=== PATIENT | female | born 1950 | race Caucasian/White ===

== ENCOUNTER 2017-08-22 20:41 | Observation (INO) ==
[2017-08-22 21:39] LABS: Bilirubin,Urine Small (Negative); Blood,Urine Negative (Negative); Clarity,Urine Clear (Clear); Color,Urine Yellow (Yellow); Glucose,Urine (UA) Normal (Normal); Ketones,Urine Negative (Negative); Leukocyte Esterase,Urine Small (Negative); Nitrite,Urine Negative (Negative); Protein,Urine Negative (Neg-Trace); Specific Gravity,Urine 1.024 (1.010-1.025); Urobilinogen,Urine Normal (Normal)
[2017-08-22 21:42] LABS: Bacteria,Urine None Seen per hpf (None-Few); Hyaline Casts,Urine None Seen per lpf (None-Few); Squamous Epithelial Cell,Urine Many per lpf (None-Few)
--- NOTE | 2017-08-22 21:42 | Emergency Department Note ---
Disposition Clinical Impression: Altered mental status Qualifiers: Altered mental status type: unspecified Qualified Code(s): R41.82 - Altered mental status, unspecified Failure to thrive Qualifiers: Failure to thrive age range: in adult Qualified Code(s): R62.7 - Adult failure to thrive Disposition: Admitted As Inpatient Condition: Good General Adult HPI - General Chief complaint: ED Psychiatric Symptoms Stated complaint: 1A Eval Time Seen by Provider: 08/22/17 20:49 Source: patient Mode of arrival: ambulatory Limitations: no limitations Nursing Notes Reviewed: Yes Vital Signs Reviewed: Yes - History of Present Illness HPI Narrative: 67 yo female presents with concerns of possible hallucinations and inability to live safely at home. Pt states she was woken from sleep and saw bodies on an airplane in the room with her. She also noted seeing mannequins in her trailer last week and has locked herself out of her trailer multiple times. Not eating or drinking well due to lack of appetite. hallucination have occurred previously which was apparently secondary to dehydration. Pt states she is unable to provide for herself at home secondary to weakness. Patient and family state that patient is very unsteady on her feet and has fallen multiple times in the past and has difficulty ambulating around her trailer. Pain Scale: 6 - Related Data Home Medications Medication Instructions Recorded Confirmed Alendronate Sodium [Fosamax] 70 mg PO QWEEK 03/04/16 08/23/17 Allopurinol [Zyloprim 100 MG] 100 mg PO DAILY 03/04/16 08/23/17 Calcipotriene [Dovonex] 1 appl TP BID 03/04/16 08/23/17 Carbidopa/Levodopa 25/100 [Sinemet 1 tab PO DAILY 03/04/16 08/23/17 25/100] Clobetasol Propionate 0.05% 1 appl TP BID 03/04/16 08/23/17 [Temovate] Divalproex (24 HR) [Depakote ER 250 mg PO HS 03/04/16 08/23/17 (24 HR)] Ergocalciferol (VITAMIN D2) 50,000 unit PO QWEEK 03/04/16 08/23/17 [Vitamin D2 (50,000 UNIT)] Famotidine [Pepcid] 40 mg PO DAILY 03/04/16 08/23/17 Furosemide [Lasix] 20 mg PO DAILY 03/04/16 08/23/17 Gabapentin [Neurontin] 100 mg PO TID 03/04/16 08/23/17 HYDROcodone/Acet 5/325 mg [[place] 1 tab PO Q6H PRN 03/04/16 08/23/17 5-325 mg] HydrOXYzine Pamoate [Vistaril] 50 mg PO HS 03/04/16 08/23/17 Lisinopril [Zestril] 40 mg PO DAILY 03/04/16 08/23/17 Loperamide [Imodium] 2 mg PO TID PRN 03/04/16 08/23/17 Loratadine [Claritin] 10 mg PO DAILY 03/04/16 08/23/17 Magnesium Oxide [Magnesium] 400 mg PO DAILY 03/04/16 08/23/17 Meloxicam [Mobic] 15 mg PO DAILY 03/04/16 08/23/17 Metoprolol [Lopressor] 50 mg PO BID 03/04/16 08/23/17 Mirtazapine [Remeron] 30 mg PO HS 03/04/16 08/23/17 Potassium Chloride [K-Tab ER] 20 meq PO DAILY 03/04/16 08/23/17 Pravastatin Sodium 10 mg PO DAILY 03/04/16 08/23/17 Venlafaxine XR (24 HR) [Effexor XR] 150 mg PO DAILY 03/04/16 08/23/17 Zolpidem [Ambien] 5 mg PO HS 03/04/16 08/23/17 Allergies Allergy/AdvReac Type Severity Reaction Status Date / Time No Known Allergies Allergy Verified 03/04/16 19:51 All systems ED: reviewed and negative except as stated. Constitutional: Denies: fever, chills, weakness Cardiovascular: Denies: chest pain, palpitations, dyspnea on exertion Respiratory: Denies: cough, dyspnea, wheezes Gastrointestinal: Denies: abdominal pain, nausea, vomiting Musculoskeletal: Reports: back pain (chronic, unchanged) Integumentary: Denies: rash, abrasion Neurological: Denies: headache, weakness, numbness Past Medical History - Past Medical History Attestation: Yes The following information was validated with the patient. Source: patient Medical history: Reports: cardiomyopathy, CHF, COPD, hyperlipidemia, hypertension, TIA Psychiatric history: Reports: no psych history - Social History Smoking Status: Current some day smoker Smokeless Tobacco Status: No Alcohol use: Reports: none Drug use: Reports: none Physical Exam General: Alert and in no acute distress Skin: Warm, dry, intact Head: Normocephalic and atraumatic Neck: Supple, trachea midline and no tenderness Cardiovascular: RRR, no murmur, normal perfusion Respiratory: CTAB, no wheezing, cough, or respiratory distress Musculoskeletal: Normal strength, no tenderness, swelling or deformity GI: Soft, nontender, nondistended. Bowel sounds present Neuro: A&O to person, place, time and situation. No focal deficits noted on exam Psychiatric: cooperative and appropriate mood and affect. - General General appearance: alert, anxious Course Vital Signs Temperature 98.1 F 08/22/17 20:44 Pulse Rate 93 08/22/17 20:44 Respiratory Rate 16 08/22/17 20:44 Blood Pressure 140/103 08/22/17 20:44 O2 Sat by Pulse Oximetry 96 08/22/17 20:44 Temperature 98.1 F 08/23/17 04:08 Pulse Rate 106 08/23/17 04:08 Respiratory Rate 17 08/23/17 04:08 Blood Pressure 130/83 08/23/17 04:08 O2 Sat by Pulse Oximetry 95 08/23/17 04:08 Oxygen Delivery Oxygen Delivery Room Air Medical Decision Making - [facility] Narrative Medical decision making narrative: Patient does not feel comfortable to return home to follow-up with primary care provider. She is unable to ambulate or get out of bed in the emergency department. Patient will be admitted to the hospital for further care and evaluation of her possible hallucinations versus altered mental status and inability to ambulate. - Medical Records Medical records reviewed: Yes I reviewed the patient's medical records. - Lab Data Lab results reviewed: Yes I reviewed the patient's lab results. Result diagrams: 08/22/17 21:43 08/22/17 21:43 Lab Results 08/22/17 08/22/17 08/22/17 Range/Units 21:23 21:23 21:43 WBC 10.8 (4.3-11.1) K/mcL RBC 4.00 (3.82-4.97) M/mcL Hgb 13.1 (11.5-15.4) g/dL Hct 39.6 (35.3-44.9) % MCV 99.0 (83.0-100.0) fL MCH 32.8 (28.0-33.3) pg MCHC 33.1 (31.6-35.5) g/dL RDW 14.2 (11.5-14.5) % Plt Count 257 (140-400) K/mcL MPV 11.2 (9.4-12.4) fL Immature Gran % 0.3 (0-4) % Seg Neutrophils % 84.7 % Lymphocytes % 11.1 % Monocytes % 3.4 % Eosinophils % 0.3 % Basophils % 0.2 % Neutrophils # 9.1 H (1.6-8.9) K/mcL Lymphocytes # 1.2 (0.6-4.6) K/mcL Monocytes # 0.4 (0.0-1.3) K/mcL Eosinophils # 0.0 (0.0-0.6) K/mcL Basophils # 0.0 (0.0-0.2) K/mcL Sodium (136-145) mEq/L Potassium (3.5-4.5) mEq/L Chloride (98-109) mEq/L Carbon Dioxide (19-29) mEq/L BUN (7-20) mg/dL Creatinine (0.57-1.11) mg/dL Est GFR ( Amer) (> 60) Est GFR (Non-Af Amer) (> 60) BUN/Creatinine Ratio (6-26) Glucose (70-99) mg/dL Calculated Osmolality (280-300) Calcium (8.6-10.8) mg/dL Urine Color Yellow (Yellow) Urine Clarity Clear (Clear) Urine pH 6.0 (5.0-8.0) pH Units Ur Specific [place] 1.024 (1.010-1.025) Urine Protein Negative (Neg-Trace) mg/dL Urine Glucose (UA) Normal (Normal) mg/dL Urine Ketones Negative (Negative) mg/dL Urine Blood Negative (Negative) Urine Nitrite Negative (Negative) Urine Bilirubin Small H (Negative) Urine Urobilinogen Normal (Normal) mg/dL Ur Leukocyte Esterase Small H (Negative) Urine Microscopic RBC 3-5 H (0-3) per hpf Urine Microscopic WBC 5-15 H (0-3) per hpf Ur Squamous Epith Cells Many H (None-Few) per lpf Urine Bacteria None Seen (None-Few) per hpf Hyaline Casts None Seen (None-Few) per lpf Salicylates (15-30) mg/dL Urine Opiates Screen Positive H (Wgtvnr=277) ng/mL Acetaminophen (10-30) mcg/mL Ur Barbiturates Screen Negative (Xiuxok=506) ng/mL Ur Phencyclidine Scrn Negative (Cutoff=25) ng/mL Ur Amphetamines Screen Negative (Qwzyoe=9246) ng/mL U Benzodiazepines Scrn Negative (Bxkhns=780) ng/mL Urine Cocaine Screen Negative (Cutoff= 300) ng/mL U Marijuana (THC) Screen Negative (Cutoff = 50) ng/mL Ethyl Alcohol (0-10) mg/dL 08/22/17 Range/Units 21:43 WBC (4.3-11.1) K/mcL RBC (3.82-4.97) M/mcL Hgb (11.5-15.4) g/dL Hct (35.3-44.9) % MCV (83.0-100.0) fL MCH (28.0-33.3) pg MCHC (31.6-35.5) g/dL RDW (11.5-14.5) % Plt Count (140-400) K/mcL MPV (9.4-12.4) fL Immature Gran % (0-4) % Seg Neutrophils % % Lymphocytes % % Monocytes % % Eosinophils % % Basophils % % Neutrophils # (1.6-8.9) K/mcL Lymphocytes # (0.6-4.6) K/mcL Monocytes # (0.0-1.3) K/mcL Eosinophils # (0.0-0.6) K/mcL Basophils # (0.0-0.2) K/mcL Sodium 137 (136-145) mEq/L Potassium 4.4 (3.5-4.5) mEq/L Chloride 100 (98-109) mEq/L Carbon Dioxide 27 (19-29) mEq/L BUN 32 H (7-20) mg/dL Creatinine 0.84 (0.57-1.11) mg/dL Est GFR ( Amer) > 60 (> 60) Est GFR (Non-Af Amer) > 60 (> 60) BUN/Creatinine Ratio 38 H (6-26) Glucose 90 (70-99) mg/dL Calculated Osmolality 290 (280-300) Calcium 9.2 (8.6-10.8) mg/dL Urine Color (Yellow) Urine Clarity (Clear) Urine pH (5.0-8.0) pH Units Ur Specific [place] (1.010-1.025) Urine Protein (Neg-Trace) mg/dL Urine Glucose (UA) (Normal) mg/dL Urine Ketones (Negative) mg/dL Urine Blood (Negative) Urine Nitrite (Negative) Urine Bilirubin (Negative) Urine Urobilinogen (Normal) mg/dL Ur Leukocyte Esterase (Negative) Urine Microscopic RBC (0-3) per hpf Urine Microscopic WBC (0-3) per hpf Ur Squamous Epith Cells (None-Few) per lpf Urine Bacteria (None-Few) per hpf Hyaline Casts (None-Few) per lpf Salicylates < 5.0 L (15-30) mg/dL Urine Opiates Screen (Ztuttf=722) ng/mL Acetaminophen < 1.0 L (10-30) mcg/mL Ur Barbiturates Screen (Xwzdkj=885) ng/mL Ur Phencyclidine Scrn (Cutoff=25) ng/mL Ur Amphetamines Screen (Rjwzta=9959) ng/mL U Benzodiazepines Scrn (Xdauzl=996) ng/mL Urine Cocaine Screen (Cutoff= 300) ng/mL U Marijuana (THC) Screen (Cutoff = 50) ng/mL Ethyl Alcohol < 10 (0-10) mg/dL
[2017-08-22 21:43] LABS: Amphetamine Screen,Urine Negative ng/mL (Cutoff=1000); Barbiturate Screen,Urine Negative ng/mL (Cutoff=200); Benzodiazepines Screen,Urine Negative ng/mL (Cutoff=200); Cannabinoid Screen,Urine Negative ng/mL (Cutoff = 50); Cocaine Screen,Urine Negative ng/mL (Cutoff= 300); Opiate Screen,Urine Positive ng/mL (Cutoff=300); Phencyclidine Screen,Urine Negative ng/mL (Cutoff=25)
[2017-08-22] MEDS ORDERED: 0.9 % Sodium Chloride 1,000 ML IVC ONE (21:45)
[2017-08-22 22:01] LABS: Basophils % 0.2 %; Eosinophils % 0.3 %; Hematocrit 39.6 % (35.3-44.9); Hemoglobin 13.1 g/dL (11.5-15.4); Immature Granulocytes % 0.3 % (0-4); Lymphocytes # 1.2 K/mcL (0.6-4.6); Lymphocytes % 11.1 %; Mean Corpuscular HGB Conc 33.1 g/dL (31.6-35.5); Mean Corpuscular Hemoglobin 32.8 pg (28.0-33.3); Mean Platelet Volume 11.2 fL (9.4-12.4); Monocytes # 0.4 K/mcL (0.0-1.3); Monocytes % 3.4 %; Neutrophils # 9.1 K/mcL (1.6-8.9); Platelet Count 257 K/mcL (140-400); Red Cell Distribution Width 14.2 % (11.5-14.5); Segmented Neutrophils % 84.7 %
[2017-08-22 22:15] LABS: Acetaminophen < 1.0 mcg/mL (10-30); BUN/Creatinine Ratio 38 (6-26); Blood Urea Nitrogen 32 mg/dL (7-20); Calcium 9.2 mg/dL (8.6-10.8); Carbon Dioxide 27 mEq/L (19-29); Chloride 100 mEq/L (98-109); Ethanol < 10 mg/dL (0-10); Glucose 90 mg/dL (70-99); Osmolality,Calculated 290 (280-300); Potassium 4.4 mEq/L (3.5-4.5); Salicylate < 5.0 mg/dL (15-30); Sodium 137 mEq/L (136-145); eGFR For African Americans > 60 (> 60); eGFR For Non-African Americans > 60 (> 60)
[2017-08-23] MEDS ORDERED: Naloxone 0.4 MG/ML INJ IVP PRN (03:52)
[2017-08-23] MEDS ORDERED: *HR* OxyCODONE/APAP 5/325 TABLET PO PRN (03:56)
[2017-08-23] MEDS ORDERED: NON-FORMULARY MEDICATION 1 EACH EACH (Alendronate Sodium [Fosamax] 70 MG) PO SCH (04:00)
--- NOTE | 2017-08-23 04:13 | Internal Med History&Physical ---
Date of Encounter: 08/23/17 Time of Encounter: 02:00 Assessment and Plan (1) Chronic back pain Current visit: Yes Status: Acute Due to compressure fracture of veterbal since 4 yrs ago, pt seen many doctors and was told nonoperatable. Cont pain management. Pt/OT Qualifiers: Back pain location: low back pain Back pain laterality: midline Sciatica presence: without sciatica Qualified Code(s): M54.5 - Low back pain; G89.29 - Other chronic pain; G89.29 - Other chronic pain (2) Restless leg syndrome Current visit: Yes Status: Acute Cont home medication (3) DVT prophylaxis Current visit: No Status: Acute Heparin SC (4) Generalized weakness Current visit: No Status: Chronic Pt need placement as she cannot take care of herself. Will consult PT/OT and social service worker. (5) Hypertension Current visit: Yes Status: Acute cont home meds. Qualifiers: Hypertension type: essential hypertension Qualified Code(s): I10 - Essential (primary) hypertension Internal Medicine - H&P: HPI Chief complaint: General weakness and back pain Admitted From: Home Plans for Post Hospital Care: Transfer [facility] Care History of present illness: Ms. Tong is a 67 year old female with history of hypertension, restless leg syndrome, chronic back pain due to nonoperatible veterbral compression fracture sent to ER by EMS for general weakness and back pain. Pt lives alone and her chronic pain makes her very difficult to take care herself anymore. She decides to call EMS today and need placement. Pt was admitted for placement. Pt denies fever, chest pain, SOB, abd pain, diarrhea, or urinary symptoms. Past Med Surg Social Fam HX - Past Medical History Medical history: cardiomyopathy, CHF, COPD, hyperlipidemia, hypertension, TIA Psychiatric history: no psych history - Social History Smoking Status: Former smoker Smokeless Tobacco Status: No Alcohol use: none Drug use: none - Family History Father Living Status: Hx Family Cardiac Disorders: Yes (cardiomegaly) Brother Living Status: Hx Family Cancer: Yes (leukemia) Sister Hx Family Endocrine Disorder: Yes (DM) Internal Medicine - H&P: Meds Alendronate Sodium [Fosamax] 70 mg PO QWEEK 03/04/16 [History] Allopurinol [Zyloprim 100 MG] 100 mg PO DAILY 03/04/16 [History] Calcipotriene [Dovonex] 1 appl TP BID 03/04/16 [History] Carbidopa/Levodopa 25/100 [Sinemet 25/100] 1 tab PO DAILY 03/04/16 [History] Clobetasol Propionate 0.05% [Temovate] 1 appl TP BID 03/04/16 [History] Divalproex (24 HR) [Depakote ER (24 HR)] 250 mg PO HS 03/04/16 [History] Ergocalciferol (VITAMIN D2) [Vitamin D2 (50,000 UNIT)] 50,000 unit PO QWEEK 11/18 [History] Famotidine [Pepcid] 40 mg PO DAILY 03/04/16 [History] Furosemide [Lasix] 20 mg PO DAILY 03/04/16 [History] Gabapentin [Neurontin] 100 mg PO TID 03/04/16 [History] HYDROcodone/Acet 5/325 mg [[place] 5-325 mg] 1 tab PO Q6H PRN 03/04/16 [History] HydrOXYzine Pamoate [Vistaril] 50 mg PO HS 03/04/16 [History] Lisinopril [Zestril] 40 mg PO DAILY 03/04/16 [History] Loperamide [Imodium] 2 mg PO TID PRN 03/04/16 [History] Loratadine [Claritin] 10 mg PO DAILY 03/04/16 [History] Magnesium Oxide [Magnesium] 400 mg PO DAILY 03/04/16 [History] Meloxicam [Mobic] 15 mg PO DAILY 03/04/16 [History] Metoprolol [Lopressor] 50 mg PO BID 03/04/16 [History] Mirtazapine [Remeron] 30 mg PO HS 03/04/16 [History] Potassium Chloride [K-Tab ER] 20 meq PO DAILY 03/04/16 [History] Pravastatin Sodium 10 mg PO DAILY 03/04/16 [History] Venlafaxine XR (24 HR) [Effexor XR] 150 mg PO DAILY 03/04/16 [History] Zolpidem [Ambien] 5 mg PO HS 03/04/16 [History] 3 Allergy/AdvReac Type Severity Reaction Status Date / Time No Known Allergies Allergy Verified 03/04/16 19:51 All Systems PM: A 10-system review of systems was performed and is negative for pertinent findings except as documented above in the HPI. - Constitutional Vitals: Temp Pulse Resp BP Pulse Ox 98.1 F 106 17 130/83 95 08/23/17 04:08 08/23/17 04:08 08/23/17 04:08 08/23/17 04:08 08/23/17 04:08 General appearance: Present: A&O X 3, no acute distress, answers questions appropriately - Head Head exam: Present: atraumatic, normocephalic - Eye Eye exam: Present: PERRL, conjuntiva pink, sclera anicteric Pupils: Present: PERRL - Neck Neck exam general surgery: Present: supple, trachea midline. Absent: lymphadenopathy - Respiratory Respiratory exam: Present: CTAB. Absent: accessory muscle use, rales, rhonchi, wheezes - Cardiovascular Cardiovascular exam: Present: RRR, +S1, +S2. Absent: diastolic murmur, gallop, rubs, systolic murmur - GI/Abdominal GI/Abdominal exam: Present: normal bowel sounds, soft, no peritoneal signs. Absent: distended, tenderness - Extremities Exam Extremities exam: Present: warm, radial pulses palpable and symmetrical. Absent : calf tenderness, cyanotic, pedal edema - Neurological Exam Neurological exam: Present: CN II-XII intact, oriented X3, no focal deficits. Absent: pronater drift, facial droop, speech deficit - Skin Skin exam: Present: dry, intact Internal Med - H&P Results - Labs CBC & Chem 7: 08/22/17 21:43 08/22/17 21:43
[2017-08-23] MEDS: *HR* Heparin 5,000 UNIT/ML VIAL SQ SCH ×2 (05:57→16:59)
[2017-08-23] MEDS: Loratadine 10 MG TABLET PO SCH (07:45)
[2017-08-23] MEDS: Lisinopril 20 MG TABLET PO SCH (07:46)
[2017-08-23] MEDS: Magnesium Oxide 400 MG TABLET PO SCH (07:46)
[2017-08-23] MEDS: Carbidopa/Levodopa 25/100 TABLET PO SCH (07:46)
[2017-08-23] MEDS: Gabapentin 100 MG CAPSULE PO SCH ×3 (07:46→21:58)
[2017-08-23] MEDS: Venlafaxine XR (24 HR) 150 MG CAP.ER.24H PO SCH (07:46)
[2017-08-23] MEDS: *HR* HYDROcodone/Acet 5/325 mg TABLET PO PRN ×3 (07:46→21:58)
[2017-08-23] MEDS: Famotidine 20 MG TABLET PO SCH (07:46)
[2017-08-23] MEDS: Furosemide 20 MG TABLET PO SCH (07:47)
[2017-08-23] MEDS: CALCIPOTRIENE TP SCH ×2 (07:47→21:51)
[2017-08-23] MEDS: CLOBETASOL PROPIONATE 15 GM TUBE TP SCH ×2 (10:33→21:57)
--- NOTE | 2017-08-23 15:41 | Internal Med Progress Note ---
Date of Encounter: 08/23/17 Time of Encounter: 09:35 - Assessment and plan (1) Chronic back pain Current Visit: Yes Status: Acute Assessment and plan: Chronic back pain due to compression fracture. Onset 4 years ago. Continue pain management. PT/OT evaluations. Multiple physicians have told her that it is inoperable. OT evaluation is in, recommend SNF after discharge. Awaiting PT evaluation. Continue pain medications. Qualifiers: Back pain location: low back pain Back pain laterality: midline Sciatica presence: without sciatica Qualified Code(s): M54.5 - Low back pain; G89.29 - Other chronic pain; G89.29 - Other chronic pain (2) Diastolic CHF Current Visit: Yes Status: Acute Assessment and plan: No acute exacerbation. Chronic. Continue home dose of Lasix. Qualifiers: Congestive heart failure chronicity: chronic Qualified Code(s): I50.32 - Chronic diastolic (congestive) heart failure (3) Generalized weakness Current Visit: Yes Status: Acute Assessment and plan: Patient was brought to the emergency department by EMS for general weakness and chronic back pain. Patient lives alone, chronic pain is making it difficult for her to be able to care for self. She is presented for placement to SNF for rehabilitation. Plan as above. (4) Restless leg syndrome Current Visit: Yes Status: Acute Assessment and plan: Continue home medications. (5) Hypertension Current Visit: Yes Status: Acute Assessment and plan: Blood pressure has been well controlled. Continue home medications. Patient has been mildly hypotensive today. She has not been up and moving around. Pain is well controlled. We will continue to monitor and consider decreasing home medications. Qualifiers: Hypertension type: essential hypertension Qualified Code(s): I10 - Essential (primary) hypertension (6) DVT prophylaxis Current Visit: Yes Status: Acute Assessment and plan: Heparin subcutaneous daily. - Subjective Interval history: She was seen and assessed at 9:35 AM. Patient is very quiet, she has a flat affect. She is alert and oriented and her speech is clear. She reports cough, she was afraid to ask for anything. She says she does not want to bother anyone. She denies any means. She is aware of waiting for placement ECF. She denies nausea, vomiting, diarrhea, abdominal pain, dizziness, vision changes, lightheadedness. - Constitutional Vitals: Temp Pulse Resp BP Pulse Ox 98.1 F 74 16 93/63 95 08/23/17 15:12 08/23/17 15:12 08/23/17 15:12 08/23/17 15:12 08/23/17 15:12 General appearance: Present: A&O X 3, no acute distress, answers questions appropriately Internal Medicine: Result - Labs CBC & Chem 7: 08/22/17 21:43 08/22/17 21:43 Consult Discharge Plan - Plan Referrals: NONE,PCP [Primary Care Provider] -
[2017-08-23] MEDS ORDERED: Mag Hydrox/Al Hydrox/Simeth 30 ML UDC PO PRN (20:41)
[2017-08-23] MEDS: hydrOXYzine pamoate 25 MG CAPSULE PO SCH (21:57)
[2017-08-23] MEDS: Mirtazapine 15 MG TABLET PO SCH (21:57)
[2017-08-23] MEDS: Divalproex (24 HR) 250 MG TABLET PO SCH (21:58)
[2017-08-24 04:44] LABS: Basophils % 0.5 %; Eosinophils # 0.1 K/mcL (0.0-0.6); Eosinophils % 2.3 %; Hematocrit 34.8 % (35.3-44.9); Immature Granulocytes % 0.3 % (0-4); Lymphocytes # 1.7 K/mcL (0.6-4.6); Mean Corpuscular HGB Conc 31.9 g/dL (31.6-35.5); Mean Corpuscular Volume 103.6 fL (83.0-100.0); Mean Platelet Volume 11.7 fL (9.4-12.4); Monocytes # 0.1 K/mcL (0.0-1.3); Monocytes % 2.3 %; Neutrophils # 3.7 K/mcL (1.6-8.9); Platelet Count 208 K/mcL (140-400); Red Blood Count 3.36 M/mcL (3.82-4.97); Red Cell Distribution Width 14.1 % (11.5-14.5); Segmented Neutrophils % 64.6 %
[2017-08-24 04:45] LABS: Hemoglobin 11.1 g/dL (11.5-15.4)
[2017-08-24] MEDS: *HR* Heparin 5,000 UNIT/ML VIAL SQ SCH ×2 (05:53→18:35)
[2017-08-24 06:46] LABS: Potassium 4.7 mEq/L (3.5-4.5)
[2017-08-24] MEDS: Loratadine 10 MG TABLET PO SCH (09:20)
[2017-08-24] MEDS: Furosemide 20 MG TABLET PO SCH (09:20)
[2017-08-24] MEDS: Gabapentin 100 MG CAPSULE PO SCH ×3 (09:20→20:30)
[2017-08-24] MEDS: Magnesium Oxide 400 MG TABLET PO SCH (09:20)
[2017-08-24] MEDS: Venlafaxine XR (24 HR) 150 MG CAP.ER.24H PO SCH (09:20)
[2017-08-24] MEDS: Famotidine 20 MG TABLET PO SCH (09:20)
[2017-08-24] MEDS: Carbidopa/Levodopa 25/100 TABLET PO SCH (09:21)
[2017-08-24] MEDS: Lisinopril 20 MG TABLET PO SCH (09:21)
[2017-08-24] MEDS: CALCIPOTRIENE TP SCH ×2 (09:22→20:38)
[2017-08-24] MEDS: *HR* HYDROcodone/Acet 5/325 mg TABLET PO PRN ×3 (09:24→23:35)
[2017-08-24] MEDS: CLOBETASOL PROPIONATE 15 GM TUBE TP SCH ×2 (09:30→20:37)
--- NOTE | 2017-08-24 15:54 | Internal Med Progress Note ---
Date of Encounter: 08/24/17 Time of Encounter: 09:35 - Assessment and plan (1) Chronic back pain Current Visit: Yes Status: Acute Assessment and plan: Chronic back pain due to compression fracture. Onset 4 years ago. Continue pain management. PT/OT evaluations. Multiple physicians have told her that it is inoperable. OT evaluation is in, recommend SNF after discharge. PT with same recommendation. Awaiting PT evaluation. Continue pain medications. Qualifiers: Back pain location: low back pain Back pain laterality: midline Sciatica presence: without sciatica Qualified Code(s): M54.5 - Low back pain; G89.29 - Other chronic pain; G89.29 - Other chronic pain (2) Diastolic CHF Current Visit: Yes Status: Acute Assessment and plan: No acute exacerbation. Chronic. Continue home dose of Lasix. No peripheral edema, no chest pain, no SOB, no respiratory distress or cough. Qualifiers: Congestive heart failure chronicity: chronic Qualified Code(s): I50.32 - Chronic diastolic (congestive) heart failure (3) Generalized weakness Current Visit: Yes Status: Acute Assessment and plan: Patient was brought to the emergency department by EMS for general weakness and chronic back pain. Patient lives alone, chronic pain is making it difficult for her to be able to care for self. She is presented for placement to SNF for rehabilitation. Plan as above. SW is attempting placement in [place], [place]. (4) Restless leg syndrome Current Visit: Yes Status: Acute Assessment and plan: Continue home medications. (5) Hypertension Current Visit: Yes Status: Acute Assessment and plan: Blood pressure has been well controlled. Continue home medications. Patient has been mildly hypotensive today. She has not been up and moving around. Pain is well controlled. We will continue to monitor and consider decreasing home medications. Qualifiers: Hypertension type: essential hypertension Qualified Code(s): I10 - Essential (primary) hypertension (6) DVT prophylaxis Current Visit: Yes Status: Acute Assessment and plan: Heparin subcutaneous daily. - Time Spent With Patient less than 15 minutes - Subjective Interval history: She was seen and assessed at 9:35 AM. Patient remains very flat, however she is talkative today. She is alert and oriented and her speech is clear. She states that her cough is somewhat better today. She says she does not want to bother anyone. She denies any means. She is aware of waiting for placement ECF. She denies nausea, vomiting, diarrhea, abdominal pain, dizziness, vision changes, lightheadedness. Patient is aware that she is waiting on placement at ECF. - Constitutional Vitals: Temp Pulse Resp BP Pulse Ox 98.0 F 68 17 133/84 96 08/24/17 15:45 08/24/17 15:45 08/24/17 15:45 08/24/17 15:45 08/24/17 15:45 General appearance: Present: cooperative, A&O X 3, pleasant, no acute distress, answers questions appropriately - Head Head exam: Present: atraumatic, normal inspection, normocephalic - Eye Eye exam: Present: normal appearance, conjuntiva pink, sclera anicteric - Neck Neck exam general surgery: Present: supple, trachea midline. Absent: lymphadenopathy, tenderness - Respiratory Respiratory exam: Present: decreased breath sounds, CTAB. Absent: accessory muscle use, rales, respiratory distress, rhonchi, wheezes - Cardiovascular Cardiovascular exam: Present: RRR, +S1, +S2. Absent: diastolic murmur, gallop, rubs, systolic murmur - GI/Abdominal GI/Abdominal exam: Present: normal bowel sounds, soft. Absent: distended, hepatomegaly, tenderness - Extremities Exam Extremities exam: Present: normal capillary refill, normal inspection, warm, radial pulses palpable and symmetrical. Absent: calf tenderness, cyanotic, pedal edema, tenderness - Neurological Exam Neurological exam: Present: alert, oriented X3, no focal deficits. Absent: facial droop, speech deficit - Skin Skin exam: Present: dry, intact, normal color, warm. Absent: rash Internal Medicine: Result - Labs CBC & Chem 7: 08/24/17 04:01 08/24/17 04:01 Labs: Short CBC 08/24/17 Range/Units 04:01 WBC 5.7 (4.3-11.1) K/mcL Hgb 11.1 L D (11.5-15.4) g/dL Hct 34.8 L (35.3-44.9) % Plt Count 208 (140-400) K/mcL Neutrophils # 3.7 (1.6-8.9) K/mcL BMP 08/24/17 04:01 Sodium 139 Potassium 4.7 H Chloride 104 Carbon Dioxide 27 BUN 38 H Creatinine 1.12 H Glucose 109 H Calcium 9.0 Consult Discharge Plan - Plan Referrals: Harman Gordon MD [Partnered Physician] - 08/31/17 2:30 pm NONE,PCP [Primary Care Provider] -
[2017-08-24] MEDS: Mirtazapine 15 MG TABLET PO SCH (20:30)
[2017-08-24] MEDS: Divalproex (24 HR) 250 MG TABLET PO SCH (20:31)
[2017-08-24] MEDS: hydrOXYzine pamoate 25 MG CAPSULE PO SCH (20:32)
[2017-08-25] MEDS: *HR* Heparin 5,000 UNIT/ML VIAL SQ SCH ×2 (06:18→17:26)
[2017-08-25] MEDS: Lisinopril 20 MG TABLET PO SCH (08:23)
[2017-08-25] MEDS: Venlafaxine XR (24 HR) 150 MG CAP.ER.24H PO SCH (08:23)
[2017-08-25] MEDS: Furosemide 20 MG TABLET PO SCH (08:23)
[2017-08-25] MEDS: Gabapentin 100 MG CAPSULE PO SCH ×3 (08:23→21:11)
[2017-08-25] MEDS: Loratadine 10 MG TABLET PO SCH (08:23)
[2017-08-25] MEDS: *HR* HYDROcodone/Acet 5/325 mg TABLET PO PRN ×2 (08:23→15:03)
[2017-08-25] MEDS: Carbidopa/Levodopa 25/100 TABLET PO SCH (08:23)
[2017-08-25] MEDS: Magnesium Oxide 400 MG TABLET PO SCH (08:23)
[2017-08-25] MEDS: Famotidine 20 MG TABLET PO SCH (08:23)
[2017-08-25] MEDS: CLOBETASOL PROPIONATE 15 GM TUBE TP SCH ×2 (08:24→21:14)
[2017-08-25] MEDS: CALCIPOTRIENE TP SCH ×2 (08:24→21:11)
[2017-08-25 09:43] LABS: Basophils % 0.4 %; Eosinophils # 0.3 K/mcL (0.0-0.6); Hematocrit 35.6 % (35.3-44.9); Hemoglobin 11.4 g/dL (11.5-15.4); Immature Granulocytes % 0.1 % (0-4); Lymphocytes # 1.5 K/mcL (0.6-4.6); Lymphocytes % 23.1 %; Mean Corpuscular Hemoglobin 33.3 pg (28.0-33.3); Mean Corpuscular Volume 104.1 fL (83.0-100.0); Mean Platelet Volume 11.1 fL (9.4-12.4); Monocytes # 0.1 K/mcL (0.0-1.3); Monocytes % 1.5 %; Neutrophils # 4.7 K/mcL (1.6-8.9); Platelet Count 207 K/mcL (140-400); Red Blood Count 3.42 M/mcL (3.82-4.97); Segmented Neutrophils % 70.9 %
[2017-08-25 09:46] LABS: BUN/Creatinine Ratio 35 (6-26); Blood Urea Nitrogen 33 mg/dL (7-20); Carbon Dioxide 30 mEq/L (19-29); Chloride 103 mEq/L (98-109); Glucose 114 mg/dL (70-99); Osmolality,Calculated 296 (280-300); Potassium 5.6 mEq/L (3.5-4.5); Sodium 139 mEq/L (136-145); eGFR For African Americans > 60 (> 60); eGFR For Non-African Americans > 60 (> 60)
[2017-08-25] MEDS: Acetaminophen 325 MG TABLET PO PRN ×2 (11:12→17:27)
--- NOTE | 2017-08-25 15:50 | Internal Med Progress Note ---
Date of Encounter: 08/25/17 Time of Encounter: 09:10 - Assessment and plan (1) Chronic back pain Current Visit: Yes Status: Acute Assessment and plan: Chronic back pain due to compression fracture. Onset 4 years. Continue pain management. PT/OT recommended SNF for rehabilitation. Multiple physicians have told her that it is inoperable. OT evaluation is in, recommend SNF after discharge. PT with same recommendation. Pain is well controlled. Awaiting ECF placement for rehabilitation Continue pain medications. Qualifiers: Back pain location: low back pain Back pain laterality: midline Sciatica presence: without sciatica Qualified Code(s): M54.5 - Low back pain; G89.29 - Other chronic pain; G89.29 - Other chronic pain (2) Diastolic CHF Current Visit: Yes Status: Acute Assessment and plan: No acute exacerbation. Chronic. Continue home dose of Lasix. Patient is euvolemic No peripheral edema, no chest pain, no SOB, no respiratory distress or cough. Qualifiers: Congestive heart failure chronicity: chronic Qualified Code(s): I50.32 - Chronic diastolic (congestive) heart failure (3) Generalized weakness Current Visit: Yes Status: Acute Assessment and plan: Patient is awaiting placement to ECF for rehabilitation. Patient has increasing weakness over the last few months due to chronic pain and debility. (4) Restless leg syndrome Current Visit: Yes Status: Acute Assessment and plan: Continue home medications. Patient denies symptoms. (5) Hypertension Current Visit: Yes Status: Acute Assessment and plan: Blood pressure has been well controlled. Continue home medications. Qualifiers: Hypertension type: essential hypertension Qualified Code(s): I10 - Essential (primary) hypertension (6) DVT prophylaxis Current Visit: Yes Status: Acute Assessment and plan: Heparin subcutaneous daily. - Subjective Interval history: She was seen and assessed at 9:10 AM. She is alert and oriented and her speech is clear. She denies any pain. She is aware of waiting for placement ECF and may go tomorrow. She denies nausea, vomiting, diarrhea, abdominal pain, dizziness, vision changes, lightheadedness. - Constitutional Vitals: Temp Pulse Resp BP Pulse Ox 98.1 F 73 16 101/69 91 08/25/17 15:27 08/25/17 15:27 08/25/17 15:27 08/25/17 15:27 08/25/17 15:27 General appearance: Present: cooperative, A&O X 3, pleasant, no acute distress, answers questions appropriately - Head Head exam: Present: atraumatic, normal inspection, normocephalic - Eye Eye exam: Present: normal appearance, conjuntiva pink, sclera anicteric - Neck Neck exam general surgery: Present: supple, trachea midline. Absent: lymphadenopathy - Respiratory Respiratory exam: Present: CTAB. Absent: accessory muscle use, rales, rhonchi, wheezes - Cardiovascular Cardiovascular exam: Present: RRR, +S1, +S2. Absent: diastolic murmur, gallop, rubs, systolic murmur - GI/Abdominal GI/Abdominal exam: Present: normal bowel sounds, soft. Absent: distended, hepatomegaly, tenderness - Extremities Exam Extremities exam: Present: normal inspection, warm, radial pulses palpable and symmetrical. Absent: calf tenderness, cyanotic, pedal edema, tenderness - Neurological Exam Neurological exam: Present: alert, oriented X3, no focal deficits. Absent: facial droop, speech deficit - Skin Skin exam: Present: dry, intact, normal color, warm. Absent: rash Internal Medicine: Result - Labs CBC & Chem 7: 08/25/17 09:26 08/25/17 09:26 Labs: Short CBC 08/25/17 Range/Units 09:26 WBC 6.7 (4.3-11.1) K/mcL Hgb 11.4 L (11.5-15.4) g/dL Hct 35.6 (35.3-44.9) % Plt Count 207 (140-400) K/mcL Neutrophils # 4.7 (1.6-8.9) K/mcL BMP 08/25/17 09:26 Sodium 139 Potassium 5.6 H Chloride 103 Carbon Dioxide 30 H BUN 33 H Creatinine 0.93 Glucose 114 H Calcium 9.0 Consult Discharge Plan - Plan Referrals: Harman Gordon MD [Partnered Physician] - 08/31/17 2:30 pm NONE,PCP [Primary Care Provider] -
[2017-08-25] MEDS: Mirtazapine 15 MG TABLET PO SCH (21:11)
[2017-08-25] MEDS: Divalproex (24 HR) 250 MG TABLET PO SCH (21:11)
[2017-08-25] MEDS: hydrOXYzine pamoate 25 MG CAPSULE PO SCH (21:11)
[2017-08-26 04:43] LABS: Basophils % 0.3 %; Eosinophils # 0.2 K/mcL (0.0-0.6); Hematocrit 33.7 % (35.3-44.9); Hemoglobin 10.6 g/dL (11.5-15.4); Immature Granulocytes % 0.2 % (0-4); Lymphocytes # 1.5 K/mcL (0.6-4.6); Lymphocytes % 22.9 %; Mean Corpuscular HGB Conc 31.5 g/dL (31.6-35.5); Mean Corpuscular Hemoglobin 32.6 pg (28.0-33.3); Mean Corpuscular Volume 103.7 fL (83.0-100.0); Mean Platelet Volume 11.5 fL (9.4-12.4); Monocytes # 0.2 K/mcL (0.0-1.3); Monocytes % 2.8 %; Neutrophils # 4.6 K/mcL (1.6-8.9); Platelet Count 172 K/mcL (140-400); Red Blood Count 3.25 M/mcL (3.82-4.97); Red Cell Distribution Width 13.9 % (11.5-14.5); Segmented Neutrophils % 70.8 %
[2017-08-26 04:57] LABS: BUN/Creatinine Ratio 35 (6-26); Blood Urea Nitrogen 38 mg/dL (7-20); Carbon Dioxide 32 mEq/L (19-29); Chloride 104 mEq/L (98-109); Glucose 98 mg/dL (70-99); Osmolality,Calculated 299 (280-300); Potassium 5.9 mEq/L (3.5-4.5); Sodium 140 mEq/L (136-145); eGFR For African Americans > 60 (> 60); eGFR For Non-African Americans 51 (> 60)
[2017-08-26] MEDS: *HR* Heparin 5,000 UNIT/ML VIAL SQ SCH ×2 (06:08→17:51)
[2017-08-26] MEDS: Furosemide 20 MG TABLET PO SCH (08:13)
[2017-08-26] MEDS: Famotidine 20 MG TABLET PO SCH (08:14)
[2017-08-26] MEDS: Lisinopril 20 MG TABLET PO SCH (08:14)
[2017-08-26] MEDS: Loratadine 10 MG TABLET PO SCH (08:14)
[2017-08-26] MEDS: Magnesium Oxide 400 MG TABLET PO SCH (08:14)
[2017-08-26] MEDS: *HR* HYDROcodone/Acet 5/325 mg TABLET PO PRN ×3 (08:14→22:14)
[2017-08-26] MEDS: Gabapentin 100 MG CAPSULE PO SCH ×3 (08:14→20:39)
[2017-08-26] MEDS: Carbidopa/Levodopa 25/100 TABLET PO SCH (08:14)
[2017-08-26] MEDS: Venlafaxine XR (24 HR) 150 MG CAP.ER.24H PO SCH (08:14)
[2017-08-26] MEDS: CALCIPOTRIENE TP SCH ×2 (08:15→20:42)
[2017-08-26] MEDS: CLOBETASOL PROPIONATE 15 GM TUBE TP SCH ×2 (08:15→20:43)
[2017-08-26] MEDS ORDERED: 0.9 % Sodium Chloride 1,000 ML IVC SCH (08:30)
--- NOTE | 2017-08-26 14:46 | Internal Med Progress Note ---
Date of Encounter: 08/26/17 Time of Encounter: 09:30 - Assessment and plan (1) Chronic back pain Current Visit: Yes Status: Acute Assessment and plan: Chronic back pain due to compression fracture. Onset 4 years. Continue pain management. PT/OT recommended SNF for rehabilitation. Continue PT/OT while admitted. Multiple physicians have told her that it is inoperable. Pain is well controlled. Awaiting ECF placement for rehabilitation Continue pain medications. Qualifiers: Back pain location: low back pain Back pain laterality: midline Sciatica presence: without sciatica Qualified Code(s): M54.5 - Low back pain; G89.29 - Other chronic pain; G89.29 - Other chronic pain (2) Diastolic CHF Current Visit: Yes Status: Acute Assessment and plan: No acute exacerbation. Chronic. Continue home dose of Lasix. Patient is euvolemic No peripheral edema, no chest pain, no SOB, no respiratory distress or cough. Pt is requiring supplemental 02 at her baseline. Qualifiers: Congestive heart failure chronicity: chronic Qualified Code(s): I50.32 - Chronic diastolic (congestive) heart failure (3) Generalized weakness Current Visit: Yes Status: Acute Assessment and plan: Patient is awaiting placement to ECF for rehabilitation. Patient has increasing weakness over the last few months due to chronic pain and debility. Continue PT/OT while inpt. To ECF for continued therapy (4) Restless leg syndrome Current Visit: Yes Status: Acute Assessment and plan: Continue home medications. Patient denies symptoms. (5) Hypertension Current Visit: Yes Status: Acute Assessment and plan: Blood pressure has been well controlled. Continue home medications. Monitor vital signs per admission order. Qualifiers: Hypertension type: essential hypertension Qualified Code(s): I10 - Essential (primary) hypertension (6) DVT prophylaxis Current Visit: Yes Status: Acute Assessment and plan: Heparin subcutaneous daily. (7) Hyperkalemia Current Visit: Yes Status: Acute Assessment and plan: K+ 5.9 today. Verbal for Kayexelate yesterday was not completed. Kayexelate 30gm today. Redraw potassium at 1700. Repeat Kayexelated if necessary. - Time Spent With Patient less than 15 minutes - Subjective Interval history: She was seen and assessed at 9:30 AM. She is alert and oriented and her speech is clear. She denies any pain. She is aware of waiting for placement at [facility] and is aware that they are still waiting on Medicaid approval. She denies nausea, vomiting, diarrhea, abdominal pain, dizziness, vision changes, lightheadedness. She states that she feels better and her mood seems to be improved. - Constitutional Vitals: Temp Pulse Resp BP Pulse Ox 98.2 F 61 17 119/76 97 08/26/17 10:47 08/26/17 10:47 08/26/17 10:47 08/26/17 10:47 08/26/17 10:47 General appearance: Present: cooperative, A&O X 3, pleasant, no acute distress, answers questions appropriately - Head Head exam: Present: atraumatic, normal inspection, normocephalic - Eye Eye exam: Present: normal appearance, conjuntiva pink, sclera anicteric - Neck Neck exam general surgery: Present: supple, trachea midline. Absent: lymphadenopathy, tenderness - Respiratory Respiratory exam: Present: CTAB. Absent: accessory muscle use, chest wall tenderness, rales, rhonchi, wheezes - Cardiovascular Cardiovascular exam: Present: RRR, +S1, +S2. Absent: diastolic murmur, gallop, rubs, systolic murmur - GI/Abdominal GI/Abdominal exam: Present: normal bowel sounds, soft. Absent: distended, tenderness - Extremities Exam Extremities exam: Present: normal inspection, warm, radial pulses palpable and symmetrical. Absent: calf tenderness, cyanotic, pedal edema, tenderness - Neurological Exam Neurological exam: Present: CN II-XII intact, oriented X3, no focal deficits. Absent: pronater drift, facial droop, speech deficit - Skin Skin exam: Present: dry, intact, normal color, warm. Absent: rash Internal Medicine: Result - Labs CBC & Chem 7: 08/26/17 04:05 08/26/17 04:05 Labs: Short CBC 08/26/17 Range/Units 04:05 WBC 6.4 (4.3-11.1) K/mcL Hgb 10.6 L (11.5-15.4) g/dL Hct 33.7 L (35.3-44.9) % Plt Count 172 (140-400) K/mcL Neutrophils # 4.6 (1.6-8.9) K/mcL BMP 08/26/17 04:05 Sodium 140 Potassium 5.9 H Chloride 104 Carbon Dioxide 32 H BUN 38 H Creatinine 1.08 Glucose 98 Calcium 9.0 Consult Discharge Plan - Plan Referrals: Harman Gordon MD [Partnered Physician] - 08/31/17 2:30 pm NONE,PCP [Primary Care Provider] -
--- NOTE | 2017-08-26 18:56 | Internal Med Progress Note ---
Date of Encounter: 08/26/17 Time of Encounter: 09:30 - Assessment and plan (1) Chronic back pain Current Visit: Yes Status: Acute Assessment and plan: Chronic back pain due to compression fracture. Onset 4 years. Continue pain management. PT/OT recommended SNF for rehabilitation. Continue PT/OT while admitted. Multiple physicians have told her that it is inoperable. Pain is well controlled. Awaiting ECF placement for rehabilitation Continue pain medications. Continue PT and OT Qualifiers: Back pain location: low back pain Back pain laterality: midline Sciatica presence: without sciatica Qualified Code(s): M54.5 - Low back pain; G89.29 - Other chronic pain; G89.29 - Other chronic pain (2) Diastolic CHF Current Visit: Yes Status: Acute Assessment and plan: No acute exacerbation. Chronic. Continue home dose of Lasix. Patient is euvolemic No peripheral edema, no chest pain, no SOB, no respiratory distress or cough. Pt is requiring supplemental 02 at her baseline. Qualifiers: Congestive heart failure chronicity: chronic Qualified Code(s): I50.32 - Chronic diastolic (congestive) heart failure (3) Generalized weakness Current Visit: Yes Status: Acute Assessment and plan: Patient is awaiting placement to ECF for rehabilitation. Patient has increasing weakness over the last few months due to chronic pain and debility. Continue PT/OT while inpt. To ECF for continued therapy Awaiting Medicaid approval at [facility] in [facility] (4) Restless leg syndrome Current Visit: Yes Status: Acute Assessment and plan: Continue home medications. Patient denies symptoms. Patient denies pain or need for change in medication. (5) Hypertension Current Visit: Yes Status: Acute Assessment and plan: Blood pressure has been well controlled and patient setting. Continue home medications. Monitor vital signs per admission order. Qualifiers: Hypertension type: essential hypertension Qualified Code(s): I10 - Essential (primary) hypertension (6) DVT prophylaxis Current Visit: Yes Status: Acute Assessment and plan: Heparin subcutaneous daily. Encourage patient to be up at bedside. Encourage patient to be in chair twice a day. (7) Hyperkalemia Current Visit: Yes Status: Acute Assessment and plan: K+ 5.9 today. Verbal for Kayexelate yesterday was not completed. Kayexelate 30gm today. Redraw potassium at 1700, potassium 5.1.. Repeat Kayexelate 15 g. We will reassess in the morning. - Time Spent With Patient less than 15 minutes - Subjective Interval history: She was seen and assessed at 9:30 AM. She is alert and oriented and her speech is clear. She denies any pain. She is aware of waiting for placement at [facility] and is aware that they are still waiting on Medicaid approval. She denies nausea, vomiting, diarrhea, abdominal pain, dizziness, vision changes, lightheadedness. She states that she feels better and her mood seems to be improved. No change from yesterday. - Constitutional Vitals: Temp Pulse Resp BP Pulse Ox 98.1 F 78 16 122/76 96 08/26/17 18:34 08/26/17 18:34 08/26/17 18:34 08/26/17 18:34 08/26/17 18:34 General appearance: Present: cooperative, A&O X 3, pleasant, no acute distress, answers questions appropriately - Head Head exam: Present: atraumatic, normal inspection, normocephalic - Eye Eye exam: Present: normal appearance, conjuntiva pink, sclera anicteric - Neck Neck exam general surgery: Present: supple, trachea midline. Absent: lymphadenopathy - Respiratory Respiratory exam: Present: CTAB. Absent: accessory muscle use, rales, respiratory distress, rhonchi, wheezes - Cardiovascular Cardiovascular exam: Present: RRR, +S1, +S2. Absent: diastolic murmur, gallop, rubs, systolic murmur - GI/Abdominal GI/Abdominal exam: Present: normal bowel sounds, soft, no peritoneal signs. Absent: distended, hepatomegaly, tenderness - Extremities Exam Extremities exam: Present: normal capillary refill, warm, radial pulses palpable and symmetrical. Absent: calf tenderness, cyanotic, pedal edema, tenderness - Neurological Exam Neurological exam: Present: CN II-XII intact, oriented X3, no focal deficits. Absent: facial droop, speech deficit - Skin Skin exam: Present: dry, intact, normal color, warm. Absent: rash Internal Medicine: Result - Labs CBC & Chem 7: 08/26/17 04:05 08/26/17 16:45 Labs: Short CBC 08/26/17 Range/Units 04:05 WBC 6.4 (4.3-11.1) K/mcL Hgb 10.6 L (11.5-15.4) g/dL Hct 33.7 L (35.3-44.9) % Plt Count 172 (140-400) K/mcL Neutrophils # 4.6 (1.6-8.9) K/mcL BMP 08/26/17 08/26/17 04:05 16:45 Sodium 140 Potassium 5.9 H 5.1 H Chloride 104 Carbon Dioxide 32 H BUN 38 H Creatinine 1.08 Glucose 98 Calcium 9.0 Consult Discharge Plan - Plan Referrals: Harman Gordon MD [Partnered Physician] - 08/31/17 2:30 pm NONE,PCP [Primary Care Provider] -
[2017-08-26] MEDS: hydrOXYzine pamoate 25 MG CAPSULE PO SCH (20:39)
[2017-08-26] MEDS: Divalproex (24 HR) 250 MG TABLET PO SCH (20:40)
[2017-08-26] MEDS: Mirtazapine 15 MG TABLET PO SCH (20:41)
[2017-08-27] MEDS: Ipratropium 1 PUFF INHALER IH SCH ×5 (00:33→22:30)
[2017-08-27] MEDS: Beclomethasone 80mcg MDI IH SCH ×3 (00:34→22:30)
[2017-08-27] MEDS: *HR* Heparin 5,000 UNIT/ML VIAL SQ SCH ×2 (05:24→18:52)
[2017-08-27 07:21] LABS: BUN/Creatinine Ratio 32 (6-26); Calcium 8.9 mg/dL (8.6-10.8); Carbon Dioxide 36 mEq/L (19-29); Chloride 99 mEq/L (98-109); Glucose 91 mg/dL (70-99); Osmolality,Calculated 299 (280-300); Potassium 4.7 mEq/L (3.5-4.5); Sodium 142 mEq/L (136-145); eGFR For African Americans > 60 (> 60); eGFR For Non-African Americans > 60 (> 60)
[2017-08-27 07:23] LABS: Blood Urea Nitrogen 27 mg/dL (7-20)
[2017-08-27] MEDS: *HR* HYDROcodone/Acet 5/325 mg TABLET PO PRN ×3 (09:33→20:30)
[2017-08-27] MEDS: Furosemide 20 MG TABLET PO SCH (09:34)
[2017-08-27] MEDS: Famotidine 20 MG TABLET PO SCH (09:34)
[2017-08-27] MEDS: Magnesium Oxide 400 MG TABLET PO SCH (09:35)
[2017-08-27] MEDS: Loratadine 10 MG TABLET PO SCH (09:35)
[2017-08-27] MEDS: Carbidopa/Levodopa 25/100 TABLET PO SCH (09:35)
[2017-08-27] MEDS: Venlafaxine XR (24 HR) 150 MG CAP.ER.24H PO SCH (09:35)
[2017-08-27] MEDS: Lisinopril 20 MG TABLET PO SCH (09:35)
[2017-08-27] MEDS: CALCIPOTRIENE TP SCH ×2 (09:35→22:49)
[2017-08-27] MEDS: Gabapentin 100 MG CAPSULE PO SCH ×3 (09:35→21:27)
[2017-08-27] MEDS: CLOBETASOL PROPIONATE 15 GM TUBE TP SCH ×2 (09:37→21:34)
[2017-08-27] MEDS ORDERED: 0.9 % Sodium Chloride 1,000 ML IVC SCH (12:15)
--- NOTE | 2017-08-27 15:13 | Internal Med Progress Note ---
Date of Encounter: 08/27/17 Time of Encounter: 13:45 - Assessment and plan (1) Chronic back pain Current Visit: Yes Status: Acute Assessment and plan: Chronic back pain due to compression fracture. Onset 4 years. Continue pain management. PT/OT recommended SNF for rehabilitation. Continue PT/OT while admitted. Multiple physicians have told her that it is inoperable. Pain is well controlled. Awaiting ECF placement for rehabilitation Continue pain medications. Continue PT and OT Qualifiers: Back pain location: low back pain Back pain laterality: midline Sciatica presence: without sciatica Qualified Code(s): M54.5 - Low back pain; G89.29 - Other chronic pain; G89.29 - Other chronic pain (2) Diastolic CHF Current Visit: Yes Status: Acute Assessment and plan: No acute exacerbation. Chronic. Continue home dose of Lasix. Patient is euvolemic No peripheral edema, no chest pain, no SOB, no respiratory distress or cough. Pt is requiring supplemental 02 at her baseline use. Qualifiers: Congestive heart failure chronicity: chronic Qualified Code(s): I50.32 - Chronic diastolic (congestive) heart failure (3) Generalized weakness Current Visit: Yes Status: Acute Assessment and plan: Patient is awaiting placement to ECF for rehabilitation. Patient has increasing weakness over the last few months due to chronic pain and debility. Pt states that she feels better today and is requesting to get up to chair and to take a shower. Continue PT/OT while inpt. To ECF for continued therapy Awaiting Medicaid approval at [facility] in [facility] (4) Restless leg syndrome Current Visit: Yes Status: Acute Assessment and plan: Continue home medications. Patient denies symptoms. Patient denies pain or need for change in medication. (5) Hypertension Current Visit: Yes Status: Acute Assessment and plan: Blood pressure has been well controlled and patient setting. Continue home medications. Monitor vital signs per admission order. Qualifiers: Hypertension type: essential hypertension Qualified Code(s): I10 - Essential (primary) hypertension (6) DVT prophylaxis Current Visit: Yes Status: Acute Assessment and plan: Heparin subcutaneous daily. Encourage patient to be up at bedside. Encourage patient to be in chair twice a day. (7) Hyperkalemia Current Visit: Yes Status: Acute Assessment and plan: K+ 4.7. Kayexelate 15gm today. We will reassess in the morning. - Time Spent With Patient less than 15 minutes - Subjective Interval history: She was seen and assessed at 1345. She is alert and oriented and her speech is clear. She denies any pain. She is aware of waiting for placement at [facility] and is aware that they are still waiting on Medicaid approval. Most likely will be here until Tuesday pending approval. She denies nausea, vomiting , diarrhea, abdominal pain, dizziness, vision changes, lightheadedness. She states that she feels better and her mood seems to be improved. No change from yesterday. Today she states that she is ready to get up out of bed and take a shower. - Constitutional Vitals: Temp Pulse Resp BP Pulse Ox 98.2 F 67 14 103/69 96 08/27/17 11:30 08/27/17 11:30 08/27/17 11:30 08/27/17 11:30 08/27/17 11:30 General appearance: Present: cooperative, A&O X 3, pleasant, no acute distress, answers questions appropriately - Head Head exam: Present: atraumatic, normal inspection, normocephalic - Eye Eye exam: Present: normal appearance, conjuntiva pink, sclera anicteric - Neck Neck exam general surgery: Present: supple, trachea midline. Absent: lymphadenopathy - Respiratory Respiratory exam: Present: CTAB. Absent: accessory muscle use, rales, rhonchi, wheezes - Cardiovascular Cardiovascular exam: Present: RRR, +S1, +S2. Absent: diastolic murmur, gallop, rubs, systolic murmur - GI/Abdominal GI/Abdominal exam: Present: normal bowel sounds, soft. Absent: distended, tenderness - Extremities Exam Extremities exam: Present: normal inspection, warm, radial pulses palpable and symmetrical. Absent: calf tenderness, cyanotic, pedal edema, tenderness - Neurological Exam Neurological exam: Present: alert, oriented X3, no focal deficits. Absent: motor sensory deficit, facial droop, speech deficit - Skin Skin exam: Present: dry, intact, normal color, warm. Absent: rash Internal Medicine: Result - Labs CBC & Chem 7: 08/26/17 04:05 08/27/17 06:40 Labs: BMP 08/26/17 08/27/17 16:45 06:40 Sodium 142 Potassium 5.1 H 4.7 H Chloride 99 Carbon Dioxide 36 H BUN 27 H D Creatinine 0.84 Glucose 91 Calcium 8.9 Consult Discharge Plan - Plan Referrals: Harman Gordon MD [Partnered Physician] - 08/31/17 2:30 pm NONE,PCP [Primary Care Provider] -
[2017-08-27] MEDS: Divalproex (24 HR) 250 MG TABLET PO SCH (21:27)
[2017-08-27] MEDS: hydrOXYzine pamoate 25 MG CAPSULE PO SCH (21:27)
[2017-08-27] MEDS: Mirtazapine 15 MG TABLET PO SCH (21:27)
[2017-08-28] MEDS: Ipratropium 1 PUFF INHALER IH SCH ×4 (03:37→22:28)
[2017-08-28] MEDS: *HR* Heparin 5,000 UNIT/ML VIAL SQ SCH ×2 (05:29→17:08)
[2017-08-28] MEDS: Furosemide 20 MG TABLET PO SCH (09:07)
[2017-08-28] MEDS: Venlafaxine XR (24 HR) 150 MG CAP.ER.24H PO SCH (09:07)
[2017-08-28] MEDS: *HR* HYDROcodone/Acet 5/325 mg TABLET PO PRN ×2 (09:07→17:07)
[2017-08-28] MEDS: Carbidopa/Levodopa 25/100 TABLET PO SCH (09:07)
[2017-08-28] MEDS: Gabapentin 100 MG CAPSULE PO SCH ×3 (09:07→21:08)
[2017-08-28] MEDS: Lisinopril 20 MG TABLET PO SCH (09:07)
[2017-08-28] MEDS: Famotidine 20 MG TABLET PO SCH (09:08)
[2017-08-28] MEDS: CALCIPOTRIENE TP SCH ×2 (09:08→20:54)
[2017-08-28] MEDS: Magnesium Oxide 400 MG TABLET PO SCH (09:08)
[2017-08-28] MEDS: Loratadine 10 MG TABLET PO SCH (09:08)
[2017-08-28] MEDS: CLOBETASOL PROPIONATE 15 GM TUBE TP SCH ×2 (09:09→21:11)
[2017-08-28] MEDS: Beclomethasone 80mcg MDI IH SCH ×2 (10:24→22:29)
[2017-08-28] MEDS: Acetaminophen 325 MG TABLET PO PRN (12:28)
[2017-08-28 12:30] LABS: BUN/Creatinine Ratio 25 (6-26); Blood Urea Nitrogen 24 mg/dL (7-20); Calcium 8.3 mg/dL (8.6-10.8); Carbon Dioxide 32 mEq/L (19-29); Chloride 98 mEq/L (98-109); Glucose 118 mg/dL (70-99); Osmolality,Calculated 291 (280-300); Potassium 4.6 mEq/L (3.5-4.5); Sodium 138 mEq/L (136-145); eGFR For African Americans > 60 (> 60); eGFR For Non-African Americans 58 (> 60)
--- NOTE | 2017-08-28 17:18 | Internal Med Progress Note ---
Date of Encounter: 08/28/17 Time of Encounter: 09:45 - Assessment and plan (1) Chronic back pain Current Visit: Yes Status: Acute Assessment and plan: Chronic back pain due to compression fracture. Onset 4 years. Continue pain management. PT/OT recommended SNF for rehabilitation. Continue PT/OT while admitted. Multiple physicians have told her that it is inoperable. Pain is well controlled. She denies pain today. Awaiting ECF placement for rehabilitation Continue pain medications. Continue PT and OT Qualifiers: Back pain location: low back pain Back pain laterality: midline Sciatica presence: without sciatica Qualified Code(s): M54.5 - Low back pain; G89.29 - Other chronic pain; G89.29 - Other chronic pain (2) Diastolic CHF Current Visit: Yes Status: Acute Assessment and plan: No acute exacerbation. Chronic. Continue home dose of Lasix. Patient is euvolemic No peripheral edema, no chest pain, no SOB, no respiratory distress or cough. Pt is requiring supplemental 02 at her baseline use of 2 L by nasal cannula. Qualifiers: Congestive heart failure chronicity: chronic Qualified Code(s): I50.32 - Chronic diastolic (congestive) heart failure (3) Generalized weakness Current Visit: Yes Status: Acute Assessment and plan: Patient is awaiting placement to ECF for rehabilitation. Patient has increasing weakness over the last few months due to chronic pain and debility. Pt states that she feels better today and bakes me to go home. After discussion we determined that she was not strong enough to go home and care for herself and agreed that she would be back in a few days would have to start all over again. She is agreeable to wait it out until tomorrow to see if she gets placed. Continue PT/OT while inpt. To ECF for continued therapy Awaiting Medicaid approval at [facility] in [facility] (4) Restless leg syndrome Current Visit: Yes Status: Acute Assessment and plan: Continue home medications. Patient denies symptoms. Patient denies pain or need for change in medication. (5) Hypertension Current Visit: Yes Status: Acute Assessment and plan: Blood pressure has been well controlled. Continue home medications. Monitor vital signs.. Qualifiers: Hypertension type: essential hypertension Qualified Code(s): I10 - Essential (primary) hypertension (6) DVT prophylaxis Current Visit: Yes Status: Acute Assessment and plan: Heparin subcutaneous daily. Encourage patient to be up at bedside. Encourage patient to be in chair twice a day. (7) Hyperkalemia Current Visit: Yes Status: Acute Assessment and plan: K+ 4.6. Kayexelate 15gm today. We will reassess in the morning. - Subjective Interval history: She was seen and assessed at 10:45 AM. She is alert and oriented and her speech is clear. She denies any pain. She is aware of waiting for placement at [facility] and is aware that they are still waiting on Medicaid approval. Most likely will be here until tomorrow pending approval. She denies nausea, vomiting, diarrhea, abdominal pain, dizziness, vision changes, lightheadedness. Patient is smiling and interactive. No change from yesterday. Today she states that she is ready to get up out of bed and take a shower. She is becoming aggravated with being here and board. I continue to encourage her to get up and ambulate in the hallways with assistance. - Constitutional Vitals: Temp Pulse Resp BP Pulse Ox 99.2 F 68 15 136/70 95 08/28/17 15:40 08/28/17 15:40 08/28/17 15:40 08/28/17 15:40 08/28/17 15:40 General appearance: Present: cooperative, A&O X 3, pleasant, no acute distress, answers questions appropriately - Head Head exam: Present: atraumatic, normal inspection, normocephalic - Eye Eye exam: Present: normal appearance, conjuntiva pink, sclera anicteric - Neck Neck exam general surgery: Present: supple, trachea midline. Absent: lymphadenopathy, tenderness - Respiratory Respiratory exam: Present: CTAB. Absent: accessory muscle use, rales, rhonchi, wheezes - Cardiovascular Cardiovascular exam: Present: RRR, +S1, +S2. Absent: diastolic murmur, gallop, rubs, systolic murmur - GI/Abdominal GI/Abdominal exam: Present: normal bowel sounds, soft. Absent: distended, tenderness - Extremities Exam Extremities exam: Present: warm, radial pulses palpable and symmetrical. Absent : calf tenderness, cyanotic, pedal edema - Neurological Exam Neurological exam: Present: alert, oriented X3, no focal deficits. Absent: facial droop, speech deficit - Skin Skin exam: Present: dry, intact, normal color, warm. Absent: rash Internal Medicine: Result - Labs CBC & Chem 7: 08/26/17 04:05 08/28/17 10:12 Labs: BMP 08/28/17 10:12 Sodium 138 Potassium 4.6 H Chloride 98 Carbon Dioxide 32 H BUN 24 H Creatinine 0.96 Glucose 118 H Calcium 8.3 L Consult Discharge Plan - Plan Referrals: Harman Gordon MD [Partnered Physician] - 08/31/17 2:30 pm NONE,PCP [Primary Care Provider] -
[2017-08-28] MEDS: hydrOXYzine pamoate 25 MG CAPSULE PO SCH (21:08)
[2017-08-28] MEDS: Divalproex (24 HR) 250 MG TABLET PO SCH (21:08)
[2017-08-28] MEDS: Mirtazapine 15 MG TABLET PO SCH (21:09)
[2017-08-29] MEDS: Ipratropium 1 PUFF INHALER IH SCH ×4 (03:11→21:40)
[2017-08-29 04:23] LABS: BUN/Creatinine Ratio 25 (6-26); Blood Urea Nitrogen 27 mg/dL (7-20); Calcium 9.1 mg/dL (8.6-10.8); Carbon Dioxide 37 mEq/L (19-29); Chloride 99 mEq/L (98-109); Glucose 84 mg/dL (70-99); Osmolality,Calculated 294 (280-300); Potassium 4.3 mEq/L (3.5-4.5); Sodium 140 mEq/L (136-145); eGFR For African Americans > 60 (> 60); eGFR For Non-African Americans 50 (> 60)
[2017-08-29] MEDS: *HR* Heparin 5,000 UNIT/ML VIAL SQ SCH ×2 (06:05→16:52)
[2017-08-29] MEDS: Beclomethasone 80mcg MDI IH SCH ×2 (08:05→21:39)
[2017-08-29] MEDS: Furosemide 20 MG TABLET PO SCH (10:39)
[2017-08-29] MEDS: Gabapentin 100 MG CAPSULE PO SCH ×3 (10:39→20:26)
[2017-08-29] MEDS: Carbidopa/Levodopa 25/100 TABLET PO SCH (10:39)
[2017-08-29] MEDS: Venlafaxine XR (24 HR) 150 MG CAP.ER.24H PO SCH (10:39)
[2017-08-29] MEDS: Magnesium Oxide 400 MG TABLET PO SCH (10:40)
[2017-08-29] MEDS: Loratadine 10 MG TABLET PO SCH (10:40)
[2017-08-29] MEDS: Famotidine 20 MG TABLET PO SCH (10:40)
[2017-08-29] MEDS: Lisinopril 20 MG TABLET PO SCH (10:40)
[2017-08-29] MEDS: CLOBETASOL PROPIONATE 15 GM TUBE TP SCH ×2 (10:40→22:34)
[2017-08-29] MEDS: CALCIPOTRIENE TP SCH ×2 (10:41→22:32)
[2017-08-29] MEDS: *HR* HYDROcodone/Acet 5/325 mg TABLET PO PRN ×2 (10:49→20:27)
[2017-08-29] MEDS: Acetaminophen 325 MG TABLET PO PRN (14:34)
--- NOTE | 2017-08-29 18:38 | Internal Med Progress Note ---
Date of Encounter: 08/29/17 Time of Encounter: 16:05 - Assessment and plan (1) Chronic back pain Current Visit: Yes Status: Resolved Assessment and plan: Chronic back pain due to compression fracture. Onset 4 years. Continue pain management. PT/OT recommended SNF for rehabilitation. Continue PT/OT while admitted. Multiple physicians have told her that it is inoperable. Pain is well controlled. She denies pain today. Awaiting ECF placement for rehabilitation Continue pain medications. Continue PT and OT Qualifiers: Back pain location: low back pain Back pain laterality: midline Sciatica presence: without sciatica Qualified Code(s): M54.5 - Low back pain; G89.29 - Other chronic pain; G89.29 - Other chronic pain (2) Diastolic CHF Current Visit: Yes Status: Acute Assessment and plan: No acute exacerbation. Chronic. Continue home dose of Lasix. Patient is euvolemic on physical exam. No peripheral edema, no chest pain, no SOB, no respiratory distress or cough. Pt is requiring supplemental 02 at her baseline use of 2 L by nasal cannula. Qualifiers: Congestive heart failure chronicity: chronic Qualified Code(s): I50.32 - Chronic diastolic (congestive) heart failure (3) Generalized weakness Current Visit: Yes Status: Acute Assessment and plan: Patient is awaiting placement to ECF for rehabilitation. Patient has increasing weakness over the last few months due to chronic pain and debility. Continue PT/OT while inpt. To ECF for continued therapy Awaiting Medicaid approval at [facility] in [place]. (4) Restless leg syndrome Current Visit: Yes Status: Acute Assessment and plan: Continue home medications. Patient denies symptoms. Patient denies pain or need for change in medication. (5) Hypertension Current Visit: Yes Status: Acute Assessment and plan: Blood pressure has been well controlled. Continue home medications. Monitor vital signs.. Qualifiers: Hypertension type: essential hypertension Qualified Code(s): I10 - Essential (primary) hypertension (6) DVT prophylaxis Current Visit: Yes Status: Acute Assessment and plan: Heparin subcutaneous daily. Encourage patient to be up at bedside. Encourage patient to be in chair twice a day. (7) Hyperkalemia Current Visit: Yes Status: Resolved Assessment and plan: Potassium has returned to baseline. Continue to monitor. - Time Spent With Patient less than 15 minutes - Subjective Interval history: She was seen and assessed at 1605 AM. She is alert and oriented and her speech is clear. She denies any pain. She is aware of waiting for placement at [facility] and is aware that they are still waiting on Medicaid approval. She denies nausea, vomiting, diarrhea, abdominal pain, dizziness, vision changes, lightheadedness. Patient is smiling and interactive. Patient reports that today she has been ambulatory in the hallways and has been up and room. Son visiting today. - Constitutional Vitals: Temp Pulse Resp BP Pulse Ox 98.3 F 70 16 118/76 96 08/29/17 14:59 08/29/17 14:59 08/29/17 15:22 08/29/17 14:59 08/29/17 15:22 General appearance: Present: cooperative, A&O X 3, pleasant, no acute distress, answers questions appropriately - Head Head exam: Present: atraumatic, normal inspection, normocephalic - Eye Eye exam: Present: conjuntiva pink, sclera anicteric - Neck Neck exam general surgery: Present: supple, trachea midline. Absent: lymphadenopathy - Respiratory Respiratory exam: Present: CTAB. Absent: accessory muscle use, rales, rhonchi, wheezes - Cardiovascular Cardiovascular exam: Present: RRR, +S1, +S2. Absent: diastolic murmur, gallop, rubs, systolic murmur - GI/Abdominal GI/Abdominal exam: Present: normal bowel sounds, soft. Absent: distended, hepatomegaly, tenderness - Extremities Exam Extremities exam: Present: warm, radial pulses palpable and symmetrical. Absent : calf tenderness, cyanotic, pedal edema - Neurological Exam Neurological exam: Present: alert, oriented X3, no focal deficits. Absent: altered, facial droop, speech deficit - Skin Skin exam: Present: dry, intact, normal color, warm. Absent: rash Internal Medicine: Result - Labs CBC & Chem 7: 08/26/17 04:05 08/29/17 03:34 Labs: BMP 08/29/17 03:34 Sodium 140 Potassium 4.3 Chloride 99 Carbon Dioxide 37 H BUN 27 H Creatinine 1.09 Glucose 84 Calcium 9.1 Consult Discharge Plan - Plan Referrals: Harman Gordon MD [Partnered Physician] - 08/31/17 2:30 pm NONE,PCP [Primary Care Provider] -
[2017-08-29] MEDS: hydrOXYzine pamoate 25 MG CAPSULE PO SCH (20:26)
[2017-08-29] MEDS: Mirtazapine 15 MG TABLET PO SCH (20:27)
[2017-08-29] MEDS: Divalproex (24 HR) 250 MG TABLET PO SCH (20:27)
[2017-08-30] MEDS: Ipratropium 1 PUFF INHALER IH SCH ×3 (03:38→16:33)
[2017-08-30] MEDS: *HR* Heparin 5,000 UNIT/ML VIAL SQ SCH (04:59)
[2017-08-30] MEDS: Acetaminophen 325 MG TABLET PO PRN (07:05)
[2017-08-30] MEDS: Loratadine 10 MG TABLET PO SCH (08:31)
[2017-08-30] MEDS: Furosemide 20 MG TABLET PO SCH (08:31)
[2017-08-30] MEDS: Magnesium Oxide 400 MG TABLET PO SCH (08:31)
[2017-08-30] MEDS: Famotidine 20 MG TABLET PO SCH (08:31)
[2017-08-30] MEDS: Gabapentin 100 MG CAPSULE PO SCH ×2 (08:31→14:26)
[2017-08-30] MEDS: Lisinopril 20 MG TABLET PO SCH (08:31)
[2017-08-30] MEDS: Carbidopa/Levodopa 25/100 TABLET PO SCH (08:32)
[2017-08-30] MEDS: Venlafaxine XR (24 HR) 150 MG CAP.ER.24H PO SCH (08:32)
[2017-08-30] MEDS: CLOBETASOL PROPIONATE 15 GM TUBE TP SCH (08:33)
[2017-08-30] MEDS: CALCIPOTRIENE TP SCH (08:33)
[2017-08-30] MEDS: Beclomethasone 80mcg MDI IH SCH (10:34)
[2017-08-30] MEDS: *HR* HYDROcodone/Acet 5/325 mg TABLET PO PRN (14:30)
[2017-08-30 15:54] VITALS: BP 98/64
--- NOTE | 2017-08-30 15:59 | Discharge Summary ---
Date of Encounter: 08/30/17 Time of Encounter: 15:56 - Discharge Diagnosis (1) Chronic back pain Priority: Primary Status: Resolved Comments: has known compression fractures. Initially evaluated in neurosurgery who noted not a surgical candidate. PT/OT recommended a SNF. Continue pain control. Qualifiers: Back pain location: low back pain Back pain laterality: midline Sciatica presence: without sciatica Qualified Code(s): M54.5 - Low back pain; G89.29 - Other chronic pain; G89.29 - Other chronic pain (2) Diastolic CHF Priority: Primary Status: Chronic Comments: No acute exacerbation. Chronic. Continue home dose of Lasix. Patient is euvolemic on physical exam. No peripheral edema, no chest pain, no SOB, no respiratory distress or cough. Pt is requiring supplemental 02 at her baseline use of 2 L by nasal cannula Qualifiers: Congestive heart failure chronicity: chronic Qualified Code(s): I50.32 - Chronic diastolic (congestive) heart failure (3) Generalized weakness Priority: Primary Status: Chronic Comments: Patient is awaiting placement to [facility] for rehabilitation. Patient has increasing weakness over the last few months due to chronic pain and debility. SNF at discharge. (4) Hypertension Priority: Primary Status: Acute Comments: Per history. BP controlled. Continue home BP medications. Qualifiers: Hypertension type: essential hypertension Qualified Code(s): I10 - Essential (primary) hypertension (5) Restless leg syndrome Priority: Primary Status: Acute Comments: Per history. Chronic, stable. Continue home medication regimen. - Discharge Medications Prescriptions: Gabapentin [Neurontin] 100 mg PO TID #21 capsule HYDROcodone/Acet 5/325 mg [[place] 5-325 mg] 1 tab PO Q6H PRN #28 tablet PRN Reason: Pain Home Medications: Alendronate Sodium [Fosamax] 70 mg PO QWEEK 03/04/16 [History] Allopurinol [Zyloprim 100 MG] 100 mg PO DAILY 03/04/16 [History] Calcipotriene [Dovonex] 1 appl TP BID 03/04/16 [History] Carbidopa/Levodopa 25/100 [Sinemet 25/100] 1 tab PO DAILY 03/04/16 [History] Clobetasol Propionate 0.05% [Temovate] 1 appl TP BID 03/04/16 [History] Divalproex (24 HR) [Depakote ER (24 HR)] 250 mg PO HS 03/04/16 [History] Ergocalciferol (VITAMIN D2) [Vitamin D2 (50,000 UNIT)] 50,000 unit PO QWEEK 11/18 [History] Famotidine [Pepcid] 40 mg PO DAILY 03/04/16 [History] Furosemide [Lasix] 20 mg PO DAILY 03/04/16 [History] HydrOXYzine Pamoate [Vistaril] 50 mg PO HS 03/04/16 [History] Lisinopril [Zestril] 40 mg PO DAILY 03/04/16 [History] Loperamide [Imodium] 2 mg PO TID PRN 03/04/16 [History] Loratadine [Claritin] 10 mg PO DAILY 03/04/16 [History] Magnesium Oxide [Magnesium] 400 mg PO DAILY 03/04/16 [History] Meloxicam [Mobic] 15 mg PO DAILY 03/04/16 [History] Metoprolol [Lopressor] 50 mg PO BID 03/04/16 [History] Mirtazapine [Remeron] 30 mg PO HS 03/04/16 [History] Potassium Chloride [K-Tab ER] 20 meq PO DAILY 03/04/16 [History] Pravastatin Sodium 10 mg PO DAILY 03/04/16 [History] Venlafaxine XR (24 HR) [Effexor Xr] 150 mg PO DAILY 03/04/16 [History] Zolpidem [Ambien] 5 mg PO HS 03/04/16 [History] Beclomethasone Diprop 80mcg [QVAR 80 mcg] 1 puff IH BID 08/23/17 [History] Dicyclomine [Bentyl] 10 mg PO QID 08/23/17 [History] Ipratropium/Albuterol Sulfate [Combivent Respimat Inhal [place]] 2 puff IH QID [History] Methotrexate [Otrexup] 15 mg PO QWEEK 08/23/17 [History] Gabapentin [Neurontin] 100 mg PO TID #21 capsule 08/30/17 [Rx] HYDROcodone/Acet 5/325 mg [[place] 5-325 mg] 1 tab PO Q6H PRN #28 tablet 08/30/17 [Rx] Allergies/Adverse Reactions: 3 Allergy/AdvReac Type Severity Reaction Status Date / Time No Known Allergies Allergy Verified 03/04/16 19:51 Date of admission: 08/23/17 02:34 Primary care physician: PCP NONE Consults: 08/23/17 03:55 Consult to Occupational Therapy [CONS] Routine Comment: Evaluate, develop and implement POC Reason for Consult: Weakness Consult to Physical Therapy [CONS] Routine Comment: Evaluate, develop and implement POC Reason for Consult: Weakness Consult to Brand Strategist [CONS] Routine Reason for SW Consult: Placement, cannot take care of herself Discharging clinician: Cely Kothari Anticipated date of discharge: 08/30/17 - Patient Status Disposition: Transfer SNF Condition: Fair Functional capacity at discharge: uses cane/walker Overall status at discharge: patient is progressing back to baseline - Discharge Instructions Follow Up With: Harman Gordon MD [Partnered Physician] - 08/31/17 2:30 pm NONE,PCP [Primary Care Provider] - - Diet and Activity Activity: as per physical therapy Interval History: Seen and examined at bedside. Patient is new to me; information obtained from chart review and patient report. Patient says she feels about the same, has chronic back pain but nothing new from her baseline. She is aware plan discharge to SNF today. No other complaints besides back pain. No chest pain, no SOB - Time Spent with Patient Total time spent providing and/or coordinating discharge services: Less than 30 minutes - Constitutional Vitals: Temp Pulse Resp BP Pulse Ox 98.0 F 65 16 98/64 94 08/30/17 15:51 08/30/17 15:51 08/30/17 15:51 08/30/17 15:51 08/30/17 15:51 General appearance: Present: cooperative, A&O X 3, pleasant, no acute distress, answers questions appropriately - Head Head exam: Present: atraumatic, normocephalic - Eye Eye exam: Present: PERRL, conjuntiva pink, sclera anicteric Pupils: Present: PERRL - Neck Neck exam general surgery: Present: supple, trachea midline. Absent: lymphadenopathy - Respiratory Respiratory exam: Present: CTAB. Absent: accessory muscle use, rales, rhonchi, wheezes - Cardiovascular Cardiovascular exam: Present: RRR, +S1, +S2. Absent: diastolic murmur, gallop, rubs, systolic murmur - GI/Abdominal GI/Abdominal exam: Present: normal bowel sounds, soft, no peritoneal signs. Absent: distended, tenderness - Extremities Exam Extremities exam: Present: warm, radial pulses palpable and symmetrical. Absent : calf tenderness, cyanotic, pedal edema - Neurological Exam Neurological exam: Present: CN II-XII intact, oriented X3, no focal deficits. Absent: pronater drift, facial droop, speech deficit - Skin Skin exam: Present: dry, intact
--- NOTE | 2017-08-30 16:10 | Physician Discharge Referral ---
ExtendedCare Referral Info Transfer To: [facility] Provider in Charge: Cely Kothari CNP Provider in Charge after Transfer: PCP Institutional Level of Care: Skilled - Diagnosis (1) Chronic back pain Status: Resolved (2) Diastolic CHF Status: Chronic (3) Generalized weakness Status: Chronic (4) Hypertension Status: Acute (5) Restless leg syndrome Status: Acute - Transfer Medications Prescriptions: Gabapentin [Neurontin] 100 mg PO TID #21 capsule HYDROcodone/Acet 5/325 mg [[place] 5-325 mg] 1 tab PO Q6H PRN #28 tablet PRN Reason: Pain Home Medications: Alendronate Sodium [Fosamax] 70 mg PO QWEEK 03/04/16 [History] Allopurinol [Zyloprim 100 MG] 100 mg PO DAILY 03/04/16 [History] Calcipotriene [Dovonex] 1 appl TP BID 03/04/16 [History] Carbidopa/Levodopa 25/100 [Sinemet 25/100] 1 tab PO DAILY 03/04/16 [History] Clobetasol Propionate 0.05% [Temovate] 1 appl TP BID 03/04/16 [History] Divalproex (24 HR) [Depakote ER (24 HR)] 250 mg PO HS 03/04/16 [History] Ergocalciferol (VITAMIN D2) [Vitamin D2 (50,000 UNIT)] 50,000 unit PO QWEEK 11/18 [History] Famotidine [Pepcid] 40 mg PO DAILY 03/04/16 [History] Furosemide [Lasix] 20 mg PO DAILY 03/04/16 [History] HydrOXYzine Pamoate [Vistaril] 50 mg PO HS 03/04/16 [History] Lisinopril [Zestril] 40 mg PO DAILY 03/04/16 [History] Loperamide [Imodium] 2 mg PO TID PRN 03/04/16 [History] Loratadine [Claritin] 10 mg PO DAILY 03/04/16 [History] Magnesium Oxide [Magnesium] 400 mg PO DAILY 03/04/16 [History] Meloxicam [Mobic] 15 mg PO DAILY 03/04/16 [History] Metoprolol [Lopressor] 50 mg PO BID 03/04/16 [History] Mirtazapine [Remeron] 30 mg PO HS 03/04/16 [History] Potassium Chloride [K-Tab ER] 20 meq PO DAILY 03/04/16 [History] Pravastatin Sodium 10 mg PO DAILY 03/04/16 [History] Venlafaxine XR (24 HR) [Effexor Xr] 150 mg PO DAILY 03/04/16 [History] Zolpidem [Ambien] 5 mg PO HS 03/04/16 [History] Beclomethasone Diprop 80mcg [QVAR 80 mcg] 1 puff IH BID 08/23/17 [History] Dicyclomine [Bentyl] 10 mg PO QID 08/23/17 [History] Ipratropium/Albuterol Sulfate [Combivent Respimat Inhal [place]] 2 puff IH QID [History] Methotrexate [Otrexup] 15 mg PO QWEEK 08/23/17 [History] Gabapentin [Neurontin] 100 mg PO TID #21 capsule 08/30/17 [Rx] HYDROcodone/Acet 5/325 mg [[place] 5-325 mg] 1 tab PO Q6H PRN #28 tablet 08/30/17 [Rx] Allergies/Adverse Reactions: 3 Allergy/AdvReac Type Severity Reaction Status Date / Time No Known Allergies Allergy Verified 03/04/16 19:51 - Respiratory Orders Oxygen / L per min (2) Smoking Cessation: Smoking cessation has been advised. For more information, call the [place] Tobacco Quit Line at 6-670-JURT-NOW. - Advance Directives Code Status: Full Code - Mobility Orders Ambulate - Rehabiliation Orders Rehab Potential: Fair Rehab Orders: Evaluation for Physical Therapy, Evaluation for Occupational Therapy - Diet Orders Regular CERTIFICATION: I certify that the transfer of the above named patient to an Extended Care Facility is necessary for the continuing treatment of the diagnosis listed. The above information is true and accurate reflection of patient's current condition. Confidential - Redisclosure prohibited without a patient's written consent.
== END 2017-08-30 18:05 ==
LOC: EMEROO 20:41 → 3BNU 20:41
PROVIDERS: ADMIT Internal Medicine; ATTEND Registered Nurse

== ENCOUNTER 2017-11-08 14:08 | Inpatient (IN) ==
[2017-11-08 14:36] LABS: Basophils % 0.4 %; Eosinophils # 0.1 K/mcL (0.0-0.6); Eosinophils % 2.6 %; Hematocrit 31.3 % (35.3-44.9); Hemoglobin 9.9 g/dL (11.5-15.4); Immature Granulocytes % 0.4 % (0-4); Lymphocytes # 1.1 K/mcL (0.6-4.6); Lymphocytes % 24.2 %; Mean Corpuscular HGB Conc 31.6 g/dL (31.6-35.5); Mean Corpuscular Hemoglobin 31.7 pg (28.0-33.3); Mean Corpuscular Volume 100.3 fL (83.0-100.0); Mean Platelet Volume 11.6 fL (9.4-12.4); Monocytes # 0.6 K/mcL (0.0-1.3); Monocytes % 12.7 %; Neutrophils # 2.8 K/mcL (1.6-8.9); Platelet Count 135 K/mcL (140-400); Red Blood Count 3.12 M/mcL (3.82-4.97); Red Cell Distribution Width 14.6 % (11.5-14.5); Segmented Neutrophils % 59.7 %
--- NOTE | 2017-11-08 14:39 | Emergency Department Note ---
Disposition Clinical Impression: Hyperkalemia, CORDELIA (acute kidney injury) Pneumonia Qualifiers: Pneumonia type: due to unspecified organism Laterality: right Lung location: unspecified part of lung Qualified Code(s): J18.9 - Pneumonia, unspecified organism Disposition: Admitted As Inpatient Condition: Good Forms: ED Satisfaction Letter Time of Disposition: 16:21 General Adult HPI - General Chief complaint: ED Recheck/Abnormal Lab/Rx Stated complaint: K 6.1 Time Seen by Provider: 11/08/17 14:12 Source: patient, EMS Limitations: no limitations Nursing Notes Reviewed: Yes Vital Signs Reviewed: Yes - History of Present Illness HPI Narrative: Patient is a 67-year-old female presents to the emergency department for an elevated potassium. She states that she had had blood drawn yesterday and received a call stating that she should go to the emergency Department due to having an elevated potassium of 6.1. Patient states that she is not currently having any symptoms other than being tired. She states that yesterday she had some intermittent chest pain but is not actively having any chest pain and has not had any chest pain today. They state that she has had some cramping in her legs intermittently but is not at this time. Patient denies seeing a director mobile media solutions or being on dialysis. Pain Scale: 6 - Related Data Home Medications Medication Instructions Recorded Confirmed Allopurinol [Zyloprim 100 MG] 100 mg PO DAILY 03/04/16 11/08/17 Ergocalciferol (VITAMIN D2) 50,000 unit PO TU 03/04/16 11/08/17 [Vitamin D2 (50,000 UNIT)] Famotidine [Pepcid] 40 mg PO DAILY 03/04/16 11/08/17 HydrOXYzine Pamoate [Vistaril] 50 mg PO HS 03/04/16 11/08/17 Magnesium Oxide [Magnesium] 400 mg PO DAILY 03/04/16 11/08/17 Meloxicam [Mobic] 15 mg PO DAILY 03/04/16 11/08/17 Pravastatin Sodium 10 mg PO HS 03/04/16 11/08/17 Venlafaxine XR (24 HR) [Effexor Xr] 150 mg PO DAILY 03/04/16 11/08/17 Beclomethasone Diprop 80mcg [QVAR 1 puff IH BID 08/23/17 11/08/17 80 mcg] Dicyclomine [Bentyl] 10 mg PO QID 08/23/17 11/08/17 Ipratropium/Albuterol Sulfate 1 puff IH QID 08/23/17 11/08/17 [Combivent Respimat Inhal [place]] Methotrexate [Otrexup] 15 mg PO MO 08/23/17 11/08/17 Acetaminophen [Tylenol] 650 mg PO Q4H PRN 11/08/17 11/08/17 Bisacodyl [Dulcolax] 10 mg RC DAILY PRN 11/08/17 11/08/17 Buspirone HCl [Buspar] 15 mg PO BID 11/08/17 11/08/17 Divalproex (24 HR) [Depakote ER 500 mg PO HS 11/08/17 11/08/17 (24 HR)] Folic Acid 1 mg PO DAILY 11/08/17 11/08/17 Guaifenesin [Cough Syrup] 100 mg PO Q4H PRN 11/08/17 11/08/17 HYDROcodone/Acet 5/325 mg [[place] 2 tab PO Q6H PRN 11/08/17 11/08/17 5-325 mg] MOM Conc [Milk of Magnesia Conc] 30 ml PO DAILY PRN 11/08/17 11/08/17 Mag Hydrox/Al Hydrox/Simeth 30 ml PO Q4H PRN 11/08/17 11/08/17 [Antacid Suspension] Metoprolol [Lopressor] 25 mg PO BID 11/08/17 11/08/17 Mirtazapine [Remeron] 30 mg PO HS 11/08/17 11/08/17 Na Phos,M-B/Na Phos,Di-Ba [Fleet 118 ml RC DAILY PRN 11/08/17 11/08/17 Enema Extra] Quetiapine Fumarate [SEROquel] 25 mg PO DAILY 11/08/17 11/08/17 Quetiapine Fumarate [SEROquel] 300 mg PO HS 11/08/17 11/08/17 Quetiapine Fumarate [Seroquel] 50 mg PO DAILY 11/08/17 11/08/17 Allergies Allergy/AdvReac Type Severity Reaction Status Date / Time No Known Allergies Allergy Verified 03/04/16 19:51 All systems ED: reviewed and negative except as stated. Constitutional: Reports: other (Patient feels tired) Cardiovascular: Reports: chest pain Musculoskeletal: Reports: other (Angel cramps) Past Medical History - Past Medical History Medical history: Reports: cardiomyopathy, CHF, COPD, hyperlipidemia, hypertension, TIA Psychiatric history: Reports: no psych history - Social History Smoking Status: Former smoker Smokeless Tobacco Status: No Alcohol use: Reports: none Drug use: Reports: none Physical Exam - General Limitations: no limitations General appearance: alert, in no apparent distress - Head Head exam: atraumatic, normocephalic - Eye Eye exam: Present: normal appearance, EOMI - Neck Neck exam: Present: normal inspection, full ROM, trachea midline - Respiratory Respiratory exam: Present: normal lung sounds bilaterally. Absent: respiratory distress, wheezes - Cardiovascular Cardiovascular exam: Present: regular rate, normal rhythm, normal heart sounds, +S1, +S2 - Abdominal Exam Abdominal exam: Present: soft, Non-Tender, normal bowel sounds - Neurological Exam Neurological exam: Present: alert, oriented X3 - Psychiatric Psychiatric exam: Present: normal affect, normal mood - Skin Skin exam: Present: warm, dry, intact Course Vital Signs Temperature 99.4 F 11/08/17 14:10 Pulse Rate 68 11/08/17 14:10 Respiratory Rate 18 11/08/17 14:10 Blood Pressure 114/68 11/08/17 14:10 O2 Sat by Pulse Oximetry 94 11/08/17 14:10 Temperature 99.4 F 11/08/17 14:10 Pulse Rate 59 11/08/17 16:17 Respiratory Rate 18 11/08/17 16:17 Blood Pressure 120/77 11/08/17 16:17 O2 Sat by Pulse Oximetry 95 11/08/17 16:17 Oxygen Delivery Oxygen Delivery Nasal Cannula Medical Decision Making - [facility] Narrative Medical decision making narrative: The patient presenting with a reported elevated potassium and stating that she had intermittent chest pain yesterday we will obtain a CBC, BMP, troponin, chest x-ray and EKG. Patient's chest x-ray showed a possible right-sided pneumonia so we will treat this as HCAP due to the patient being a intermediate resident. Patient will be given cefepime, Levaquin and vancomycin that has been renally dosed. Patient also had an elevated potassium of 5.8. The patient had an acute kidney injury with an elevated creatinine of 1.65. I called and spoke with . He did not feel that Kayexalate was necessary at this time he agreed to consult on the patient in the hospital. I called and spoke with the hospitalist and they have accepted the patient to their service. The patient will be admitted to the hospital for further evaluation and management. - Medical Records Medical records reviewed: Yes I reviewed the patient's medical records. - Lab Data Lab results reviewed: Yes I reviewed the patient's lab results. Result diagrams: 11/08/17 14:24 11/08/17 14:24 Lab Results 11/08/17 11/08/17 11/08/17 Range/Units 14:24 14:24 14:24 WBC 4.6 (4.3-11.1) K/mcL RBC 3.12 L (3.82-4.97) M/mcL Hgb 9.9 L (11.5-15.4) g/dL Hct 31.3 L (35.3-44.9) % MCV 100.3 H (83.0-100.0) fL MCH 31.7 (28.0-33.3) pg MCHC 31.6 (31.6-35.5) g/dL RDW 14.6 H (11.5-14.5) % Plt Count 135 L (140-400) K/mcL MPV 11.6 (9.4-12.4) fL Immature Gran % 0.4 (0-4) % Seg Neutrophils % 59.7 % Lymphocytes % 24.2 % Monocytes % 12.7 % Eosinophils % 2.6 % Basophils % 0.4 % Neutrophils # 2.8 (1.6-8.9) K/mcL Lymphocytes # 1.1 (0.6-4.6) K/mcL Monocytes # 0.6 (0.0-1.3) K/mcL Eosinophils # 0.1 (0.0-0.6) K/mcL Basophils # 0.0 (0.0-0.2) K/mcL Sodium 134 L (136-145) mEq/L Potassium 5.8 H (3.5-5.1) mEq/L Chloride 101 (98-107) mEq/L Carbon Dioxide 28 (23-29) mEq/L BUN 32 H (8-23) mg/dL Creatinine 1.65 H (0.60-1.20) mg/dL Est GFR ( Amer) 38 L (> 60) Est GFR (Non-Af Amer) 31 L (> 60) BUN/Creatinine Ratio 19 (6-26) Glucose 115 H (70-105) mg/dL Calculated Osmolality 286 (280-300) Calcium 8.2 L (8.6-10.3) mg/dL Troponin I < 0.03 (< 0.04) ng/mL - Radiology Data Radiology results reviewed: Yes I reviewed the patient's radiology results. Chest X-Ray 11/08/17 14:21 IMPRESSION: Multifocal airspace opacities in the right lung that may represent a multifocal right lung pneumonia. Recommend follow-up to resolution and correlation with clinical symptoms to exclude underlying pulmonary nodules/masses. Findings suggesting a large hiatal hernia. Stable cardiomegaly. D/ / Dave Chadwick MD / Dave Chadwick MD Interpreting Provider: Dave Chadwick MD - EKG Data EKG #1 EKG attestation: Yes I reviewed and interpreted this EKG. EKG results narrative: EKG showed a sinus rhythm at a rate of 65 bpm, NM interval of 145, QRS duration of 82, QTC of 365. There is no STEMI noted on EKG. There is a nonspecific T wave abnormalities but there are no hyperacute T waves. Attestation Statement - Attestation Attestation: I, Mike Corado DO, examined this patient [id number] and my medical decision-making was reviewed with (Dr. Guido Delatorre, Resident Physician. I agree with the documented findings, disposition and treatment plan as described except to the extent set forth below. Please see my progress notes for details. 67-year-old female presents to the emergency room for complaint of abnormal labs. Patient is a resident of an outside nursing facility. She had labs drawn yesterday. There is no acute reason for the labs to be drawn. Patient found to have a potassium of 6.1. At that point it was determined that the patient and to come out to the emergency room for evaluation. Patient no other complaints or issues on arrival. Repeat labs order this time along with EKG. EKG did not show any acute interval abnormalities or peak T waves. Patient is asymptomatic. No acute intervention will be started at this time. Patient had repeat labs completed and showed potassium of 5.8. Patient was discussed with the on-call director mobile media [employer]. They recommended admission with no other acute management changes at this time. Patient will be given fluid hydration here. Patient will be admitted for definitive management. Otherwise the remainder of his workup and evaluation are unremarkable. CBC documentation of the physical exam, medical intervention, medical decision making, disposition and in the resident physician's note. No critical care is applied to his posttreatment course. 1615 Patient to be admitted at this time hospice was contacted. No other recommendations except for fluid hydration. Patient will be admitted at this time in stable medical condition. Pain medication will be provided for chronic back issues
[2017-11-08 14:45] LABS: Calcium 8.2 mg/dL (8.6-10.3); Potassium 5.8 mEq/L (3.5-5.1)
[2017-11-08] MEDS ORDERED: Levofloxacin 750 MG/150 ML 750 MG/150 ML BAG IVPB ONE (15:27)
[2017-11-08] MEDS ORDERED: Cefepime HCl 2,000 MG in D5% in Water (Mini-Bag+) 100 ML IVPB ONE (15:33)
[2017-11-08] MEDS ORDERED: Vancomycin 1,000 MG in D5% in Water 250 ML IVPB ONE (15:35)
[2017-11-08] MEDS ORDERED: 0.9 % Sodium Chloride 1,000 ML IVC ONE (16:15)
[2017-11-08] MEDS ORDERED: *HR* HYDROcodone/Acet 5/325 mg TABLET PO ONE (16:59)
[2017-11-08] MEDS ORDERED: Acetaminophen 325 MG TABLET PO PRN (17:39)
[2017-11-08] MEDS ORDERED: MOM Conc 10 ML UD.LIQ PO PRN (17:39)
[2017-11-08] MEDS ORDERED: Mag Hydrox/Al Hydrox/Simeth 30 ML UDC PO PRN (17:39)
[2017-11-08] MEDS ORDERED: NA PHOS M B RC PRN (17:39)
[2017-11-08] MEDS ORDERED: Bisacodyl 10 MG RECTAL SUPPOSITORY RC PRN (17:39)
[2017-11-08] MEDS ORDERED: GuaiFENesin Liq 200 MG/10 ML UDC PO PRN (17:39)
[2017-11-08] MEDS ORDERED: [UNRECOGNIZED DRUG - OTHER] RC PRN (17:39)
[2017-11-08] MEDS ORDERED: NA PHOS DI BA RC PRN (17:39)
[2017-11-08] MEDS ORDERED: Naloxone 0.4 MG/ML INJ IVP PRN (17:46)
--- NOTE | 2017-11-08 17:59 | Internal Med History&Physical ---
<Magno Antony J - Last Filed: 11/08/17 18:11> Date of Encounter: 11/08/17 Time of Encounter: 17:51 Assessment and Plan (1) HCAP (healthcare-associated pneumonia) Current visit: Yes Status: Acute ASSESSMENT: - SOB due to multifocal pneumonia in the right lung Reporting dyspnea over the last couple of days, reporting she has increased her oxygen flow rate from 2-4 L - Blood Cx - Urine Legionella antigen, strep pneumo antigen - Broad Spectrum Antibiotics, vancomycin pharmacy to dose, Levaquin, Zosyn - CBCD, CMP in AM - Tylenol 650 mg PO q 4-6 hr PRN pain or fever - Resume all medications - Bronchodilators - Continue Qvar - Heparin 5000 U SQ BID - Respiratory support per NC; titrate to maintain Spo2 >92% - Continuous tele, and Spo2 monitoring - rapid flu and respiratory infection panel (2) CORDELIA (acute kidney injury) Current visit: Yes Status: Acute Likely secondary to poor oral intake, also has multifocal pneumonia -Consult nephrology -Avoid nephrotoxins -IV fluid rehydration -Recheck serum creatinine in the morning (3) Hyperkalemia Current visit: Yes Status: Resolved Likely d/t dehydration secondary to poor oral fluid intake, not on potassium sparing diuretics, edgar or arb IVF bolus and continuous 0.9% NS at 100ml/hr x2 liters Recheck BMP in the morning Telemetry (4) COPD (chronic obstructive pulmonary disease) Current visit: Yes Status: Acute Continue bronchodilators and qvar Qualifiers: COPD type: unspecified COPD Qualified Code(s): J44.9 - Chronic obstructive pulmonary disease, unspecified (5) Anemia Current visit: Yes Status: Acute History of chronic anemia. Hemoglobin and hematocrit has been trending down since August/2017 No active bleeding noted -Check B12, folate, procalcitonin and, iron profile -FOB stool Qualifiers: Anemia type: unspecified type Qualified Code(s): D64.9 - Anemia, unspecified (6) DVT prophylaxis Current visit: Yes Status: Acute Heparin 5000 units SC BID Internal Medicine - H&P: HPI Chief complaint: DYSPNEA, HYPERKALEMIA Admitted From: Home Plans for Post Hospital Care: Home History of present illness: Ms. Tong is a 67 year old female with a PMH of cardiothoracic, CHF, COPD, HLD, HTN and prior TIA. She presents today to [facility] with dyspnea and an elevated potassium. The patient reports that her blood drawn yesterday was called stating that her potassium chloride to come to the emergency department for further evaluation. The original results potassium was 6.1 and today's result of 5.8. The patient reports that she has had an increase in shortness of breath for the last 3-4 days and to have her home oxygen turned up from 2 L to 4 L. Additionally, she is reporting a decrease in oral intake stating that "I am not been drinking much" additionally, the patient notes that yesterday she had some intermittent mild chest discomfort. She denied any discomfort with activity and states that that did not last very long. She denies any chest pain or discomfort today. She denies any fevers, chills, cough, sore throat, abdominal pain, dysuria, nausea vomiting, diarrhea or extremity swelling/pain. Past Med Surg Social Fam HX - Past Medical History Medical history: cardiomyopathy, CHF, COPD, hyperlipidemia, hypertension, TIA Psychiatric history: no psych history - Social History Smoking Status: Former smoker Smokeless Tobacco Status: No Alcohol use: none Drug use: none - Family History Father Living Status: Hx Family Cardiac Disorders: Yes (cardiomegaly) Brother Living Status: Hx Family Cancer: Yes (leukemia) Sister Hx Family Endocrine Disorder: Yes (DM) Internal Medicine - H&P: Meds Allopurinol [Zyloprim 100 MG] 100 mg PO DAILY 03/04/16 [History] Ergocalciferol (VITAMIN D2) [Vitamin D2 (50,000 UNIT)] 50,000 unit PO TU [History] Famotidine [Pepcid] 40 mg PO DAILY 03/04/16 [History] HydrOXYzine Pamoate [Vistaril] 50 mg PO HS 03/04/16 [History] Magnesium Oxide [Magnesium] 400 mg PO DAILY 03/04/16 [History] Meloxicam [Mobic] 15 mg PO DAILY 03/04/16 [History] Pravastatin Sodium 10 mg PO HS 03/04/16 [History] Venlafaxine XR (24 HR) [Effexor Xr] 150 mg PO DAILY 03/04/16 [History] Beclomethasone Diprop 80mcg [QVAR 80 mcg] 1 puff IH BID 08/23/17 [History] Dicyclomine [Bentyl] 10 mg PO QID 08/23/17 [History] Ipratropium/Albuterol Sulfate [Combivent Respimat Inhal [place]] 1 puff IH QID [History] Methotrexate [Otrexup] 15 mg PO MO 08/23/17 [History] Acetaminophen [Tylenol] 650 mg PO Q4H PRN 11/08/17 [History] Bisacodyl [Dulcolax] 10 mg RC DAILY PRN 11/08/17 [History] Buspirone HCl [Buspar] 15 mg PO BID 11/08/17 [History] Divalproex (24 HR) [Depakote ER (24 HR)] 500 mg PO HS 11/08/17 [History] Folic Acid 1 mg PO DAILY 11/08/17 [History] Guaifenesin [Cough Syrup] 100 mg PO Q4H PRN 11/08/17 [History] HYDROcodone/Acet 5/325 mg [[place] 5-325 mg] 2 tab PO Q6H PRN 11/08/17 [History] MOM Conc [Milk of Magnesia Conc] 30 ml PO DAILY PRN 11/08/17 [History] Mag Hydrox/Al Hydrox/Simeth [Antacid Suspension] 30 ml PO Q4H PRN 11/08/17 [ History] Metoprolol [Lopressor] 25 mg PO BID 11/08/17 [History] Mirtazapine [Remeron] 30 mg PO HS 11/08/17 [History] Na Phos,M-B/Na Phos,Di-Ba [Fleet Enema Extra] 118 ml RC DAILY PRN 11/08/17 [ History] Quetiapine Fumarate [SEROquel] 25 mg PO DAILY 11/08/17 [History] Quetiapine Fumarate [SEROquel] 300 mg PO HS 11/08/17 [History] Quetiapine Fumarate [Seroquel] 50 mg PO DAILY 11/08/17 [History] 3 Allergy/AdvReac Type Severity Reaction Status Date / Time No Known Allergies Allergy Verified 03/04/16 19:51 All Systems PM: A 10-system review of systems was performed and is negative for pertinent findings except as documented above in the HPI. - Constitutional Constitutional: as per HPI - EENT Eyes: as per HPI Nose, mouth and throat: as per HPI - Cardiovascular Cardiovascular ROS IM: as per HPI - Respiratory Respiratory: as per HPI - Gastrointestinal Gastrointestinal: no abdominal pain, no diarrhea, no hematemesis, no hematochezia, no melena, no nausea, no vomiting - Genitourinary Genitourinary: no change in urinary stream, no dysuria, no flank pain, no hematuria - Musculoskeletal Musculoskeletal ROS IM: no numbness, no tingling - Integumentary Integumentary IM: no rash, no unusual bruising - Neurological Neurological ROS: no confusion, no convulsions, no focal weakness, no numbness, no tingling, no tremor(s) - Constitutional Vitals: Temp Pulse Resp BP Pulse Ox 99.4 F 59 18 120/77 95 11/08/17 14:10 11/08/17 16:17 11/08/17 16:17 11/08/17 16:17 11/08/17 16:17 General appearance: Present: cooperative, A&O X 3, no acute distress, answers questions appropriately - Head Head exam: Present: atraumatic, normocephalic - Eye Eye exam: Present: PERRL, conjuntiva pink, sclera anicteric Pupils: Present: PERRL - Neck Neck exam general surgery: Present: supple, trachea midline. Absent: lymphadenopathy - Respiratory Respiratory exam: Present: decreased breath sounds, CTAB. Absent: accessory muscle use, rales, rhonchi, wheezes - Cardiovascular Cardiovascular exam: Present: RRR, +S1, +S2. Absent: diastolic murmur, gallop, rubs, systolic murmur - GI/Abdominal GI/Abdominal exam: Present: normal bowel sounds, soft, no peritoneal signs. Absent: distended, tenderness - Extremities Exam Extremities exam: Present: warm, radial pulses palpable and symmetrical. Absent : calf tenderness, cyanotic, pedal edema - Neurological Exam Neurological exam: Present: CN II-XII intact, oriented X3, no focal deficits. Absent: pronater drift, facial droop, speech deficit - Skin Skin exam: Present: dry, intact Internal Med - H&P Results - Labs CBC & Chem 7: 11/08/17 14:24 11/08/17 14:24 Labs: Short CBC 11/08/17 Range/Units 14:24 WBC 4.6 (4.3-11.1) K/mcL Hgb 9.9 L (11.5-15.4) g/dL Hct 31.3 L (35.3-44.9) % Plt Count 135 L (140-400) K/mcL Neutrophils # 2.8 (1.6-8.9) K/mcL BMP 11/08/17 14:24 Sodium 134 L Potassium 5.8 H Chloride 101 Carbon Dioxide 28 BUN 32 H Creatinine 1.65 H Glucose 115 H Calcium 8.2 L Cardiac Enzymes 11/08/17 Range/Units 14:24 Troponin I < 0.03 (< 0.04) ng/mL - EKG Data -: EKG Interpreted by Myself EKG shows normal: sinus rhythm - EKG Data EKG comments: NSR rate of 65 11/08/17 18:14 - Impressions ITS Impressions Chest X-Ray 11/08/17 14:21 IMPRESSION: Multifocal airspace opacities in the right lung that may represent a multifocal right lung pneumonia. Recommend follow-up to resolution and correlation with clinical symptoms to exclude underlying pulmonary nodules/masses. Findings suggesting a large hiatal hernia. Stable cardiomegaly. D/ / Dave Chadwick MD / Dave Chadwick MD Interpreting Provider: Dave Chadwick MD <Sigifredo Rodriguez - Last Filed: 11/09/17 08:29> Date of Encounter: 11/08/17 Time of Encounter: 18:00 Internal Medicine - H&P: HPI History of present illness: Ms. Tong is a 67 year old female All Systems PM: A 10-system review of systems was performed and is negative for pertinent findings except as documented above in the HPI. - Constitutional Vitals: Temp Pulse Resp BP Pulse Ox 97.5 F L 66 16 169/91 100 11/09/17 07:19 11/09/17 07:19 11/09/17 07:19 11/09/17 07:19 11/09/17 07:19 Internal Med - H&P Results - Labs CBC & Chem 7: 11/09/17 06:17 11/09/17 06:17 Labs: Short CBC 11/09/17 Range/Units 06:17 WBC 5.2 (4.3-11.1) K/mcL Hgb 8.9 L (11.5-15.4) g/dL Hct 28.0 L (35.3-44.9) % Plt Count 119 L (140-400) K/mcL Neutrophils # 3.1 (1.6-8.9) K/mcL BMP 11/09/17 06:17 Sodium 137 Potassium 5.1 Chloride 107 Carbon Dioxide 27 BUN 28 H Creatinine 1.51 H Glucose 79 Calcium 7.6 L - Attending Attestation I examined this patient and my medical decision-making was reviewed with the Nurse Practitioner, Magno Antony. I agree with the documented findings, disposition and treatment plan as described with any changes set forth below. 67-year-old female patient with history of CHF, COPD, hypertension and hyperlipidemia who resides at a skilled nursing presented to the ER on recommendations from her primary care provider due to hyperkalemia. Potassium level was at 6.1 according to ED records. She denies any complaints at this time besides shortness of breath. She is on chronic oxygen supplementation. She denies any chest pain or cough. No reported fever or chills. On examination, she has bronchial breath sounds especially in the right lung. She is awake alert and oriented. Heart sounds were normal. Labwork shows a hemoglobin level of 9.9, potassium of 5.8. BUN/creatinine 32, creatinine 1.65. Chest x-ray shows multifocal pneumonia in the right lung. Patient also has a large hiatal hernia. Pneumonia from possible MRSA/aspiration pneumonia: Will treat with broad- spectrum antibiotics. Check legionella and strep antigens. Blood cultures. Check pro calcitonin. High risk for complications. Will check respiratory infection panel. Chronic anemia: Hemoglobin is 9.9. Appears to be trending down. Will check iron profile, B12 and folic acid levels. Also check stool for occult blood. Acute kidney injury with hyperkalemia: We will follow renal function. Treat with IV hydration. Nephrology consulted. Chronic diastolic heart failure: Not in acute exacerbation. Patient is not on diuretics at home. Essential hypertension: Continue Lopressor. COPD: Not in acute exacerbation. Continue bronchodilators and O2 supplementation. Continue Qvar. Chronic respiratory failure: Continue O2 supplementation.
[2017-11-08] MEDS ORDERED: Cefepime HCl 2,000 MG in Water for inj. (sterile) 20 ML 20 ML IVP ONE (18:00)
[2017-11-08] MEDS ORDERED: Cefepime HCl 2,000 MG in Water for inj. (sterile) 20 ML 20 ML IVPB ONE (18:00)
[2017-11-08] MEDS ORDERED: Ondansetron 4 MG/2 ML VIAL IVP ONE (18:03)
--- NOTE | 2017-11-08 18:25 | Event Note ---
Date of Encounter: 11/08/17 Time of Encounter: 18:00 I examined this patient and my medical decision-making was reviewed with the Nurse Practitioner, Magno Antony. I agree with the documented findings, disposition and treatment plan as described with any changes set forth below. 67-year-old female patient with history of CHF, COPD, hypertension and hyperlipidemia who resides at a [facility] presented to the ER on recommendations from her primary care provider due to hyperkalemia. Potassium level was at 6.1 according to ED records. She denies any complaints at this time besides shortness of breath. She is on chronic oxygen supplementation. She denies any chest pain or cough. No reported fever or chills. On examination, she has bronchial breath sounds especially in the right lung. She is awake alert and oriented. Heart sounds were normal. Labwork shows a hemoglobin level of 9.9, potassium of 5.8. BUN/creatinine 32, creatinine 1.65. Chest x-ray shows multifocal pneumonia in the right lung. Patient also has a large hiatal hernia. Pneumonia from possible MRSA/aspiration pneumonia: Will treat with broad- spectrum antibiotics. Check legionella and strep antigens. Blood cultures. Check pro calcitonin. High risk for complications. Will check respiratory infection panel. Chronic anemia: Hemoglobin is 9.9. Appears to be trending down. Will check iron profile, B12 and folic acid levels. Also check stool for occult blood. Acute kidney injury with hyperkalemia: We will follow renal function. Treat with IV hydration. Nephrology consulted. Chronic diastolic heart failure: Not in acute exacerbation. Patient is not on diuretics at home. Essential hypertension: Continue Lopressor. COPD: Not in acute exacerbation. Continue bronchodilators and O2 supplementation. Continue Qvar. Chronic respiratory failure: Continue O2 supplementation.
[2017-11-08] MEDS: Divalproex (24 HR) 500 MG TABLET PO SCH (20:23)
[2017-11-08] MEDS: hydrOXYzine pamoate 25 MG CAPSULE PO SCH (20:23)
[2017-11-08] MEDS: Mirtazapine 15 MG TABLET PO SCH (20:23)
[2017-11-08] MEDS: 0.9 % Sodium Chloride 1,000 ML IVC SCH (20:24)
[2017-11-08] MEDS: *HR* Heparin 5,000 UNIT/ML VIAL SQ SCH (20:28)
[2017-11-08] MEDS ORDERED: NON-FORMULARY MEDICATION 1 EACH EACH (Ipratropium/Albuterol Sulfate [Combivent Respimat In IH SCH (21:00)
[2017-11-08 22:13] LABS: Adenovirus Not Detected (Not Detect); Bordetella Pertussis Not Detected (Not Detect); Chlamydophila pneumoniae Not Detected (Not Detect); Coronavirus 229E Not Detected (Not Detect); Coronavirus HKU1 Not Detected (Not Detect); Coronavirus NL63 Not Detected (Not Detect); Coronavirus OC43 Not Detected (Not Detect); Human Metapneumovirus Not Detected (Not Detect); Human Rhinovirus/Enterovirus Not Detected (Not Detect); Influenza A Subtype 2009 H1 Not Detected (Not Detect); Influenza A Untypeable Not Detected (Not Detect); Influenza B Not Detected (Not Detect); Mycoplasma pneumoniae Not Detected (Not Detect); Parainfluenza Virus 1 Not Detected (Not Detect); Parainfluenza Virus 2 Not Detected (Not Detect); Parainfluenza Virus 3 Not Detected (Not Detect); Parainfluenza Virus 4 Not Detected (Not Detect); Respiratory Syncytial Virus Not Detected (Not Detect)
[2017-11-08] MEDS: *HR* HYDROcodone/Acet 5/325 mg TABLET PO PRN (22:43)
[2017-11-08] MEDS: Ipratropium/Albuterol Neb 3 ML AER SCH (23:53)
[2017-11-08] MEDS: Beclomethasone 80mcg MDI IH SCH (23:54)
[2017-11-09] MEDS: Ipratropium/Albuterol Neb 3 ML AER SCH ×4 (04:23→23:28)
--- NOTE | 2017-11-09 05:06 | Electrocardiograph Report ---
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
[2017-11-09] MEDS: *HR* Heparin 5,000 UNIT/ML VIAL SQ SCH ×2 (05:30→18:05)
[2017-11-09] MEDS: 0.9 % Sodium Chloride 1,000 ML IVC SCH ×2 (05:31→18:01)
[2017-11-09 06:46] LABS: Basophils % 0.2 %; Eosinophils # 0.2 K/mcL (0.0-0.6); Eosinophils % 4.1 %; Hemoglobin 8.9 g/dL (11.5-15.4); Immature Granulocytes % 0.2 % (0-4); Lymphocytes # 1.2 K/mcL (0.6-4.6); Mean Corpuscular HGB Conc 31.8 g/dL (31.6-35.5); Mean Corpuscular Hemoglobin 32.1 pg (28.0-33.3); Mean Corpuscular Volume 101.1 fL (83.0-100.0); Mean Platelet Volume 11.4 fL (9.4-12.4); Monocytes # 0.7 K/mcL (0.0-1.3); Monocytes % 12.9 %; Neutrophils # 3.1 K/mcL (1.6-8.9); Platelet Count 119 K/mcL (140-400); Red Blood Count 2.77 M/mcL (3.82-4.97); Red Cell Distribution Width 14.9 % (11.5-14.5); Segmented Neutrophils % 59.6 %
[2017-11-09 07:04] LABS: Calcium 7.6 mg/dL (8.6-10.3); Potassium 5.1 mEq/L (3.5-5.1)
[2017-11-09] MEDS: Venlafaxine XR (24 HR) 150 MG CAP.ER.24H PO SCH (08:05)
[2017-11-09] MEDS: Magnesium Oxide 400 MG TABLET PO SCH (08:05)
[2017-11-09] MEDS: Folic Acid 1 MG TABLET PO SCH (08:05)
[2017-11-09] MEDS ORDERED: Acetaminophen 325 MG TABLET PO PRN (08:40)
[2017-11-09] MEDS ORDERED: Famotidine 20 MG TABLET PO SCH (09:00)
[2017-11-09] MEDS ORDERED: Vancomycin 1,000 MG in D5% in Water 250 ML IVPB SCH (09:00)
[2017-11-09 09:03] LABS: Folate 14.9 ng/mL (3.0-16.0)
--- NOTE | 2017-11-09 09:21 | Nephrology Consult Note ---
Date of Encounter: 11/09/17 Time of Encounter: 09:19 Assessment and Plan (1) CORDELIA (acute kidney injury) Current Visit: No Status: Resolved The patient has a clinical picture of acute kidney injury with associated hyperkalemia in the setting of a history of decreased oral intake as well as receiving meloxicam. There is also question is whether or not the patient may have underlying pneumonia. Patient's renal function and hyperkalemia are improving with conservative therapy and IV fluids. There is no acute indication for dialysis. Obviously the patient should remain off all nonsteroidal anti-inflammatory agents. I would continue the IV fluids for at least another 24 hours. We will continue to monitor her renal function. (2) Hyperkalemia Current Visit: Yes Status: Resolved History of Present Illness - History of Present Illness This is a 67-year-old female who was admitted from the shelter after routine lab studies showed a potassium of 6.1. She was also noted to have an elevated creatinine of 1.65. Baseline creatinine is 0.8-1.09. She has no previous history of renal disease. She does have some chronic shortness of breath. Chest x-ray suggested possible pneumonia as well as a hiatal hernia. She says her shortness of breath has been relatively the same. She denies any cough fevers or chills. She says in general she has not been feeling well. She denies any difficulty emptying her bladder. She does experience some bladder incontinence. There is no previous history of renal disease. Medication records from the shelter indicate that the patient had been on meloxicam. Patient received IV fluids overnight. Her creatinine is down to 1.51 and potassium is down to 5.1 without any specific intervention. Patient also reports a recent decrease in appetite. She states she has been eating and drinking less than usual. Past Med Surg Social Fam HX - Past Medical History Medical history: cardiomyopathy, CHF, COPD, hyperlipidemia, hypertension, renal disease, TIA Psychiatric history: no psych history - Social History Smoking Status: Former smoker Smokeless Tobacco Status: No Alcohol use: none Drug use: none - Family History Father Living Status: Hx Family Cardiac Disorders: Yes (cardiomegaly) Brother Living Status: Hx Family Cancer: Yes (leukemia) Sister Hx Family Endocrine Disorder: Yes (DM) Medications and Allergies Allopurinol [Zyloprim 100 MG] 100 mg PO DAILY 03/04/16 [History] Ergocalciferol (VITAMIN D2) [Vitamin D2 (50,000 UNIT)] 50,000 unit PO TU [History] Famotidine [Pepcid] 40 mg PO DAILY 03/04/16 [History] HydrOXYzine Pamoate [Vistaril] 50 mg PO HS 03/04/16 [History] Magnesium Oxide [Magnesium] 400 mg PO DAILY 03/04/16 [History] Meloxicam [Mobic] 15 mg PO DAILY 03/04/16 [History] Pravastatin Sodium 10 mg PO HS 03/04/16 [History] Venlafaxine XR (24 HR) [Effexor Xr] 150 mg PO DAILY 03/04/16 [History] Beclomethasone Diprop 80mcg [QVAR 80 mcg] 1 puff IH BID 08/23/17 [History] Dicyclomine [Bentyl] 10 mg PO QID 08/23/17 [History] Ipratropium/Albuterol Sulfate [Combivent Respimat Inhal [place]] 1 puff IH QID [History] Methotrexate [Otrexup] 15 mg PO MO 08/23/17 [History] Acetaminophen [Tylenol] 650 mg PO Q4H PRN 11/08/17 [History] Bisacodyl [Dulcolax] 10 mg RC DAILY PRN 11/08/17 [History] Buspirone HCl [Buspar] 15 mg PO BID 11/08/17 [History] Divalproex (24 HR) [Depakote ER (24 HR)] 500 mg PO HS 11/08/17 [History] Folic Acid 1 mg PO DAILY 11/08/17 [History] Guaifenesin [Cough Syrup] 100 mg PO Q4H PRN 11/08/17 [History] HYDROcodone/Acet 5/325 mg [[place] 5-325 mg] 2 tab PO Q6H PRN 11/08/17 [History] MOM Conc [Milk of Magnesia Conc] 30 ml PO DAILY PRN 11/08/17 [History] Mag Hydrox/Al Hydrox/Simeth [Antacid Suspension] 30 ml PO Q4H PRN 11/08/17 [ History] Metoprolol [Lopressor] 25 mg PO BID 11/08/17 [History] Mirtazapine [Remeron] 30 mg PO HS 11/08/17 [History] Na Phos,M-B/Na Phos,Di-Ba [Fleet Enema Extra] 118 ml RC DAILY PRN 11/08/17 [ History] Quetiapine Fumarate [SEROquel] 25 mg PO DAILY 11/08/17 [History] Quetiapine Fumarate [SEROquel] 300 mg PO HS 11/08/17 [History] Quetiapine Fumarate [Seroquel] 50 mg PO DAILY 11/08/17 [History] 3 Allergy/AdvReac Type Severity Reaction Status Date / Time No Known Allergies Allergy Verified 03/04/16 19:51 Review of Systems Constitutional: as per HPI, anorexia, weakness Nose, mouth and throat: no dizziness, no headache(s) Cardiovascular: dyspnea, dyspnea on exertion, no chest pain, no palpitations Respiratory: as per HPI, dyspnea, dyspnea on exertion, no cough Gastrointestinal: no abdominal pain, no change in bowel habits Musculoskeletal: no muscle weakness, no numbness Integumentary: no hirsutism, no striae Neurological: as per HPI, weakness Psychiatric: no depression, no difficulty concentrating Endocrine: as per HPI Hematologic/Lymphatic: no easy bruising, no lymphadenopathy Exam - Vital Signs Vital signs: Initial Vital Signs Temp Pulse Resp BP Pulse Ox 99.4 F 68 18 114/68 94 11/08/17 14:10 11/08/17 14:10 11/08/17 14:10 11/08/17 14:10 11/08/17 14:10 Vital Signs - Last 8 Hours Temp Pulse Resp BP Pulse Ox 11/09/17 07:19 97.5 F L 66 16 169/91 100 11/09/17 04:24 14 99 11/09/17 03:51 98.1 F 59 16 128/76 99 Intake and Output 11/08/17 11/09/17 11/09/17 23:59 07:59 15:59 Intake Total 1100 / 1100 Output Total 600 / 600 400 / 400 Balance -600 / -180 700 / 700 Intake: IV Fluids 1100 / 1100 0.9 % Sodium Chloride 1,000 ML 1000 / 1000 @ 100 mls/hr IVC .Q10H [facility] Rx#: [id number] Zosyn 3.375 GM In 0.9 % Sodium 100 / 100 Chloride 100 ML @ 25 mls/hr IVPB Q8HR [facility] Rx#:[id number] Output: Urine 600 / 600 400 / 400 Other: Weight 69.1 kg Patient Weight 11/09/17 23:59 Weight 69.1 kg - General Appearance Exam: Patient appears alert and oriented. Her affect is flat. Lungs exhibit diminished breath sounds. Heart regular rate and rhythm without any murmurs or S4 gallops clicks or rubs. Abdomen shows normal bowel sounds braze masses, organomegaly or tenderness. There is no peripheral edema. Results - Lab Results 11/09/17 06:17 11/09/17 06:17 Most recent lab results Calcium 7.6 mg/dL (8.6-10.3) L 11/09/17 06:17 Consult Discharge Plan - Plan Referrals: NONE,PCP [Primary Care Provider] -
[2017-11-09] MEDS: Beclomethasone 80mcg MDI IH SCH ×2 (10:16→23:28)
--- NOTE | 2017-11-09 10:41 | General Surgery Consult Note ---
Date of Encounter: 11/09/17 Time of Encounter: 10:35 Assessment and Plan (1) Diaphragmatic hernia Current Visit: Yes Status: Acute 67F with cardiomyopathy, CHF, CAD, COPD who has a diaphragmatic hernia along R hemithorax upwards/more proximal than the aortic arch; looks as if it approaches her clavicle; at present the patient is feeling better and is not symptomatic (no obstruction, no PO intolerane, no obvious SOB at present); this is a chronic process; She does have less than ideal lungs and my concern is that she may even require a thoracotomy to reduce and repair her problem. This case was also discussed with one of my senior partners who agrees. Although I would love to take care of this patient here at [place], my recommendation is for thoracic surgery consultation and, if our guys aren't able to take care of it here, I would send her to [facility]. Thank you for allowing me to take part in the care of this patient. Qualifiers: Obstruction and gangrene presence: without obstruction or gangrene Qualified Code(s): K44.9 - Diaphragmatic hernia without obstruction or gangrene History of Present Illness Consult date: 11/09/17 Reason for consult: other (shortness of breath) History of present illness: 67F with a history of cardiomyopathy, CHF, COPD, CAD who presents with worsening shortness of breath. She states that she has had shortness of breath 'since the 70s', but over the last 'few week's she has had more trouble. In addition the patient reports that she has had lost of appetite with associated nausea, no reports of vomiting. She states she is still having bowel function ( stooling every other day) per her usual. She was evaluated by her PCP who found that she had hyperkalemia on her labs. Due to this she was admitted to the hospital for further evaluation. A CT scan was obtained to evaluate for pneumonia and was found to have part of her GI tract, looks like her colon, with in her R hemithorax. The CT scan was evaluated and interpreted by me in conjunction with radiology reads). Surgery was consulted for further management recommendations. At present the patient states that she is eating like normal again (she just finished her breakfast consisting of pancakes). She does not report any shortness of breath as possible. Of note the patient does not give a history suggestive of prior trauma. Past Med Surg Social Fam HX - Past Medical History Medical history: cardiomyopathy, CHF, COPD, hyperlipidemia, hypertension, renal disease, TIA Psychiatric history: no psych history - Social History Smoking Status: Former smoker Smokeless Tobacco Status: No Alcohol use: none Drug use: none - Family History Father Living Status: Hx Family Cardiac Disorders: Yes (cardiomegaly) Brother Living Status: Hx Family Cancer: Yes (leukemia) Sister Hx Family Endocrine Disorder: Yes (DM) Medications and Allergies Allopurinol [Zyloprim 100 MG] 100 mg PO DAILY 03/04/16 [History] Ergocalciferol (VITAMIN D2) [Vitamin D2 (50,000 UNIT)] 50,000 unit PO TU [History] Famotidine [Pepcid] 40 mg PO DAILY 03/04/16 [History] HydrOXYzine Pamoate [Vistaril] 50 mg PO HS 03/04/16 [History] Magnesium Oxide [Magnesium] 400 mg PO DAILY 03/04/16 [History] Meloxicam [Mobic] 15 mg PO DAILY 03/04/16 [History] Pravastatin Sodium 10 mg PO HS 03/04/16 [History] Venlafaxine XR (24 HR) [Effexor Xr] 150 mg PO DAILY 03/04/16 [History] Beclomethasone Diprop 80mcg [QVAR 80 mcg] 1 puff IH BID 08/23/17 [History] Dicyclomine [Bentyl] 10 mg PO QID 08/23/17 [History] Ipratropium/Albuterol Sulfate [Combivent Respimat Inhal [place]] 1 puff IH QID [History] Methotrexate [Otrexup] 15 mg PO MO 08/23/17 [History] Acetaminophen [Tylenol] 650 mg PO Q4H PRN 11/08/17 [History] Bisacodyl [Dulcolax] 10 mg RC DAILY PRN 11/08/17 [History] Buspirone HCl [Buspar] 15 mg PO BID 11/08/17 [History] Divalproex (24 HR) [Depakote ER (24 HR)] 500 mg PO HS 11/08/17 [History] Folic Acid 1 mg PO DAILY 11/08/17 [History] Guaifenesin [Cough Syrup] 100 mg PO Q4H PRN 11/08/17 [History] HYDROcodone/Acet 5/325 mg [[place] 5-325 mg] 2 tab PO Q6H PRN 11/08/17 [History] MOM Conc [Milk of Magnesia Conc] 30 ml PO DAILY PRN 11/08/17 [History] Mag Hydrox/Al Hydrox/Simeth [Antacid Suspension] 30 ml PO Q4H PRN 11/08/17 [ History] Metoprolol [Lopressor] 25 mg PO BID 11/08/17 [History] Mirtazapine [Remeron] 30 mg PO HS 11/08/17 [History] Na Phos,M-B/Na Phos,Di-Ba [Fleet Enema Extra] 118 ml RC DAILY PRN 11/08/17 [ History] Quetiapine Fumarate [SEROquel] 25 mg PO DAILY 11/08/17 [History] Quetiapine Fumarate [SEROquel] 300 mg PO HS 11/08/17 [History] Quetiapine Fumarate [Seroquel] 50 mg PO DAILY 11/08/17 [History] 3 Allergy/AdvReac Type Severity Reaction Status Date / Time No Known Allergies Allergy Verified 03/04/16 19:51 Review of Systems All systems PM: A 10-system review of systems was performed and is negative for pertinent findings except as documented above in the HPI. General Surgery Exam Initial Vital Signs Temp Pulse Resp BP Pulse Ox 99.4 F 68 18 114/68 94 11/08/17 14:10 11/08/17 14:10 11/08/17 14:10 11/08/17 14:10 11/08/17 14:10 - General physical appearance well developed, no distress - Eyes normal ocular movement - ENT normocephalic - Respiratory normal expansion, normal respiratory effort, clear to auscultation, other ( slight bowel sounds on exam along R side of chest) - Cardiovascular Cardiovascular exam: Present: RRR - Abdomen Abdomen general surgery: Present: soft, non tender - Integumentary Integumentary general surgery: Present: warm and dry - Neurologic Present: CN 2-12 grossly intact - Psychiatric Psychiatric general surgery: Present: A&Ox3 Exam Initial Vital Signs Temp Pulse Resp BP Pulse Ox 99.4 F 68 18 114/68 94 11/08/17 14:10 11/08/17 14:10 11/08/17 14:10 11/08/17 14:10 11/08/17 14:10 Results - Labs 11/09/17 06:17 11/09/17 06:17 Abnormal lab results RBC 2.77 M/mcL (3.82-4.97) L 11/09/17 06:17 Hgb 8.9 g/dL (11.5-15.4) L 11/09/17 06:17 Hct 28.0 % (35.3-44.9) L 11/09/17 06:17 MCV 101.1 fL (83.0-100.0) H 11/09/17 06:17 RDW 14.9 % (11.5-14.5) H 11/09/17 06:17 Plt Count 119 K/mcL (140-400) L 11/09/17 06:17 BUN 28 mg/dL (8-23) H 11/09/17 06:17 Creatinine 1.51 mg/dL (0.60-1.20) H 11/09/17 06:17 Est GFR ( Amer) 42 (> 60) L 11/09/17 06:17 Est GFR (Non-Af Amer) 34 (> 60) L 11/09/17 06:17 Calcium 7.6 mg/dL (8.6-10.3) L 11/09/17 06:17 Transferrin 183 mg/dL (203-362) L 11/09/17 06:17 Diabetes panel 11/09/17 Range/Units 06:17 Sodium 137 (136-145) mEq/L Potassium 5.1 (3.5-5.1) mEq/L Chloride 107 (98-107) mEq/L Carbon Dioxide 27 (23-29) mEq/L BUN 28 H (8-23) mg/dL Creatinine 1.51 H (0.60-1.20) mg/dL Glucose 79 (70-105) mg/dL Calcium 7.6 L (8.6-10.3) mg/dL Calcium panel 11/09/17 Range/Units 06:17 Calcium 7.6 L (8.6-10.3) mg/dL Pituitary panel 11/09/17 Range/Units 06:17 Sodium 137 (136-145) mEq/L Potassium 5.1 (3.5-5.1) mEq/L Chloride 107 (98-107) mEq/L Carbon Dioxide 27 (23-29) mEq/L BUN 28 H (8-23) mg/dL Creatinine 1.51 H (0.60-1.20) mg/dL Glucose 79 (70-105) mg/dL Calcium 7.6 L (8.6-10.3) mg/dL Adrenal panel 11/09/17 Range/Units 06:17 Sodium 137 (136-145) mEq/L Potassium 5.1 (3.5-5.1) mEq/L Chloride 107 (98-107) mEq/L Carbon Dioxide 27 (23-29) mEq/L BUN 28 H (8-23) mg/dL Creatinine 1.51 H (0.60-1.20) mg/dL Glucose 79 (70-105) mg/dL Calcium 7.6 L (8.6-10.3) mg/dL All other labs normal. - Imaging CT scan - chest: report reviewed, image reviewed Consult Discharge Plan - Plan Referrals: NONE,PCP [Primary Care Provider] -
--- NOTE | 2017-11-09 11:20 | Internal Med Progress Note ---
Date of Encounter: 11/09/17 Time of Encounter: 11:05 - Assessment and plan (1) Pneumonia Current Visit: Yes Status: Acute Assessment and plan: CT chest findings more consistent with diaphragmatic hernia however PNA cannot be excluded will continue empiric broad spectrum IV abx and de-escalate as she clinically improves continue O2 supplementation f/u blood cultures Qualifiers: Pneumonia type: due to unspecified organism Laterality: right Lung location: unspecified part of lung Qualified Code(s): J18.9 - Pneumonia, unspecified organism (2) Diaphragmatic hernia Current Visit: Yes Status: Acute Assessment and plan: General Surgery evaluation appreciated as per gen surgery recommendations, Thoracic surgery evaluation is requested pt willing to undergo surgical repair as needed Qualifiers: Obstruction and gangrene presence: without obstruction or gangrene Qualified Code(s): K44.9 - Diaphragmatic hernia without obstruction or gangrene (3) CORDELIA (acute kidney injury) Current Visit: Yes Status: Acute Assessment and plan: likely secondary to decreased PO intake will continue IV fluids close monitor for volume overload as pt has history of mild Diastolic Dysfunction nephrology on board and evaluation appreciated (4) Anemia Current Visit: Yes Status: Chronic Assessment and plan: H&H low but acceptable continue to closely monitor no acute bleeding reported at this time Qualifiers: Anemia type: unspecified type Qualified Code(s): D64.9 - Anemia, unspecified (5) COPD (chronic obstructive pulmonary disease) Current Visit: Yes Status: Acute Assessment and plan: not in acute exacerbation continue home meds Qualifiers: COPD type: unspecified COPD Qualified Code(s): J44.9 - Chronic obstructive pulmonary disease, unspecified (6) DVT prophylaxis Current Visit: Yes Status: Acute Assessment and plan: Heparin SQ (7) Hyperkalemia Current Visit: Yes Status: Resolved (8) Hypertension Current Visit: No Status: Acute Assessment and plan: Noted to be hypertensive this morning will continue home meds added Hydralazine 10mg IV q6h SBP>150 will closely monitor BP Qualifiers: Hypertension type: essential hypertension Qualified Code(s): I10 - Essential (primary) hypertension (9) Diastolic CHF Current Visit: No Status: Chronic Assessment and plan: not in acute exacerbation continue to closely monitor pt not on any diuretic therapy at home Qualifiers: Congestive heart failure chronicity: chronic Qualified Code(s): I50.32 - Chronic diastolic (congestive) heart failure - Subjective Interval history: Patient seen and examined at bedside. Resting in bed and reports of feeling better compared to previous day Currently saturating well on nasal cannula. Pt reports of living alone and is able to ambulate without assistance at baseline. - Constitutional Vitals: Temp Pulse Resp BP Pulse Ox 97.5 F L 66 18 169/91 100 11/09/17 07:19 11/09/17 07:19 11/09/17 10:18 11/09/17 07:19 11/09/17 10:18 General appearance: Present: cooperative, A&O X 3, no acute distress, answers questions appropriately - Head Head exam: Present: atraumatic, normocephalic - Eye Eye exam: Present: conjuntiva pink, sclera anicteric - Respiratory Respiratory exam: Absent: rales, respiratory distress, wheezes (equal air entry bilaterally, mild bowel sounds on right side of chest ) - Cardiovascular Cardiovascular exam: Present: RRR, +S1, +S2. Absent: diastolic murmur, gallop, rubs, systolic murmur - GI/Abdominal GI/Abdominal exam: Present: normal bowel sounds, soft, no peritoneal signs. Absent: distended, tenderness - Extremities Exam Extremities exam: Present: warm, radial pulses palpable and symmetrical. Absent : calf tenderness - Neurological Exam Neurological exam: Present: alert, oriented X3 - Psychiatric Psychiatric exam: Present: normal affect, normal mood Internal Medicine: Result - Labs CBC & Chem 7: 11/09/17 06:17 11/09/17 06:17 Labs: Short CBC 11/09/17 Range/Units 06:17 WBC 5.2 (4.3-11.1) K/mcL Hgb 8.9 L (11.5-15.4) g/dL Hct 28.0 L (35.3-44.9) % Plt Count 119 L (140-400) K/mcL Neutrophils # 3.1 (1.6-8.9) K/mcL BMP 11/09/17 06:17 Sodium 137 Potassium 5.1 Chloride 107 Carbon Dioxide 27 BUN 28 H Creatinine 1.51 H Glucose 79 Calcium 7.6 L Consult Discharge Plan - Plan Referrals: NONE,PCP [Primary Care Provider] - (Patient will follow up with [facility] )
--- NOTE | 2017-11-09 14:44 | Cardiothoracic Consult Note ---
Date of Encounter: 11/09/17 Time of Encounter: 14:27 Assessment and Plan (1) History of hypertension Current Visit: No Status: Chronic The assessment and plan as outlined above was discussed with the patient and/or family members who expressed understanding and agreement. All questions were answered. 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 This contains colon, small bowel and omentum. The diaphragm is raised as well. This pushes the heart over to the left chest wall. It is a butting the aorta and goes all way to the apex of the chest. The lung is pushed posterior. There is atelectasis in the right upper and right middle lobes. Some of the major bronchi appeared to be narrowed. Surgical therapy would be quite high risk, due to the patient's numerous medical problems. Surgery would require a combined thoracic and abdominal approach. The organs would be freed up and the chest and from the edges of the hernia and reduced into the abdomen. The organs may have lost their right of domain and some type of intra-abdominal expansion may need to be done to allow the organs to return safely. The long has been chronically compressed and may not reexpand to fill the chest. This has been a chronic problem. None of the loops of bowel are dilated. Her respiratory status may be marginally improved. I discussed the situation at depth with the patient. Given the high risk, she is unsure whether or not she would be willing to attempt surgery. If she does decide on surgery, this would need to be done in [place] [facility] - History of Present Illness History of present illness: Ms. Tong is a 67 year old female The patient is a 67-year-old female who has a history of COPD and is on 2 L of oxygen by nasal prong continuously. She presented with worsening shortness of breath. Chest x-ray revealed possible multifocal pneumonia. CT scan of the chest revealed a large right Morgagni hernia. There is small bowel, colon and omentum in the right chest. This pushes the heart all way over to the left chest wall. The abdominal contents go almost up to the apex. The remaining right lung is pushed posterior. There is atelectasis in the right upper and right middle lobes and there appears to be narrowing of some major bronchi. Past medical history is notable for congestive heart failure and angina. She also has a history of hypertension, coronary artery disease, congestive heart failure and TIA. She also has a history of arthritis and migraines. She has had scoliosis since . She has a history of a lower back spinal fracture several years ago. Social history. She lives in a skilled nursing near [place]. She walks with a walker and assistance. She does not drink alcohol. She used to smoke 2-3 packs of cigarettes per day but quit 1-1/2 years ago. Family history is positive for coronary artery disease and cancer. Review of systems is notable for cholecystectomy. Past Med Surg Social Fam HX - Past Medical History Medical history: cardiomyopathy, CHF, COPD, hyperlipidemia, hypertension, renal disease, TIA Psychiatric history: no psych history - Social History Smoking Status: Former smoker Smokeless Tobacco Status: No Alcohol use: none Drug use: none - Family History Father Living Status: Hx Family Cardiac Disorders: Yes (cardiomegaly) Brother Living Status: Hx Family Cancer: Yes (leukemia) Sister Hx Family Endocrine Disorder: Yes (DM) Medications and Allergies Allopurinol [Zyloprim 100 MG] 100 mg PO DAILY 03/04/16 [History] Ergocalciferol (VITAMIN D2) [Vitamin D2 (50,000 UNIT)] 50,000 unit PO TU [History] Famotidine [Pepcid] 40 mg PO DAILY 03/04/16 [History] HydrOXYzine Pamoate [Vistaril] 50 mg PO HS 03/04/16 [History] Magnesium Oxide [Magnesium] 400 mg PO DAILY 03/04/16 [History] Meloxicam [Mobic] 15 mg PO DAILY 03/04/16 [History] Pravastatin Sodium 10 mg PO 03/04/16 [History] Venlafaxine XR (24 HR) [Effexor Xr] 150 mg PO DAILY 03/04/16 [History] Beclomethasone Diprop 80mcg [QVAR 80 mcg] 1 puff IH BID 08/23/17 [History] Dicyclomine [Bentyl] 10 mg PO QID 08/23/17 [History] Ipratropium/Albuterol Sulfate [Combivent Respimat Inhal [place]] 1 puff IH QID [History] Methotrexate [Otrexup] 15 mg PO MO 08/23/17 [History] Acetaminophen [Tylenol] 650 mg PO Q4H PRN 11/08/17 [History] Bisacodyl [Dulcolax] 10 mg RC DAILY PRN 11/08/17 [History] Buspirone HCl [Buspar] 15 mg PO BID 11/08/17 [History] Divalproex (24 HR) [Depakote ER (24 HR)] 500 mg PO HS 11/08/17 [History] Folic Acid 1 mg PO DAILY 11/08/17 [History] Guaifenesin [Cough Syrup] 100 mg PO Q4H PRN 11/08/17 [History] HYDROcodone/Acet 5/325 mg [[place] 5-325 mg] 2 tab PO Q6H PRN 11/08/17 [History] MOM Conc [Milk of Magnesia Conc] 30 ml PO DAILY PRN 11/08/17 [History] Mag Hydrox/Al Hydrox/Simeth [Antacid Suspension] 30 ml PO Q4H PRN 11/08/17 [ History] Metoprolol [Lopressor] 25 mg PO BID 11/08/17 [History] Mirtazapine [Remeron] 30 mg PO HS 11/08/17 [History] Na Phos,M-B/Na Phos,Di-Ba [Fleet Enema Extra] 118 ml RC DAILY PRN 11/08/17 [ History] Quetiapine Fumarate [SEROquel] 25 mg PO DAILY 11/08/17 [History] Quetiapine Fumarate [SEROquel] 300 mg PO HS 11/08/17 [History] Quetiapine Fumarate [Seroquel] 50 mg PO DAILY 11/08/17 [History] 3 Allergy/AdvReac Type Severity Reaction Status Date / Time No Known Allergies Allergy Verified 03/04/16 19:51 All Systems Review: A 10-system review of systems was performed and is negative for pertinent findings except as documented above in the HPI. Physical Examination Vital Signs, Last 4 Hours Temp Pulse Resp BP Pulse Ox 11/09/17 11:18 97.7 F 56 15 95/58 98 She has bilateral cataracts. She is edentulous. Neck is supple. No thyromegaly or carotid bruits. Lungs have decreased breath sounds anteriorly on the right. Heart is in a regular rate and rhythm. Abdomen is benign. No tenderness, rebound or guarding. She is status post cholecystectomy. She does have marked scoliosis. Extremities without edema. Cranial nerves, motor and sensory intact. Results 11/09/17 06:17 11/09/17 06:17 Lab Results, Last 24 hours 11/09/17 11/09/17 06:17 06:17 WBC 5.2 Hgb 8.9 L Hct 28.0 L Plt Count 119 L Sodium 137 Potassium 5.1 Chloride 107 Carbon Dioxide 27 BUN 28 H Creatinine 1.51 H Glucose 79 Calcium 7.6 L Consult Discharge Plan - Plan Referrals: NONE,PCP [Primary Care Provider] - (Patient will follow up with [facility] )
[2017-11-09] MEDS ORDERED: Levofloxacin 750 MG/150 ML 750 MG/150 ML BAG IVPB SCH (15:00)
[2017-11-09] MEDS ORDERED: Vancomycin 500 MG in 0.9 % Sodium Chloride Mini Bag 100 ML IVPB SCH (16:00)
[2017-11-09] MEDS ORDERED: Vancomycin 750 MG in D5% in Water 250 ML IVPB SCH (16:00)
[2017-11-09] MEDS: Mirtazapine 15 MG TABLET PO SCH (20:56)
[2017-11-09] MEDS: Divalproex (24 HR) 500 MG TABLET PO SCH (20:56)
[2017-11-09] MEDS: *HR* HYDROcodone/Acet 5/325 mg TABLET PO PRN (20:56)
[2017-11-09] MEDS: hydrOXYzine pamoate 25 MG CAPSULE PO SCH (20:57)
[2017-11-10] MEDS: Ipratropium/Albuterol Neb 3 ML AER SCH ×3 (03:40→15:34)
[2017-11-10 04:55] LABS: Basophils % 0.4 %; Eosinophils # 0.3 K/mcL (0.0-0.6); Eosinophils % 5.4 %; Hematocrit 29.3 % (35.3-44.9); Hemoglobin 8.9 g/dL (11.5-15.4); Immature Granulocytes % 0.2 % (0-4); Lymphocytes % 18.9 %; Mean Corpuscular HGB Conc 30.4 g/dL (31.6-35.5); Mean Corpuscular Hemoglobin 31.4 pg (28.0-33.3); Mean Corpuscular Volume 103.5 fL (83.0-100.0); Mean Platelet Volume 11.5 fL (9.4-12.4); Monocytes # 0.8 K/mcL (0.0-1.3); Monocytes % 15.6 %; Neutrophils # 3.2 K/mcL (1.6-8.9); Platelet Count 131 K/mcL (140-400); Red Blood Count 2.83 M/mcL (3.82-4.97); Segmented Neutrophils % 59.5 %
[2017-11-10] MEDS: *HR* Heparin 5,000 UNIT/ML VIAL SQ SCH (05:10)
[2017-11-10] MEDS: 0.9 % Sodium Chloride 1,000 ML IVC SCH (05:10)
[2017-11-10 05:14] LABS: Albumin 2.9 g/dL (3.5-5.7); Albumin/Globulin Ratio 1.5 (1.1-2.2); Bilirubin,Total 0.2 mg/dL (0.3-1.0); Calcium 7.7 mg/dL (8.6-10.3); Potassium 5.2 mEq/L (3.5-5.1); Total Protein 4.9 g/dL (6.4-8.9)
[2017-11-10 05:23] LABS: Magnesium 2.2 mg/dL (1.6-2.6); Phosphorous 3.2 mg/dL (2.7-4.5)
[2017-11-10] MEDS: Folic Acid 1 MG TABLET PO SCH (07:59)
[2017-11-10] MEDS: Venlafaxine XR (24 HR) 150 MG CAP.ER.24H PO SCH (07:59)
[2017-11-10] MEDS: Magnesium Oxide 400 MG TABLET PO SCH (08:00)
[2017-11-10] MEDS ORDERED: Famotidine 20 MG TABLET PO SCH (09:00)
[2017-11-10] MEDS ORDERED: 0.9 % Sodium Chloride 1,000 ML IVC SCH (09:37)
--- NOTE | 2017-11-10 09:37 | Cardiothoracic Progress Note ---
Date of Encounter: 11/10/17 Time of Encounter: 09:34 - Assessment and plan (1) History of hypertension Current Visit: No Status: Chronic I again discussed possible surgery with the patient. This would most likely be done through a combined thoracic and abdominal approach. It would be extremely high risk given the patient's numerous medical problems. She is unsure whether she wants to proceed, but has no questions. She wishes to discuss this with her family which will have to be done after discharge. If she does decide on surgery , it will need to be done in [place] at [facility]. I will sign off, please call if needed. - Subjective Interval history: The patient states that her shortness of breath is improved. Oxgyen Flow Rate Oxygen Flow Rate (LPM) 2 Weight 11/08/17 11/09/17 11/10/17 23:59 23:59 23:59 Weight 69.1 kg Lungs have decreased breath sounds anteriorly on the right. Heart is in a regular rate and rhythm. O2 saturation is 99-100 on 2 L oxygen by nasal prong. - Labs 11/10/17 04:35 11/10/17 04:35 Lab Results, Last 24 hours 11/10/17 11/10/17 11/10/17 04:35 04:35 04:35 WBC 5.3 Hgb 8.9 L Hct 29.3 L Plt Count 131 L Sodium 142 Potassium 5.2 H Chloride 112 H Carbon Dioxide 28 BUN 20 Creatinine 1.23 H Glucose 100 Calcium 7.7 L Magnesium 2.2 Total Bilirubin 0.2 L AST 9 L ALT 5 L Alkaline Phosphatase 45 Consult Discharge Plan - Plan Referrals: NONE,PCP [Primary Care Provider] - (Patient will follow up with f pcp )
--- NOTE | 2017-11-10 09:39 | Nephrology Progress Note ---
Date of Encounter: 11/10/17 Time of Encounter: 09:10 - Assessment and Plan (1) CORDELIA (acute kidney injury) Current Visit: No Status: Resolved CORDELIA- clinical picture of acute kidney injury with associated hyperkalemia in the setting of a history of decreased oral intake as well as receiving meloxicam. Noted general and cardiothoracic consults for diaphragmatic hernia. Renal fct improving. Documented urine output 1400 cc. Will decrease IV fluids NS 70cc/hr. Subjective Interval history: Laying in bed, states breathing easier today, ate breakfast. Objective - Vital Signs Vital signs: Vital Signs Temp Pulse Resp BP Pulse Ox 11/10/17 03:48 98.1 F 71 16 125/80 97 11/10/17 03:40 18 96 11/09/17 23:28 16 96 11/09/17 23:06 97.8 F 89 18 146/89 95 11/09/17 19:14 98.5 F 73 16 149/93 95 11/09/17 16:35 97.4 F L 73 16 132/78 98 11/09/17 15:46 18 98 11/09/17 15:08 129/75 11/09/17 11:18 97.7 F 56 15 95/58 98 11/09/17 10:18 18 100 Intake and Output 11/09/17 11/10/17 11/10/17 23:59 07:59 15:59 Intake Total 200 / 200 1100 / 1100 Output Total 1000 / 1000 Balance -800 / -800 1100 / 1100 Intake: IV Fluids 200 / 200 1100 / 1100 0.9 % Sodium Chloride 1,000 ML 1000 / 1000 @ 100 mls/hr IVC .Q10H [facility] Rx#: [id number] Zosyn 3.375 GM In 0.9 % Sodium 200 / 200 100 / 100 Chloride 100 ML @ 25 mls/hr IVPB Q8HR [facility] Rx#:[id number] Output: Urine 1000 / 1000 - General Appearance General appearance: Present: well-developed, well-nourished, appears started age EENT: Present: mucous membranes moist Neck: Present: no JVD Respiratory: Present: clear Cardiology: Present: no edema, regular rate, regular rhythm Gastrointestinal: Present: normoactive bowel sounds, no tenderness Integumentary: Present: warm and dry Psychiatric: Present: mood/affect appropriate, cooperative - Lab 11/10/17 04:35 11/10/17 04:35 Most recent lab results Calcium 7.7 mg/dL (8.6-10.3) L 11/10/17 04:35 Phosphorus 3.2 mg/dL (2.7-4.5) 11/10/17 04:35 Magnesium 2.2 mg/dL (1.6-2.6) 11/10/17 04:35 Consult Discharge Plan - Plan Referrals: NONE,PCP [Primary Care Provider] - (Patient will follow up with [facility] pcp )
[2017-11-10] MEDS: Beclomethasone 80mcg MDI IH SCH (10:21)
--- NOTE | 2017-11-10 12:37 | Transfer Summary ---
Date of Encounter: 11/10/17 Time of Encounter: 11:20 Transfer Discharge Sum: Diag - Discharge Diagnosis (1) Pneumonia Status: Acute (2) Diaphragmatic hernia Status: Acute (3) CORDELIA (acute kidney injury) Status: Acute (4) Anemia Status: Chronic (5) COPD (chronic obstructive pulmonary disease) Status: Acute (6) DVT prophylaxis Status: Acute (7) Hyperkalemia Status: Resolved (8) Hypertension Status: Acute (9) Diastolic CHF Status: Chronic Transfer Discharge Sum: Med - Medications Active and Home Medications: Home Medications Allopurinol [Zyloprim 100 MG] 100 mg PO DAILY 03/04/16 [History Confirmed ] Ergocalciferol (VITAMIN D2) [Vitamin D2 (50,000 UNIT)] 50,000 unit PO TU [History Confirmed 11/08/17] Famotidine [Pepcid] 40 mg PO DAILY 03/04/16 [History Confirmed 11/08/17] HydrOXYzine Pamoate [Vistaril] 50 mg PO HS 03/04/16 [History Confirmed 11/08/17] Magnesium Oxide [Magnesium] 400 mg PO DAILY 03/04/16 [History Confirmed 11/08/17 ] Meloxicam [Mobic] 15 mg PO DAILY 03/04/16 [History Confirmed 11/08/17] Pravastatin Sodium 10 mg PO HS 03/04/16 [History Confirmed 11/08/17] Venlafaxine XR (24 HR) [Effexor Xr] 150 mg PO DAILY 03/04/16 [History Confirmed 11/08/17] Beclomethasone Diprop 80mcg [QVAR 80 mcg] 1 puff IH BID 08/23/17 [History Confirmed 11/08/17] Dicyclomine [Bentyl] 10 mg PO QID 08/23/17 [History Confirmed 11/08/17] Ipratropium/Albuterol Sulfate [Combivent Respimat Inhal [place]] 1 puff IH QID [History Confirmed 11/08/17] Methotrexate [Otrexup] 15 mg PO MO 08/23/17 [History Confirmed 11/08/17] Acetaminophen [Tylenol] 650 mg PO Q4H PRN 11/08/17 [History Confirmed 11/08/17] Bisacodyl [Dulcolax] 10 mg RC DAILY PRN 11/08/17 [History Confirmed 11/08/17] Buspirone HCl [Buspar] 15 mg PO BID 11/08/17 [History Confirmed 11/08/17] Divalproex (24 HR) [Depakote ER (24 HR)] 500 mg PO HS 11/08/17 [History Confirmed 11/08/17] Folic Acid 1 mg PO DAILY 11/08/17 [History Confirmed 11/08/17] Guaifenesin [Cough Syrup] 100 mg PO Q4H PRN 11/08/17 [History Confirmed 11/08/17 ] HYDROcodone/Acet 5/325 mg [Alfred 5-325 mg] 2 tab PO Q6H PRN 11/08/17 [History Confirmed 11/08/17] MOM Conc [Milk of Magnesia Conc] 30 ml PO DAILY PRN 11/08/17 [History Confirmed 11/08/17] Mag Hydrox/Al Hydrox/Simeth [Antacid Suspension] 30 ml PO Q4H PRN 11/08/17 [ History Confirmed 11/08/17] Metoprolol [Lopressor] 25 mg PO BID 11/08/17 [History Confirmed 11/08/17] Mirtazapine [Remeron] 30 mg PO HS 11/08/17 [History Confirmed 11/08/17] Na Phos,M-B/Na Phos,Di-Ba [Fleet Enema Extra] 118 ml RC DAILY PRN 11/08/17 [ History Confirmed 11/08/17] Quetiapine Fumarate [SEROquel] 25 mg PO DAILY 11/08/17 [History Confirmed ] Quetiapine Fumarate [SEROquel] 300 mg PO HS 11/08/17 [History Confirmed 11/08/17 ] Quetiapine Fumarate [Seroquel] 50 mg PO DAILY 11/08/17 [History Confirmed ] Active Medications Acetaminophen (Tylenol) 650 mg PO Q4H PRN PRN Reason: Mild Pain/Fever Stop: 05/10/18 17:40 Hydrocodone Bitart/Acetaminophen (Alfred 5-325 Mg) 2 tab PO Q6H PRN PRN Reason: Moderate Pain Stop: 05/10/18 17:40 Last Admin: 11/09/17 20:56 Dose: 2 tab Al Hydrox/Mg Hydrox/Simethicone (Maalox) 30 ml PO Q4H PRN PRN Reason: Indigestion Last Admin: 11/09/17 20:56 Dose: 30 ml Albuterol/Ipratropium (Duoneb) 3 ml AER QIDR [facility] Stop: 05/10/18 23:01 Last Admin: 11/10/17 10:22 Dose: 3 ml Allopurinol (Zyloprim) 100 mg PO DAILY [facility] Stop: 05/11/18 09:01 Last Admin: 11/10/17 08:00 Dose: 100 mg Beclomethasone Dipropionate (Qvar 80 Mcg) 1 puff IH BIDRESP ANVA PRN Reason: Protocol Stop: 05/10/18 22:01 Last Admin: 11/10/17 10:21 Dose: 1 puff Bisacodyl (Dulcolax) 10 mg RC DAILY PRN PRN Reason: Constipation Stop: 05/10/18 17:40 Buspirone HCl (Buspar) 15 mg PO BID [facility] Stop: 05/10/18 21:01 Last Admin: 11/10/17 08:00 Dose: 15 mg Dicyclomine HCl (Bentyl) 10 mg PO QID [facility] Stop: 05/10/18 21:01 Last Admin: 11/10/17 07:59 Dose: 10 mg Divalproex Sodium (Depakote Er (24 Hr)) 500 mg PO HS [facility] Stop: 05/10/18 21:01 Last Admin: 11/09/17 20:56 Dose: 500 mg Ergocalciferol (Drisdol (50,000 Unit)) 50,000 unit PO TU [facility] Stop: 05/10/18 17:46 Last Admin: 11/08/17 22:40 Dose: 50,000 unit Famotidine (Pepcid) 20 mg PO DAILY [facility] Stop: 05/12/18 09:01 Last Admin: 11/10/17 07:59 Dose: 20 mg Folic Acid (Folic Acid) 1 mg PO DAILY [facility] Stop: 05/11/18 09:01 Last Admin: 11/10/17 07:59 Dose: 1 mg Guaifenesin (Robitussin Liq) 100 mg PO Q4H PRN PRN Reason: Cough Stop: 05/10/18 17:40 Heparin Sodium (Porcine) (Heparin) 5,000 unit SQ Q12HCO [facility] Stop: 05/10/18 18:01 Last Admin: 11/10/17 05:10 Dose: 5,000 unit Hydralazine HCl (Hydralazine) 10 mg IVP Q6HR PRN PRN Reason: Hypertension SBP > 150 Stop: 05/11/18 10:51 Hydroxyzine Pamoate (Hydroxyzine Pamoate) 50 mg PO HS [facility] Stop: 05/10/18 21:01 Last Admin: 11/09/17 20:57 Dose: 50 mg Piperacillin Sod/Tazobactam (Sod 3.375 gm/ Sodium Chloride) 100 mls @ 25 mls/ hr IVPB Q8HR [facility] Stop: 05/11/18 00:01 Last Admin: 11/10/17 08:04 Dose: 25 mls/hr Vancomycin HCl 750 mg/ (Dextrose) 250 mls @ 250 mls/hr IVPB Q24H [facility] Stop: 05/11/18 16:01 Last Admin: 11/09/17 18:02 Dose: 250 mls/hr Levofloxacin/Dextrose (Levaquin Premix 750mg/150 Ml) 750 mg in 150 mls @ 100 mls/hr IVPB Q48H [facility] PRN Reason: Protocol Stop: 05/12/18 15:01 Sodium Chloride (0.9 % Sodium Chloride) 1,000 mls @ 70 mls/hr IVC .[id number] [facility] Stop: 05/12/18 09:38 Magnesium Hydroxide (Milk Of Magnesia Conc) 10 ml PO DAILY PRN PRN Reason: Constipation Stop: 05/10/18 17:40 Magnesium Oxide (Mag-Ox) 400 mg PO DAILY [facility] PRN Reason: Protocol Stop: 05/11/18 09:01 Last Admin: 11/10/17 08:00 Dose: 400 mg Meloxicam (Mobic) 15 mg PO DAILY [facility] Stop: 05/11/18 09:01 Last Admin: 11/10/17 07:59 Dose: 15 mg Metoprolol Tartrate (Lopressor) 25 mg PO BID [facility] Stop: 05/10/18 21:01 Last Admin: 11/10/17 08:00 Dose: 25 mg Mirtazapine (Remeron) 30 mg PO HS [facility] Stop: 05/10/18 21:01 Last Admin: 11/09/17 20:56 Dose: 30 mg Naloxone HCl (Narcan) 0.4 mg IVP Q2MIN PRN PRN Reason: SEE COMMENTS Stop: 05/10/18 17:47 Quetiapine Fumarate (Seroquel) 300 mg PO HS [facility] PRN Reason: Protocol Stop: 05/10/18 21:01 Last Admin: 11/09/17 20:56 Dose: 300 mg Quetiapine Fumarate (Seroquel) 75 mg PO DAILY [facility] PRN Reason: Protocol Stop: 05/12/18 09:01 Last Admin: 11/10/17 08:00 Dose: 75 mg Simvastatin (Zocor) 5 mg PO HS [facility] Stop: 05/10/18 21:01 Last Admin: 11/09/17 20:56 Dose: 5 mg Venlafaxine HCl (Effexor Xr) 150 mg PO DAILY [facility] PRN Reason: Protocol Stop: 05/11/18 09:01 Last Admin: 11/10/17 07:59 Dose: 150 mg Transfer Discharge Sum: Data Procedures and tests throughout hospitalization: Pending Orders 11/08/17 21:02 Consult to Pastoral Services [CONS] Routine 11/08/17 23:00 Ipratropium/Albuterol Neb [Duoneb] 3 ml AER QIDR 11/09/17 08:33 Consult to Surgery [CONS] Routine 11/09/17 08:40 Acetaminophen [Tylenol] 650 mg PO Q4H PRN 11/09/17 09:23 Consult to Field Appraiser [CONS] Routine 11/09/17 10:50 hydrALAZINE [HydrALAZINE] 10 mg IVP Q6HR PRN 11/09/17 11:14 Consult to Thoracic Surgery [CONS] Routine 11/09/17 14:18 Consult to Occupational Therapy [CONS] Routine Consult to Physical Therapy [CONS] Routine 11/09/17 16:00 Vancomycin [Vancocin] 750 mg D5% in Water [Dextrose 5%] 250 ml IVPB Q24H 11/10/17 09:00 Famotidine [Pepcid] 20 mg PO DAILY Quetiapine Fumarate [SEROquel] 75 mg PO DAILY 11/10/17 09:37 0.9 % Sodium Chloride 1,000 ml IVC 70 mls/hr 11/10/17 15:00 Vancomycin,Trough Timed Levofloxacin 750 MG/150 ML [Levaquin Premix 750mg/150 mL] 750 mg in 150 ml IVPB Q48H Transfer Discharge Sum: Prov Date of admission: 11/08/17 18:41 Primary care physician: PCP NONE Consults: 11/08/17 21:02 Consult to Pastoral Services [CONS] Routine Comment: 11/09/17 08:33 Consult to Surgery [CONS] Routine Consulting Provider: Surgery [facility] Reason for Consult: Anterior diaphragmatic hernia Time Notified: 08:34 Call Completed: Yes 11/09/17 09:23 Consult to Field Appraiser [CONS] Routine Reason for SW Consult: n sharon [place] 11/09/17 11:14 Consult to Thoracic Surgery [CONS] Routine Consulting Provider: Cardiothoracic Surgery [place] Reason for Consult: diaphragmatic hernia along right hemithorax Call Completed: Yes 11/09/17 14:18 Consult to Occupational Therapy [CONS] Routine Comment: Evaluate, develop and implement POC Reason for Consult: eval for ecf Consult to Physical Therapy [CONS] Routine Comment: Evaluate, develop and implement POC Reason for Consult: eval for ecf Discharging clinician: Praveena Humphrey Anticipated date of transfer: 11/10/17 Receiving physician/facility: Dr. Diego Sanford at [facility] Transfer Discharge Sum: A/P - Plan Functional capacity at transfer: independent ambulation Overall status at transfer: patient is back to baseline Disposition: Transfer Other Transfer Discharge Sum: Hosp Hospital course: Ms. Tong is a 67 year old female with PMH of CHF, COPD, HTN, TIA who was admitted for shortness of breath and hyperkalemia. She was found to have a large diaphragmatic hernia on CT chest for which general surgery was consulted. After gen surgery evaluation, given the location of the hernia (extending into the chest wall cavity), thoracic surgery was consulted. As per thoracic surgery evaluation, this is a high risk procedure and she will benefit from transfer to [facility]. Initially patient requested some time to think about undergoing this surgical intervention. At this time she in agreement to proceed with surgical intervention and transfer to [facility]. Pt has been accepted under the care of Dr. Diego Sanford cardiothoraci surgery at [facility]. She will be transferred, pending bed availability. - Time Spent with Patient Total time spent providing and/or coordinating transfer services: Greater than 30 minutes Transfer Discharge Sum: Exam - Constitutional Vitals: Vital Signs Temp Pulse Resp BP Pulse Ox 11/10/17 11:13 98.3 F 70 187 125/62 98 11/10/17 10:21 16 96 11/10/17 03:48 98.1 F 71 16 125/80 97 11/10/17 03:40 18 96 11/09/17 23:28 16 96 11/09/17 23:06 97.8 F 89 18 146/89 95 11/09/17 19:14 98.5 F 73 16 149/93 95 11/09/17 16:35 97.4 F L 73 16 132/78 98 11/09/17 15:46 18 98 11/09/17 15:08 129/75 Intake and Output 11/09/17 11/10/17 11/10/17 23:59 07:59 15:59 Intake Total 200 / 200 1100 / 1100 120 / 120 Output Total 1000 / 1000 Balance -800 / -800 1100 / 1100 120 / 120 Intake: IV Fluids 200 / 200 1100 / 1100 0.9 % Sodium Chloride 1,000 ML 1000 / 1000 @ 100 mls/hr IVC .Q10H [facility] Rx#: [id number] Zosyn 3.375 GM In 0.9 % Sodium 200 / 200 100 / 100 Chloride 100 ML @ 25 mls/hr IVPB Q8HR [facility] Rx#:[id number] Oral 120 / 120 Output: Urine 1000 / 1000 Other: Meal Breakfast Percent of Meal Consumed 80% - Head Head exam: Present: atraumatic, normocephalic - Eye Eye exam: Present: conjuntiva pink, sclera anicteric - Respiratory Respiratory exam: Absent: respiratory distress, wheezes, tachypnea - Cardiovascular Cardiovascular exam: Present: RRR, +S1, +S2 - GI/Abdominal GI/Abdominal exam: Present: normal bowel sounds, soft. Absent: rebound, tenderness - Extremities Exam Extremities exam: Absent: calf tenderness, pedal edema, tenderness - Neurological Exam Neurological exam: Present: oriented X3
[2017-11-10] MEDS ORDERED: Aminoglycoside Consult 1 EACH MC ONE (14:52)
[2017-11-10] MEDS ORDERED: Levofloxacin 750 MG/150 ML 750 MG/150 ML BAG IVPB SCH (15:00)
[2017-11-10] MEDS: *HR* HYDROcodone/Acet 5/325 mg TABLET PO PRN (15:26)
[2017-11-10 15:44] VITALS: BP 154/86
[2017-11-14] MEDS ORDERED: *HR* Methotrexate 2.5 MG TABLET PO SCH (09:00)
== END 2017-11-10 17:22 | disposition other institution (70) | DRG 139 ==
LOC: EMEROO 14:08 → 2ANU 14:08
PROVIDERS: ADMIT Internal Medicine; ATTEND Internal Medicine

== ENCOUNTER 2018-06-23 03:39 | Inpatient (IN) ==
[2018-06-23] MEDS ORDERED: Ipratropium/Albuterol Neb 3 ML IH ONE (03:48)
[2018-06-23] MEDS ORDERED: methylPREDNISolone 125 MG/2 ML VIAL IVP ONE (03:48)
[2018-06-23 04:41] LABS: Hematocrit 22.2 % (35.3-44.9); Hemoglobin 7.1 g/dL (11.5-15.4); Mean Corpuscular Hemoglobin 32.1 pg (28.0-33.3); Mean Corpuscular Volume 100.5 fL (83.0-100.0); Mean Platelet Volume 10.6 fL (9.4-12.4); Platelet Count 105 K/mcL (140-400); Red Blood Count 2.21 M/mcL (3.82-4.97); Red Cell Distribution Width 21.4 % (11.5-14.5)
--- NOTE | 2018-06-23 04:42 | Emergency Department Note ---
Disposition Clinical Impression: Healthcare-associated pneumonia, Pancytopenia, Hypoxia Disposition: Admitted As Inpatient Condition: Fair Referrals: Kwesi Allen MD [Primary Care Provider] - Forms: ED Satisfaction Letter SOB HPI - General Chief Complaint: ED Shortness of Breath/Dyspnea Stated Complaint: Shortness of breath Time Seen by Provider: 06/23/18 03:41 Source: EMS Mode of arrival: EMS Limitations: age Nursing Notes Reviewed: Yes Vital Signs Reviewed: Yes - History of Present Illness 68-year-old female history of COPD, CHF worse 2 L constant who presents for respiratory symptoms. EMS reports the facility said she has had over a week of respiratory issues. She was noted to be hypoxic there on her usual O2 requirements at 75%. She was given a DuoNeb in route and improved to 94%. She has had a cough during that time. The patient is alert and oriented 3 however is a poor historian. She was admitted at the end of April for pneumonia and UTI. Pt Subjective Complaint: shortness of breath Onset (ago): unknown Improves with: nothing Worsens with: nothing Known history of: COPD, congestive heart failure Associated symptoms: Reports: denies other symptoms Treatment prior to arrival: oxygen, bronchodilator Cough present: Yes Cough Description: Involuntary Cough Frequency: Intermittent - Related Data Home oxygen amount: 2 liters Home Medications Medication Instructions Recorded Confirmed Meloxicam [Mobic] 7.5 mg PO DAILY 03/04/16 04/19/18 Methotrexate [Otrexup] 15 mg PO WE 08/23/17 04/19/18 Bisacodyl [Dulcolax] 10 mg RC DAILY PRN 11/08/17 04/19/18 Folic Acid 1 mg PO DAILY 11/08/17 04/19/18 Mag Hydrox/Al Hydrox/Simeth 30 ml PO Q4H PRN 11/08/17 04/19/18 [Antacid Suspension] Mirtazapine [Remeron] 30 mg PO HS 11/08/17 04/19/18 Quetiapine Fumarate [Seroquel] 50 mg PO TIDWM 11/08/17 04/19/18 Aspirin Enteric Coated [Aspirin EC] 81 mg PO DAILY 04/19/18 04/19/18 Atorvastatin Calcium [Lipitor] 20 mg PO HS 04/19/18 04/19/18 Cholecalciferol (D-3) [Vitamin D] 5,000 unit PO WE 04/19/18 04/19/18 Divalproex (12 HR) [Depakote (12 500 mg PO BID 04/19/18 04/19/18 HR)] Docusate [Colace] 100 mg PO BID PRN 04/19/18 04/19/18 Famotidine [Heartburn Prevention] 20 mg PO DAILY 04/19/18 04/19/18 Ferrous Sulfate [Iron] 325 mg PO DAILY 04/19/18 04/19/18 Fluticasone Propionate [Flovent 2 puff IH BID PRN 04/19/18 04/19/18 Hfa] HYDROcodone/Acet 7.5/325 mg [[place] 1 tab PO Q4H PRN 04/19/18 04/19/18 7.5-325 mg] Ipratropium/Albuterol Neb [Duoneb] 3 ml IH Q6HR PRN 04/19/18 04/19/18 Quetiapine Fumarate [Seroquel] 700 mg PO HS 04/19/18 04/19/18 Rivastigmine Patch [Exelon] 4.6 mg TD DAILY 04/19/18 04/19/18 Previous Rx's Medication Instructions Recorded Metoprolol [Lopressor] 37.5 mg PO BID 30 Days #45 tablet 04/25/18 PredniSONE [Nathan] 10 mg PO DAILY 9 Days #13 tablet. 04/25/18 Allergies Allergy/AdvReac Type Severity Reaction Status Date / Time No Known Allergies Allergy Verified 04/19/18 07:53 Limitations: ROS unobtainable due to patients medical condition Past Medical History - Past Medical History Source: old records reviewed Medical history: Reports: cardiomyopathy, CHF, COPD, dementia, hyperlipidemia, hypertension, renal disease, TIA Psychiatric history: Reports: bipolar, schizophrenia - Social History Smoking Status: Former smoker Smokeless Tobacco Status: No Alcohol use: Reports: none Drug use: Reports: none Physical Exam - General Limitations: age General appearance: alert, in no apparent distress - Head Head exam: atraumatic, normocephalic - Eye Eye exam: Present: normal appearance - ENT ENT exam: normal exam - Neck Neck exam: Present: normal inspection - Chest Chest inspection: Present: normal inspection, symmetric chest wall rise - Respiratory Respiratory exam: Present: other (Diminished breath sounds bilaterally) - Cardiovascular Cardiovascular exam: Present: normal rhythm, tachycardia, normal heart sounds - Abdominal Exam Abdominal exam: Present: soft, Non-Tender. Absent: tenderness, distention, rigidity - Extremities Exam Extremities exam: Present: normal inspection - Expanded Upper Extremity Exam Shoulder exam: Present: normal inspection Arm exam: Present: normal inspection Elbow exam: Present: normal inspection Forearm/Wrist exam: Present: normal inspection Hand exam: Present: normal inspection - Expanded Lower Extremity Exam Hip/Pelvis exam: Present: normal inspection Upper leg exam: Present: normal inspection Knee exam: Present: normal inspection Lower leg exam: Present: normal inspection Ankle exam: Present: normal inspection Foot/toe exam: Present: normal inspection - Neurological Exam Neurological exam: Present: alert, oriented X3, other (Answers most questions appropriately) - Skin Skin exam: Present: warm, dry, other (pale) Course Course Narrative: Patient seen and examined. Vital signs reviewed. Noted to be mildly hypertensive here as well as tachypnea And tachycardic. Plan for EKG, chest x- ray, labs, lactate, blood cultures, CT imaging of her head given altered mental status. Reviewed her prior admission at which point she was treated for infectious etiology with pulmonology consultation. We will also give her DuoNeb treatments and Solu-Medrol. - Reevaluation(s) Reevaluation #1: Rectal exam performed. No gross blood. Sent to lab for evaluation. Imaging demonstrates left multifocal pneumonia. Patient given 500 mL bolus. Vancomycin and Zosyn for empiric therapy. Vital Signs Temperature 98.2 F 06/23/18 03:58 Pulse Rate 106 06/23/18 03:58 Respiratory Rate 30 06/23/18 03:58 Blood Pressure 91/73 06/23/18 03:58 O2 Sat by Pulse Oximetry 93 06/23/18 03:58 Temperature 98.2 F 06/23/18 03:58 Pulse Rate 107 06/23/18 06:12 Respiratory Rate 22 06/23/18 06:12 Blood Pressure 102/65 06/23/18 06:12 O2 Sat by Pulse Oximetry 99 06/23/18 06:12 Oxygen Delivery Oxygen Delivery Non Rebreather Mask Shortness of Breath/Dyspnea - MDM Narrative Medical decision making narrative: 60-year-old female presenting with shortness of breath, cough and hypoxia. She is noted to be tachypnea care as well as hypoxic on her usual oxygen requirement and hypotensive. Source felt to be pneumonia as per radiology read for chest x-ray. She is noted to be acutely pancytopenic with a hemoglobin of 7.1. Stool guaiac was negative. Patient given 500 mL normal saline bolus as well as 2 units of red blood cells. She was covered empirically for healthcare associated pneumonia with vancomycin and Zosyn. Lactate and cultures obtained. Patient admitted to the hospitalist service. - Lab Data Lab results reviewed: Yes I reviewed the patient's lab results. Result diagrams: 06/23/18 04:30 06/23/18 04:30 Lab Results 06/23/18 06/23/18 06/23/18 Range/Units 04:30 04:30 04:30 WBC 3.4 L (4.3-11.1) K/mcL RBC 2.21 L (3.82-4.97) M/mcL Hgb 7.1 L (11.5-15.4) g/dL Hct 22.2 L (35.3-44.9) % MCV 100.5 H (83.0-100.0) fL MCH 32.1 (28.0-33.3) pg MCHC 32.0 (31.6-35.5) g/dL RDW 21.4 H (11.5-14.5) % Plt Count 105 L (140-400) K/mcL MPV 10.6 (9.4-12.4) fL Seg Neutrophils % 24.0 % Band Neutrophils % 16.0 H (0-4) % Lymphocytes % 30.0 % Monocytes % 10.0 % Eosinophils % 10.0 % Metamyelocytes % 10.0 H (0) % Neutrophils # 1.4 L (1.6-8.9) K/mcL Lymphocytes # 1.0 (0.6-4.6) K/mcL Monocytes # 0.3 (0.0-1.3) K/mcL Eosinophils # 0.3 (0.0-0.6) K/mcL Toxic Granulation Present A (Not Present) Platelet Estimate Normal (Normal) PT 15.0 H (9.4-12.1) Seconds INR 1.3 Sodium 134 L (136-145) mEq/L Potassium 3.7 (3.5-5.1) mEq/L Chloride 96 L (98-107) mEq/L Carbon Dioxide 28 (23-29) mEq/L BUN 19 (8-23) mg/dL Creatinine 1.19 (0.60-1.20) mg/dL Est GFR ( Amer) 55 L (> 60) Est GFR (Non-Af Amer) 45 L (> 60) BUN/Creatinine Ratio 16 (6-26) Glucose 87 (70-105) mg/dL Calculated Osmolality 280 (280-300) Lactic Acid (0.5-2.2) mmol/L Calcium 8.3 L (8.6-10.3) mg/dL Troponin I < 0.03 (< 0.04) ng/mL B-Natriuretic Peptide (Less than 100) pg/mL Urine Color (Yellow) Urine Clarity (Clear) Urine pH (5.0-8.0) pH Units Ur Specific [place] (1.010-1.025) Urine Protein (Neg-Trace) mg/dL Urine Glucose (UA) (Normal) mg/dL Urine Ketones (Negative) mg/dL Urine Blood (Negative) Urine Nitrite (Negative) Urine Bilirubin (Negative) Urine Urobilinogen (Normal) mg/dL Ur Leukocyte Esterase (Negative) Urine Microscopic RBC (0-3) per hpf Urine Microscopic WBC (0-3) per hpf Ur Squamous Epith Cells (None-Few) per lpf Urine Bacteria (None-Few) per hpf Hyaline Casts (None-Few) per lpf Ur Culture Indicated? (NO) Stool Occult Bld Scrn (Negative) Blood Type Antibody Screen Crossmatch 06/23/18 06/23/18 06/23/18 Range/Units 04:30 04:30 04:32 WBC (4.3-11.1) K/mcL RBC (3.82-4.97) M/mcL Hgb (11.5-15.4) g/dL Hct (35.3-44.9) % MCV (83.0-100.0) fL MCH (28.0-33.3) pg MCHC (31.6-35.5) g/dL RDW (11.5-14.5) % Plt Count (140-400) K/mcL MPV (9.4-12.4) fL Seg Neutrophils % % Band Neutrophils % (0-4) % Lymphocytes % % Monocytes % % Eosinophils % % Metamyelocytes % (0) % Neutrophils # (1.6-8.9) K/mcL Lymphocytes # (0.6-4.6) K/mcL Monocytes # (0.0-1.3) K/mcL Eosinophils # (0.0-0.6) K/mcL Toxic Granulation (Not Present) Platelet Estimate (Normal) PT (9.4-12.1) Seconds INR Sodium (136-145) mEq/L Potassium (3.5-5.1) mEq/L Chloride (98-107) mEq/L Carbon Dioxide (23-29) mEq/L BUN (8-23) mg/dL Creatinine (0.60-1.20) mg/dL Est GFR ( Amer) (> 60) Est GFR (Non-Af Amer) (> 60) BUN/Creatinine Ratio (6-26) Glucose (70-105) mg/dL Calculated Osmolality (280-300) Lactic Acid 1.7 (0.5-2.2) mmol/L Calcium (8.6-10.3) mg/dL Troponin I (< 0.04) ng/mL B-Natriuretic Peptide 142 H (Less than 100) pg/mL Urine Color (Yellow) Urine Clarity (Clear) Urine pH (5.0-8.0) pH Units Ur Specific [place] (1.010-1.025) Urine Protein (Neg-Trace) mg/dL Urine Glucose (UA) (Normal) mg/dL Urine Ketones (Negative) mg/dL Urine Blood (Negative) Urine Nitrite (Negative) Urine Bilirubin (Negative) Urine Urobilinogen (Normal) mg/dL Ur Leukocyte Esterase (Negative) Urine Microscopic RBC (0-3) per hpf Urine Microscopic WBC (0-3) per hpf Ur Squamous Epith Cells (None-Few) per lpf Urine Bacteria (None-Few) per hpf Hyaline Casts (None-Few) per lpf Ur Culture Indicated? (NO) Stool Occult Bld Scrn (Negative) Blood Type B POSITIVE Antibody Screen NEGATIVE Crossmatch See Detail 06/23/18 06/23/18 Range/Units 05:27 05:47 WBC (4.3-11.1) K/mcL RBC (3.82-4.97) M/mcL Hgb (11.5-15.4) g/dL Hct (35.3-44.9) % MCV (83.0-100.0) fL MCH (28.0-33.3) pg MCHC (31.6-35.5) g/dL RDW (11.5-14.5) % Plt Count (140-400) K/mcL MPV (9.4-12.4) fL Seg Neutrophils % % Band Neutrophils % (0-4) % Lymphocytes % % Monocytes % % Eosinophils % % Metamyelocytes % (0) % Neutrophils # (1.6-8.9) K/mcL Lymphocytes # (0.6-4.6) K/mcL Monocytes # (0.0-1.3) K/mcL Eosinophils # (0.0-0.6) K/mcL Toxic Granulation (Not Present) Platelet Estimate (Normal) PT (9.4-12.1) Seconds INR Sodium (136-145) mEq/L Potassium (3.5-5.1) mEq/L Chloride (98-107) mEq/L Carbon Dioxide (23-29) mEq/L BUN (8-23) mg/dL Creatinine (0.60-1.20) mg/dL Est GFR ( Amer) (> 60) Est GFR (Non-Af Amer) (> 60) BUN/Creatinine Ratio (6-26) Glucose (70-105) mg/dL Calculated Osmolality (280-300) Lactic Acid (0.5-2.2) mmol/L Calcium (8.6-10.3) mg/dL Troponin I (< 0.04) ng/mL B-Natriuretic Peptide (Less than 100) pg/mL Urine Color Yellow (Yellow) Urine Clarity Clear (Clear) Urine pH 6.0 (5.0-8.0) pH Units Ur Specific [place] 1.006 L (1.010-1.025) Urine Protein 30 H (Neg-Trace) mg/dL Urine Glucose (UA) Normal (Normal) mg/dL Urine Ketones Negative (Negative) mg/dL Urine Blood Negative (Negative) Urine Nitrite Negative (Negative) Urine Bilirubin Negative (Negative) Urine Urobilinogen Normal (Normal) mg/dL Ur Leukocyte Esterase Negative (Negative) Urine Microscopic RBC 0-3 (0-3) per hpf Urine Microscopic WBC 0-3 (0-3) per hpf Ur Squamous Epith Cells Many H (None-Few) per lpf Urine Bacteria None Seen (None-Few) per hpf Hyaline Casts None Seen (None-Few) per lpf Ur Culture Indicated? NO (NO) Stool Occult Bld Scrn Negative (Negative) Blood Type Antibody Screen Crossmatch - Radiology Data Radiology results reviewed: Yes I reviewed the patient's radiology results. Chest X-Ray 06/23/18 03:48 IMPRESSION: Multifocal left lung airspace disease suspicious for pneumonia. D/ / Berry Andino MD / Berry Andino MD Interpreting Provider: Berry Andino MD - EKG Data EKG attestation: Yes I reviewed and interpreted this EKG. EKG results narrative: EKG demonstrates sinus tachycardia with PACs with a rate of 110. Normal axis. Normal intervals. Normal R-wave progression. No gross ST elevations or depressions. No acute ischemic findings. Baseline artifact. S.B.A.R. - S.B.A.RNano Situation: Demographics, MOA Background: Presenting Complaint, Relevant PMH, Meds, & Allergies Assessment: Vital Signs, Course and respsone to treatment, Exam Concerns, Patient/Family Expectation, Pertinant Lab Results Recommendation: Barrier(s) to disposition, Recommendation based on pending studies, treatments, or consults S.B.A.RNano Report Given to: Dr. Jules Garcia Repor Time: 06:43 Attestation Statement - Attestation Attestation: I examined this patient and my medical decision-making was reviewed with the Resident Physician, Dr. Ferreira. I agree with the documented findings, disposition and treatment plan as described except to the extent set forth below. Patient is a 60-year-old white female with a history of CHF as well as COPD who presents to emergency department sent from the [facility] for complaints of difficulty breathing. Patient was hypoxic on her normal 2 L nasal cannula was turned up to 4 L nasal cannula in the ED with sats 93-95%. Patient with coarse sounding cough as well as some mild gurgling with deep breathing can be heard at bedside. Patient states she is been having gradually worsening shortness breath the last 2 days. No significant lower extremity edema. Patient denies any chest pain pressure or heaviness no diaphoresis, no abdominal pain nausea vomiting no other associated symptoms. I agree with patient's physical exam findings as documented patient's is tachycardic hypotensive meetings Sirs criteria but fluids were held due to her history of CHF. Patient had full lab evaluation including blood cultures, lactate, troponin and BNP. Chest x-ray showed findings consistent with multifocal pneumonia on the left. Antibiotics for healthcare acquired initiated, patient also with the pancytopenia with hemoglobin of 7.1 she will be transfused 2 units packed red blood cells. Patient did get 500 mL bolus of fluids after chest x-ray was reviewed. Patient with improved hemodynamics status this time and respiratory status has been stable on nasal cannula oxygen. Case was discussed with hospitalist who accepted patient for admission for further evaluation and management.
[2018-06-23 04:46] LABS: INR 1.3
[2018-06-23] MEDS ORDERED: Piperacillin/Tazobactam 3.375 GM in 0.9 % Sodium Chloride Mini Bag 100 ML IVPB ONE (04:54)
[2018-06-23] MEDS ORDERED: 0.9 % Sodium Chloride 500 ML IVC ONE (04:54)
[2018-06-23 05:02] LABS: BUN/Creatinine Ratio 16 (6-26); Blood Urea Nitrogen 19 mg/dL (8-23); Calcium 8.3 mg/dL (8.6-10.3); Carbon Dioxide 28 mEq/L (23-29); Chloride 96 mEq/L (98-107); Glucose 87 mg/dL (70-105); Osmolality,Calculated 280 (280-300); Potassium 3.7 mEq/L (3.5-5.1); Sodium 134 mEq/L (136-145); Troponin I < 0.03 ng/mL (< 0.04); eGFR For Non-African Americans 45 (> 60)
[2018-06-23 05:08] LABS: Eosinophils # 0.3 K/mcL (0.0-0.6); Monocytes # 0.3 K/mcL (0.0-1.3); Neutrophils # 1.4 K/mcL (1.6-8.9); Platelet Estimate Normal (Normal); Toxic Granulation Present (Not Present)
[2018-06-23 06:02] LABS: Bilirubin,Urine Negative (Negative); Blood,Urine Negative (Negative); Clarity,Urine Clear (Clear); Color,Urine Yellow (Yellow); Glucose,Urine (UA) Normal (Normal); Ketones,Urine Negative (Negative); Leukocyte Esterase,Urine Negative (Negative); Nitrite,Urine Negative (Negative); Protein,Urine 30 mg/dL (Neg-Trace); Specific Gravity,Urine 1.006 (1.010-1.025); Urobilinogen,Urine Normal (Normal)
[2018-06-23 06:03] LABS: Bacteria,Urine None Seen per hpf (None-Few); Hyaline Casts,Urine None Seen per lpf (None-Few); RBC,Urine 0-3 per hpf (0-3); Squamous Epithelial Cell,Urine Many per lpf (None-Few); WBC,Urine 0-3 per hpf (0-3)
[2018-06-23] MEDS ORDERED: Levofloxacin 750 MG/150 ML 750 MG/150 ML BAG IVPB ONE (06:36)
[2018-06-23] MEDS ORDERED: Naloxone 0.4 MG/ML INJ IVP PRN (07:28)
[2018-06-23] MEDS ORDERED: Mag Hydrox/Al Hydrox/Simeth 30 ML UDC PO PRN (07:30)
[2018-06-23] MEDS ORDERED: Bisacodyl 10 MG RECTAL SUPPOSITORY RC PRN (07:30)
--- NOTE | 2018-06-23 08:31 | Emergency Department Note ---
START Narrative - START START: While waiting to get the blood started and for the patient to go upstairs the patient informed the nurse that she did not want to receive her packed red blood cells. The nurse called the patient's son but is not able to get a hold of them. I also tried to pack call the patient's son but was not able to get hold of him and I did leave a message. I did go back and speak with the patient and explained to her the risks and benefits of blood work. At this time her blood pressure 76 systolic and she is profoundly anemic and so the patient did agree to have the blood started so I did inform the nurse and the blood will be started and the patient will be transferred upstairs. I also did call the hospitalist to inform them of the patient's condition and to update them on the patient's condition. She is breathing comfortably. She is pale. She is in no acute distress but concern for significant hypotension which hopefully will improve with the blood. I did speak with the hospitalist Dr. Dubose and the blood pressure is now 111 systolic and he is going to see the patient. She will be transferred upstairs. 0830
--- NOTE | 2018-06-23 08:57 | Internal Med History&Physical ---
Date of Encounter: 06/23/18 Time of Encounter: 08:16 Internal Medicine - H&P: HPI Chief complaint: low oxygen History of present illness: Ms. Tong is a 68 year old female with past medical history of COPD, CHF, dementia, hyperlipidemia, and hypertension, TIA by, bipolar, schizophrenia who recently had pneumonia in April and was [facility] to [facility] was brought in from [facility] because of low oxygen levels. Patient not able to provide good history because of difficulty hearing and understanding. EMS noted patient to have respiratory distress and hypoxia with oxygen in 75% with her usual oxygen requirements. She was given neb treatment and transferred to the ER. Patient was noted to have cough. Patient did not offer any complaints. Denied any abdominal pain chest pain back pain, bowel complaints, skin rash. Patient mentions she is on methotrexate because her bit dermatology started. Denies any hallucinations. Patient was noted to have multifocal infiltrates in the left lung. Also patient was found to have pancytopenia. Patient's blood pressure was also in the 90s systolic. Given history of CHF patient received 500 mL of bolus and was started on blood transfusion because of severe anemia and sepsis. Patient received a dose of vancomycin and Zosyn and Levaquin in ER. Blood pressure was 111/68, 100% on nonrebreather, tachycardic at heart rate of 102. Son noted to the power of trust and estates attorney. We will contact son for CODE STATUS update. We will keep full code for now. Past Med Surg Social Fam HX - Past Medical History Medical history: cardiomyopathy, CHF, COPD, dementia, hyperlipidemia, hypertension, renal disease, TIA Additional medical history: CHRONIC BACK PAIN Psychiatric history: bipolar, schizophrenia - Past Surgical History Additional surgical history: right knee surgery, kathie, Hernia surgery - Social History Smoking Status: Former smoker Smokeless Tobacco Status: No Alcohol use: none Drug use: none - Family History Father Living Status: Hx Family Cardiac Disorders: Yes (cardiomegaly) Brother Living Status: Hx Family Cancer: Yes (leukemia) Sister Hx Family Endocrine Disorder: Yes (DM) Internal Medicine - H&P: Meds Methotrexate [Otrexup] 15 mg PO WE 08/23/17 [History] Bisacodyl [Dulcolax] 10 mg RC DAILY PRN 11/08/17 [History] Folic Acid 1 mg PO DAILY 11/08/17 [History] Mag Hydrox/Al Hydrox/Simeth [Antacid Suspension] 30 ml PO QID PRN 11/08/17 [ History] Quetiapine Fumarate [Seroquel] 50 mg PO TIDWM 11/08/17 [History] Aspirin Enteric Coated [Aspirin EC] 81 mg PO DAILY 04/19/18 [History] Atorvastatin Calcium [Lipitor] 20 mg PO HS 04/19/18 [History] Cholecalciferol (D-3) [Vitamin D] 5,000 unit PO WE 04/19/18 [History] Divalproex (12 HR) [Depakote (12 HR)] 500 mg PO BID 04/19/18 [History] Docusate [Colace] 100 mg PO BID PRN 04/19/18 [History] Famotidine [Heartburn Prevention] 20 mg PO DAILY 04/19/18 [History] Ferrous Sulfate [Iron] 325 mg PO DAILY 04/19/18 [History] HYDROcodone/Acet 7.5/325 mg [[place] 7.5-325 mg] 1 tab PO Q4H PRN 04/19/18 [ History] Ipratropium/Albuterol Neb [Duoneb] 3 ml IH Q6HR PRN 04/19/18 [History] Quetiapine Fumarate [Seroquel] 700 mg PO HS 04/19/18 [History] Rivastigmine Patch [Exelon] 4.6 mg TD DAILY 04/19/18 [History] Metoprolol [Lopressor] 37.5 mg PO BID 30 Days #45 tablet 04/25/18 [Rx] Mometasone Furoate [Asmanex Hfa] 2 puff IH BID 06/23/18 [History] 3 Allergy/AdvReac Type Severity Reaction Status Date / Time No Known Allergies Allergy Verified 06/23/18 07:08 All Systems PM: A 10-system review of systems was performed and is negative for pertinent findings except as documented above in the HPI. - Constitutional Vitals: Temp Pulse Resp BP Pulse Ox 99.1 F 96 20 111/68 100 06/23/18 08:47 06/23/18 08:47 06/23/18 08:47 06/23/18 08:47 06/23/18 08:47 General appearance: Present: A&O X 2, mild distress Exam: Constitutional: Vitals as noted. Conversant. mild respiratory Distress. appears pale. appears older than stated age. Eyes exam: Sclera white, conjunctiva cpale, no lid lag, PEARLA. ENT exam: hearing difficult. Nasophargeal and Oropharyngeal exam unremarkable. No JVD, carotid bruit, no cervical lymphadenopathy. no thyromegaly or mass. Respiratory exam: Rales noted on Lt. Good air entry on Left. Some accessory muscle use. No rhonchi or wheezes Cardiovascular exam: RRR, +S1, +S2. no murmur, gallop, rubs. No chest wall tenderness GI/Abdominal exam: Soft, Non-tender, Non-distended, normal bowel sounds, soft, no peritoneal signs. no orgenomegaly or mass appreciated. no hernia. Musculoskeletal exam: no deformity noted. mild pedal edema and mild cyanosis. warm, pulses palpable and symmetrical in UE/LE. no calf tenderness. Neurological exam: AO X2, CN II-XII grossly intact. Moving all extremeties. Having titubation and hand tremor. Skin exam: No skin rash, leseions or ulcers noted. no purpura or ecchymosis. exam: laws in place. Pych: AOx2. Memory not intact. Internal Med - H&P Results - Labs CBC & Chem 7: 06/23/18 04:30 06/23/18 04:30 - Assessment and plan (1) HCAP (healthcare-associated pneumonia) Current Visit: Yes Status: Acute Assessment and plan: Multifocal pneumonia on left lung. - Patient also had treatment for pneumonia with vancomycin and Zosyn in April. Had an MRSA swab positive. - Patient is hypotensive, tachypneic and tachycardic. - We will continue treatment for healthcare associated pneumonia with vancomycin and Zosyn and Levaquin. - Lactate of 1.7. Patient received 500 mL of NS and would be getting to PRBCs. - We will consult infectious disease specialist. - Follow up blood cultures sputum cultures, urine streptococcus and legionella antigen, MRSA screening. (2) Hypoxia Current Visit: Yes Status: Acute Assessment and plan: Likely secondary to pneumonia - Supplemental oxygen and management of pneumonia as above (3) Pancytopenia Current Visit: Yes Status: Acute Assessment and plan: - Possibly related to sepsis - We will monitor for now - To receive 2 units of PRBC given severe anemia with hemoglobin of 7.1 and sepsis and hypotension (4) Altered mental status Current Visit: No Status: Acute Assessment and plan: - Baseline history of dementia, bipolar and schizophrenia - Head CT unremarkable. Nonfocal physical exam. - Likely due to sepsis, hypoxia on top of her baseline mentation. Qualifiers: Qualified Code(s): R41.82 - Altered mental status, unspecified (5) COPD (chronic obstructive pulmonary disease) Current Visit: No Status: Acute Assessment and plan: - We will continue supplemental oxygen and DuoNeb treatments Qualifiers: Qualified Code(s): J44.9 - Chronic obstructive pulmonary disease, unspecified (6) DVT prophylaxis Current Visit: No Status: Acute Assessment and plan: - Pancytopenic. We will keep patient on EPCD (7) Severe sepsis Current Visit: No Status: Resolved Assessment and plan: As above - Time Spent With Patient Total time spent is greater than 50% in coordination of care (as documented) at patient's floor/unit and/or counseling patient:
[2018-06-23] MEDS ORDERED: Ipratropium/Albuterol Neb 3 ML IH PRN ×2 (09:19→10:00)
[2018-06-23] MEDS ORDERED: Albuterol 2.5 MG/3 ML NEBULIZER IH PRN (09:24)
[2018-06-23] MEDS ORDERED: Beclomethasone 80mcg MDI IH SCH (10:00)
[2018-06-23] MEDS: Beclomethasone 80mcg MDI IH SCH ×2 (10:06→21:02)
[2018-06-23] MEDS: Ipratropium/Albuterol Neb 3 ML IH SCH ×3 (10:06→21:02)
[2018-06-23] MEDS: Famotidine 20 MG TABLET PO SCH (10:52)
[2018-06-23] MEDS: Cholecalciferol (D-3) 1,000 UNIT TABLET PO SCH (10:52)
[2018-06-23] MEDS: Folic Acid 1 MG TABLET PO SCH (10:52)
[2018-06-23] MEDS: Divalproex (12 HR) 500 MG TABLET PO SCH ×2 (10:53→19:58)
[2018-06-23] MEDS: Aspirin Enteric Coated 81 MG Tablet PO SCH (10:53)
[2018-06-23] MEDS ORDERED: Levofloxacin 750 MG/150 ML 750 MG/150 ML BAG IVPB SCH (11:00)
[2018-06-23] MEDS ORDERED: 0.9 % Sodium Chloride 250 ML ONE (12:36)
--- NOTE | 2018-06-23 13:56 | Infectious Disease Consult ---
Date of Encounter: 06/23/18 Time of Encounter: 13:51 Assessment and Plan (1) Severe sepsis Status: Resolved Assessment and plan: The patient had recent sepsis criteria plus hypotension responsive to IV fluids. Likely secondary to pneumonia. Blood cultures drawn 06/23/18 are pending 2 sets. Lactic acid was normal. IV fluid resuscitation per the primary team. (2) HCAP (healthcare-associated pneumonia) Status: Acute Assessment and plan: Causative organism: Unclear. Location: Multifocal. Given the patient's clinical picture, concern that aspiration may be a factor. Chest x-ray completed 06/23/18 showed multifocal airspace disease concerning for pneumonia. Strep pneumococcal and legionella urinary antigen tests are negative. MRSA nasal screen is pending collection. Get sputum culture if the patient is able to provide an adequate specimen. Check respiratory infectious panel. Continue vancomycin IV. Pharmacy to dose. Goal trough approximately 15. Continue Zosyn 3.375 g IV every 8 hours. Discontinue Levaquin. May need to consider swallow evaluation once the patient is improved clinically. Duration of treatment depends on the clinical picture. Monitor renal function for drug toxicity and dose adjust antibiotics. (3) Pancytopenia Status: Acute Assessment and plan: likely secondary to sepsis. Continue to trend. (4) Hypoxia Status: Acute Assessment and plan: Likely secondary to pneumonia. Management per the primary team. (5) COPD (chronic obstructive pulmonary disease) Status: Acute Qualifiers: COPD type: unspecified COPD Qualified Code(s): J44.9 - Chronic obstructive pulmonary disease, unspecified (6) Hypertension Status: Acute Qualifiers: Hypertension type: essential hypertension Qualified Code(s): I10 - Essential (primary) hypertension (7) History of schizophrenia Status: Chronic (8) Psoriatic arthritis Status: Acute Assessment and plan: Currently on methotrexate. Infectious Disease HPI - Data of Consult Patient: new to practice Consult date: 06/23/18 Requesting Physician: Todd Vicente MD Primary Care Provider: Kwesi Allen MD - Consult Narrative Reason for consult: Pneumonia History of present illness: Ms. Tong is a 68 year old female with past medical history of COPD, CHF, cardiomyopathy, dementia, hyperlipidemia, hypertension, chronic kidney disease, psoriatic arthritis currently on methotrexate, and Parkinson's disease. The patient was omitted to the hospital June 23 for age, pancytopenia, and hypoxia. We are consulted June 23 for further recommendations for pneumonia. Briefly, the patient is a 68-year-old female with past medical history as stated above. Patient somewhat of a poor historian and her hearing loss makes it difficult to obtain history from the patient, therefore, some of the information is obtained from the medical record. Apparently, the patient has had worsening shortness of breath for the past several days area she has been hypoxic at the [facility] and she was brought to the ER for evaluation this morning. Upon arrival, the patient was tachypneic and tachycardic. She also had borderline hypotension. Laboratory studies revealed leukopenia with bandemia. Her hemoglobin was low at 7.1. Lactic acid level and renal function were normal. Chest x-ray showed findings consistent with multifocal airspace disease concerning for pneumonia. She does CT of the head that was negative. Blood cultures were obtained 2 sets and are pending. She was transfused 2 units of PRBCs. She was placed on IV Vanco and Zosyn and admitted to the hospital for further evaluation. Since admission, the patient has been afebrile. Her tachycardia has improved. She continues to be mildly tachypneic. Strep pneumococcal and Legionella to antigen tests are negative. Currently, she is on IV vancomycin, Zosyn, and Levaquin. We have been asked to evaluate and make further recommendations. During my exam today, the patient states she has been more short of breath recently, although, she is not able to tell me a definitive timeline. She reports a productive cough, but she is unsure of the color of her sputum. She reports subjective fevers, but denies any chills or rigors. She denies any headache or neck pain. She denies any nausea or vomiting or diarrhea. She denies any abdominal pain or urinary complaints. She states her appetite has been at baseline. She reports chronic back pain and is at baseline. She denies any oral thrush or new skin lesions. Patient lives in a local extended care facility. She denies any tobacco, alcohol, or illicit drug use. She denies any travel outside the [facility]. CC: Todd Vicente MD Past Med Surg Social Fam HX - Past Medical History Attestation: Yes The following information was validated with the patient. Source: patient, old records reviewed, nursing notes reviewed Medical history: cardiomyopathy, CHF, COPD, dementia, hyperlipidemia, hypertension, renal disease, TIA Additional medical history: CHRONIC BACK PAIN Psychiatric history: bipolar, schizophrenia - Past Surgical History Surgical History: other Additional surgical history: right knee surgery, kathie, Hernia surgery - Social History Smoking Status: Former smoker Smokeless Tobacco Status: No Alcohol use: none Drug use: none Occupational status: retired Current living situation: [facility] Activity Level: Uses cane/walker Recent Out of Country Travel Within the Last 8 Weeks: No Exposure or Possible Exposure to Illness During Travel: No - Family History Father Living Status: Hx Family Cardiac Disorders: Yes (cardiomegaly) Brother Living Status: Hx Family Cancer: Yes (leukemia) Sister Hx Family Endocrine Disorder: Yes (DM) Infectious Disease-CN:Meds Methotrexate [Otrexup] 15 mg PO WE 08/23/17 [History] Bisacodyl [Dulcolax] 10 mg RC DAILY PRN 11/08/17 [History] Folic Acid 1 mg PO DAILY 11/08/17 [History] Mag Hydrox/Al Hydrox/Simeth [Antacid Suspension] 30 ml PO QID PRN 11/08/17 [ History] Quetiapine Fumarate [Seroquel] 50 mg PO TIDWM 11/08/17 [History] Aspirin Enteric Coated [Aspirin EC] 81 mg PO DAILY 04/19/18 [History] Atorvastatin Calcium [Lipitor] 20 mg PO HS 04/19/18 [History] Cholecalciferol (D-3) [Vitamin D] 5,000 unit PO WE 04/19/18 [History] Divalproex (12 HR) [Depakote (12 HR)] 500 mg PO BID 04/19/18 [History] Docusate [Colace] 100 mg PO BID PRN 04/19/18 [History] Famotidine [Heartburn Prevention] 20 mg PO DAILY 04/19/18 [History] Ferrous Sulfate [Iron] 325 mg PO DAILY 04/19/18 [History] HYDROcodone/Acet 7.5/325 mg [[place] 7.5-325 mg] 1 tab PO Q4H PRN 04/19/18 [ History] Ipratropium/Albuterol Neb [Duoneb] 3 ml IH Q6HR PRN 04/19/18 [History] Quetiapine Fumarate [Seroquel] 700 mg PO HS 04/19/18 [History] Rivastigmine Patch [Exelon] 4.6 mg TD DAILY 04/19/18 [History] Metoprolol [Lopressor] 37.5 mg PO BID 30 Days #45 tablet 04/25/18 [Rx] Mometasone Furoate [Asmanex Hfa] 2 puff IH BID 06/23/18 [History] 3 Allergy/AdvReac Type Severity Reaction Status Date / Time No Known Allergies Allergy Verified 06/23/18 07:08 All systems: reviewed and no additional remarkable complaints except as stated Exam - Constitutional Vitals: Temp Pulse Resp BP Pulse Ox 98.7 F 84 20 119/61 98 06/23/18 13:07 06/23/18 13:07 06/23/18 13:07 06/23/18 13:07 06/23/18 13:07 General appearance: average body habitus, cooperative, no acute distress - Head Head exam: Present: atraumatic, normal inspection, normocephalic - Eye Eye exam: Present: EOMI, normal appearance, PERRL Pupils: Present: normal accommodation - ENT ENT exam: Present: mucous membranes moist - Neck Neck exam: Present: normal inspection. Absent: meningismus - Respiratory Respiratory exam: Present: rhonchi (Throughout) Additional comments: Moist cough noted on examination. - Cardiovascular Cardiovascular exam: Present: +S1, +S2, tachycardia. Absent: irregular rhythm - GI/Abdominal GI/Abdominal exam: Present: normal bowel sounds, soft. Absent: distended, tenderness - Extremities Exam Extremities exam: Present: normal inspection. Absent: joint swelling, pedal edema, tenderness - Neurological Exam Neurological exam: Present: alert, oriented X3, no focal deficits Additional comments: Tremor noted - Psychiatric Psychiatric exam: Present: normal affect, normal mood - Skin Skin exam: Present: dry, intact, normal color, warm Infectious Disease CN: Results - Labs CBC & Chem 7: 06/23/18 04:30 06/23/18 04:30 Consult Discharge Plan - Plan Referrals: Kwesi Allen MD [Primary Care Provider] -
[2018-06-23] MEDS: Piperacillin/Tazobactam 3.375 GM in 0.9 % Sodium Chloride Mini Bag 100 ML IVPB SCH ×2 (15:35→20:02)
[2018-06-23] MEDS ORDERED: Piperacillin/Tazobactam 3.375 GM in 0.9 % Sodium Chloride Mini Bag 100 ML IVPB SCH (16:00)
[2018-06-23] MEDS: *HR* HYDROcodone/Acet 7.5/325 mg TABLET PO PRN (17:05)
[2018-06-23 20:30] LABS: Adenovirus Not Detected (Not Detect); Bordetella Pertussis Not Detected (Not Detect); Chlamydophila pneumoniae Not Detected (Not Detect); Coronavirus 229E Not Detected (Not Detect); Coronavirus HKU1 Not Detected (Not Detect); Coronavirus NL63 Not Detected (Not Detect); Coronavirus OC43 Not Detected (Not Detect); Human Metapneumovirus Not Detected (Not Detect); Human Rhinovirus/Enterovirus Not Detected (Not Detect); Influenza A Subtype 2009 H1 Not Detected (Not Detect); Influenza A Untypeable Not Detected (Not Detect); Influenza B Not Detected (Not Detect); Mycoplasma pneumoniae Not Detected (Not Detect); Parainfluenza Virus 1 Not Detected (Not Detect); Parainfluenza Virus 2 Not Detected (Not Detect); Parainfluenza Virus 3 Not Detected (Not Detect); Parainfluenza Virus 4 Not Detected (Not Detect); Respiratory Syncytial Virus Not Detected (Not Detect)
[2018-06-24] MEDS: Ipratropium/Albuterol Neb 3 ML IH SCH ×4 (03:39→21:22)
[2018-06-24] MEDS: Piperacillin/Tazobactam 3.375 GM in 0.9 % Sodium Chloride Mini Bag 100 ML IVPB SCH ×3 (05:08→20:58)
[2018-06-24] MEDS: *HR* Enoxaparin 40 MG/0.4 ML SYRINGE SQ SCH (05:08)
[2018-06-24 07:41] LABS: Basophils # 0.1 K/mcL (0.0-0.2); Basophils % 0.9 %; Immature Granulocytes % 11.7 % (0-4); Lymphocytes # 0.6 K/mcL (0.6-4.6); Lymphocytes % 10.9 %; Mean Corpuscular HGB Conc 32.7 g/dL (31.6-35.5); Mean Corpuscular Hemoglobin 31.4 pg (28.0-33.3); Mean Corpuscular Volume 96.2 fL (83.0-100.0); Mean Platelet Volume 10.9 fL (9.4-12.4); Monocytes # 1.4 K/mcL (0.0-1.3); Monocytes % 26.9 %; Neutrophils # 2.6 K/mcL (1.6-8.9); Nucleated Red Blood Cells 0.4 /100 WBC (0); Platelet Count 106 K/mcL (140-400); Red Blood Count 3.12 M/mcL (3.82-4.97); Red Cell Distribution Width 19.2 % (11.5-14.5); Segmented Neutrophils % 49.6 %
[2018-06-24 07:50] LABS: Hemoglobin 9.8 g/dL (11.5-15.4)
[2018-06-24 08:01] LABS: Alanine Aminotransferase 3 Units/L (7-52); Albumin 2.3 g/dL (3.5-5.7); Albumin/Globulin Ratio 0.6 (1.1-2.2); Alkaline Phosphatase 44 Units/L (34-104); Aspartate Amino Transferase 7 Units/L (13-39); BUN/Creatinine Ratio 19 (6-26); Bilirubin,Total 0.2 mg/dL (0.3-1.0); Blood Urea Nitrogen 21 mg/dL (8-23); Calcium 7.9 mg/dL (8.6-10.3); Carbon Dioxide 29 mEq/L (23-29); Chloride 99 mEq/L (98-107); Globulin 3.6 g/dL (2.4-3.5); Glucose 106 mg/dL (70-105); Osmolality,Calculated 283 (280-300); Potassium 3.7 mEq/L (3.5-5.1); Sodium 135 mEq/L (136-145); Total Protein 5.9 g/dL (6.4-8.9); eGFR For Non-African Americans 50 (> 60)
[2018-06-24] MEDS: Beclomethasone 80mcg MDI IH SCH ×2 (09:41→21:22)
[2018-06-24] MEDS: Divalproex (12 HR) 500 MG TABLET PO SCH ×2 (10:04→21:02)
[2018-06-24] MEDS: Cholecalciferol (D-3) 1,000 UNIT TABLET PO SCH (10:04)
[2018-06-24] MEDS: Aspirin Enteric Coated 81 MG Tablet PO SCH (10:04)
[2018-06-24] MEDS: GuaiFENesin/Dextromethorphan TABLET PO PRN (10:04)
[2018-06-24] MEDS: Famotidine 20 MG TABLET PO SCH (10:04)
[2018-06-24] MEDS: Folic Acid 1 MG TABLET PO SCH (10:04)
--- NOTE | 2018-06-24 13:06 | Internal Med Progress Note ---
Hospitalist Progress Note - Encounter Date of Encounter: 06/24/18 Time of Encounter: 10:40 - Subjective Interval History: Patient is feeling somewhat better today. She does continue to have cough. [place] warm earlier But No reported fever. No chills or rigors. No chest pain. No nausea or vomiting. - Exam Vitals: Temp Pulse Resp BP Pulse Ox 98.6 F 80 16 107/68 94 06/24/18 11:22 06/24/18 11:22 06/24/18 11:22 06/24/18 11:22 06/24/18 11:22 Exam: General: Patient is alert, no acute distress, oriented x 2 Respiratory: Mild wheezing bilaterally Cardiovascular: Regular rate and rhythm. s1 and s2 normal No clicks, rubs, gallops, or murmurs. No pedal edema Abdomen: Abdomen is soft, nontender. Bowel sounds are present Musculoskeletal: Spontaneously moving all extremities Skin: Stage II decubitus ulcer in the coccygeal region Neuro: Alert oriented x 2 normal cranial nerves, no focal deficits - Assessment and Plan (1) Acute respiratory failure with hypoxia Current Visit: Yes Status: Acute Assessment and Plan: Due to pneumonia. With underlying COPD. Continue O2 supplementation. Patient is currently on 5 L high flow nasal cannula. We will wean FiO2 as tolerated while continuing to treat pneumonia. (2) Severe sepsis Current Visit: Yes Status: Resolved Assessment and Plan: Sepsis appears to be resolving. Patient states WBC count is normal today.continue current antibiotics. Lactic acid normal. Blood cultures are negative so far. Urine antigens negative for Legionella and strep pneumoniae. Sputum culture growing gram-positive rods and gram-positive cocci. Moderate risk for complications. Continue vancomycin and Zosyn. (3) HCAP (healthcare-associated pneumonia) Current Visit: Yes Status: Acute Assessment and Plan: Management as above with intravenous antibiotics. (4) Altered mental status Current Visit: Yes Status: Resolved Assessment and Plan: Patient is awake and alert today. Acute encephalopathy related to sepsis appears to have resolved. (5) COPD (chronic obstructive pulmonary disease) Current Visit: Yes Status: Chronic Assessment and Plan: Continue treatment with bronchodilators. (6) DVT prophylaxis Current Visit: Yes Status: Acute Assessment and Plan: On Lovenox (7) Hypoxia Current Visit: Yes Status: Acute Assessment and Plan: O2 supplementation. (8) Pancytopenia Current Visit: Yes Status: Acute Assessment and Plan: Blood counts are improving. She did receive 2 units PRBC transfusion yesterday. Hemoglobin 9.8 this morning. We will check iron, folic acid and B12 levels. Also check stool for occult blood. - Time Spent with Patient Total time spent is greater than 50% in coordination of care (as documented) at patient's floor/unit and/or counseling patient: Internal Medicine: Result - Labs CBC & Chem 7: 06/24/18 07:01 06/24/18 07:01 Labs: Short CBC 06/24/18 Range/Units 07:01 WBC 5.3 D (4.3-11.1) K/mcL Hgb 9.8 L D (11.5-15.4) g/dL Hct 30.0 L (35.3-44.9) % Plt Count 106 L (140-400) K/mcL Neutrophils # 2.6 (1.6-8.9) K/mcL BMP 06/24/18 07:01 Sodium 135 L Potassium 3.7 Chloride 99 Carbon Dioxide 29 BUN 21 Creatinine 1.09 Glucose 106 H Calcium 7.9 L Liver Function 06/24/18 Range/Units 07:01 Total Bilirubin 0.2 L (0.3-1.0) mg/dL AST 7 L (13-39) Units/L ALT 3 L (7-52) Units/L Alkaline Phosphatase 44 (34-104) Units/L Albumin 2.3 L (3.5-5.7) g/dL - ABG Interpretation ABG results: PT/INR, D-dimer PT 15.0 Seconds (9.4-12.1) H 06/23/18 04:30 Consult Discharge Plan - Plan Referrals: Kwesi Allen MD [Primary Care Provider] - (4) Altered mental status Qualifiers: Altered mental status type: unspecified Qualified Code(s): R41.82 - Altered mental status, unspecified (5) COPD (chronic obstructive pulmonary disease) Qualifiers: COPD type: chronic bronchitis Chronic bronchitis type: unspecified Qualified Code(s): J42 - Unspecified chronic bronchitis
[2018-06-24] MEDS: *HR* HYDROcodone/Acet 7.5/325 mg TABLET PO PRN (21:05)
[2018-06-25] MEDS: Ipratropium/Albuterol Neb 3 ML IH SCH ×4 (04:34→21:30)
[2018-06-25] MEDS: Piperacillin/Tazobactam 3.375 GM in 0.9 % Sodium Chloride Mini Bag 100 ML IVPB SCH ×2 (04:45→14:32)
[2018-06-25] MEDS: *HR* HYDROcodone/Acet 7.5/325 mg TABLET PO PRN ×2 (04:45→14:32)
[2018-06-25] MEDS: *HR* Enoxaparin 40 MG/0.4 ML SYRINGE SQ SCH (04:49)
[2018-06-25] MEDS: Aspirin Enteric Coated 81 MG Tablet PO SCH (07:51)
[2018-06-25] MEDS: Folic Acid 1 MG TABLET PO SCH (07:51)
[2018-06-25] MEDS: Divalproex (12 HR) 500 MG TABLET PO SCH ×2 (07:51→21:40)
[2018-06-25] MEDS: Famotidine 20 MG TABLET PO SCH (07:52)
[2018-06-25] MEDS: Cholecalciferol (D-3) 1,000 UNIT TABLET PO SCH (07:52)
[2018-06-25 08:41] LABS: % Iron Saturation 10 % (15-50); Iron 21 mcg/dL (50-170); Transferrin 154 mg/dL (203-362)
[2018-06-25] MEDS ORDERED: Aminoglycoside Consult 1 EACH MC ONE (08:53)
[2018-06-25 10:16] LABS: Red Cell Distribution Width 19.4 % (11.5-14.5)
[2018-06-25] MEDS: Beclomethasone 80mcg MDI IH SCH ×2 (10:20→21:30)
[2018-06-25 10:24] LABS: Hematocrit 33.3 % (35.3-44.9); Hemoglobin 10.7 g/dL (11.5-15.4); Mean Corpuscular HGB Conc 32.1 g/dL (31.6-35.5); Mean Corpuscular Hemoglobin 31.8 pg (28.0-33.3); Mean Corpuscular Volume 98.8 fL (83.0-100.0); Mean Platelet Volume 10.4 fL (9.4-12.4); Nucleated Red Blood Cells 0.3 /100 WBC (0); Platelet Count 119 K/mcL (140-400); Red Blood Count 3.37 M/mcL (3.82-4.97)
[2018-06-25 10:38] LABS: Ferritin 339 ng/mL (10-120)
[2018-06-25 10:43] LABS: Folate 13.4 ng/mL (3.0-16.0)
[2018-06-25 11:24] LABS: Anisocytosis 2+ (Not Present); Lymphocytes # 1.7 K/mcL (0.6-4.6); Monocytes # 3.3 K/mcL (0.0-1.3); Neutrophils # 3.7 K/mcL (1.6-8.9); Platelet Estimate Normal (Normal); Poikilocytosis 1+ (Not Present); Polychromasia 1+ (Not Present)
--- NOTE | 2018-06-25 14:57 | Electrocardiograph Report ---
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
--- NOTE | 2018-06-25 16:21 | Internal Med Progress Note ---
Hospitalist Progress Note - Encounter Date of Encounter: 06/25/18 Time of Encounter: 16:19 - Subjective Interval History: Evaluated patient earlier today. Patient is feeling much better today. No chest pain or palpitations. Shortness of breath is improving. No fevers or chills reported overnight. - Exam Vitals: Temp Pulse Resp BP Pulse Ox 99.3 F 72 16 115/71 96 06/25/18 13:31 06/25/18 13:31 06/25/18 13:31 06/25/18 13:31 06/25/18 13:31 Exam: General: Patient is alert, mild distress, oriented x 2 Respiratory: Good respiratory effort. Decreased breath sounds at both bases. No wheezing or crackles. Cardiovascular: Regular rate and rhythm. s1 and s2 normal No clicks, rubs, gallops, or murmurs. No pedal edema Abdomen: Abdomen is soft, nontender. Bowel sounds are present Skin: warm, dry, intact. Neuro: Alert oriented x 2 normal cranial nerves, no focal deficits - Assessment and Plan (1) Acute respiratory failure with hypoxia Current Visit: Yes Status: Acute Assessment and Plan: Continue O2 supplementation. Patient currently on 5 L. Will wean FiO2 as tolerated. She uses 4 L at senior living. (2) Severe sepsis Current Visit: Yes Status: Resolved Assessment and Plan: Cultures are still negative. We will de-escalate antibiotics. (3) HCAP (healthcare-associated pneumonia) Current Visit: Yes Status: Acute Assessment and Plan: Improving. We will de-escalate antibiotics to oral regimen. Plan on discharge tomorrow if patient continues to do well. (4) Altered mental status Current Visit: Yes Status: Resolved (5) COPD (chronic obstructive pulmonary disease) Current Visit: Yes Status: Chronic Assessment and Plan: Continue bronchodilators and O2 supplementation. (6) DVT prophylaxis Current Visit: Yes Status: Acute Assessment and Plan: On Lovenox. (7) Hypoxia Current Visit: Yes Status: Acute Assessment and Plan: Continue O2 supplementation (8) Pancytopenia Current Visit: Yes Status: Acute Assessment and Plan: Improving. Platelets and WBC count are improving. Hemoglobin levels remained stable. Stool for occult blood is negative. Patient does have low iron levels. We will replete. - Time Spent with Patient Total time spent is greater than 50% in coordination of care (as documented) at patient's floor/unit and/or counseling patient: Internal Medicine: Result - Labs CBC & Chem 7: 06/25/18 07:45 06/24/18 07:01 Labs: Short CBC 06/25/18 Range/Units 07:45 WBC 8.7 D (4.3-11.1) K/mcL Hgb 10.7 L (11.5-15.4) g/dL Hct 33.3 L (35.3-44.9) % Plt Count 119 L (140-400) K/mcL Neutrophils # 3.7 (1.6-8.9) K/mcL - ABG Interpretation ABG results: PT/INR, D-dimer PT 15.0 Seconds (9.4-12.1) H 06/23/18 04:30 - VTE Documentation of Mechanical Device: Intermittent pneumatic compression device Consult Discharge Plan - Plan Referrals: Kwesi Allen MD [Primary Care Provider] - (4) Altered mental status Qualifiers: Altered mental status type: unspecified Qualified Code(s): R41.82 - Altered mental status, unspecified (5) COPD (chronic obstructive pulmonary disease) Qualifiers: COPD type: chronic bronchitis Chronic bronchitis type: unspecified Qualified Code(s): J42 - Unspecified chronic bronchitis
[2018-06-26] MEDS: *HR* HYDROcodone/Acet 7.5/325 mg TABLET PO PRN ×2 (03:47→08:39)
[2018-06-26] MEDS: Ipratropium/Albuterol Neb 3 ML IH SCH ×2 (03:56→10:39)
[2018-06-26] MEDS: *HR* Enoxaparin 40 MG/0.4 ML SYRINGE SQ SCH (05:26)
[2018-06-26] MEDS: Divalproex (12 HR) 500 MG TABLET PO SCH (08:39)
[2018-06-26] MEDS: Folic Acid 1 MG TABLET PO SCH (08:39)
[2018-06-26] MEDS: GuaiFENesin/Dextromethorphan TABLET PO PRN (08:39)
[2018-06-26] MEDS: Cholecalciferol (D-3) 1,000 UNIT TABLET PO SCH (08:39)
[2018-06-26] MEDS: Aspirin Enteric Coated 81 MG Tablet PO SCH (08:39)
[2018-06-26] MEDS: Famotidine 20 MG TABLET PO SCH (08:40)
[2018-06-26] MEDS: Beclomethasone 80mcg MDI IH SCH (10:38)
[2018-06-26 10:44] VITALS: BP 110/72
--- NOTE | 2018-06-26 11:41 | Discharge Summary ---
- NOTES TO OUTPATIENT PROVIDER Notes to Outpatient Provider: Patient was hospitalized with healthcare associated pneumonia. She was treated with broad spectrum antibiotics. Her blood and sputum cultures have been negative. MRSA screen was also negative. She did have anemia on arrival with a hemoglobin of 7.1. Stool was negative for occult blood. She did receive blood transfusion initially and her blood counts have remained stable since then. This will need to be followed up outpatient and she may eventually need colonoscopy for further workup. Patient does have nutritional iron Deficiency and has been on supplements which she should continue. She will be discharged today on oral antibiotics and will complete 7-10 day treatment course. She will follow up with her primary care provider for further management. She does use chronic home oxygen and will continue to use the same. Orders not resulted at time of discharge: Pending orders 06/24/18 13:11 Occult Blood,Stool [BF] Routine Date of Encounter: 06/26/18 Time of Encounter: 11:39 - Discharge Diagnosis (1) Acute respiratory failure with hypoxia Priority: Primary Status: Acute (2) Severe sepsis Priority: Secondary Status: Resolved (3) HCAP (healthcare-associated pneumonia) Priority: Secondary Status: Acute (4) Altered mental status Priority: Secondary Status: Resolved Qualifiers: Altered mental status type: delirium Qualified Code(s): R41.0 - Disorientation, unspecified (5) COPD (chronic obstructive pulmonary disease) Priority: Secondary Status: Chronic Qualifiers: COPD type: chronic bronchitis Chronic bronchitis type: unspecified Qualified Code(s): J42 - Unspecified chronic bronchitis (6) DVT prophylaxis Priority: Secondary Status: Acute (7) Hypoxia Priority: Secondary Status: Acute (8) Pancytopenia Priority: Secondary Status: Acute Hospital course: Ms. Tong is a 68 year old female Patient with history of COPD, CHF, dementia, hypertension, hyperlipidemia, bipolar disorder, TIA, schizophrenia who was hospitalized with healthcare associated pneumonia. She was treated with broad spectrum antibiotics. Her blood and sputum cultures have been negative. MRSA screen was also negative. She did have anemia on arrival with a hemoglobin of 7.1. Stool was negative for occult blood. She did receive blood transfusion initially and her blood counts have remained stable since then. This will need to be followed up outpatient and she may eventually need colonoscopy for further workup. Patient does have nutritional iron Deficiency and has been on supplements which she should continue. She will be discharged today on oral antibiotics and will complete 7-10 day treatment course. She will follow up with her primary care provider for further management. She does use chronic home oxygen and will continue to use the same. Discharge discussed with: patient, nurse, system sales consultant - Time Spent with Patient Total time spent providing and/or coordinating discharge services: Greater than 30 minutes (32 min) - Discharge Medications Prescriptions: Amoxicillin/Clavulanate [Augmentin] 875 mg PO BIDWM #14 tablet Lactobacillus Acidophilus [Acidophilus] 1 each PO BID #20 tablet Home Medications: Methotrexate [Otrexup] 15 mg PO WE 08/23/17 [History] Bisacodyl [Dulcolax] 10 mg RC DAILY PRN 11/08/17 [History] Folic Acid 1 mg PO DAILY 11/08/17 [History] Mag Hydrox/Al Hydrox/Simeth [Antacid Suspension] 30 ml PO QID PRN 11/08/17 [ History] Quetiapine Fumarate [Seroquel] 50 mg PO TIDWM 11/08/17 [History] Aspirin Enteric Coated [Aspirin EC] 81 mg PO DAILY 04/19/18 [History] Atorvastatin Calcium [Lipitor] 20 mg PO HS 04/19/18 [History] Cholecalciferol (D-3) [Vitamin D] 5,000 unit PO WE 04/19/18 [History] Divalproex (12 HR) [Depakote (12 HR)] 500 mg PO BID 04/19/18 [History] Docusate [Colace] 100 mg PO BID PRN 04/19/18 [History] Famotidine [Heartburn Prevention] 20 mg PO DAILY 04/19/18 [History] Ferrous Sulfate [Iron] 325 mg PO DAILY 04/19/18 [History] HYDROcodone/Acet 7.5/325 mg [[place] 7.5-325 mg] 1 tab PO Q4H PRN 04/19/18 [ History] Ipratropium/Albuterol Neb [Duoneb] 3 ml IH Q6HR PRN 04/19/18 [History] Quetiapine Fumarate [Seroquel] 700 mg PO HS 04/19/18 [History] Rivastigmine Patch [Exelon] 4.6 mg TD DAILY 04/19/18 [History] Metoprolol [Lopressor] 37.5 mg PO BID 30 Days #45 tablet 04/25/18 [Rx] Mometasone Furoate [Asmanex Hfa] 2 puff IH BID 06/23/18 [History] Amoxicillin/Clavulanate [Augmentin] 875 mg PO BIDWM #14 tablet 06/26/18 [Rx] Lactobacillus Acidophilus [Acidophilus] 1 each PO BID #20 tablet 06/26/18 [Rx] Allergies/Adverse Reactions: 3 Allergy/AdvReac Type Severity Reaction Status Date / Time No Known Allergies Allergy Verified 06/23/18 07:08 Date of admission: 06/23/18 07:28 Primary care physician: Kwesi Allen MD Consults: 06/23/18 09:57 Consult to Plaster Maker [CONS] Routine Reason for SW Consult: Is a patient of [employer] 06/23/18 10:16 Consult to Infectious Diseases [CONS] Routine Consulting Provider: Infectious Disease Dianna Reason for Consult: HCAP Call Completed: Yes Discharging clinician: Sigifredo Rodriguez Anticipated date of discharge: 06/26/18 - Constitutional Vitals: Temp Pulse Resp BP Pulse Ox 98 F 69 18 110/72 98 06/26/18 10:40 06/26/18 10:40 06/26/18 10:40 06/26/18 10:40 06/26/18 10:40 General appearance: Present: cooperative, A&O X 2, pleasant, answers questions appropriately Exam: . - Respiratory Respiratory exam: Present: prolonged expiratory phase. Absent: accessory muscle use, rales, rhonchi, wheezes Additional comments: Decreased breath sounds at both bases - Cardiovascular Cardiovascular exam: Present: RRR, +S1, +S2. Absent: diastolic murmur, gallop, rubs, systolic murmur - GI/Abdominal GI/Abdominal exam: Present: normal bowel sounds, soft, no peritoneal signs. Absent: distended, tenderness - Patient Status Disposition: Transfer SNF Condition: Fair Functional capacity at discharge: wheelchair bound Overall status at discharge: patient is progressing back to baseline - Discharge Instructions Instructions: Acute Respiratory Distress Syndrome (DC), Pneumonia (DC) Follow Up With: Kwesi Allen MD [Primary Care Provider] - (WMP) - Diet and Activity Activity: as per physical therapy, wear oxygen at all times Diet: low fat, low cholesterol, low salt diet - VTE Documentation of Mechanical Device: Intermittent pneumatic compression device
--- NOTE | 2018-06-26 11:53 | Physician Discharge Referral ---
ExtendedCare Referral Info Provider in Charge after Transfer: PCP Institutional Level of Care: Skilled - Diagnosis (1) Acute respiratory failure with hypoxia Priority: Primary Status: Acute (2) Severe sepsis Priority: Secondary Status: Resolved (3) HCAP (healthcare-associated pneumonia) Priority: Secondary Status: Acute (4) Altered mental status Priority: Secondary Status: Resolved (5) COPD (chronic obstructive pulmonary disease) Priority: Secondary Status: Chronic (6) DVT prophylaxis Priority: Secondary Status: Acute (7) Hypoxia Priority: Secondary Status: Acute (8) Pancytopenia Priority: Secondary Status: Acute Prognosis: Fair Aware of Diagnosis: Patient Aware of Prognosis: Patient - Transfer Medications Prescriptions: Amoxicillin/Clavulanate [Augmentin] 875 mg PO BIDWM #14 tablet Lactobacillus Acidophilus [Acidophilus] 1 each PO BID #20 tablet Home Medications: Methotrexate [Otrexup] 15 mg PO WE 08/23/17 [History] Bisacodyl [Dulcolax] 10 mg RC DAILY PRN 11/08/17 [History] Folic Acid 1 mg PO DAILY 11/08/17 [History] Mag Hydrox/Al Hydrox/Simeth [Antacid Suspension] 30 ml PO QID PRN 11/08/17 [ History] Quetiapine Fumarate [Seroquel] 50 mg PO TIDWM 11/08/17 [History] Aspirin Enteric Coated [Aspirin EC] 81 mg PO DAILY 04/19/18 [History] Atorvastatin Calcium [Lipitor] 20 mg PO HS 04/19/18 [History] Cholecalciferol (D-3) [Vitamin D] 5,000 unit PO WE 04/19/18 [History] Divalproex (12 HR) [Depakote (12 HR)] 500 mg PO BID 04/19/18 [History] Docusate [Colace] 100 mg PO BID PRN 04/19/18 [History] Famotidine [Heartburn Prevention] 20 mg PO DAILY 04/19/18 [History] Ferrous Sulfate [Iron] 325 mg PO DAILY 04/19/18 [History] HYDROcodone/Acet 7.5/325 mg [[place] 7.5-325 mg] 1 tab PO Q4H PRN 04/19/18 [ History] Ipratropium/Albuterol Neb [Duoneb] 3 ml IH Q6HR PRN 04/19/18 [History] Quetiapine Fumarate [Seroquel] 700 mg PO HS 04/19/18 [History] Rivastigmine Patch [Exelon] 4.6 mg TD DAILY 04/19/18 [History] Metoprolol [Lopressor] 37.5 mg PO BID 30 Days #45 tablet 04/25/18 [Rx] Mometasone Furoate [Asmanex Hfa] 2 puff IH BID 06/23/18 [History] Amoxicillin/Clavulanate [Augmentin] 875 mg PO BIDWM #14 tablet 06/26/18 [Rx] Lactobacillus Acidophilus [Acidophilus] 1 each PO BID #20 tablet 06/26/18 [Rx] Allergies/Adverse Reactions: 3 Allergy/AdvReac Type Severity Reaction Status Date / Time No Known Allergies Allergy Verified 06/23/18 07:08 - Respiratory Orders Smoking Cessation: Smoking cessation has been advised. For more information, call the [place] Tobacco Quit Line at 3-316-PYOP-NOW. - Advance Directives Code Status: Full Code - Mobility Orders Other (per PT) - Rehabiliation Orders Rehab Potential: Fair Rehab Orders: Evaluation for Physical Therapy, Evaluation for Occupational Therapy - Diet Orders Cardiac CERTIFICATION: I certify that the transfer of the above named patient to an Extended Care Facility is necessary for the continuing treatment of the diagnosis listed. The above information is true and accurate reflection of patient's current condition. Confidential - Redisclosure prohibited without a patient's written consent.
--- NOTE | 2018-06-26 13:59 | Infectious Disease Progress No ---
Date of Encounter: 06/26/18 Time of Encounter: 10:00 - Assessment and Plan (1) Severe sepsis Status: Resolved The patient had recent sepsis criteria plus hypotension responsive to IV fluids. Likely secondary to pneumonia. Blood cultures drawn 06/23/18 are NGTD 2 sets. Lactic acid was normal. (2) HCAP (healthcare-associated pneumonia) Status: Acute Causative organism: Unclear. Location: Multifocal. Given the patient's clinical picture, concern that aspiration may be a factor. Chest x-ray completed 06/23/18 showed multifocal airspace disease concerning for pneumonia. Strep pneumococcal and legionella urinary antigen tests are negative. MRSA nasal screen was negative. Get sputum culture if the patient is able to provide an adequate specimen. --> uncollected. Check respiratory infectious panel.--> negative. Antibiotics de-escalated to Augmentin per the primary team. May need to consider swallow evaluation prior to discharge. Duration of treatment depends on the clinical picture, but likely a total of 10 days. Agree with oral Augmentin to complete course of treatment. Monitor renal function and dose adjust antibiotics. (3) Pancytopenia Status: Acute likely secondary to sepsis. Continue to trend. (4) Hypoxia Status: Acute Likely secondary to pneumonia. Management per the primary team. (5) COPD (chronic obstructive pulmonary disease) Status: Chronic Qualifiers: COPD type: chronic bronchitis Chronic bronchitis type: unspecified Qualified Code(s): J42 - Unspecified chronic bronchitis (6) Hypertension Status: Acute Qualifiers: Hypertension type: essential hypertension Qualified Code(s): I10 - Essential (primary) hypertension (7) History of schizophrenia Status: Chronic (8) Psoriatic arthritis Status: Acute Currently on methotrexate. - Subjective Interval history: Patient seen and examined. No acute events noted overnight. Patient states she feels better today. Denies fevers, chills, or rigors. Denies chest pain. States she continues to have a cough, but is non-productive. Denies shortness of breath. Denies nausea, vomiting, or diarrhea. Denies abdominal pain, urinary complaints, or appetite changes. Denies oral thrush or skin lesions. Infect Dis PN-Objective Data - Labs CBC & Chem 7: 06/25/18 07:45 06/24/18 07:01 Cultures: Cultures 06/24/18 02:43 Sputum Culture - Final Sputum Serology 06/25/18 06/23/1818 Range/Units 05:25 19:20 19:20 Nasal Screen MRSA (PCR) Negative Negative (Negative) Chlamy pneumoniae PCR Not Detected (Not Detect) Adenovirus (PCR) Not Detected (Not Detect) B. pertussis DNA (PCR) Not Detected (Not Detect) B.parapertussis DNA PCR Not Detected (Not Detect) Coronavirus OC43 (PCR) Not Detected (Not Detect) Coronavirus HKU1 (PCR) Not Detected (Not Detect) Coronavirus 229E (PCR) Not Detected (Not Detect) Coronavirus NL63 (PCR) Not Detected (Not Detect) Human Metapneumovir PCR Not Detected (Not Detect) Influenza A (H1) PCR Not Detected (Not Detect) Influ A (H1N1/09) PCR Not Detected (Not Detect) Influenza A (H3) PCR Not Detected (Not Detect) Influenza A Untype (PCR) Not Detected (Not Detect) Influenza Type B (PCR) Not Detected (Not Detect) M.pneumoniae DNA (PCR) Not Detected (Not Detect) Parainfluenza 1 (PCR) Not Detected (Not Detect) Parainfluenza 2 (PCR) Not Detected (Not Detect) Parainfluenza 3 (PCR) Not Detected (Not Detect) Parainfluenza 4 (PCR) Not Detected (Not Detect) RSV (PCR) Not Detected (Not Detect) Entero/Rhino (PCR) Not Detected (Not Detect) Exam - Constitutional Vitals: Temp Pulse Resp BP Pulse Ox 98 F 69 18 110/72 98 06/26/18 10:40 06/26/18 10:40 06/26/18 10:40 06/26/18 10:40 06/26/18 10:40 General appearance: average body habitus, cooperative, no acute distress - Head Head exam: Present: atraumatic, normal inspection, normocephalic - Eye Eye exam: Present: EOMI, normal appearance, PERRL Pupils: Present: normal accommodation - ENT ENT exam: Present: mucous membranes moist - Neck Neck exam: Present: normal inspection - Respiratory Respiratory exam: Present: CTAB. Absent: rales, respiratory distress, rhonchi, wheezes - Cardiovascular Cardiovascular exam: Present: RRR, +S1, +S2 - GI/Abdominal GI/Abdominal exam: Present: normal bowel sounds, soft. Absent: distended, tenderness - Extremities Exam Extremities exam: Present: normal inspection. Absent: joint swelling, pedal edema, tenderness - Neurological Exam Neurological exam: Present: alert, oriented X3, no focal deficits - Psychiatric Psychiatric exam: Present: normal affect, normal mood - Skin Skin exam: Present: dry, intact, normal color, warm - VTE Documentation of Mechanical Device: Intermittent pneumatic compression device Consult Discharge Plan - Plan Instructions: Acute Respiratory Distress Syndrome (DC), Pneumonia (DC) Referrals: Kwesi Allen MD [Primary Care Provider] - ([facility]) Prescriptions: Amoxicillin/Clavulanate [Augmentin] 875 mg PO BIDWM #14 tablet Lactobacillus Acidophilus [Acidophilus] 1 each PO BID #20 tablet - Attending Attestation I examined this patient and my medical decision-making was reviewed with the Resident Physician. I agree with the documented findings, disposition and treatment plan as described except to the extent set forth below.
== END 2018-06-26 13:45 | DRG 720 ==
LOC: EMEROOARM 03:39 → 2ANU 03:39 → SUATTDRO 07:28 → 2ANU 09:20
PROVIDERS: ADMIT Pediatrics; ATTEND Internal Medicine

== ENCOUNTER 2018-06-27 04:05 | Inpatient (IN) ==
[2018-06-27] MEDS ORDERED: 0.9 % Sodium Chloride 1,000 ML IVC ONE (04:20)
--- NOTE | 2018-06-27 04:20 | Emergency Department Note ---
Disposition Clinical Impression: Healthcare-associated pneumonia Altered mental status Qualifiers: Altered mental status type: unspecified Qualified Code(s): R41.82 - Altered mental status, unspecified Disposition: Admitted As Inpatient Condition: Fair Altered Mental Status HPI - General Chief Complaint: ED General Medical Stated Complaint: lethargic Time Seen by Provider: 06/27/18 04:11 Source: EMS Mode of arrival: EMS Limitations: altered mental status Nursing Notes Reviewed: Yes Vital Signs Reviewed: Yes - History of Present Illness HPI Narrative: 68-year-old female history of dementia, CHF, COPD who presents to the ER via EMS due to altered mental status. Patient was just discharged from the hospital yesterday afternoon. She is unable to provide any history. EMS states that she has had altered mental status since arriving at the facility and has progressed throughout the evening. They were called for hypoxia in the mid 80s. Upon arrival the patient aroused was in the low 90s. She received a DuoNeb treatment. She has been receiving them while there. She is unable to answer any questions upon arrival. Accu-Chek in route was 111. MD complaint: altered mental status Onset (ago): hour(s) Context: other (Recently admitted for pneumonia and anemia) Treatments prior to arrival: oxygen - Related Data Home Medications Medication Instructions Recorded Confirmed Methotrexate [Otrexup] 15 mg PO WE 08/23/17 06/27/18 Bisacodyl [Dulcolax] 10 mg RC DAILY PRN 11/08/17 06/27/18 Folic Acid 1 mg PO DAILY 11/08/17 06/27/18 Mag Hydrox/Al Hydrox/Simeth 30 ml PO QID PRN 11/08/17 06/27/18 [Antacid Suspension] Quetiapine Fumarate [Seroquel] 50 mg PO TIDWM 11/08/17 06/27/18 Aspirin Enteric Coated [Aspirin EC] 81 mg PO DAILY 04/19/18 06/27/18 Atorvastatin Calcium [Lipitor] 20 mg PO HS 04/19/18 06/27/18 Cholecalciferol (D-3) [Vitamin D] 5,000 unit PO WE 04/19/18 06/27/18 Divalproex (12 HR) [Depakote (12 500 mg PO BID 04/19/18 06/27/18 HR)] Docusate [Colace] 100 mg PO BID PRN 04/19/18 06/27/18 Famotidine [Heartburn Prevention] 20 mg PO DAILY 04/19/18 06/27/18 Ferrous Sulfate [Iron] 325 mg PO DAILY 04/19/18 06/27/18 HYDROcodone/Acet 7.5/325 mg [[place] 1 tab PO Q4H PRN 04/19/18 06/27/18 7.5-325 mg] Ipratropium/Albuterol Neb [Duoneb] 3 ml IH Q6HR PRN 04/19/18 06/27/18 Quetiapine Fumarate [Seroquel] 700 mg PO HS 04/19/18 06/27/18 Rivastigmine Patch [Exelon] 4.6 mg TD DAILY 04/19/18 06/27/18 Mometasone Furoate [Asmanex Hfa] 2 puff IH BID 06/23/18 06/27/18 Previous Rx's Medication Instructions Recorded Metoprolol [Lopressor] 37.5 mg PO BID 30 Days #45 tablet 04/25/18 Amoxicillin/Clavulanate [Augmentin] 875 mg PO BIDWM #14 tablet 06/26/18 Lactobacillus Acidophilus 1 each PO BID #20 tablet 06/26/18 [Acidophilus] Allergies Allergy/AdvReac Type Severity Reaction Status Date / Time No Known Allergies Allergy Verified 06/23/18 07:08 Limitations: ROS unobtainable due to patients medical condition Past Medical History - Past Medical History Source: old records reviewed Medical history: Reports: cardiomyopathy, CHF, COPD, dementia, hyperlipidemia, hypertension, renal disease, TIA Surgical history: Reports: other Psychiatric history: Reports: bipolar, schizophrenia - Social History Smoking Status: Former smoker Smokeless Tobacco Status: No Alcohol use: Reports: none Drug use: Reports: none Physical Exam - General Limitations: altered mental status General appearance: other (Somnolent) - Head Head exam: atraumatic, normocephalic, normal inspection - Eye Eye exam: Present: normal appearance, PERRL - ENT ENT exam: normal exam - Neck Neck exam: Present: normal inspection - Chest Chest inspection: Present: normal inspection, symmetric chest wall rise - Respiratory Respiratory exam: Present: other (Diminished breath sounds bilaterally) - Cardiovascular Cardiovascular exam: Present: normal rhythm, tachycardia, normal heart sounds - Abdominal Exam Abdominal exam: Present: soft. Absent: distention, guarding, rigidity - Extremities Exam Extremities exam: Present: normal inspection - Expanded Upper Extremity Exam Shoulder exam: Present: normal inspection Arm exam: Present: normal inspection Elbow exam: Present: normal inspection Forearm/Wrist exam: Present: normal inspection Hand exam: Present: normal inspection - Expanded Lower Extremity Exam Hip/Pelvis exam: Present: normal inspection Upper leg exam: Present: normal inspection Knee exam: Present: normal inspection Lower leg exam: Present: normal inspection Ankle exam: Present: normal inspection Foot/toe exam: Present: normal inspection - Expanded Neurological Exam Coma Scale Eye Opening: To Pain Coma Scale Motor Response: Localizes to Pain Coma Scale Verbal Response: Incomprehensible Coma Scale Total: 9 - Skin Skin exam: Present: warm, dry Course Course Narrative: Patient seen and examined. Vital signs reviewed. Plan for CT imaging of her head, EKG, chest x-ray, labs, admission for altered mental status. - Reevaluation(s) Reevaluation #1: Rees catheter placed. Patient more alert at this time. Opening her eyes spontaneously. Vital Signs Temperature 98.3 F 06/27/18 04:17 Pulse Rate 72 06/27/18 04:17 Respiratory Rate 22 06/27/18 04:17 Blood Pressure 90/62 06/27/18 04:17 O2 Sat by Pulse Oximetry 88 06/27/18 04:17 Temperature 98.8 F 06/27/18 14:38 Pulse Rate 97 06/27/18 14:38 Respiratory Rate 18 06/27/18 14:38 Blood Pressure 118/71 06/27/18 14:38 O2 Sat by Pulse Oximetry 92 06/27/18 15:28 Oxygen Delivery Oxygen Delivery Nasal Cannula Altered Mental Status - [facility] Narrative Medical decision making narrative: 60-year-old female presenting due to altered mental status. Just recently admitted and discharged for pneumonia. Initially somnolent here which improved during her ED course. She did receive Narcan with no effect. She appears to have multiple medications that could contribute to altered mentation or delirium. Workup includes persistent pneumonia with leukocytosis here. Lactate normal. Cultures pending. Initially hypotensive which was fluid responsive. Broad-spectrum antibiotics initiated. Patient admitted to the hospitalist service. - Lab Data Lab results reviewed: Yes I reviewed the patient's lab results. Result diagrams: 06/27/18 10:15 06/27/18 05:01 Lab Results 06/27/18 06/27/18 06/27/18 Range/Units 05:01 05:01 05:01 WBC 23.0 H D (4.3-11.1) K/mcL RBC 3.26 L (3.82-4.97) M/mcL Hgb 10.1 L (11.5-15.4) g/dL Hct 32.3 L (35.3-44.9) % MCV 99.1 (83.0-100.0) fL MCH 31.0 (28.0-33.3) pg MCHC 31.3 L (31.6-35.5) g/dL RDW 18.9 H (11.5-14.5) % Plt Count 122 L (140-400) K/mcL MPV 10.6 (9.4-12.4) fL Immature Gran % Test Not Performed Seg Neutrophils % 20.0 % Band Neutrophils % 6.0 H (0-4) % Lymphocytes % 50.0 % Monocytes % 8.0 % Eosinophils % 4.0 % Basophils % Test Not Performed Metamyelocytes % 2.0 H (0) % Myelocytes % 10.0 H (0) % Neutrophils # 6.0 (1.6-8.9) K/mcL Lymphocytes # 11.5 H (0.6-4.6) K/mcL Monocytes # 1.8 H (0.0-1.3) K/mcL Eosinophils # 0.9 H (0.0-0.6) K/mcL Basophils # Test Not Performed Nucleated RBCs/100 WBC 0.1 H (0) /100 WBC Reactive Lymphocytes Present A (Not Present) PT (9.4-12.1) Seconds INR VBG pH (7.32-7.42) pH Units VBG pCO2 (41-51) mmHg VBG pO2 (25-50) mmHg VBG HCO3 (21-27) mEq/L Sodium 139 (136-145) mEq/L Potassium 4.1 (3.5-5.1) mEq/L Chloride 104 (98-107) mEq/L Carbon Dioxide 28 (23-29) mEq/L BUN 18 (8-23) mg/dL Creatinine 0.95 (0.60-1.20) mg/dL Est GFR ( Amer) > 60 (> 60) Est GFR (Non-Af Amer) 58 L (> 60) BUN/Creatinine Ratio 19 (6-26) Glucose 75 (70-105) mg/dL Calculated Osmolality 289 (280-300) Lactic Acid (0.5-2.2) mmol/L Calcium 8.1 L (8.6-10.3) mg/dL Ammonia 45 (16-53) mcmol/L Troponin I < 0.03 (< 0.04) ng/mL TSH 4.861 (0.340-5.600) mcIU/mL Urine Color (Yellow) Urine Clarity (Clear) Urine pH (5.0-8.0) pH Units Ur Specific [place] (1.010-1.025) Urine Protein (Neg-Trace) mg/dL Urine Glucose (UA) (Normal) mg/dL Urine Ketones (Negative) mg/dL Urine Blood (Negative) Urine Nitrite (Negative) Urine Bilirubin (Negative) Urine Urobilinogen (Normal) mg/dL Ur Leukocyte Esterase (Negative) Ur Culture Indicated? (NO) Urine Opiates Screen (Fnaxbv=797) ng/mL Ur Barbiturates Screen (Zjwywd=292) ng/mL Ur Phencyclidine Scrn (Cutoff=25) ng/mL Ur Amphetamines Screen (Yqoouc=9889) ng/mL U Benzodiazepines Scrn (Lfqaqt=735) ng/mL Urine Cocaine Screen (Cutoff= 300) ng/mL U Marijuana (THC) Screen (Cutoff = 50) ng/mL Ur Drug Screen Interp Ethyl Alcohol < 10 (Less than 10) mg/dL 06/27/18 06/27/18 06/27/18 Range/Units 05:01 05:13 05:18 WBC (4.3-11.1) K/mcL RBC (3.82-4.97) M/mcL Hgb (11.5-15.4) g/dL Hct (35.3-44.9) % MCV (83.0-100.0) fL MCH (28.0-33.3) pg MCHC (31.6-35.5) g/dL RDW (11.5-14.5) % Plt Count (140-400) K/mcL MPV (9.4-12.4) fL Immature Gran % Seg Neutrophils % % Band Neutrophils % (0-4) % Lymphocytes % % Monocytes % % Eosinophils % % Basophils % Metamyelocytes % (0) % Myelocytes % (0) % Neutrophils # (1.6-8.9) K/mcL Lymphocytes # (0.6-4.6) K/mcL Monocytes # (0.0-1.3) K/mcL Eosinophils # (0.0-0.6) K/mcL Basophils # Nucleated RBCs/100 WBC (0) /100 WBC Reactive Lymphocytes (Not Present) PT 14.0 H (9.4-12.1) Seconds INR 1.2 VBG pH 7.46 H (7.32-7.42) pH Units VBG pCO2 46 (41-51) mmHg VBG pO2 172 H (25-50) mmHg VBG HCO3 33 H (21-27) mEq/L Sodium (136-145) mEq/L Potassium (3.5-5.1) mEq/L Chloride (98-107) mEq/L Carbon Dioxide (23-29) mEq/L BUN (8-23) mg/dL Creatinine (0.60-1.20) mg/dL Est GFR ( Amer) (> 60) Est GFR (Non-Af Amer) (> 60) BUN/Creatinine Ratio (6-26) Glucose (70-105) mg/dL Calculated Osmolality (280-300) Lactic Acid 1.2 (0.5-2.2) mmol/L Calcium (8.6-10.3) mg/dL Ammonia (16-53) mcmol/L Troponin I (< 0.04) ng/mL TSH (0.340-5.600) mcIU/mL Urine Color (Yellow) Urine Clarity (Clear) Urine pH (5.0-8.0) pH Units Ur Specific [place] (1.010-1.025) Urine Protein (Neg-Trace) mg/dL Urine Glucose (UA) (Normal) mg/dL Urine Ketones (Negative) mg/dL Urine Blood (Negative) Urine Nitrite (Negative) Urine Bilirubin (Negative) Urine Urobilinogen (Normal) mg/dL Ur Leukocyte Esterase (Negative) Ur Culture Indicated? (NO) Urine Opiates Screen (Zlntjl=982) ng/mL Ur Barbiturates Screen (Dvocuy=690) ng/mL Ur Phencyclidine Scrn (Cutoff=25) ng/mL Ur Amphetamines Screen (Ztrbjz=6216) ng/mL U Benzodiazepines Scrn (Psauxf=137) ng/mL Urine Cocaine Screen (Cutoff= 300) ng/mL U Marijuana (THC) Screen (Cutoff = 50) ng/mL Ur Drug Screen Interp Ethyl Alcohol (Less than 10) mg/dL 06/27/18 06/27/18 Range/Units 05:30 05:30 WBC (4.3-11.1) K/mcL RBC (3.82-4.97) M/mcL Hgb (11.5-15.4) g/dL Hct (35.3-44.9) % MCV (83.0-100.0) fL MCH (28.0-33.3) pg MCHC (31.6-35.5) g/dL RDW (11.5-14.5) % Plt Count (140-400) K/mcL MPV (9.4-12.4) fL Immature Gran % Seg Neutrophils % % Band Neutrophils % (0-4) % Lymphocytes % % Monocytes % % Eosinophils % % Basophils % Metamyelocytes % (0) % Myelocytes % (0) % Neutrophils # (1.6-8.9) K/mcL Lymphocytes # (0.6-4.6) K/mcL Monocytes # (0.0-1.3) K/mcL Eosinophils # (0.0-0.6) K/mcL Basophils # Nucleated RBCs/100 WBC (0) /100 WBC Reactive Lymphocytes (Not Present) PT (9.4-12.1) Seconds INR VBG pH (7.32-7.42) pH Units VBG pCO2 (41-51) mmHg VBG pO2 (25-50) mmHg VBG HCO3 (21-27) mEq/L Sodium (136-145) mEq/L Potassium (3.5-5.1) mEq/L Chloride (98-107) mEq/L Carbon Dioxide (23-29) mEq/L BUN (8-23) mg/dL Creatinine (0.60-1.20) mg/dL Est GFR ( Amer) (> 60) Est GFR (Non-Af Amer) (> 60) BUN/Creatinine Ratio (6-26) Glucose (70-105) mg/dL Calculated Osmolality (280-300) Lactic Acid (0.5-2.2) mmol/L Calcium (8.6-10.3) mg/dL Ammonia (16-53) mcmol/L Troponin I (< 0.04) ng/mL TSH (0.340-5.600) mcIU/mL Urine Color Yellow (Yellow) Urine Clarity Clear (Clear) Urine pH 6.0 (5.0-8.0) pH Units Ur Specific [place] 1.015 (1.010-1.025) Urine Protein Negative (Neg-Trace) mg/dL Urine Glucose (UA) Normal (Normal) mg/dL Urine Ketones Negative (Negative) mg/dL Urine Blood Negative (Negative) Urine Nitrite Negative (Negative) Urine Bilirubin Small H (Negative) Urine Urobilinogen Normal (Normal) mg/dL Ur Leukocyte Esterase Negative (Negative) Ur Culture Indicated? NO (NO) Urine Opiates Screen Positive H (Gqezdt=969) ng/mL Ur Barbiturates Screen Negative (Uwggzc=738) ng/mL Ur Phencyclidine Scrn Negative (Cutoff=25) ng/mL Ur Amphetamines Screen Negative (Etjtul=4422) ng/mL U Benzodiazepines Scrn Negative (Nrayxg=496) ng/mL Urine Cocaine Screen Negative (Cutoff= 300) ng/mL U Marijuana (THC) Screen Negative (Cutoff = 50) ng/mL Ur Drug Screen Interp See Below Ethyl Alcohol (Less than 10) mg/dL - Radiology Data Radiology results reviewed: Yes I reviewed the patient's radiology results. Chest X-Ray 06/27/18 04:12 IMPRESSION: Unchanged examination re-demonstrating left lung airspace disease. D/ / Luis Alberto Staton MD / Luis Alberto Staton MD Interpreting Provider: Luis Alberto Staton MD Head CT 06/27/18 04:13 IMPRESSION: No acute intracranial abnormality. Paranasal sinusitis. D/ / Jas Esteves / Jas Esteves Interpreting Provider: Jas Esteves - EKG Data EKG attestation: Yes I reviewed and interpreted this EKG. EKG results narrative: EKG demonstrates sinus and with a rate of 73 beats or minute. Normal axis. Normal intervals. Normal R-wave progression. No gross ST elevations or depressions. No acute ischemic findings. S.B.Edgar - S.Jayna Situation: Demographics, MOA Background: Presenting Complaint, Relevant PMH, Meds, & Allergies Assessment: Vital Signs, Course and respsone to treatment, Exam Concerns, Patient/Family Expectation, Pertinant Lab Results Recommendation: Barrier(s) to disposition, Recommendation based on pending studies, treatments, or consults SManju Report Given to: Dr. Jules Garcia Repor Time: 06:42 Attestation Statement - Attestation Attestation: DR Cosby note: Pt seen in conjunction w/ resident Dr Ferreira: please see his charting for complete documentation; I spent fact to face time w/ the pt and agree w/ the treatment and disposition; labs/x ray reviewed; pt w/o respiratory distress on admission; abx ordered;
[2018-06-27 05:14] LABS: Hematocrit 32.3 % (35.3-44.9); Hemoglobin 10.1 g/dL (11.5-15.4); Mean Corpuscular HGB Conc 31.3 g/dL (31.6-35.5); Mean Corpuscular Volume 99.1 fL (83.0-100.0); Mean Platelet Volume 10.6 fL (9.4-12.4); Nucleated Red Blood Cells 0.1 /100 WBC (0); Platelet Count 122 K/mcL (140-400); Red Blood Count 3.26 M/mcL (3.82-4.97); Red Cell Distribution Width 18.9 % (11.5-14.5)
[2018-06-27 05:16] LABS: VBG HCO3 33 mEq/L (21-27); VBG PCO2 46 mmHg (41-51); VBG PH 7.46 pH Units (7.32-7.42); VBG PO2 172 mmHg (25-50)
[2018-06-27] MEDS ORDERED: Naloxone 0.4 MG/ML INJ IVP ONE (05:21)
[2018-06-27] MEDS ORDERED: Naloxone 0.4 MG/ML INJ ONE (05:27)
[2018-06-27 05:32] LABS: Eosinophils # 0.9 K/mcL (0.0-0.6); Lymphocytes # 11.5 K/mcL (0.6-4.6); Monocytes # 1.8 K/mcL (0.0-1.3)
[2018-06-27 05:33] LABS: Reactive Lymphocytes Present (Not Present)
[2018-06-27 05:36] LABS: INR 1.2
[2018-06-27 05:44] LABS: Bilirubin,Urine Small (Negative); Blood,Urine Negative (Negative); Clarity,Urine Clear (Clear); Color,Urine Yellow (Yellow); Glucose,Urine (UA) Normal (Normal); Ketones,Urine Negative (Negative); Leukocyte Esterase,Urine Negative (Negative); Nitrite,Urine Negative (Negative); Protein,Urine Negative (Neg-Trace); Specific Gravity,Urine 1.015 (1.010-1.025); Urobilinogen,Urine Normal (Normal)
[2018-06-27 05:58] LABS: Amphetamine Screen,Urine Negative ng/mL (Cutoff=1000); Barbiturate Screen,Urine Negative ng/mL (Cutoff=200); Benzodiazepines Screen,Urine Negative ng/mL (Cutoff=200); Cannabinoid Screen,Urine Negative ng/mL (Cutoff = 50); Cocaine Screen,Urine Negative ng/mL (Cutoff= 300); Opiate Screen,Urine Positive ng/mL (Cutoff=300); Phencyclidine Screen,Urine Negative ng/mL (Cutoff=25)
[2018-06-27 06:19] LABS: BUN/Creatinine Ratio 19 (6-26); Blood Urea Nitrogen 18 mg/dL (8-23); Calcium 8.1 mg/dL (8.6-10.3); Carbon Dioxide 28 mEq/L (23-29); Chloride 104 mEq/L (98-107); Ethanol < 10 mg/dL (Less than 10); Glucose 75 mg/dL (70-105); Osmolality,Calculated 289 (280-300); Potassium 4.1 mEq/L (3.5-5.1); Sodium 139 mEq/L (136-145); Thyroid Stimulating Hormone 4.861 mcIU/mL (0.340-5.600); Troponin I < 0.03 ng/mL (< 0.04); eGFR For Non-African Americans 58 (> 60)
[2018-06-27] MEDS ORDERED: Piperacillin/Tazobactam 3.375 GM in 0.9 % Sodium Chloride Mini Bag 100 ML IVPB ONE (06:23)
[2018-06-27] MEDS ORDERED: Naloxone 0.4 MG/ML INJ IVP PRN (09:05)
[2018-06-27] MEDS ORDERED: Bisacodyl 10 MG RECTAL SUPPOSITORY RC PRN (09:24)
[2018-06-27] MEDS ORDERED: Mag Hydrox/Al Hydrox/Simeth 30 ML UDC PO PRN (09:24)
[2018-06-27] MEDS ORDERED: Ipratropium/Albuterol Neb 3 ML IH PRN (09:24)
[2018-06-27 10:28] LABS: Basophils % 0.2 %; Eosinophils # 0.3 K/mcL (0.0-0.6); Eosinophils % 1.2 %; Hemoglobin 11.1 g/dL (11.5-15.4); Immature Granulocytes % 44.2 % (0-4); Lymphocytes # 2.7 K/mcL (0.6-4.6); Lymphocytes % 12.6 %; Mean Corpuscular HGB Conc 32.6 g/dL (31.6-35.5); Mean Platelet Volume 10.8 fL (9.4-12.4); Monocytes # 3.3 K/mcL (0.0-1.3); Monocytes % 15.5 %; Neutrophils # 5.7 K/mcL (1.6-8.9); Nucleated Red Blood Cells 0.1 /100 WBC (0); Platelet Count 104 K/mcL (140-400); Red Blood Count 3.47 M/mcL (3.82-4.97); Red Cell Distribution Width 19.1 % (11.5-14.5); Segmented Neutrophils % 26.3 %
[2018-06-27] MEDS ORDERED: Benzonatate 100 MG CAPSULE PO PRN (10:41)
[2018-06-27] MEDS ORDERED: Furosemide 20 MG/2 ML VIAL IVP ONE (10:47)
--- NOTE | 2018-06-27 11:10 | Internal Med History&Physical ---
Date of Encounter: 06/27/18 Time of Encounter: 11:06 Internal Medicine - H&P: HPI Chief complaint: Altered mental status Admitted From: Emergency Dept History of present illness: Ms. Tong is a 68 year old female with past medical history of COPD/CHF/dementia , hyperlipidemia, hypertension, TIA, bipolar disorder, schizophrenia who was recently admitted and treated for Hcap And discharged to a [place] [facility] after being transitioned to Augmentin was brought back with altered mental status. The patient was treated with 48 hours of IV antibiotics vancomycin and Zosyn and her last admission and then switched to Augmentin to complete a total of 7- 10 days' course. The patient went to the [place] [facility] and Apparently had altered mental status where she was confused and went in and out of it. She usually takes 4 L at baseline of oxygen and she dropped her oxygen saturation to the high 80s on 4 L and had to be bumped up to 5 L. This is what necessitated her coming back to the hospital. She is now readmitted to the floor for metabolic encephalopathy. At the time of my examination the patient is hard of hearing she is able to answer some of my questions and states that her coughing is what is bothering her. She denies any fever or chills but again is not the best historian given her dementia history Interestingly, while reviewing her admission medication reconciliation with the clinical pharmacist it was noted that she was on 700 mg of Seroquel at nighttime in addition to 50 mg by mouth with meals every day. She was not getting the 700 mg at nighttime while she was admitted to the hospital this time but for some unclear reason was discharged on the same. At this time it is not clear to me whether she did receive the 700 mg nighttime Seroquel at the custodial facility where she was discharged to Past Med Surg Social Fam HX - Past Medical History Medical history: cardiomyopathy, CHF, COPD, dementia, hyperlipidemia, hypertension, renal disease, TIA Additional medical history: CHRONIC BACK PAIN Psychiatric history: bipolar, schizophrenia - Past Surgical History Surgical History: other Additional surgical history: right knee surgery, kathie, Hernia surgery - Social History Smoking Status: Former smoker Smokeless Tobacco Status: No Alcohol use: none Drug use: none - Family History Father Living Status: Hx Family Cardiac Disorders: Yes (cardiomegaly) Brother Living Status: Hx Family Cancer: Yes (leukemia) Sister Hx Family Endocrine Disorder: Yes (DM) Internal Medicine - H&P: Meds Methotrexate [Otrexup] 15 mg PO WE 08/23/17 [History] Bisacodyl [Dulcolax] 10 mg RC DAILY PRN 11/08/17 [History] Folic Acid 1 mg PO DAILY 11/08/17 [History] Mag Hydrox/Al Hydrox/Simeth [Antacid Suspension] 30 ml PO QID PRN 11/08/17 [ History] Quetiapine Fumarate [Seroquel] 50 mg PO TIDWM 11/08/17 [History] Aspirin Enteric Coated [Aspirin EC] 81 mg PO DAILY 04/19/18 [History] Atorvastatin Calcium [Lipitor] 20 mg PO HS 04/19/18 [History] Cholecalciferol (D-3) [Vitamin D] 5,000 unit PO WE 04/19/18 [History] Divalproex (12 HR) [Depakote (12 HR)] 500 mg PO BID 04/19/18 [History] Docusate [Colace] 100 mg PO BID PRN 04/19/18 [History] Famotidine [Heartburn Prevention] 20 mg PO DAILY 04/19/18 [History] Ferrous Sulfate [Iron] 325 mg PO DAILY 04/19/18 [History] HYDROcodone/Acet 7.5/325 mg [[place] 7.5-325 mg] 1 tab PO Q4H PRN 04/19/18 [ History] Ipratropium/Albuterol Neb [Duoneb] 3 ml IH Q6HR PRN 04/19/18 [History] Quetiapine Fumarate [Seroquel] 700 mg PO HS 04/19/18 [History] Rivastigmine Patch [Exelon] 4.6 mg TD DAILY 04/19/18 [History] Metoprolol [Lopressor] 37.5 mg PO BID 30 Days #45 tablet 04/25/18 [Rx] Mometasone Furoate [Asmanex Hfa] 2 puff IH BID 06/23/18 [History] Amoxicillin/Clavulanate [Augmentin] 875 mg PO BIDWM #14 tablet 06/26/18 [Rx] Lactobacillus Acidophilus [Acidophilus] 1 each PO BID #20 tablet 06/26/18 [Rx] 3 Allergy/AdvReac Type Severity Reaction Status Date / Time No Known Allergies Allergy Verified 06/23/18 07:08 ROS unobtainable: due to mental status All Systems PM: A 10-system review of systems was performed and is negative for pertinent findings except as documented above in the HPI. - Constitutional Vitals: Temp Pulse Resp BP Pulse Ox 98.2 F 86 16 128/75 90 06/27/18 10:25 06/27/18 10:25 06/27/18 10:25 06/27/18 10:25 06/27/18 10:25 Exam: GENERAL: alert and oriented 1, moderate distress cooperative EYES: PERRLA, EOMI EARS: External ears normal, canals clear OROPHARYNX: Lips, mucosa, and tongue normal. Teeth and gums normal. Oropharynx normal. NECK: No jugulovenous distention, No carotid bruits, Carotid pulse normal contour, Supple LUNGS: Faint scattered crackles in bilateral lung w[place]ron but more focused on the left mid and lower lung waldron especially posteriorly CARDIAC: Normal S1 and S2; no rubs, murmurs, or gallops ABDOMEN: Abdomen soft, non-tender, BS normal, No masses or organomegaly EXTREMITIES: Extremities 1+ pitting edema bilateral lower extremity NEURO: Gait could not be evaluated Reflexes normal and symmetric. Sensation grossly intact, Cranial nerves II-XII intact PULSES: 2+ radial, 2+ carotid Rest of the exam is non contributory Internal Med - H&P Results - Labs CBC & Chem 7: 06/27/18 10:15 06/27/18 05:01 Labs: Short CBC 06/27/18 Range/Units 10:15 WBC 21.5 H (4.3-11.1) K/mcL Hgb 11.1 L (11.5-15.4) g/dL Hct 34.0 L (35.3-44.9) % Plt Count 104 L (140-400) K/mcL Neutrophils # 5.7 (1.6-8.9) K/mcL - Diagnostic Studies Chest x-ray Status: image reviewed by me (Continues to show left lung airspace disease unchanged from prior) - Assessment and plan (1) Metabolic encephalopathy Current Visit: Yes Status: Acute Assessment and plan: Multifactorial. Patient has been on polypharmacy especially concerning for high dose of Seroquel. She also has an increased white count with suggestion of leuko- moderate reaction which I have verified on repeat WBC. At this time I would continue her broad spectrum antibiotic coverage with vancomycin and Zosyn and check cultures. She will continue to be treated for healthcare acquired pneumonia until we have reason to de-escalate her antibiotics. I will also discussed with pharmacy and we will decrease her nighttime Seroquel to 400 mg at nighttime and take off her with meals Seroquel. Hopefully this helps improve some of the metabolic encephalopathy with this patient is experiencing. The white count is concerning and my threshold to consult heme along is low given the unusual picture of bands promyelocytes, metamyelocytes as well as pancytopenia I will also hold off on methotrexate while in-house and monitor closely. Her head CT did not suggest any new strokes. Her hypoxia is more or less at baseline she runs at 4 L. Even in the hospital she is able to maintain decent saturations at 4-5 L. (2) HCAP (healthcare-associated pneumonia) Current Visit: Yes Status: Acute Assessment and plan: As mentioned above, continue broad-spectrum coverage. Cultures have been sent and we will down titrate antibiotics accordingly. We will consult pulmonary if the patient's hypoxia continues to worsen. Consider infectious disease consultation for leukocytosis. (3) Acute and chronic respiratory failure ([id number]) Current Visit: No Status: Acute Assessment and plan: Patient is usually on 4 L of oxygen but here has been requiring a little bit more and goes up to 5 L with maintaining saturations in the low 90s. Her x-ray does suggest a little bit of fluid overload and I will give her 1 dose of Lasix in addition to the antibiotic coverage and monitor closely. Threshold for getting pulmonary medicine on board is low. He may need to do an ABG if her respiratory status started to deteriorate. Qualifiers: Respiratory failure complication: hypoxia Qualified Code(s): J96.21 - Acute and chronic respiratory failure with hypoxia (4) DVT prophylaxis Current Visit: No Status: Acute Assessment and plan: EPC D (5) Bicytopenia Current Visit: Yes Status: Acute Assessment and plan: Patient has a high white count which has been repeated and currently at 21,000. She does have a hemoglobin of 10.16% bands, myelocytes, metamyelocytes and reactive lymphocytes in the bloodstream. This could be consistent with leukemoid reaction but I will keep a close eye on this and we may need to involve hematology oncology if needed. For now I would continue to treat her underlying infection. (6) COPD (chronic obstructive pulmonary disease) Current Visit: No Status: Chronic Assessment and plan: Patient does have underlying COPD and requires home oxygen. I will continue supplemental oxygen and start duo nebs twice a day. Hold off on steroids unless she deteriorates. Qualifiers: COPD type: chronic bronchitis Chronic bronchitis type: unspecified Qualified Code(s): J42 - Unspecified chronic bronchitis - Time Spent With Patient Total time spent is greater than 50% in coordination of care (as documented) at patient's floor/unit and/or counseling patient: Greater than 35 minutes
[2018-06-27] MEDS: Ipratropium/Albuterol Neb 3 ML IH SCH ×3 (11:19→22:21)
--- NOTE | 2018-06-27 12:30 | Infectious Disease Consult ---
Date of Encounter: 06/27/18 Time of Encounter: 12:27 Assessment and Plan (1) Severe sepsis Status: Acute Assessment and plan: The patient had two SIRS criteria plus altered mental status and hypotension responsive to IV fluids. Likely secondary to PNA. Lactic acid normal. IV fluid resuscitation per the primary team. Blood cultures drawn 06/27/18 are pending x 2 sets. (2) Pneumonia Status: Acute Assessment and plan: Location: Left lower lobe. Causative organism unlcear. CXR completed 06/27/18 showed unchanged LLL airspace disease. Concern for aspiration given the patient's clinical picture. Get sputum culture if the patient is able to provide an adequate specimen. Strep pneumococcal legionella urinary antigens were negative during last admission. Respiratory infectious panel is negative as well. MRSA screen was negative as well. Continue Zosyn 3.375 g IV every 8 hours. Duration of treatment depends on the clinical picture. Monitor renal function and is just antibiotics. Consider swallow study once the patient is able to participate in the evaluation. Qualifiers: Pneumonia type: due to unspecified organism Laterality: bilateral Lung location: lower lobe of lung Qualified Code(s): J18.1 - Lobar pneumonia, unspecified organism (3) Sinusitis Status: Acute Assessment and plan: Location: Paranasal Causative organism: Unclear. Continue Zosyn 3.375 grams IV Q8H. Duration of treatment depends on the clinical picture. Monitor renal function and dose-adjust antibiotics. Qualifiers: Sinusitis location: unspecified location Chronicity: acute Recurrence: non-recurrent Qualified Code(s): J01.90 - Acute sinusitis, unspecified (4) Altered mental status Status: Acute Assessment and plan: Etiology unclear: medications vs. sepsis vs. other. CT head negative for acute intracranial abnormality. Continue to monitor closely. Qualifiers: Altered mental status type: delirium Qualified Code(s): R41.0 - Disorientation, unspecified (5) Bicytopenia Status: Acute Assessment and plan: Hemoglobin and platelets are low. Could be from sepsis. Continue to trend. If fails to improve, may consider Hem/Onc consult. (6) Psoriatic arthritis Status: Acute Assessment and plan: On methotrexate at home. (7) COPD (chronic obstructive pulmonary disease) Status: Chronic Qualifiers: COPD type: chronic bronchitis Chronic bronchitis type: unspecified Qualified Code(s): J42 - Unspecified chronic bronchitis (8) History of schizophrenia Status: Chronic Infectious Disease HPI - Data of Consult Patient: known to practice within the last 3 years Consult date: 06/27/18 Requesting Physician: Todd Vicente MD Primary Care Provider: Kwesi Allen MD - Consult Narrative Reason for consult: Leukocytosis History of present illness: Ms. Tong is a 68 year old female with past medical history of COPD, CHF, cardiomyopathy, dementia, hyperlipidemia, hypertension, chronic kidney disease, psoriatic arthritis currently on methotrexate, and Parkinson's disease. The patient was admitted to the hospital June 27 for altered mental status. We are consulted June 27 for further recommendations for leukocytosis. Briefly, the patient is a 68-year-old female with past medical history as stated above. The patient was previously admitted to the [facility] for pancytopenia and pneumonia. A causative organism was not identified, but the patient improved with 48 hours of IV antibiotics. She was D escalated to oral Augmentin by the primary team and discharged to the snf. Upon arrival there, she was noted to be somewhat somnolent and her mental status declined through the night. She developed hypoxia and was subsequently transferred to the emergency department for evaluation. Upon arrival, the patient was afebrile. She was mildly tachycardic and had leukocytosis with bandemia. She was also noted to be mildly hypotensive with an SPO2 of 80%. Her blood pressure responded nicely to gentle IV fluid hydration. She had a chest x-ray that showed an unchanged left lower lobe airspace disease. CT of the head was negative for acute intracranial abnormality, but did show paranasal sinusitis. Her lactic acid was normal. Urinalysis was negative. Blood cultures were obtained 2 sets are pending. She was given Vanc and Zosyn in the emergency department and admitted to the hospital for further evaluation. During my exam today, the patient is somnolent and unable to provide me with any information regarding the events leading up to her hospitalization. She does awaken to loud verbal stimuli, but quickly falls back to sleep and is not participating in the exam. All of the above information is obtained from the medical record as the patient is not able to provide me with any information and there is no family at the bedside. CC: Todd Vicente MD Past Med Surg Social Fam HX - Past Medical History Source: old records reviewed, nursing notes reviewed Medical history: cardiomyopathy, CHF, COPD, dementia, hyperlipidemia, hypertension, renal disease, TIA Additional medical history: CHRONIC BACK PAIN Psychiatric history: bipolar, schizophrenia - Past Surgical History Surgical History: other Additional surgical history: right knee surgery, kathie, Hernia surgery - Social History Smoking Status: Former smoker Smokeless Tobacco Status: No Alcohol use: none Drug use: none Occupational status: unemployed Current living situation: Home, With Family Activity Level: Independent ambulation Recent Out of Country Travel Within the Last 8 Weeks: No Exposure or Possible Exposure to Illness During Travel: No - Family History Father Living Status: Hx Family Cardiac Disorders: Yes (cardiomegaly) Brother Living Status: Hx Family Cancer: Yes (leukemia) Sister Hx Family Endocrine Disorder: Yes (DM) Infectious Disease-CN:Meds Methotrexate [Otrexup] 15 mg PO WE 08/23/17 [History] Bisacodyl [Dulcolax] 10 mg RC DAILY PRN 11/08/17 [History] Folic Acid 1 mg PO DAILY 11/08/17 [History] Mag Hydrox/Al Hydrox/Simeth [Antacid Suspension] 30 ml PO QID PRN 11/08/17 [ History] Quetiapine Fumarate [Seroquel] 50 mg PO TIDWM 11/08/17 [History] Aspirin Enteric Coated [Aspirin EC] 81 mg PO DAILY 04/19/18 [History] Atorvastatin Calcium [Lipitor] 20 mg PO HS 04/19/18 [History] Cholecalciferol (D-3) [Vitamin D] 5,000 unit PO WE 04/19/18 [History] Divalproex (12 HR) [Depakote (12 HR)] 500 mg PO BID 04/19/18 [History] Docusate [Colace] 100 mg PO BID PRN 04/19/18 [History] Famotidine [Heartburn Prevention] 20 mg PO DAILY 04/19/18 [History] Ferrous Sulfate [Iron] 325 mg PO DAILY 04/19/18 [History] HYDROcodone/Acet 7.5/325 mg [[place] 7.5-325 mg] 1 tab PO Q4H PRN 04/19/18 [ History] Ipratropium/Albuterol Neb [Duoneb] 3 ml IH Q6HR PRN 04/19/18 [History] Quetiapine Fumarate [Seroquel] 700 mg PO HS 04/19/18 [History] Rivastigmine Patch [Exelon] 4.6 mg TD DAILY 04/19/18 [History] Metoprolol [Lopressor] 37.5 mg PO BID 30 Days #45 tablet 04/25/18 [Rx] Mometasone Furoate [Asmanex Hfa] 2 puff IH BID 06/23/18 [History] Amoxicillin/Clavulanate [Augmentin] 875 mg PO BIDWM #14 tablet 06/26/18 [Rx] Lactobacillus Acidophilus [Acidophilus] 1 each PO BID #20 tablet 06/26/18 [Rx] 3 Allergy/AdvReac Type Severity Reaction Status Date / Time No Known Allergies Allergy Verified 06/23/18 07:08 All systems: reviewed and no additional remarkable complaints except as stated Exam - Constitutional Vitals: Temp Pulse Resp BP Pulse Ox 98.2 F 86 16 128/75 90 06/27/18 10:25 06/27/18 10:25 06/27/18 10:25 06/27/18 10:25 06/27/18 10:25 General appearance: average body habitus, no acute distress, no febrile - Head Head exam: Present: atraumatic, normal inspection, normocephalic - Eye Eye exam: Present: normal appearance, PERRL Pupils: Present: normal accommodation - ENT ENT exam: Present: mucous membranes dry - Neck Neck exam: Present: normal inspection - Respiratory Respiratory exam: Present: rhonchi (Throughout). Absent: rales, respiratory distress, tachypnea - Cardiovascular Cardiovascular exam: Present: RRR, +S1, +S2 - GI/Abdominal GI/Abdominal exam: Present: normal bowel sounds, soft. Absent: distended, tenderness - Extremities Exam Extremities exam: Absent: joint swelling, pedal edema, tenderness - Neurological Exam Neurological exam: Present: altered, no focal deficits (Moves all extremities 4 spontaneously. Does attempt to squeeze my hands when asked to do so, but very weak bilaterally.) - Skin Skin exam: Present: dry, intact, normal color, warm Infectious Disease CN: Results - Labs CBC & Chem 7: 06/27/18 10:15 06/27/18 05:01 Consult Discharge Plan - Plan Referrals: Kwesi Allen MD [Primary Care Provider] - - Attending Attestation I examined this patient and my medical decision-making was reviewed with the Resident Physician. I agree with the documented findings, disposition and treatment plan as described except to the extent set forth below. This is an addendum to original report dictated by Jeanine Nguyen CNP. Please refer to Jeanine's note for full details. Patient is 68-year-old woman who was recently admitted to [facility] with H With no causative organism identified discharged on Augmentin. Patient apparently was transferred back from the snf with severe sepsis, altered mental status , encephalopathy and unchanged pneumonia in the left lower lobe per chest x-ray on 06/27/2018. We were asked to evaluate the patient and make further recommendations. Clinically the patient appears comfortable. Does not appear toxic. She is alert and oriented 3. She knew why she is here. She told me I think have pneumonia. Currently chest x-ray shows unchanged left lower lobe airspace disease. Sputum culture is pending. Urine legionella and pneumococcal antigen were done and both came back negative. MRSA screen was negative. Respiratory infectious panel was negative. Patient was started on Zosyn and is clinically doing better. We were asked to evaluate the patient and make further recommendations. Assessment and plan: Severe sepsis Pneumonia Altered mental status History of schizophrenia Sinusitis At this point agree with Zosyn. Her MRSA screen and respiratory infectious panel and legionella and strep are all negative recently on the previous admission. We are concerned for possible aspiration. So continue Zosyn and wait for swallowing evaluation. Duration of treatment depends on clinical picture but did not 14 days. I am concerned that the altered mental status is due to polypharmacy since she has very high dose of Seroquel and she is on Depakote and what not. It could be all due to metabolic encephalopathy or secondary to the sepsis. We will monitor closely. Monitor labs and for drug toxicity Dose adjust antibiotics based on creatinine clearance which is normal now. We will continue to follow closely.
[2018-06-27] MEDS: *HR* HYDROcodone/Acet 7.5/325 mg TABLET PO PRN (14:58)
[2018-06-27] MEDS: Piperacillin/Tazobactam 3.375 GM in 0.9 % Sodium Chloride Mini Bag 100 ML IVPB SCH (17:01)
[2018-06-27] MEDS: Divalproex (12 HR) 500 MG TABLET PO SCH (20:26)
[2018-06-28] MEDS: Piperacillin/Tazobactam 3.375 GM in 0.9 % Sodium Chloride Mini Bag 100 ML IVPB SCH ×4 (00:05→23:17)
[2018-06-28] MEDS ORDERED: Ipratropium/Albuterol Neb 3 ML IH PRN (03:14)
[2018-06-28] MEDS ORDERED: Furosemide 40 MG/4 ML VIAL IVP ONE ×2 (03:34→04:09)
[2018-06-28] MEDS ORDERED: methylPREDNISolone 125 MG/2 ML VIAL IVP ONE (03:34)
[2018-06-28] MEDS ORDERED: Ipratropium/Albuterol Neb 3 ML ONE (03:36)
[2018-06-28 03:44] LABS: ABG Base Excess 12 mEq/L (-2 to 3); ABG HCO3 38 mEq/L (21-27); ABG Oxygen Saturation 87 % (95-98); ABG PCO2 60 mmHg (35-45); ABG PH 7.41 pH Units (7.32-7.45); ABG PO2 55 mmHg (85-104); ABG TCO2 40 mEq/L (20-26)
[2018-06-28] MEDS: Ipratropium/Albuterol Neb 3 ML IH SCH ×4 (04:02→22:22)
[2018-06-28 04:13] LABS: BUN/Creatinine Ratio 17 (6-26); Blood Urea Nitrogen 16 mg/dL (8-23); Calcium 8.1 mg/dL (8.6-10.3); Carbon Dioxide 34 mEq/L (23-29); Chloride 98 mEq/L (98-107); Glucose 82 mg/dL (70-105); Osmolality,Calculated 284 (280-300); Potassium 3.7 mEq/L (3.5-5.1); Sodium 137 mEq/L (136-145); eGFR For Non-African Americans > 60 (> 60)
[2018-06-28 04:14] LABS: Troponin I < 0.03 ng/mL (< 0.04)
--- NOTE | 2018-06-28 05:11 | Event Note ---
Date of Encounter: 06/28/18 Time of Encounter: 03:08 I was called to the bedside by the patient's nurse to assess the patient because of hypoxia. The patient was on 5L O2 and her SPO2 was 81%. I initially ordered a breathing treatment to be started while I was on my way to the room, however upon auscultation, the patient's lungs were initially clear. I noticed immediately that the patient was lethargic and did not seem to be mentating at appropriate levels, where the nurse told me she was apparently normal previously. I immediately switched the patient to Non-rebreather @ 15L O2, and the patient still maintained O2 sat <88%. The patient endorsed that she was having left sided chest pains. EKG was completed which was identical to previous. Respiratory therapy arrived and got an ABG that showed hypoxia and hypercapnia. The patient was becoming progressively more tachypneic and less alert. I ordered 40mg Lasix IV and 125mg Solu-medrol to be given, along with another breathing treatment. The patient was also placed initially on CPAP, however was transitioned to BiPAP with 100% FIO2 upon noting that she was also hypercapnic. Her clinical status did continue to improve, however she remained tachypneic. She was transferred to for closer monitoring where she has remained stable thus far.
--- NOTE | 2018-06-28 07:22 | Pulmonology Consult Note ---
Date of Encounter: 06/28/18 Time of Encounter: 07:15 Assessment and Plan (1) Acute and chronic respiratory failure ([id number]) Current Visit: No Status: Acute Patient with acute on chronic hypoxic hypercapnic respiratory failure secondary to COPD/CHF complicated by pneumonia to continue with broad-spectrum antibiotics last steroids to continue the bronchodilators will need noninvasive ventilation BiPAP/AVAPS to continue the current settings AVAPS whenever she sleeps in the afternoon and throughout the night patient can be advanced to mechanically textured diet according to speech therapist. Doubt she aspirated/ worsening hydrostatic pulmonary edema that worsen her oxygenation status overnight. Patient looks stable oxygenation and ventilation will continue to monitor in the stepdown unit will not need an ICU transfer for now. But spoke with the nursing staff to keep her closer eye on her if she deteriorates she will need be needed to shifted to ICU. Qualifiers: Respiratory failure complication: hypoxia Qualified Code(s): J96.21 - Acute and chronic respiratory failure with hypoxia (2) Pneumonia Current Visit: No Status: Acute Continue possible aspiration to continue with current regiment of broad- spectrum antibiotics to follow ID recommendations regarding future course. To get sputum cultures if she brings up sputum. To start on incentive spirometry and flutter valve. To mobilize the patient this will improve his V/Q mismatch. Patient lying down in the bed wanted to the VQ mismatch and will prolong the recovery and hospital course. Qualifiers: Pneumonia type: due to unspecified organism Laterality: bilateral Lung location: lower lobe of lung Qualified Code(s): J18.1 - Lobar pneumonia, unspecified organism (3) COPD exacerbation Current Visit: No Status: Resolved To be treated as COPD exacerbation with bronchodilators and steroids to do gentle diuresis as tolerated leave it to the primary team. History of Present Illness Consult date: 06/28/18 Requesting physician: Luis Alberto Villasenor Chief complaint: Altered mental status with shortness of breath History of present illness: 68-year-old female with acute on chronic hypoxic hypercapnic respiratory failure due to COPD, CHF complicated by pneumonia is here with altered mental status most likely due to metabolic encephalopathy pulmonary was consult that for the worsening acute on chronic respiratory failure when I went and examined the patient patient was alert not able to fully understand the patient patient was on BiPAP which seems to be oriented following commands seems to be having some interface issues with the BiPAP denies any chest pain, chest tightness but complains of generalized body ache mostly in the back denies any fever or chills she is a poor historian not sure she was having cough and sputum production symptoms off pneumonia but during the workup looks like she had some sepsis with pneumonia presentation patient was started on broad-spectrum antibiotics yesterday night she had an acute worsening of hypoxia and hypercarbia with altered mental status can be due to post fluid resuscitation for her sepsis patient slowly recovering from this acute episode. Past Med Surg Social Fam HX - Past Medical History Medical history: cardiomyopathy, CHF, COPD, dementia, hyperlipidemia, hypertension, renal disease, TIA Additional medical history: CHRONIC BACK PAIN Psychiatric history: bipolar, schizophrenia - Past Surgical History Surgical History: other Additional surgical history: right knee surgery, kathie, Hernia surgery - Social History Smoking Status: Former smoker Smokeless Tobacco Status: No Alcohol use: none Drug use: none - Family History Father Living Status: Hx Family Cardiac Disorders: Yes (cardiomegaly) Brother Living Status: Hx Family Cancer: Yes (leukemia) Sister Hx Family Endocrine Disorder: Yes (DM) Medications and Allergies Methotrexate [Otrexup] 15 mg PO WE 08/23/17 [History] Bisacodyl [Dulcolax] 10 mg RC DAILY PRN 11/08/17 [History] Folic Acid 1 mg PO DAILY 11/08/17 [History] Mag Hydrox/Al Hydrox/Simeth [Antacid Suspension] 30 ml PO QID PRN 11/08/17 [ History] Quetiapine Fumarate [Seroquel] 50 mg PO TIDWM 11/08/17 [History] Aspirin Enteric Coated [Aspirin EC] 81 mg PO DAILY 04/19/18 [History] Atorvastatin Calcium [Lipitor] 20 mg PO HS 04/19/18 [History] Cholecalciferol (D-3) [Vitamin D] 5,000 unit PO WE 04/19/18 [History] Divalproex (12 HR) [Depakote (12 HR)] 500 mg PO BID 04/19/18 [History] Docusate [Colace] 100 mg PO BID PRN 04/19/18 [History] Famotidine [Heartburn Prevention] 20 mg PO DAILY 04/19/18 [History] Ferrous Sulfate [Iron] 325 mg PO DAILY 04/19/18 [History] HYDROcodone/Acet 7.5/325 mg [[place] 7.5-325 mg] 1 tab PO Q4H PRN 04/19/18 [ History] Ipratropium/Albuterol Neb [Duoneb] 3 ml IH Q6HR PRN 04/19/18 [History] Quetiapine Fumarate [Seroquel] 700 mg PO HS 04/19/18 [History] Rivastigmine Patch [Exelon] 4.6 mg TD DAILY 04/19/18 [History] Metoprolol [Lopressor] 37.5 mg PO BID 30 Days #45 tablet 04/25/18 [Rx] Mometasone Furoate [Asmanex Hfa] 2 puff IH BID 06/23/18 [History] Amoxicillin/Clavulanate [Augmentin] 875 mg PO BIDWM #14 tablet 06/26/18 [Rx] Lactobacillus Acidophilus [Acidophilus] 1 each PO BID #20 tablet 06/26/18 [Rx] 3 Allergy/AdvReac Type Severity Reaction Status Date / Time No Known Allergies Allergy Verified 06/23/18 07:08 ROS unobtainable: other (Patient has diagnosis of schizophrenia unable to get an accurate review of systems) All Systems: The remainder of the systems were reviewed and are negative Physical Examination Vital Signs: Vital Signs, Last 4 Hours Temp Pulse Resp BP Pulse Ox 06/28/18 04:39 98.8 F 110 26 107/87 100 06/28/18 03:57 97.8 F 103 20 135/88 95 06/28/18 03:25 17 92 General appearance: appears uncomfortable Effort: mildly labored Auscultation: bilateral: diminished breath sounds, rales (Scattered rales) Extremities: edema Results - Laboratory Findings CBC and BMP: 06/28/18 03:39 06/28/18 03:39 ABG ABG pH 7.41 pH Units (7.32-7.45) 06/28/18 03:28 ABG pCO2 60 mmHg (35-45) H 06/28/18 03:28 ABG pO2 55 mmHg (85-104) L 06/28/18 03:28 ABG O2 Saturation 87 % (95-98) L 06/28/18 03:28 PT/INR, D-dimer PT 14.0 Seconds (9.4-12.1) H 06/27/18 05:18 Abnormal lab findings: Abnormal lab results WBC 21.5 K/mcL (4.3-11.1) H 06/27/18 10:15 RBC 3.47 M/mcL (3.82-4.97) L 06/27/18 10:15 Hgb 11.1 g/dL (11.5-15.4) L 06/27/18 10:15 Hct 34.0 % (35.3-44.9) L 06/27/18 10:15 RDW 19.1 % (11.5-14.5) H 06/27/18 10:15 Plt Count 104 K/mcL (140-400) L 06/27/18 10:15 Immature Gran % 44.2 % (0-4) H 06/27/18 10:15 Band Neutrophils % 6.0 % (0-4) H 06/27/18 05:01 Metamyelocytes % 2.0 % (0) H 06/27/18 05:01 Myelocytes % 10.0 % (0) H 06/27/18 05:01 Monocytes # 3.3 K/mcL (0.0-1.3) H 06/27/18 10:15 Nucleated RBCs/100 WBC 0.1 /100 WBC (0) H 06/27/18 10:15 Reactive Lymphocytes Present (Not Present) A 06/27/18 05:01 PT 14.0 Seconds (9.4-12.1) H 06/27/18 05:18 ABG pCO2 60 mmHg (35-45) H 06/28/18 03:28 ABG pO2 55 mmHg (85-104) L 06/28/18 03:28 ABG HCO3 38 mEq/L (21-27) H 06/28/18 03:28 ABG Total CO2 40 mEq/L (20-26) H 06/28/18 03:28 ABG O2 Saturation 87 % (95-98) L 06/28/18 03:28 ABG Base Excess 12 mEq/L (-2 to 3) H 06/28/18 03:28 VBG pH 7.46 pH Units (7.32-7.42) H 06/27/18 05:13 VBG pO2 172 mmHg (25-50) H 06/27/18 05:13 VBG HCO3 33 mEq/L (21-27) H 06/27/18 05:13 Carbon Dioxide 34 mEq/L (23-29) H 06/28/18 03:39 POC Glucose 104 mg/dL (70-99) H 06/27/18 16:47 Calcium 8.1 mg/dL (8.6-10.3) L 06/28/18 03:39 Urine Bilirubin Small (Negative) H 06/27/18 05:30 Urine Opiates Screen Positive ng/mL (Oeopff=174) H 06/27/18 05:30 - Clinical Findings Intake & Output: Intake & Output 06/27/18 06/27/18 06/28/18 15:59 23:59 07:59 Intake Total 100 / 100 450 / 450 Output Total 500 / 500 1999 / 1999 350 / 350 Balance -500 / -500 -1900 / -1900 100 / 100 Weight 72.7 kg Consult Discharge Plan - Plan Referrals: Kwesi Allen MD [Primary Care Provider] -
[2018-06-28] MEDS ORDERED: Aminoglycoside Consult 1 EACH MC ONE (08:04)
[2018-06-28] MEDS: Divalproex (12 HR) 500 MG TABLET PO SCH ×2 (08:41→19:52)
[2018-06-28] MEDS: Folic Acid 1 MG TABLET PO SCH (08:43)
[2018-06-28] MEDS: Aspirin Enteric Coated 81 MG Tablet PO SCH (08:44)
[2018-06-28] MEDS ORDERED: Vancomycin 1,000 MG VIAL ONE (08:51)
[2018-06-28] MEDS ORDERED: 0.9 % Sodium Chloride Mini Bag 100 ML ONE (08:53)
[2018-06-28 08:54] LABS: Hematocrit 32.2 % (35.3-44.9); Hemoglobin 9.9 g/dL (11.5-15.4); Mean Corpuscular HGB Conc 30.7 g/dL (31.6-35.5); Mean Corpuscular Hemoglobin 30.8 pg (28.0-33.3); Mean Corpuscular Volume 100.3 fL (83.0-100.0); Mean Platelet Volume 10.8 fL (9.4-12.4); Nucleated Red Blood Cells 0.1 /100 WBC (0); Platelet Count 159 K/mcL (140-400); Red Blood Count 3.21 M/mcL (3.82-4.97)
[2018-06-28] MEDS ORDERED: Famotidine 20 MG TABLET PO SCH (09:00)
[2018-06-28] MEDS ORDERED: *HR* Methotrexate 2.5 MG TABLET PO SCH (09:24)
--- NOTE | 2018-06-28 09:47 | Infectious Disease Progress No ---
Date of Encounter: 06/28/18 Time of Encounter: 09:46 - Assessment and Plan (1) Severe sepsis Current Visit: No Status: Acute The patient had two SIRS criteria plus altered mental status and hypotension responsive to IV fluids. Likely secondary to PNA. Improved. White blood cell count has trended down a little bit. She was tachycardic and tachypneic overnight, but that seems to have improved. Hypotension has resolved. Blood cultures drawn 06/27/18 are pending x 2 sets. (2) Pneumonia Current Visit: No Status: Acute Location: Left lower lobe. Causative organism unlcear. CXR completed 06/27/18 showed unchanged LLL airspace disease. Concern for aspiration given the patient's clinical picture. Get sputum culture if the patient is able to provide an adequate specimen. Strep pneumococcal legionella urinary antigens were negative during last admission. Respiratory infectious panel is negative as well. MRSA screen was negative as well. Continue Zosyn 3.375 g IV every 8 hours. (day 2) Discontinue vancomycin. Duration of treatment depends on the clinical picture. Monitor renal function and is just antibiotics. Consider swallow study once the patient is able to participate in the evaluation. Case discussed with Dr. Walters of the primary team. Qualifiers: Pneumonia type: due to unspecified organism Laterality: bilateral Lung location: lower lobe of lung Qualified Code(s): J18.1 - Lobar pneumonia, unspecified organism (3) Sinusitis Current Visit: Yes Status: Acute Location: Paranasal Causative organism: Unclear. Continue Zosyn 3.375 grams IV Q8H. (day 2) Duration of treatment depends on the clinical picture. Monitor renal function and dose-adjust antibiotics. Qualifiers: Sinusitis location: unspecified location Chronicity: acute Recurrence: non-recurrent Qualified Code(s): J01.90 - Acute sinusitis, unspecified (4) Altered mental status Current Visit: No Status: Acute Etiology unclear: medications vs. sepsis vs. other. CT head negative for acute intracranial abnormality. Improved today. Continue to monitor closely. Qualifiers: Altered mental status type: delirium Qualified Code(s): R41.0 - Disorientation, unspecified (5) Bicytopenia Current Visit: Yes Status: Acute Hemoglobin remains low, but thrombocytopenia has resolved. I anticipate that the patient is chronically anemic. Further workup and management per the primary team. Continue to trend. (6) Psoriatic arthritis Current Visit: No Status: Acute On methotrexate at home. (7) COPD (chronic obstructive pulmonary disease) Current Visit: No Status: Chronic Qualifiers: COPD type: chronic bronchitis Chronic bronchitis type: unspecified Qualified Code(s): J42 - Unspecified chronic bronchitis (8) History of schizophrenia Current Visit: No Status: Chronic - Subjective Interval history: Patient seen and examined. Overnight events noted. The patient became hypoxic and was transferred to [facility]. was placed on BiPAP. Currently, she is on O2 via nasal cannula. Her mental status is improved since yesterday. She denies any shortness of breath, but does report a nonproductive moist cough. She denies any fevers or chills or rigors. She reports chronic headache, neck pain, and back pain at her baseline. She denies any chest or abdominal pain. She denies any nausea or vomiting or diarrhea. She has been nothing by mouth except medications and she has not had anything to eat yet this morning. Rees catheter remains patent. She has not had a bowel movement since admission. She denies any oral thrush or new skin lesions. Infect Dis PN-Objective Data - Labs CBC & Chem 7: 06/28/18 03:39 06/28/18 03:39 Labs: Laboratory Results - last 24 hr 06/27/18 06/27/18 06/27/18 10:15 11:11 16:47 WBC 21.5 H RBC 3.47 L Hgb 11.1 L Hct 34.0 L MCV 98.0 MCH 32.0 MCHC 32.6 RDW 19.1 H Plt Count 104 L MPV 10.8 Immature Gran % 44.2 H Seg Neutrophils % 26.3 Lymphocytes % 12.6 Monocytes % 15.5 Eosinophils % 1.2 Basophils % 0.2 Neutrophils # 5.7 Lymphocytes # 2.7 Monocytes # 3.3 H Eosinophils # 0.3 Basophils # 0.0 Nucleated RBCs/100 WBC 0.1 H Sample Site ABG pH ABG pCO2 ABG pO2 ABG HCO3 ABG Total CO2 ABG O2 Saturation ABG Base Excess Samuel Test O2 Delivery Device Inspired O2 Sodium Potassium Chloride Carbon Dioxide BUN Creatinine Est GFR ( Amer) Est GFR (Non-Af Amer) BUN/Creatinine Ratio Glucose POC Glucose 72 104 H Calculated Osmolality Calcium Troponin I 06/28/18 06/28/18 06/28/18 03:28 03:39 03:39 WBC 20.0 H RBC 3.21 L Hgb 9.9 L Hct 32.2 L MCV 100.3 H MCH 30.8 MCHC 30.7 L RDW 19.0 H Plt Count 159 D MPV 10.8 Immature Gran % Seg Neutrophils % Lymphocytes % Monocytes % Eosinophils % Basophils % Neutrophils # Lymphocytes # Monocytes # Eosinophils # Basophils # Nucleated RBCs/100 WBC 0.1 H Sample Site L Radial ABG pH 7.41 ABG pCO2 60 H ABG pO2 55 L ABG HCO3 38 H ABG Total CO2 40 H ABG O2 Saturation 87 L ABG Base Excess 12 H Samuel Test N/A O2 Delivery Device NRB Inspired O2 100.0 Sodium 137 Potassium 3.7 Chloride 98 Carbon Dioxide 34 H BUN 16 Creatinine 0.92 Est GFR ( Amer) > 60 Est GFR (Non-Af Amer) > 60 BUN/Creatinine Ratio 17 Glucose 82 POC Glucose Calculated Osmolality 284 Calcium 8.1 L Troponin I < 0.03 - Impressions Impressions Chest X-Ray 06/28/18 03:45 IMPRESSION: Cardiomegaly. Left lung base opacity may represent atelectasis. D/ / 06/28/2018 07:24:19 Jose Valverde MD / [facility] Interpreting Provider: Jose Valverde MD Exam - Constitutional Vitals: Temp Pulse Resp BP Pulse Ox 98.0 F 93 20 107/72 92 06/28/18 07:36 06/28/18 08:00 06/28/18 08:00 06/28/18 07:36 06/28/18 09:33 General appearance: average body habitus, cooperative, no acute distress - Head Head exam: Present: atraumatic, normal inspection, normocephalic - Eye Eye exam: Present: EOMI, normal appearance, PERRL Pupils: Present: normal accommodation - ENT ENT exam: Present: mucous membranes dry - Neck Neck exam: Present: normal inspection - Respiratory Respiratory exam: Present: CTAB. Absent: rales, respiratory distress, rhonchi, wheezes - Cardiovascular Cardiovascular exam: Present: +S1, +S2, tachycardia. Absent: irregular rhythm - GI/Abdominal GI/Abdominal exam: Present: normal bowel sounds, soft. Absent: distended, tenderness Additional comments: Rees catheter noted to be draining clear yellow urine. - Extremities Exam Extremities exam: Present: normal inspection. Absent: joint swelling, pedal edema, tenderness - Neurological Exam Neurological exam: Present: alert, oriented X3, no focal deficits - Psychiatric Psychiatric exam: Present: normal affect, normal mood - Skin Skin exam: Present: dry, intact, normal color, warm Consult Discharge Plan - Plan Referrals: Kwesi Allen MD [Primary Care Provider] - - Attending Attestation I examined this patient and my medical decision-making was reviewed with the Resident Physician. I agree with the documented findings, disposition and treatment plan as described except to the extent set forth below.
[2018-06-28 09:53] LABS: Acinetobacter baumannii by PCR Not Detected (Not Detect); Candida albicans by PCR Not Detected (Not Detect); Enterobacter cloacae Cmplx PCR Not Detected (Not Detect); Enterobacteriaceae by PCR Not Detected (Not Detect); Enterococcus by PCR Not Detected (Not Detect); Escherichia coli by PCR Not Detected (Not Detect); Klebsiella oxytoca by PCR Not Detected (Not Detect); Klebsiella pneumoniae by PCR Not Detected (Not Detect); Proteus by PCR Not Detected (Not Detect); Pseudomonas aeruginosa by PCR Not Detected (Not Detect); Serratia marcescens by PCR Not Detected (Not Detect); Staphylococcus aureus by PCR Not Detected (Not Detect); Staphylococcus by PCR DETECTED (Not Detect); Streptococcus agalactiae(B)PCR Not Detected (Not Detect); Streptococcus by PCR Not Detected (Not Detect); Streptococcus pneumoniae PCR Not Detected (Not Detect); Streptococcus pyogenes (A) PCR Not Detected (Not Detect); mecA Methicillin-Resist Gene DETECTED (Not Detect)
[2018-06-28 09:54] LABS: Candida glabrata by PCR Not Detected (Not Detect); Candida krusei by PCR Not Detected (Not Detect); Candida parapsilosis by PCR Not Detected (Not Detect); Candida tropicalis by PCR Not Detected (Not Detect)
[2018-06-28 10:09] LABS: Eosinophils # 0.6 K/mcL (0.0-0.6); Monocytes # 2.8 K/mcL (0.0-1.3); Neutrophils # 4.8 K/mcL (1.6-8.9)
[2018-06-28 10:17] LABS: Anisocytosis 1+ (Not Present); Platelet Estimate Normal (Normal)
--- NOTE | 2018-06-28 10:40 | Internal Med Progress Note ---
Hospitalist Progress Note - Encounter Date of Encounter: 06/28/18 Time of Encounter: 10:37 - Subjective Interval History: Patient had episode of oxygen desaturation with SpO2 of 81%, and respiratory distress. She required bipap and transfer to 2N unit for closer monitoring. She was given 40 mg Lasix IV and 125 mg Solu Medrol and breathing treatment. She improved on bipap and current treatment. Currently she tells me her dyspnea is improving. She denies fevers/chills, chest pain, diaphoresis. She does note she had chest pain on and off a few days ago. - Exam Vitals: Temp Pulse Resp BP Pulse Ox 98.0 F 93 20 107/72 92 06/28/18 07:36 06/28/18 08:00 06/28/18 08:00 06/28/18 07:36 06/28/18 09:33 Exam: GENERAL: alert and oriented 2, post bipap exam, no acute resp distress EYES: PERRLA, EOMI OROPHARYNX: Lips, mucosa, and tongue normal. NECK: No jugulovenous distention, No carotid bruits, Carotid pulse normal contour, Supple LUNGS: Course rales, mostly left lung, with end exp wheezing. CARDIAC: RRR, normal S1/S2. ABDOMEN: Soft, NT/ND, normal bowel sounds. EXTREMITIES: No edema appreciated NEURO: Limited gait exam. Sensation grossly intact, Cranial nerves II-XII intact - Assessment and Plan (1) Severe sepsis Current Visit: No Status: Acute Assessment and Plan: Continue Zosyn Suspect may be aspiration pneumonia. 1 of 2 samples of blood cultures positive for gram positive cocci, which may be contaminate. MRSA screen negative. See assessment/plan for hospital-acquired pneumonia. (2) Metabolic encephalopathy Current Visit: Yes Status: Acute Assessment and Plan: Multifactorial. Patient has been on polypharmacy especially concerning for high dose of Seroquel. She also has an increased white count with suggestion of leuko- moderate reaction which I have verified on repeat WBC. At this time I would continue her broad spectrum antibiotic coverage with vancomycin and Zosyn and check cultures. She will continue to be treated for healthcare acquired pneumonia until we have reason to de-escalate her antibiotics. I will also discussed with pharmacy and we will decrease her nighttime Seroquel to 400 mg at nighttime and take off her with meals Seroquel. Hopefully this helps improve some of the metabolic encephalopathy with this patient is experiencing. The white count is concerning and my threshold to consult heme along is low given the unusual picture of bands promyelocytes, metamyelocytes as well as pancytopenia I will also hold off on methotrexate while in-house and monitor closely. Her head CT did not suggest any new strokes. Her hypoxia is more or less at baseline she runs at 4 L. Even in the hospital she is able to maintain decent saturations at 4-5 L. 06/28: Decrease Seroquel dose, avoid abrupt withdrawal. DC Pepcid as this can precipitate symptoms. Treatment for HAP with Zosyn and further workup. (3) Acute and chronic respiratory failure ([id number]) Current Visit: No Status: Acute Assessment and Plan: At home she usually usees 4 L O2, but on admission required 5 L with maintaining saturations in the low 90s. Her x-ray does suggest a little bit of fluid overload and she was given Lasix in ED in addition to the antibiotic coverage and monitor closely. Patient became hypoxic with acute resp distress overnight requiring bipap. Additional IV Lasix was given, breathing treatments , and solu medrol. Pulm consulted, recommendations appreciated. Continue treatment of pneumonia, possibly aspiration pneumonia given her presentation. Swallow eval pending when she is able to participate. (4) HCAP (healthcare-associated pneumonia) Current Visit: Yes Status: Acute Assessment and Plan: As mentioned above, continue broad-spectrum coverage. Cultures have been sent and we will down titrate antibiotics accordingly. Infectious Disease consulted, recommendations appreciated Vancomycin d/c'd as MRSA screen negative Continue Zosyn Follow-up cultures Swallow eval when she is able to participate (5) DVT prophylaxis Current Visit: No Status: Acute Assessment and Plan: EPCD (6) COPD (chronic obstructive pulmonary disease) Current Visit: No Status: Chronic Assessment and Plan: Patient does have underlying COPD and requires home oxygen. Received steroids overnight because of desaturation and respiratory distress. Treatment as above. (7) Bicytopenia Current Visit: Yes Status: Acute Assessment and Plan: Patient has a high white count which has been repeated and currently at 21,000. She does have a hemoglobin of 10.16% bands, myelocytes, metamyelocytes and reactive lymphocytes in the bloodstream. This could be consistent with leukemoid reaction but I will keep a close eye on this and we may need to involve hematology oncology if needed. For now I would continue to treat her underlying infection. On 06/25 WBC were normal, will hold off on heme/onc consult for now and re eval when she is more stable. (8) Schizophrenia Current Visit: Yes Status: Acute (9) Diastolic CHF Current Visit: No Status: Chronic - Time Spent with Patient Total time spent is greater than 50% in coordination of care (as documented) at patient's floor/unit and/or counseling patient: Internal Medicine: Result - Labs CBC & Chem 7: 06/28/18 03:39 06/28/18 03:39 Labs: Short CBC 06/27/18 06/28/18 Range/Units 10:15 03:39 WBC 21.5 H 20.0 H (4.3-11.1) K/mcL Hgb 11.1 L 9.9 L (11.5-15.4) g/dL Hct 34.0 L 32.2 L (35.3-44.9) % Plt Count 104 L 159 D (140-400) K/mcL Neutrophils # 5.7 (1.6-8.9) K/mcL BMP 06/28/18 03:39 Sodium 137 Potassium 3.7 Chloride 98 Carbon Dioxide 34 H BUN 16 Creatinine 0.92 Glucose 82 Calcium 8.1 L Cardiac Enzymes 06/28/18 Range/Units 03:39 Troponin I < 0.03 (< 0.04) ng/mL - ABG Interpretation ABG results: ABG ABG pH 7.41 pH Units (7.32-7.45) 06/28/18 03:28 ABG pCO2 60 mmHg (35-45) H 06/28/18 03:28 ABG pO2 55 mmHg (85-104) L 06/28/18 03:28 ABG O2 Saturation 87 % (95-98) L 06/28/18 03:28 PT/INR, D-dimer PT 14.0 Seconds (9.4-12.1) H 06/27/18 05:18 - Impressions Impressions Chest X-Ray 06/28/18 03:45 IMPRESSION: Cardiomegaly. Left lung base opacity may represent atelectasis. D/ / 06/28/2018 07:24:19 Jose Valverde MD / [facility] Interpreting Provider: Jose Valverde MD Consult Discharge Plan - Plan Referrals: Kwesi Allen MD [Primary Care Provider] - (3) Acute and chronic respiratory failure ([id number]) Qualifiers: Respiratory failure complication: hypoxia Qualified Code(s): J96.21 - Acute and chronic respiratory failure with hypoxia (6) COPD (chronic obstructive pulmonary disease) Qualifiers: COPD type: chronic bronchitis Chronic bronchitis type: unspecified Qualified Code(s): J42 - Unspecified chronic bronchitis (9) Diastolic CHF Qualifiers: Qualified Code(s): I50.32 - Chronic diastolic (congestive) heart failure
[2018-06-28 10:42] LABS: Toxic Granulation Present (Not Present)
[2018-06-28] MEDS: Rivastigmine Patch 4.6 MG PATCH.TD24 TD SCH (15:05)
[2018-06-28] MEDS: predniSONE 20 MG TABLET PO SCH (16:29)
[2018-06-28] MEDS: *HR* Heparin 5,000 UNIT/ML VIAL SQ SCH (16:30)
[2018-06-28] MEDS: *HR* HYDROcodone/Acet 7.5/325 mg TABLET PO PRN (19:50)
[2018-06-29] MEDS ORDERED: Furosemide 40 MG/4 ML VIAL IVP ONE (01:41)
[2018-06-29 01:43] LABS: ABG Base Excess 11 mEq/L (-2 to 3); ABG HCO3 38 mEq/L (21-27); ABG Oxygen Saturation 93 % (95-98); ABG PCO2 61 mmHg (35-45); ABG PO2 70 mmHg (85-104); ABG TCO2 40 mEq/L (20-26); Blood Gas Modality AVAPS; Blood Gas PEEP 10 cm H2O; Blood Gas VT 400 cc
[2018-06-29] MEDS ORDERED: Furosemide 40 MG/4 ML VIAL ONE (01:48)
--- NOTE | 2018-06-29 02:41 | Event Note ---
Date of Encounter: 06/29/18 Time of Encounter: 02:38 I was called by the nurse to the bedside due to concerns for worsening oxygen saturation. Upon arrival patient was on BiPAP with 100% FiO2 and oxygen saturation at 90%. She is in mild respiratory distress. She was awake, alert, and would answer questions appropriately. On physical exam she had coarse breath sounds with both rhonchi and rales. After discussion with the nurse it appears the patient has had decreasing urine output over the last several hours. She had a similar event last night and responded well to Lasix and given her physical exam findings I went ahead and gave Lasix 40 mg IV as well as a another nebulized breathing treatment. Upon review the chart I also noted that the patient had positive blood culture with staph species and mecA gene on PCR, but not staph aureus. Likely coagulase-negative staph in appears to be 1 out of 2 bottles so likely contaminant. We will maintain current antibiotic regimen and I have ordered repeat blood cultures. We will continue to closely monitor patient.
[2018-06-29] MEDS: Ipratropium/Albuterol Neb 3 ML IH SCH ×4 (03:37→22:40)
[2018-06-29 04:28] LABS: Hematocrit 31.6 % (35.3-44.9); Hemoglobin 10.1 g/dL (11.5-15.4); Mean Corpuscular Hemoglobin 30.7 pg (28.0-33.3); Nucleated Red Blood Cells 0.1 /100 WBC (0); Platelet Count 243 K/mcL (140-400); Red Blood Count 3.29 M/mcL (3.82-4.97); Red Cell Distribution Width 18.6 % (11.5-14.5)
[2018-06-29 04:44] LABS: BUN/Creatinine Ratio 25 (6-26); Blood Urea Nitrogen 24 mg/dL (8-23); Calcium 8.4 mg/dL (8.6-10.3); Carbon Dioxide 34 mEq/L (23-29); Chloride 93 mEq/L (98-107); Glucose 128 mg/dL (70-105); Magnesium 1.4 mg/dL (1.6-2.6); Osmolality,Calculated 284 (280-300); Potassium 3.7 mEq/L (3.5-5.1); Sodium 134 mEq/L (136-145); eGFR For Non-African Americans 57 (> 60)
[2018-06-29 04:53] LABS: Lymphocytes # 0.4 K/mcL (0.6-4.6); Monocytes # 1.2 K/mcL (0.0-1.3); Neutrophils # 10.8 K/mcL (1.6-8.9)
[2018-06-29 04:55] LABS: Anisocytosis 1+ (Not Present); Platelet Estimate Normal (Normal); Polychromasia 1+ (Not Present)
[2018-06-29] MEDS: *HR* Heparin 5,000 UNIT/ML VIAL SQ SCH ×2 (05:12→17:55)
[2018-06-29] MEDS: Rivastigmine Patch 4.6 MG PATCH.TD24 TD SCH (09:16)
[2018-06-29] MEDS: Divalproex (12 HR) 500 MG TABLET PO SCH ×2 (09:17→19:46)
[2018-06-29] MEDS: predniSONE 20 MG TABLET PO SCH (09:17)
[2018-06-29] MEDS: *HR* HYDROcodone/Acet 7.5/325 mg TABLET PO PRN ×2 (09:17→17:43)
[2018-06-29] MEDS: Folic Acid 1 MG TABLET PO SCH (09:18)
[2018-06-29] MEDS: Aspirin Enteric Coated 81 MG Tablet PO SCH (09:18)
--- NOTE | 2018-06-29 09:43 | Pulmonology Progress Note ---
<Vlad Rodriguez - Last Filed: 06/29/18 17:13> Date of Encounter: 06/29/18 Time of Encounter: 09:00 Assessment and Plan (1) Acute and chronic respiratory failure with hypoxia Current Visit: Yes Status: Acute -Secondary to her history of COPD and CHF. -Patient was satting at 85% last night was on BiPAP,but currently she is stable satting at 94% on 10 L of high flow oxygen. -Currently on Zosyn, prednisone 40 mg, white blood count trending down -Continue to monitor (2) Pneumonia Current Visit: No Status: Acute -Likely due to her history of CHF and COPD -The chest showed bibasilar opacities with concerns for infection versus atelectasis - Patient's respiratory infectious panel and MRSA screen was negative. -Continues to be on day 3 of Zosyn q8h Qualifiers: Pneumonia type: due to unspecified organism Laterality: right Lung location: unspecified part of lung Qualified Code(s): J18.9 - Pneumonia, unspecified organism (3) COPD exacerbation Current Visit: No Status: Resolved -Patient has a history of COPD and requires home oxygen. -40 mg prednisone, Duonebs PRN, Zosyn 3.375 gm -On physicl exam patient endorses no worsening shortness of breath, chest pain or productive cough. Subjective Interval history: Stacy had some decrease in oxygen saturation from 85% despite BiPAP adjustments. She was transferred to [place] given 40 Lasix IV and 125 Solu- Medrol breathing treatment. Patient had a similar event overnight for and she responded well to Lasix. Currently she endorses no worsening shortness of breath, chest pain or palpitation. She is currently satting at 94% 10 L high flow oxygen. Objective PUL Vital signs: Last Vital Signs Temp 97.4 F L 06/29/18 07:00 Pulse 76 06/29/18 08:00 Resp 16 06/29/18 08:00 BP 96/70 06/29/18 07:00 Pulse Ox 96 06/29/18 08:00 Effort: mildly labored Auscultation: left: diminished breath sounds (no wheezing ) Percussion: bilateral: not dull Cardiovascular: regular rate and rhythm (no gallops, murmurs or rubs) Gastrointestinal: soft, non-tender, non-distended Results - Laboratory Findings CBC and BMP: 06/29/18 03:23 06/29/18 03:23 ABG ABG pH 7.40 pH Units (7.32-7.45) 06/29/18 01:40 ABG pCO2 61 mmHg (35-45) H 06/29/18 01:40 ABG pO2 70 mmHg (85-104) L 06/29/18 01:40 ABG O2 Saturation 93 % (95-98) L 06/29/18 01:40 PT/INR, D-dimer PT 14.0 Seconds (9.4-12.1) H 06/27/18 05:18 Abnormal lab findings: Abnormal lab results WBC 19.9 K/mcL (4.3-11.1) H 06/29/18 03:23 RBC 3.29 M/mcL (3.82-4.97) L 06/29/18 03:23 Hgb 10.1 g/dL (11.5-15.4) L 06/29/18 03:23 Hct 31.6 % (35.3-44.9) L 06/29/18 03:23 RDW 18.6 % (11.5-14.5) H 06/29/18 03:23 Immature Gran % 44.2 % (0-4) H 06/27/18 10:15 Band Neutrophils % 10.0 % (0-4) H 06/29/18 03:23 Metamyelocytes % 8.0 % (0) H 06/29/18 03:23 Myelocytes % 24.0 % (0) H 06/29/18 03:23 Promyelocytes % 4.0 % (0) H 06/29/18 03:23 Blast Cells % 2.0 % (0) H 06/29/18 03:23 Neutrophils # 10.8 K/mcL (1.6-8.9) H 06/29/18 03:23 Lymphocytes # 0.4 K/mcL (0.6-4.6) L 06/29/18 03:23 Nucleated RBCs/100 WBC 0.1 /100 WBC (0) H 06/29/18 03:23 Reactive Lymphocytes Present (Not Present) A 06/27/18 05:01 Toxic Granulation Present (Not Present) A 06/28/18 03:39 Polychromasia 1+ (Not Present) A 06/29/18 03:23 Anisocytosis 1+ (Not Present) A 06/29/18 03:23 PT 14.0 Seconds (9.4-12.1) H 06/27/18 05:18 ABG pCO2 61 mmHg (35-45) H 06/29/18 01:40 ABG pO2 70 mmHg (85-104) L 06/29/18 01:40 ABG HCO3 38 mEq/L (21-27) H 06/29/18 01:40 ABG Total CO2 40 mEq/L (20-26) H 06/29/18 01:40 ABG O2 Saturation 93 % (95-98) L 06/29/18 01:40 ABG Base Excess 11 mEq/L (-2 to 3) H 06/29/18 01:40 VBG pH 7.46 pH Units (7.32-7.42) H 06/27/18 05:13 VBG pO2 172 mmHg (25-50) H 06/27/18 05:13 VBG HCO3 33 mEq/L (21-27) H 06/27/18 05:13 Sodium 134 mEq/L (136-145) L 06/29/18 03:23 Chloride 93 mEq/L (98-107) L 06/29/18 03:23 Carbon Dioxide 34 mEq/L (23-29) H 06/29/18 03:23 BUN 24 mg/dL (8-23) H 06/29/18 03:23 Est GFR (Non-Af Amer) 57 (> 60) L 06/29/18 03:23 Glucose 128 mg/dL (70-105) H 06/29/18 03:23 POC Glucose 104 mg/dL (70-99) H 06/27/18 16:47 Calcium 8.4 mg/dL (8.6-10.3) L 06/29/18 03:23 Magnesium 1.4 mg/dL (1.6-2.6) L 06/29/18 03:23 Urine Bilirubin Small (Negative) H 06/27/18 05:30 Urine Opiates Screen Positive ng/mL (Zfctxz=097) H 06/27/18 05:30 Staphylococcus sp PCR DETECTED (Not Detect) A 06/27/18 05:18 mecA-Methicil Res Gene DETECTED (Not Detect) A 06/27/18 05:18 - Microbiology Findings Microbiology Findings: Microbiology, Last 48 Hours 06/29/18 03:31 Blood Culture - Preliminary Peripheral Venipuncture Culture is incubating and being continuously monitored for growth. Final report to follow. 06/29/18 03:31 Blood Culture - Preliminary Peripheral Venipuncture Culture is incubating and being continuously monitored for growth. Final report to follow. - Clinical Findings Intake & Output: Intake & Output 06/28/18 06/29/18 06/29/18 23:59 07:59 15:59 Intake Total 450 / 450 100 / 100 60 / 60 Output Total 75 / 75 925 / 925 Balance 375 / 375 -825 / -825 60 / 60 Weight 73 kg Consult Discharge Plan - Plan Referrals: Kwesi Allen MD [Primary Care Provider] - <Lyric Tracy - Last Filed: 06/29/18 17:19> Date of Encounter: 06/29/18 Assessment and Plan (1) Acute and chronic respiratory failure ([id number]) Current Visit: No Status: Acute Qualifiers: Respiratory failure complication: hypoxia Qualified Code(s): J96.21 - Acute and chronic respiratory failure with hypoxia (2) Pneumonia Current Visit: No Status: Acute Qualifiers: Pneumonia type: due to unspecified organism Laterality: bilateral Lung location: lower lobe of lung Qualified Code(s): J18.1 - Lobar pneumonia, unspecified organism (3) COPD exacerbation Current Visit: No Status: Resolved Objective PUL Vital signs: Last Vital Signs Temp 97.7 F 06/29/18 15:45 Pulse 60 06/29/18 15:45 Resp 16 06/29/18 15:56 BP 118/83 06/29/18 15:45 Pulse Ox 95 06/29/18 15:56 Results - Laboratory Findings CBC and BMP: 06/29/18 03:23 06/29/18 03:23 ABG ABG pH 7.40 pH Units (7.32-7.45) 06/29/18 01:40 ABG pCO2 61 mmHg (35-45) H 06/29/18 01:40 ABG pO2 70 mmHg (85-104) L 06/29/18 01:40 ABG O2 Saturation 93 % (95-98) L 06/29/18 01:40 PT/INR, D-dimer PT 14.0 Seconds (9.4-12.1) H 06/27/18 05:18 Abnormal lab findings: Abnormal lab results WBC 19.9 K/mcL (4.3-11.1) H 06/29/18 03:23 RBC 3.29 M/mcL (3.82-4.97) L 06/29/18 03:23 Hgb 10.1 g/dL (11.5-15.4) L 06/29/18 03:23 Hct 31.6 % (35.3-44.9) L 06/29/18 03:23 RDW 18.6 % (11.5-14.5) H 06/29/18 03:23 Immature Gran % 44.2 % (0-4) H 06/27/18 10:15 Band Neutrophils % 10.0 % (0-4) H 06/29/18 03:23 Metamyelocytes % 8.0 % (0) H 06/29/18 03:23 Myelocytes % 24.0 % (0) H 06/29/18 03:23 Promyelocytes % 4.0 % (0) H 06/29/18 03:23 Blast Cells % 2.0 % (0) H 06/29/18 03:23 Neutrophils # 10.8 K/mcL (1.6-8.9) H 06/29/18 03:23 Lymphocytes # 0.4 K/mcL (0.6-4.6) L 06/29/18 03:23 Nucleated RBCs/100 WBC 0.1 /100 WBC (0) H 06/29/18 03:23 Reactive Lymphocytes Present (Not Present) A 06/27/18 05:01 Toxic Granulation Present (Not Present) A 06/28/18 03:39 Polychromasia 1+ (Not Present) A 06/29/18 03:23 Anisocytosis 1+ (Not Present) A 06/29/18 03:23 PT 14.0 Seconds (9.4-12.1) H 06/27/18 05:18 ABG pCO2 61 mmHg (35-45) H 06/29/18 01:40 ABG pO2 70 mmHg (85-104) L 06/29/18 01:40 ABG HCO3 38 mEq/L (21-27) H 06/29/18 01:40 ABG Total CO2 40 mEq/L (20-26) H 06/29/18 01:40 ABG O2 Saturation 93 % (95-98) L 06/29/18 01:40 ABG Base Excess 11 mEq/L (-2 to 3) H 06/29/18 01:40 VBG pH 7.46 pH Units (7.32-7.42) H 06/27/18 05:13 VBG pO2 172 mmHg (25-50) H 06/27/18 05:13 VBG HCO3 33 mEq/L (21-27) H 06/27/18 05:13 Sodium 134 mEq/L (136-145) L 06/29/18 03:23 Chloride 93 mEq/L (98-107) L 06/29/18 03:23 Carbon Dioxide 34 mEq/L (23-29) H 06/29/18 03:23 BUN 24 mg/dL (8-23) H 06/29/18 03:23 Est GFR (Non-Af Amer) 57 (> 60) L 06/29/18 03:23 Glucose 128 mg/dL (70-105) H 06/29/18 03:23 POC Glucose 104 mg/dL (70-99) H 06/27/18 16:47 Calcium 8.4 mg/dL (8.6-10.3) L 06/29/18 03:23 Magnesium 1.4 mg/dL (1.6-2.6) L 06/29/18 03:23 Urine Bilirubin Small (Negative) H 06/27/18 05:30 Urine Opiates Screen Positive ng/mL ([id number]=[id number]) H 06/27/18 05:30 Staphylococcus sp PCR DETECTED (Not Detect) A 06/27/18 05:18 mecA-Methicil Res Gene DETECTED (Not Detect) A 06/27/18 05:18 - Microbiology Findings Microbiology Findings: Microbiology, Last 48 Hours 06/29/18 12:39 Legionella Antigen - Final Urine,[place] Streptococcus pneumoniae Antigen (M - Final 06/29/18 03:31 Blood Culture - Preliminary Peripheral Venipuncture Culture is incubating and being continuously monitored for growth. Final report to follow. 06/29/18 03:31 Blood Culture - Preliminary Peripheral Venipuncture Culture is incubating and being continuously monitored for growth. Final report to follow. - Clinical Findings Intake & Output: Intake & Output 06/29/18 06/29/18 06/29/18 07:59 15:59 23:59 Intake Total 100 / 100 280 / 280 Output Total 925 / 925 500 / 500 Balance -825 / -825 -220 / -220 Weight 73 kg - Attending Attestation I saw and evaluated this patient and my medical decision-making was reviewed with the Resident Physician. I agree with the documented findings, disposition and treatment plan as described except to the extent set forth below. We independently had [id number] contact with the patient Patient seen and examined at bedside Labs, radiology, chart personally reviewed. Patient with acute on chronic respiratory failure secondary to pneumonia and hydrostatic pulmonary edema patient is getting with current management of bronchodilators, steroids and antibiotics. We will send her home on prolonged steroid taper. Patient should use BiPAP every night in the [facility] will put the settings 12/6 until she sees us in the outpatient. Antibiotics regimen should be according to infectious disease. We will sign off please call with questions.
--- NOTE | 2018-06-29 09:46 | Internal Med Progress Note ---
Hospitalist Progress Note - Encounter Date of Encounter: 06/29/18 Time of Encounter: 09:50 - Subjective Interval History: Patient had episode of oxygen desaturation with SpO2 of 81%, and respiratory distress. She required bipap and transfer to 2N unit for closer monitoring. She was given 40 mg Lasix IV and 125 mg Solu Medrol and breathing treatment. She improved on bipap and current treatment. Currently she tells me her dyspnea is improving. She denies fevers/chills, chest pain, diaphoresis. She does note she had chest pain on and off a few days ago. - Exam Vitals: Temp Pulse Resp BP Pulse Ox 97.4 F L 76 16 96/70 96 06/29/18 07:00 06/29/18 08:00 06/29/18 08:00 06/29/18 07:00 06/29/18 08:00 Exam: GENERAL: alert and oriented 3, no acute resp distress, on NC EYES: PERRLA, EOMI OROPHARYNX: MMM NECK: No JVD, No carotid bruits, Carotid pulse normal contour, Supple LUNGS: Course rales, mostly left lung, with end exp wheezing. CARDIAC: RRR, normal S1/S2. ABDOMEN: Soft, NT/ND, normal bowel sounds. EXTREMITIES: No edema appreciated NEURO: Limited gait exam. Sensation grossly intact, Cranial nerves II-XII intact - Assessment and Plan (1) Metabolic encephalopathy Current Visit: Yes Status: Acute Assessment and Plan: Multifactorial. Patient has been on polypharmacy especially concerning for high dose of Seroquel. She also has an increased white count with suggestion of leuko- moderate reaction which I have verified on repeat WBC. At this time I would continue her broad spectrum antibiotic coverage with vancomycin and Zosyn and check cultures. She will continue to be treated for healthcare acquired pneumonia until we have reason to de-escalate her antibiotics. I will also discussed with pharmacy and we will decrease her nighttime Seroquel to 400 mg at nighttime and take off her with meals Seroquel. Hopefully this helps improve some of the metabolic encephalopathy with this patient is experiencing. Her head CT did not suggest any new strokes. Pepcid discontinued and Seroquel decreased to 400 mg HS. 06/28: Decrease Seroquel dose, avoid abrupt withdrawal. DC Pepcid as this can precipitate symptoms. Treatment for HAP with Zosyn and further workup. 06/29: significantly more alert that yesterday. (2) Severe sepsis Current Visit: No Status: Acute Assessment and Plan: Continue Zosyn Suspect may be aspiration pneumonia. 1 of 2 samples of blood cultures positive for gram positive cocci, which may be contaminate. MRSA screen negative. See assessment/plan for hospital-acquired pneumonia. (3) Acute and chronic respiratory failure ([id number]) Current Visit: No Status: Acute Assessment and Plan: At home she usually usees 4 L O2, but on admission required 5 L with maintaining saturations in the low 90s. Her x-ray does suggest a little bit of fluid overload and she was given Lasix in ED in addition to the antibiotic coverage and monitor closely. Patient became hypoxic with acute resp distress overnight requiring bipap. Additional IV Lasix was given, breathing treatments , and solu medrol. Pulm consulted, recommendations appreciated. Continue treatment of pneumonia, possibly aspiration pneumonia given her presentation. Also adding Lasix and monitoring. Swallow eval pending when she is able to participate. (4) HCAP (healthcare-associated pneumonia) Current Visit: Yes Status: Acute Assessment and Plan: As mentioned above, continue broad-spectrum coverage. Cultures have been sent and we will down titrate antibiotics accordingly. Infectious Disease consulted, recommendations appreciated Vancomycin d/c'd as MRSA screen negative Continue Zosyn Follow-up cultures Swallow eval when she is able to participate (5) DVT prophylaxis Current Visit: No Status: Acute Assessment and Plan: EPCD (6) COPD (chronic obstructive pulmonary disease) Current Visit: No Status: Chronic Assessment and Plan: Patient does have underlying COPD and requires home oxygen. Received steroids overnight because of desaturation and respiratory distress. Treatment as above. (7) Bicytopenia Current Visit: Yes Status: Acute Assessment and Plan: Patient has a high white count which has been repeated and currently at 21,000. She does have a hemoglobin of 10.16% bands, myelocytes, metamyelocytes and reactive lymphocytes in the bloodstream. This could be consistent with leukemoid reaction but I will keep a close eye on this and we may need to involve hematology oncology if needed. For now I would continue to treat her underlying infection. On 06/25 WBC were normal, will hold off on heme/onc consult for now and re eval when she is more stable. (8) Schizophrenia Current Visit: Yes Status: Acute Assessment and Plan: Resuming home medications but seroquel at lower dose due to adverse side effects. (9) Diastolic CHF Current Visit: No Status: Chronic Assessment and Plan: Adding Lasix IV with close monitoring. - Time Spent with Patient Total time spent is greater than 50% in coordination of care (as documented) at patient's floor/unit and/or counseling patient: Internal Medicine: Result - Labs CBC & Chem 7: 06/29/18 03:23 06/29/18 03:23 Labs: Short CBC 06/29/18 Range/Units 03:23 WBC 19.9 H (4.3-11.1) K/mcL Hgb 10.1 L (11.5-15.4) g/dL Hct 31.6 L (35.3-44.9) % Plt Count 243 D (140-400) K/mcL Neutrophils # 10.8 H (1.6-8.9) K/mcL BMP 06/29/18 03:23 Sodium 134 L Potassium 3.7 Chloride 93 L Carbon Dioxide 34 H BUN 24 H Creatinine 0.97 Glucose 128 H Calcium 8.4 L - ABG Interpretation ABG results: ABG ABG pH 7.40 pH Units (7.32-7.45) 06/29/18 01:40 ABG pCO2 61 mmHg (35-45) H 06/29/18 01:40 ABG pO2 70 mmHg (85-104) L 06/29/18 01:40 ABG O2 Saturation 93 % (95-98) L 06/29/18 01:40 PT/INR, D-dimer PT 14.0 Seconds (9.4-12.1) H 06/27/18 05:18 Consult Discharge Plan - Plan Referrals: Kwesi Allen MD [Primary Care Provider] - (3) Acute and chronic respiratory failure ([id number]) Qualifiers: Respiratory failure complication: hypoxia Qualified Code(s): J96.21 - Acute and chronic respiratory failure with hypoxia (6) COPD (chronic obstructive pulmonary disease) Qualifiers: COPD type: chronic bronchitis Chronic bronchitis type: unspecified Qualified Code(s): J42 - Unspecified chronic bronchitis (8) Schizophrenia Qualifiers: Schizophrenia type: unspecified Qualified Code(s): F20.9 - Schizophrenia, unspecified
[2018-06-29] MEDS: Piperacillin/Tazobactam 3.375 GM in 0.9 % Sodium Chloride Mini Bag 100 ML IVPB SCH ×3 (10:01→23:02)
[2018-06-29] MEDS ORDERED: Furosemide 40 MG/4 ML VIAL IVP SCH (11:45)
[2018-06-29] MEDS: Furosemide 20 MG/2 ML VIAL IVP SCH ×2 (12:21→17:43)
--- NOTE | 2018-06-29 13:53 | Infectious Disease Progress No ---
Date of Encounter: 06/29/18 Time of Encounter: 10:30 - Assessment and Plan (1) Severe sepsis Current Visit: No Status: Acute The patient had two SIRS criteria plus altered mental status and hypotension responsive to IV fluids. Likely secondary to PNA. Improved. White blood cell count has trended down a little bit. She was tachycardic and tachypneic overnight, but that seems to have improved. Hypotension has resolved. Blood cultures drawn 06/27/18 are positive 1/2 sets for GPC, likely CONS based on PCR. (2) Bacteremia Current Visit: Yes Status: Acute Causative organism: Unclear, but likely CONS based on clinical picture and PCR. Blood cultures drawn 06/27/18 are positive 1/2 sets for Staph species per PCR. Given the clinical picture, likely CONS and likely a contaminant. Repeat blood cultures x 2 sets now. No additional antibiotics required. (3) Pneumonia Current Visit: No Status: Acute Location: Left lower lobe. Causative organism unlcear. CXR completed 06/27/18 showed unchanged LLL airspace disease. Concern for aspiration given the patient's clinical picture. Get sputum culture if the patient is able to provide an adequate specimen. Strep pneumococcal legionella urinary antigens were negative during last admission. Respiratory infectious panel is negative as well. MRSA screen was negative as well. Repeat UATs, MRSA screen, and RIP.--> pending. CT chest showed bibasilar opacities, likely infection vs. atelectasis. Continue Zosyn 3.375 g IV every 8 hours. (day 3) Duration of treatment depends on the clinical picture. Monitor renal function and is just antibiotics. Swallow evaluation completed. Pending official report, but per nursing notes, patient will require mechanically altered textures and thin liquids. Qualifiers: Pneumonia type: due to unspecified organism Laterality: bilateral Lung location: lower lobe of lung Qualified Code(s): J18.1 - Lobar pneumonia, unspecified organism (4) Sinusitis Current Visit: Yes Status: Acute Location: Paranasal Causative organism: Unclear. Continue Zosyn 3.375 grams IV Q8H. (day 3) Duration of treatment depends on the clinical picture. Monitor renal function and dose-adjust antibiotics. Qualifiers: Sinusitis location: unspecified location Chronicity: acute Recurrence: non-recurrent Qualified Code(s): J01.90 - Acute sinusitis, unspecified (5) Altered mental status Current Visit: No Status: Acute Etiology unclear: medications vs. sepsis vs. other. CT head negative for acute intracranial abnormality. Improved today. Continue to monitor closely. Qualifiers: Altered mental status type: delirium Qualified Code(s): R41.0 - Disorientation, unspecified (6) Bicytopenia Current Visit: Yes Status: Acute Hemoglobin remains low, but thrombocytopenia has resolved. I anticipate that the patient is chronically anemic. Further workup and management per the primary team. Continue to trend. (7) Psoriatic arthritis Current Visit: No Status: Acute On methotrexate at home. (8) COPD (chronic obstructive pulmonary disease) Current Visit: No Status: Chronic Qualifiers: COPD type: chronic bronchitis Chronic bronchitis type: unspecified Qualified Code(s): J42 - Unspecified chronic bronchitis (9) History of schizophrenia Current Visit: No Status: Chronic (10) Seroma after procedure Current Visit: Yes Status: Acute CT chest showed a large seroma in the previous hernia repair wound bed. Consider general surgery to evaluate. - Subjective Interval history: Patient seen and examined. Overnight events noted. The patient became hypoxic , but responded well to BIPAP and lasix. Currently, she is on O2 via nasal cannula. Her mental status appears back to baseline. She reports some shortness of breath and does report a nonproductive moist cough. She denies any fevers or chills or rigors. She reports chronic headache, neck pain, and back pain at her baseline. She denies any chest or abdominal pain. She denies any nausea or vomiting or diarrhea. She reports she is hungry, but did not like what they brought her for breakfast. Rees catheter remains patent. She has not had a bowel movement since admission. She denies any oral thrush or new skin lesions. Infect Dis PN-Objective Data - Labs CBC & Chem 7: 06/29/18 03:23 06/29/18 03:23 Labs: Laboratory Results - last 24 hr 06/29/18 06/29/18 06/29/18 01:40 03:23 03:23 WBC 19.9 H RBC 3.29 L Hgb 10.1 L Hct 31.6 L MCV 96.0 MCH 30.7 MCHC 32.0 RDW 18.6 H Plt Count 243 D MPV 11.0 Seg Neutrophils % 44.0 Band Neutrophils % 10.0 H Lymphocytes % 2.0 Monocytes % 6.0 Metamyelocytes % 8.0 H Myelocytes % 24.0 H Promyelocytes % 4.0 H Blast Cells % 2.0 H Neutrophils # 10.8 H Lymphocytes # 0.4 L Monocytes # 1.2 Nucleated RBCs/100 WBC 0.1 H Platelet Estimate Normal Polychromasia 1+ A Anisocytosis 1+ A Sample Site L Radial ABG pH 7.40 ABG pCO2 61 H ABG pO2 70 L ABG HCO3 38 H ABG Total CO2 40 H ABG O2 Saturation 93 L ABG Base Excess 11 H Samuel Test Positive O2 Delivery Device BiPAP Blood Gas Modality AVAPS Inspired O2 100.0 Tidal Volume 400 PEEP 10 Sodium 134 L Potassium 3.7 Chloride 93 L Carbon Dioxide 34 H BUN 24 H Creatinine 0.97 Est GFR ( Amer) > 60 Est GFR (Non-Af Amer) 57 L BUN/Creatinine Ratio 25 Glucose 128 H Calculated Osmolality 284 Calcium 8.4 L Magnesium 1.4 L Cultures: Cultures 06/29/18 12:39 Legionella Antigen - Final Urine,[place] Streptococcus pneumoniae Antigen (M - Final 06/29/18 03:31 Blood Culture - Preliminary Peripheral Venipuncture Culture is incubating and being continuously monitored for growth. Final report to follow. 06/29/18 03:31 Blood Culture - Preliminary Peripheral Venipuncture Culture is incubating and being continuously monitored for growth. Final report to follow. - Impressions Impressions Chest CT 06/29/18 09:30 IMPRESSION: 1. Status post hernia repair. A large postoperative seroma is identified in the postsurgical bed measuring approximately 10 x 9 x 8 cm. 2. Trace bilateral effusions with bibasilar opacities. Findings are favored to represent infection over atelectasis. 3. Stable consolidative opacities in the left perihilar region since November 2017. 4. Cholecystectomy. D/ / 06/29/2018 10:34:23 Odalys Webb MD / Radha Kay Interpreting Provider: Odalys Webb MD Exam - Constitutional Vitals: Temp Pulse Resp BP Pulse Ox 97.6 F 76 16 119/74 94 06/29/18 11:14 06/29/18 11:14 06/29/18 11:14 06/29/18 11:14 06/29/18 11:14 General appearance: average body habitus, cooperative, no acute distress - Head Head exam: Present: atraumatic, normal inspection, normocephalic - Eye Eye exam: Present: EOMI, normal appearance, PERRL Pupils: Present: normal accommodation - ENT ENT exam: Present: mucous membranes moist - Neck Neck exam: Present: normal inspection - Respiratory Respiratory exam: Present: CTAB. Absent: rales, respiratory distress, rhonchi, wheezes - Cardiovascular Cardiovascular exam: Present: RRR, +S1, +S2 - GI/Abdominal GI/Abdominal exam: Present: normal bowel sounds, soft. Absent: distended, tenderness Additional comments: Rees catheter noted to be draining clear yellow urine. - Extremities Exam Extremities exam: Present: normal inspection. Absent: joint swelling, pedal edema, tenderness - Neurological Exam Neurological exam: Present: alert, oriented X3, no focal deficits - Psychiatric Psychiatric exam: Present: normal affect, normal mood - Skin Skin exam: Present: dry, intact, normal color, warm Consult Discharge Plan - Plan Referrals: Kwesi Allen MD [Primary Care Provider] - - Attending Attestation I examined this patient and my medical decision-making was reviewed with the Resident Physician. I agree with the documented findings, disposition and treatment plan as described except to the extent set forth below.
[2018-06-29 14:05] LABS: Adenovirus Not Detected (Not Detect); Bordetella Pertussis Not Detected (Not Detect); Chlamydophila pneumoniae Not Detected (Not Detect); Coronavirus 229E Not Detected (Not Detect); Coronavirus HKU1 Not Detected (Not Detect); Coronavirus NL63 Not Detected (Not Detect); Coronavirus OC43 Not Detected (Not Detect); Human Metapneumovirus Not Detected (Not Detect); Human Rhinovirus/Enterovirus Not Detected (Not Detect); Influenza A Subtype 2009 H1 Not Detected (Not Detect); Influenza A Untypeable Not Detected (Not Detect); Influenza B Not Detected (Not Detect); Mycoplasma pneumoniae Not Detected (Not Detect); Parainfluenza Virus 1 Not Detected (Not Detect); Parainfluenza Virus 2 Not Detected (Not Detect); Parainfluenza Virus 3 Not Detected (Not Detect); Parainfluenza Virus 4 Not Detected (Not Detect); Respiratory Syncytial Virus Not Detected (Not Detect)
[2018-06-29] MEDS ORDERED: Albuterol 2.5 MG/3 ML NEBULIZER IH PRN (14:49)
[2018-06-30] MEDS: Ipratropium/Albuterol Neb 3 ML IH SCH ×5 (03:26→21:37)
[2018-06-30 04:12] LABS: Mean Corpuscular HGB Conc 31.3 g/dL (31.6-35.5); Mean Corpuscular Hemoglobin 30.5 pg (28.0-33.3); Mean Corpuscular Volume 97.6 fL (83.0-100.0); Mean Platelet Volume 10.7 fL (9.4-12.4); Nucleated Red Blood Cells 0.2 /100 WBC (0); Platelet Count 293 K/mcL (140-400); Red Blood Count 3.28 M/mcL (3.82-4.97); Red Cell Distribution Width 18.4 % (11.5-14.5)
[2018-06-30 04:36] LABS: Calcium 8.2 mg/dL (8.6-10.3); Potassium 3.4 mEq/L (3.5-5.1)
[2018-06-30 04:41] LABS: Anisocytosis 1+ (Not Present); Lymphocytes # 8.4 K/mcL (0.6-4.6); Neutrophils # 5.5 K/mcL (1.6-8.9); Platelet Estimate Normal (Normal)
[2018-06-30] MEDS: *HR* Heparin 5,000 UNIT/ML VIAL SQ SCH ×2 (05:31→17:28)
[2018-06-30] MEDS: predniSONE 20 MG TABLET PO SCH (08:01)
[2018-06-30] MEDS: Aspirin Enteric Coated 81 MG Tablet PO SCH (08:01)
[2018-06-30] MEDS: Divalproex (12 HR) 500 MG TABLET PO SCH ×2 (08:01→19:59)
[2018-06-30] MEDS: Furosemide 20 MG/2 ML VIAL IVP SCH (08:02)
[2018-06-30] MEDS: Rivastigmine Patch 4.6 MG PATCH.TD24 TD SCH (08:02)
[2018-06-30] MEDS: Piperacillin/Tazobactam 3.375 GM in 0.9 % Sodium Chloride Mini Bag 100 ML IVPB SCH ×3 (08:02→23:10)
[2018-06-30] MEDS: Folic Acid 1 MG TABLET PO SCH (08:03)
[2018-06-30] MEDS: *HR* HYDROcodone/Acet 7.5/325 mg TABLET PO PRN ×2 (08:24→19:58)
--- NOTE | 2018-06-30 12:27 | Internal Med Progress Note ---
Hospitalist Progress Note - Encounter Date of Encounter: 06/30/18 Time of Encounter: 12:34 - Subjective Interval History: Patient had episode of oxygen desaturation with SpO2 of 81%, and respiratory distress. She required bipap and transfer to 2N unit for closer monitoring. She was given 40 mg Lasix IV and 125 mg Solu Medrol and breathing treatment. She improved on bipap and current treatment. Currently she tells me her dyspnea is improving. She denies fevers/chills, chest pain, diaphoresis. She does note she had chest pain on and off a few days ago. 06/30: Patient woke up SOB, denies fevers/chills, chest pain. Now requiring high flow O2 at 11L - Exam Vitals: Temp Pulse Resp BP Pulse Ox 97.5 F L 71 16 102/68 90 06/30/18 11:00 06/30/18 11:00 06/30/18 11:15 06/30/18 11:00 06/30/18 11:15 Exam: GENERAL: alert and oriented 3, no acute resp distress, on NC EYES: PERRLA, EOMI OROPHARYNX: MMM NECK: No JVD, No carotid bruits, Carotid pulse normal contour, Supple LUNGS: Rales improved but has tight breath sounds with wheezing that slightly worse than yesterday. CARDIAC: RRR, normal S1/S2. ABDOMEN: Soft, NT/ND, normal bowel sounds. EXTREMITIES: No edema appreciated NEURO: Limited gait exam. Sensation grossly intact, Cranial nerves II-XII intact - Assessment and Plan (1) Metabolic encephalopathy Current Visit: Yes Status: Acute Assessment and Plan: Multifactorial. Polypharmacy and sepsis Patient has been on polypharmacy especially concerning for high dose of Seroquel. She also has an increased white count with suggestion of leuko- moderate reaction which I have verified on repeat WBC. At this time I would continue her broad spectrum antibiotic coverage Zosyn and check cultures. She will continue to be treated for healthcare acquired pneumonia until we have reason to de-escalate her antibiotics. Her head CT did not suggest any new strokes. On 06/28 Seroquel dose was decreased cautiously to 400 mg HS to avoid abrupt withdrawal. DC Pepcid as this can precipitate symptoms. AMS is now resolved. (2) Severe sepsis Current Visit: No Status: Acute Assessment and Plan: Continue Zosyn Suspect may be aspiration pneumonia. 1 of 2 samples of blood cultures positive for gram positive cocci, which may be contaminate. MRSA screen negative. See assessment/plan for hospital-acquired pneumonia. Repeat blood cultures 06/29 pending. (3) Acute and chronic respiratory failure (iwihx-mo-ngehgyd) Current Visit: No Status: Acute Assessment and Plan: At home she usually usees 4 L O2, but on admission required 5 L with maintaining saturations in the low 90s. Her x-ray does suggest a little bit of fluid overload and she was given Lasix in ED in addition to the antibiotic coverage and monitor closely. Patient became hypoxic with acute resp distress overnight requiring bipap. Additional IV Lasix was given, breathing treatments, and solu medrol. Pulm consulted, recommendations appreciated. Swallow eval was normal without any signs or symptoms of aspiration. 06/30: woke up a little more short of breath requiring high flow NC O2, will schedule more frequent, now to Q4H and monitor. Decrease Lasix dose to 20 mg PO daily as she does not appear fluid overloaded now. (4) HCAP (healthcare-associated pneumonia) Current Visit: Yes Status: Acute Assessment and Plan: As mentioned above, continue broad-spectrum coverage. Cultures have been sent and we will down titrate antibiotics accordingly. Infectious Disease consulted, recommendations appreciated Vancomycin d/c'd as MRSA screen negative No signs of aspiration on swallow eval. Continue Zosyn Follow-up cultures (5) DVT prophylaxis Current Visit: No Status: Acute Assessment and Plan: EPCD (6) COPD (chronic obstructive pulmonary disease) Current Visit: No Status: Chronic Assessment and Plan: Patient does have underlying COPD and requires oxygen at [facility], 4 L. Treatment as above. (7) Bicytopenia Current Visit: Yes Status: Acute Assessment and Plan: Patient has a high white count which has been repeated and currently at 21,000. She does have a hemoglobin of 10.16% bands, myelocytes, metamyelocytes and reactive lymphocytes in the bloodstream. This could be consistent with leukemoid reaction but I will keep a close eye on this and we may need to involve hematology oncology if needed. For now I would continue to treat her underlying infection. Will hold off on heme/onc consult for now and re eval when she is more stable. (8) Schizophrenia Current Visit: Yes Status: Acute Assessment and Plan: Resuming home medications but seroquel at lower dose due to adverse side effects. (9) Diastolic CHF Current Visit: No Status: Chronic Assessment and Plan: Was given IV Lasix and now will transition to lower dose as she is appearing more euvolemic. Will monitor fluid status closely. - Time Spent with Patient Total time spent is greater than 50% in coordination of care (as documented) at patient's floor/unit and/or counseling patient: Internal Medicine: Result - Labs CBC & Chem 7: 06/30/18 03:50 06/30/18 03:50 Labs: Short CBC 06/30/18 Range/Units 03:50 WBC 16.2 H (4.3-11.1) K/mcL Hgb 10.0 L (11.5-15.4) g/dL Hct 32.0 L (35.3-44.9) % Plt Count 293 (140-400) K/mcL Neutrophils # 5.5 (1.6-8.9) K/mcL BMP 06/30/18 03:50 Sodium 139 Potassium 3.4 L Chloride 95 L Carbon Dioxide 39 H BUN 29 H Creatinine 1.18 Glucose 81 Calcium 8.2 L - ABG Interpretation ABG results: ABG ABG pH 7.40 pH Units (7.32-7.45) 06/29/18 01:40 ABG pCO2 61 mmHg (35-45) H 06/29/18 01:40 ABG pO2 70 mmHg (85-104) L 06/29/18 01:40 ABG O2 Saturation 93 % (95-98) L 06/29/18 01:40 PT/INR, D-dimer PT 14.0 Seconds (9.4-12.1) H 06/27/18 05:18 Consult Discharge Plan - Plan Referrals: Kwesi Allen MD [Primary Care Provider] - (3) Acute and chronic respiratory failure ([id number]) Qualifiers: Respiratory failure complication: hypoxia Qualified Code(s): J96.21 - Acute and chronic respiratory failure with hypoxia (6) COPD (chronic obstructive pulmonary disease) Qualifiers: COPD type: chronic bronchitis Chronic bronchitis type: unspecified Qualified Code(s): J42 - Unspecified chronic bronchitis (8) Schizophrenia Qualifiers: Schizophrenia type: unspecified Qualified Code(s): F20.9 - Schizophrenia, unspecified
[2018-06-30] MEDS ORDERED: Potassium Chloride Elixir 20 MEQ/15 ML UDC PO ONE (14:13)
--- NOTE | 2018-06-30 15:39 | Infectious Disease Progress No ---
Date of Encounter: 06/30/18 Time of Encounter: 15:31 - Assessment and Plan (1) Severe sepsis Current Visit: No Status: Acute The patient had two SIRS criteria plus altered mental status and hypotension responsive to IV fluids. Likely secondary to PNA. Improved. White blood cell count has trended down a little bit. She was tachycardic and tachypneic overnight, but that seems to have improved. Hypotension has resolved. Blood cultures drawn 06/27/18 are positive 1/2 sets for GPC, likely CONS based on PCR. (2) Bacteremia Current Visit: Yes Status: Acute Causative organism: staph lugenensis that is methicilin sensitive Repeat blood cultures x 2 sets no growth to date no signs of infective endocarditis if repat cultures are negative, will get TTE No additional antibiotics required. (3) Pneumonia Current Visit: No Status: Acute Location: Left lower lobe. Causative organism unlcear. CXR completed 06/27/18 showed unchanged LLL airspace disease. Concern for aspiration given the patient's clinical picture. Get sputum culture if the patient is able to provide an adequate specimen. Strep pneumococcal legionella urinary antigens were negative during last admission. Respiratory infectious panel is negative as well. MRSA screen was negative as well. Repeat UATs, MRSA screen, and RIP.--> pending. CT chest showed bibasilar opacities, likely infection vs. atelectasis. Continue Zosyn 3.375 g IV every 8 hours. (day 3) Duration of treatment depends on the clinical picture. Monitor renal function and is just antibiotics. Swallow evaluation completed. Pending official report, but per nursing notes, patient will require mechanically altered textures and thin liquids. Qualifiers: Pneumonia type: due to unspecified organism Laterality: bilateral Lung location: lower lobe of lung Qualified Code(s): J18.1 - Lobar pneumonia, unspecified organism (4) Sinusitis Current Visit: Yes Status: Acute Location: Paranasal Causative organism: Unclear. Continue Zosyn 3.375 grams IV Q8H. (day 3) Duration of treatment depends on the clinical picture. Monitor renal function and dose-adjust antibiotics. Qualifiers: Sinusitis location: unspecified location Chronicity: acute Recurrence: non-recurrent Qualified Code(s): J01.90 - Acute sinusitis, unspecified (5) Altered mental status Current Visit: No Status: Acute Etiology unclear: medications vs. sepsis vs. other. CT head negative for acute intracranial abnormality. Improved today. Continue to monitor closely. Qualifiers: Altered mental status type: delirium Qualified Code(s): R41.0 - Disorientation, unspecified (6) Bicytopenia Current Visit: Yes Status: Acute Hemoglobin remains low, but thrombocytopenia has resolved. I anticipate that the patient is chronically anemic. Further workup and management per the primary team. Continue to trend. (7) Psoriatic arthritis Current Visit: No Status: Acute On methotrexate at home. (8) COPD (chronic obstructive pulmonary disease) Current Visit: No Status: Chronic Qualifiers: COPD type: chronic bronchitis Chronic bronchitis type: unspecified Qualified Code(s): J42 - Unspecified chronic bronchitis (9) History of schizophrenia Current Visit: No Status: Chronic (10) Seroma after procedure Current Visit: Yes Status: Acute CT chest showed a large seroma in the previous hernia repair wound bed. Consider general surgery to evaluate. - Subjective Interval history: Patient seen and examined. Overnight events noted. Denies any chest pain or shortness of breath. No diarrhea. Had a bowel movement yesterday. Patient afebrile, heart rate normal and no tachypnea. WBC continues to improve Blood cultures from 06/27/2018 also for Staphylococcus lugdunensis that is methicillin-resistant Infect Dis PN-Objective Data - Labs CBC & Chem 7: 06/30/18 03:50 06/30/18 03:50 Labs: Laboratory Results - last 24 hr 06/30/18 06/30/18 03:50 03:50 WBC 16.2 H RBC 3.28 L Hgb 10.0 L Hct 32.0 L MCV 97.6 MCH 30.5 MCHC 31.3 L RDW 18.4 H Plt Count 293 MPV 10.7 Seg Neutrophils % 34.0 Lymphocytes % 52.0 Monocytes % 6.0 Metamyelocytes % 4.0 H Myelocytes % 2.0 H Promyelocytes % 2.0 H Neutrophils # 5.5 Lymphocytes # 8.4 H Monocytes # 1.0 Nucleated RBCs/100 WBC 0.2 H Platelet Estimate Normal Anisocytosis 1+ A Sodium 139 Potassium 3.4 L Chloride 95 L Carbon Dioxide 39 H BUN 29 H Creatinine 1.18 Est GFR ( Amer) 55 L Est GFR (Non-Af Amer) 46 L BUN/Creatinine Ratio 25 Glucose 81 Calculated Osmolality 293 Calcium 8.2 L Cultures: Cultures 06/29/18 12:39 Legionella Antigen - Final Urine,[place] Streptococcus pneumoniae Antigen (M - Final 06/29/18 03:31 Blood Culture - Preliminary Peripheral Venipuncture Culture is incubating and being continuously monitored for growth. Final report to follow. 06/29/18 03:31 Blood Culture - Preliminary Peripheral Venipuncture Culture is incubating and being continuously monitored for growth. Final report to follow. Serology 06/29/18 06/29/18 Range/Units 12:39 12:39 Nasal Screen MRSA (PCR) Negative (Negative) Chlamy pneumoniae PCR Not Detected (Not Detect) Adenovirus (PCR) Not Detected (Not Detect) B. pertussis DNA (PCR) Not Detected (Not Detect) B.parapertussis DNA PCR Not Detected (Not Detect) Coronavirus OC43 (PCR) Not Detected (Not Detect) Coronavirus HKU1 (PCR) Not Detected (Not Detect) Coronavirus 229E (PCR) Not Detected (Not Detect) Coronavirus NL63 (PCR) Not Detected (Not Detect) Human Metapneumovir PCR Not Detected (Not Detect) Influenza A (H1) PCR Not Detected (Not Detect) Influ A (H1N1/09) PCR Not Detected (Not Detect) Influenza A (H3) PCR Not Detected (Not Detect) Influenza A Untype (PCR) Not Detected (Not Detect) Influenza Type B (PCR) Not Detected (Not Detect) M.pneumoniae DNA (PCR) Not Detected (Not Detect) Parainfluenza 1 (PCR) Not Detected (Not Detect) Parainfluenza 2 (PCR) Not Detected (Not Detect) Parainfluenza 3 (PCR) Not Detected (Not Detect) Parainfluenza 4 (PCR) Not Detected (Not Detect) RSV (PCR) Not Detected (Not Detect) Entero/Rhino (PCR) Not Detected (Not Detect) Exam - Constitutional Vitals: Temp Pulse Resp BP Pulse Ox 97.5 F L 71 16 102/68 90 06/30/18 11:00 06/30/18 11:00 06/30/18 11:15 06/30/18 11:00 06/30/18 11:15 General appearance: no acute distress, no febrile - Head Head exam: Present: atraumatic, normocephalic - Respiratory Respiratory exam: Present: CTAB. Absent: wheezes - Cardiovascular Cardiovascular exam: Present: RRR, +S1, +S2 - Neurological Exam Neurological exam: Present: alert - Psychiatric Psychiatric exam: Present: normal affect, normal mood - Skin Additional comments: no endocarditis stigmata Consult Discharge Plan - Plan Referrals: Kwesi Allen MD [Primary Care Provider] -
[2018-07-01] MEDS: Ipratropium/Albuterol Neb 3 ML IH SCH ×7 (00:43→22:59)
[2018-07-01] MEDS: *HR* HYDROcodone/Acet 7.5/325 mg TABLET PO PRN ×3 (06:17→22:23)
[2018-07-01] MEDS: *HR* Heparin 5,000 UNIT/ML VIAL SQ SCH ×2 (06:17→17:33)
[2018-07-01 07:52] LABS: BUN/Creatinine Ratio 27 (6-26); Blood Urea Nitrogen 29 mg/dL (8-23); Calcium 8.8 mg/dL (8.6-10.3); Carbon Dioxide 32 mEq/L (23-29); Chloride 93 mEq/L (98-107); Glucose 67 mg/dL (70-105); Osmolality,Calculated 280 (280-300); Potassium 4.7 mEq/L (3.5-5.1); Sodium 133 mEq/L (136-145); eGFR For Non-African Americans 52 (> 60)
[2018-07-01] MEDS: Piperacillin/Tazobactam 3.375 GM in 0.9 % Sodium Chloride Mini Bag 100 ML IVPB SCH ×2 (08:04→17:33)
[2018-07-01] MEDS: Furosemide 20 MG TABLET PO SCH (08:05)
[2018-07-01] MEDS: Rivastigmine Patch 4.6 MG PATCH.TD24 TD SCH (08:05)
[2018-07-01] MEDS: Divalproex (12 HR) 500 MG TABLET PO SCH ×2 (08:05→20:19)
[2018-07-01] MEDS: Aspirin Enteric Coated 81 MG Tablet PO SCH (08:05)
[2018-07-01] MEDS: Folic Acid 1 MG TABLET PO SCH (08:05)
[2018-07-01] MEDS: predniSONE 20 MG TABLET PO SCH (08:05)
[2018-07-01 08:29] LABS: Hemoglobin 13.4 g/dL (11.5-15.4); Immature Platelets 7.1 % (1.1-6.1); Mean Corpuscular HGB Conc 31.2 g/dL (31.6-35.5); Mean Corpuscular Hemoglobin 30.9 pg (28.0-33.3); Mean Corpuscular Volume 99.3 fL (83.0-100.0); Mean Platelet Volume 10.4 fL (9.4-12.4); Nucleated Red Blood Cells 0.2 /100 WBC (0); Platelet Count 385 K/mcL (140-400); Red Blood Count 4.33 M/mcL (3.82-4.97); Red Cell Distribution Width 18.7 % (11.5-14.5)
--- NOTE | 2018-07-01 09:10 | Internal Med Progress Note ---
Hospitalist Progress Note - Encounter Date of Encounter: 07/01/18 Time of Encounter: 09:08 - Subjective Interval History: Patient had episode of oxygen desaturation with SpO2 of 81%, and respiratory distress. She required bipap and transfer to 2N unit for closer monitoring. She was given 40 mg Lasix IV and 125 mg Solu Medrol and breathing treatment. She improved on bipap and current treatment. Currently she tells me her dyspnea is improving. She denies fevers/chills, chest pain, diaphoresis. She does note she had chest pain on and off a few days ago. 06/30: Patient woke up SOB, denies fevers/chills, chest pain. Now requiring high flow O2 at 11L 07/01: Overnight had difficulty with breathing but this morning feels better. - Exam Vitals: Temp Pulse Resp BP Pulse Ox 97.9 F 67 18 159/98 94 07/01/18 07:26 07/01/18 07:26 07/01/18 07:39 07/01/18 07:39 07/01/18 07:39 Exam: GENERAL: alert and oriented 3, no acute resp distress, on NC EYES: PERRLA, EOMI OROPHARYNX: MMM NECK: No JVD, No carotid bruits, Carotid pulse normal contour, Supple LUNGS: Rales improved but has tight breath sounds with wheezing that slightly worse than yesterday. CARDIAC: RRR, normal S1/S2. ABDOMEN: Soft, NT/ND, normal bowel sounds. EXTREMITIES: No edema appreciated NEURO: Limited gait exam. Sensation grossly intact, Cranial nerves II-XII intact - Assessment and Plan (1) Metabolic encephalopathy Current Visit: Yes Status: Acute Assessment and Plan: Multifactorial. Polypharmacy and sepsis Patient has been on polypharmacy especially concerning for high dose of Seroquel. She also has an increased white count with suggestion of leuko- moderate reaction which I have verified on repeat WBC. At this time I would continue her broad spectrum antibiotic coverage Zosyn and check cultures. She will continue to be treated for healthcare acquired pneumonia until we have reason to de-escalate her antibiotics. Her head CT did not suggest any new strokes. On 06/28 Seroquel dose was decreased cautiously to 400 mg HS to avoid abrupt withdrawal. DC Pepcid as this can precipitate symptoms. AMS is now resolved. (2) Severe sepsis Current Visit: No Status: Acute Assessment and Plan: Continue Zosyn Suspect may be aspiration pneumonia. 1 of 2 samples of blood cultures positive for gram positive cocci, which may be contaminate. MRSA screen negative. See assessment/plan for hospital-acquired pneumonia. Repeat blood cultures 06/29 are NGTD Will get TTE today Continue Zosyn for now. (3) Acute and chronic respiratory failure ([id number]) Current Visit: No Status: Acute Assessment and Plan: At home she usually usees 4 L O2, but on admission required 5 L with maintaining saturations in the low 90s. Her x-ray does suggest a little bit of fluid overload and she was given Lasix in ED in addition to the antibiotic coverage and monitor closely. Patient became hypoxic with acute resp distress overnight requiring bipap. Additional IV Lasix was given, breathing treatments, and solu medrol. Pulm consulted, recommendations appreciated. Swallow eval was normal without any signs or symptoms of aspiration. 06/30: woke up a little more short of breath requiring high flow NC O2, will schedule more frequent, now to Q4H and monitor. Decrease Lasix dose to 20 mg PO daily as she does not appear fluid overloaded now. 07/01: If she has SOB during day, will increase Prednisone. If she does better today will decrease Lasix dose and continue Prednisone taper as is. Wean O2 as tolerated. (4) HCAP (healthcare-associated pneumonia) Current Visit: Yes Status: Acute Assessment and Plan: As mentioned above, continue broad-spectrum coverage. Cultures have been sent and we will down titrate antibiotics accordingly. Infectious Disease consulted, recommendations appreciated Vancomycin d/c'd as MRSA screen negative No signs of aspiration on swallow eval. Continue Zosyn Follow-up cultures, currently repeat cultures are NGTD (5) DVT prophylaxis Current Visit: No Status: Acute Assessment and Plan: EPCD (6) COPD (chronic obstructive pulmonary disease) Current Visit: No Status: Chronic Assessment and Plan: Patient does have underlying COPD and requires oxygen at [facility], 4 L. Treatment as above. (7) Bicytopenia Current Visit: Yes Status: Acute Assessment and Plan: Patient has a high white count which has been repeated and currently at 21,000. She does have a hemoglobin of 10.16% bands, myelocytes, metamyelocytes and reactive lymphocytes in the bloodstream. This could be consistent with leukemoid reaction but I will keep a close eye on this and we may need to involve hematology oncology if needed. For now I would continue to treat her underlying infection. Will hold off on heme/onc consult for now and re eval when she is more stable. (8) Schizophrenia Current Visit: Yes Status: Acute Assessment and Plan: Resuming home medications but seroquel at lower dose due to adverse side effects. (9) Diastolic CHF Current Visit: No Status: Chronic Assessment and Plan: Was given IV Lasix and now will transition to lower dose as she is appearing more euvolemic. Will monitor fluid status closely. Will try to decrease Lasix dose today. - Time Spent with Patient Total time spent is greater than 50% in coordination of care (as documented) at patient's floor/unit and/or counseling patient: Internal Medicine: Result - Labs CBC & Chem 7: 06/30/18 03:50 07/01/18 05:53 Labs: BMP 07/01/18 05:53 Sodium 133 L Potassium 4.7 Chloride 93 L Carbon Dioxide 32 H BUN 29 H Creatinine 1.06 Glucose 67 L Calcium 8.8 - ABG Interpretation ABG results: ABG ABG pH 7.40 pH Units (7.32-7.45) 06/29/18 01:40 ABG pCO2 61 mmHg (35-45) H 06/29/18 01:40 ABG pO2 70 mmHg (85-104) L 06/29/18 01:40 ABG O2 Saturation 93 % (95-98) L 06/29/18 01:40 PT/INR, D-dimer PT 14.0 Seconds (9.4-12.1) H 06/27/18 05:18 Consult Discharge Plan - Plan Referrals: Kwesi Allen MD [Primary Care Provider] - (3) Acute and chronic respiratory failure ([id number]) Qualifiers: Respiratory failure complication: hypoxia Qualified Code(s): J96.21 - Acute and chronic respiratory failure with hypoxia (6) COPD (chronic obstructive pulmonary disease) Qualifiers: COPD type: chronic bronchitis Chronic bronchitis type: unspecified Qualified Code(s): J42 - Unspecified chronic bronchitis (8) Schizophrenia Qualifiers: Schizophrenia type: unspecified Qualified Code(s): F20.9 - Schizophrenia, unspecified
[2018-07-01 09:21] LABS: Lymphocytes # 3.9 K/mcL (0.6-4.6); Monocytes # 0.7 K/mcL (0.0-1.3); Neutrophils # 6.3 K/mcL (1.6-8.9)
[2018-07-01 09:22] LABS: Anisocytosis 1+ (Not Present); Platelet Estimate Normal (Normal)
[2018-07-02] MEDS: Piperacillin/Tazobactam 3.375 GM in 0.9 % Sodium Chloride Mini Bag 100 ML IVPB SCH ×4 (00:18→23:35)
[2018-07-02 04:20] LABS: Hematocrit 33.2 % (35.3-44.9); Mean Corpuscular HGB Conc 31.3 g/dL (31.6-35.5); Mean Corpuscular Hemoglobin 30.7 pg (28.0-33.3); Mean Corpuscular Volume 97.9 fL (83.0-100.0); Mean Platelet Volume 10.4 fL (9.4-12.4); Platelet Count 404 K/mcL (140-400); Red Blood Count 3.39 M/mcL (3.82-4.97); Red Cell Distribution Width 18.2 % (11.5-14.5)
[2018-07-02] MEDS: Ipratropium/Albuterol Neb 3 ML IH SCH ×6 (04:25→23:43)
[2018-07-02 04:26] LABS: Hemoglobin 10.4 g/dL (11.5-15.4)
[2018-07-02 04:41] LABS: BUN/Creatinine Ratio 29 (6-26); Blood Urea Nitrogen 28 mg/dL (8-23); Calcium 8.2 mg/dL (8.6-10.3); Carbon Dioxide 33 mEq/L (23-29); Chloride 96 mEq/L (98-107); Glucose 95 mg/dL (70-105); Lymphocytes # 3.5 K/mcL (0.6-4.6); Monocytes # 1.4 K/mcL (0.0-1.3); Neutrophils # 9.7 K/mcL (1.6-8.9); Osmolality,Calculated 281 (280-300); Potassium 4.9 mEq/L (3.5-5.1); Sodium 133 mEq/L (136-145); eGFR For Non-African Americans 58 (> 60)
[2018-07-02 04:42] LABS: Anisocytosis 1+ (Not Present); Platelet Estimate Normal (Normal)
[2018-07-02] MEDS: *HR* Heparin 5,000 UNIT/ML VIAL SQ SCH ×2 (05:30→16:14)
[2018-07-02] MEDS: predniSONE 20 MG TABLET PO SCH (07:37)
[2018-07-02] MEDS: Aspirin Enteric Coated 81 MG Tablet PO SCH (07:37)
[2018-07-02] MEDS: Furosemide 20 MG TABLET PO SCH (07:38)
[2018-07-02] MEDS: Divalproex (12 HR) 500 MG TABLET PO SCH ×2 (07:38→20:23)
[2018-07-02] MEDS: *HR* HYDROcodone/Acet 7.5/325 mg TABLET PO PRN ×2 (07:38→16:10)
[2018-07-02] MEDS: Folic Acid 1 MG TABLET PO SCH (07:38)
[2018-07-02] MEDS: Rivastigmine Patch 4.6 MG PATCH.TD24 TD SCH (07:39)
--- NOTE | 2018-07-02 08:29 | Electrocardiograph Report ---
[address] [place], [place] [address] Test Date: 2018-06-27 Pat Name: Ivory Tong Department: [id number] Room: 2N03 Gender: F Statistics Intern: : 1950 Requested By: Roldan Ferreira Order Number: [id number] Reading MD: Dileep Vazquez Measurements Intervals [place] Rate: 73 P: 72 NC: 136 QRS: 82 QRSD: 86 T: 45 QT: 390 QTc: 430 Interpretive Statements Sinus rhythm Borderline right axis deviation Low voltage, extremity and precordial leads Electronically Signed On 07-02-2018 8:27:43 EDT by Dileep Vazquez
--- NOTE | 2018-07-02 09:19 | Electrocardiograph Report ---
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
--- NOTE | 2018-07-02 11:34 | Internal Med Progress Note ---
Hospitalist Progress Note - Encounter Date of Encounter: 07/02/18 Time of Encounter: 11:42 - Subjective Interval History: Patient had episode of oxygen desaturation with SpO2 of 81%, and respiratory distress. She required bipap and transfer to 2N unit for closer monitoring. She was given 40 mg Lasix IV and 125 mg Solu Medrol and breathing treatment. She improved on bipap and current treatment. Currently she tells me her dyspnea is improving. She denies fevers/chills, chest pain, diaphoresis. She does note she had chest pain on and off a few days ago. 06/30: Patient woke up SOB, denies fevers/chills, chest pain. Now requiring high flow O2 at 11L 07/01: Overnight had difficulty with breathing but this morning feels better. - Exam Vitals: Temp Pulse Resp BP Pulse Ox 98.0 F 60 18 127/88 96 07/02/18 11:00 07/02/18 11:00 07/02/18 11:00 07/02/18 11:07/02/18 11:00 Exam: GENERAL: alert and oriented 3, no acute resp distress, on NC EYES: PERRLA, EOMI OROPHARYNX: MMM NECK: No JVD, No carotid bruits, Carotid pulse normal contour, Supple LUNGS: Wheezing has improved but there are more rales today. CARDIAC: RRR, normal S1/S2. ABDOMEN: Soft, NT/ND, normal bowel sounds. EXTREMITIES: Trace extremity edema NEURO: Limited gait exam. Sensation grossly intact, Cranial nerves II-XII intact - Assessment and Plan (1) Metabolic encephalopathy Current Visit: Yes Status: Acute Assessment and Plan: Multifactorial. Polypharmacy and sepsis Patient has been on polypharmacy especially concerning for high dose of Seroquel. She also has an increased white count with suggestion of leuko- moderate reaction which I have verified on repeat WBC. At this time I would continue her broad spectrum antibiotic coverage Zosyn and check cultures. She will continue to be treated for healthcare acquired pneumonia until we have reason to de-escalate her antibiotics. Her head CT did not suggest any new strokes. On 06/28 Seroquel dose was decreased cautiously to 400 mg HS to avoid abrupt withdrawal. DC Pepcid as this can precipitate symptoms. AMS is now resolved. (2) Severe sepsis Current Visit: No Status: Acute Assessment and Plan: Continue Zosyn Suspect may be aspiration pneumonia. 1 of 2 samples of blood cultures positive for gram positive cocci, which may be contaminate. MRSA screen negative. See assessment/plan for hospital-acquired pneumonia. Repeat blood cultures 06/29 are NGTD TTE showed no vegitations. Continue Zosyn for now. (3) Acute and chronic respiratory failure ([id number]) Current Visit: No Status: Acute Assessment and Plan: At home she usually usees 4 L O2, but on admission required 5 L with maintaining saturations in the low 90s. Her x-ray does suggest a little bit of fluid overload and she was given Lasix in ED in addition to the antibiotic coverage and monitor closely. Patient became hypoxic with acute resp distress overnight requiring bipap. Additional IV Lasix was given, breathing treatments, and solu medrol. Pulm consulted, recommendations appreciated. Swallow eval was normal without any signs or symptoms of aspiration. 06/30: woke up a little more short of breath requiring high flow NC O2, will schedule more frequent, now to Q4H and monitor. Decrease Lasix dose to 20 mg PO daily as she does not appear fluid overloaded now. 07/01: If she has SOB during day, will increase Prednisone. If she does better today will decrease Lasix dose and continue Prednisone taper as is. Wean O2 as tolerated. 07/02: appears a little more fluid overloaded. - Will increase Lasix to 40 PO BID - She is back at home O2 levels, will do sleep study tonight. (4) HCAP (healthcare-associated pneumonia) Current Visit: Yes Status: Acute Assessment and Plan: As mentioned above, continue broad-spectrum coverage. Cultures have been sent and we will down titrate antibiotics accordingly. Infectious Disease consulted, recommendations appreciated Vancomycin d/c'd as MRSA screen negative No signs of aspiration on swallow eval. Continue Zosyn Follow-up cultures, currently repeat cultures are NGTD (5) DVT prophylaxis Current Visit: No Status: Acute Assessment and Plan: EPCD (6) COPD (chronic obstructive pulmonary disease) Current Visit: No Status: Chronic Assessment and Plan: Patient does have underlying COPD and requires oxygen at long-term, 4 L. Treatment as above. (7) Bicytopenia Current Visit: Yes Status: Acute Assessment and Plan: Patient has a high white count which has been repeated and currently at 21,000. She does have a hemoglobin of 10.16% bands, myelocytes, metamyelocytes and reactive lymphocytes in the bloodstream. This could be consistent with leukemoid reaction but I will keep a close eye on this and we may need to involve hematology oncology if needed. For now I would continue to treat her underlying infection. Will hold off on heme/onc consult for now and re eval when she is more stable. (8) Schizophrenia Current Visit: Yes Status: Acute Assessment and Plan: Resuming home medications but seroquel at lower dose due to adverse side effects. (9) Diastolic CHF Current Visit: No Status: Chronic Assessment and Plan: Was given IV Lasix and now will transition to lower dose as she is appearing more euvolemic. Will monitor fluid status closely. Will titrate lasix dose up today because she did appear to retain a little more fluid today. DVT Prophylaxis: heparin SQ - Time Spent with Patient Total time spent is greater than 50% in coordination of care (as documented) at patient's floor/unit and/or counseling patient: Internal Medicine: Result - Labs CBC & Chem 7: 07/02/18 04:07 07/02/18 04:07 Labs: Short CBC 07/02/18 Range/Units 04:07 WBC 17.3 H (4.3-11.1) K/mcL Hgb 10.4 L D (11.5-15.4) g/dL Hct 33.2 L (35.3-44.9) % Plt Count 404 H (140-400) K/mcL Neutrophils # 9.7 H (1.6-8.9) K/mcL BMP 07/02/18 04:07 Sodium 133 L Potassium 4.9 Chloride 96 L Carbon Dioxide 33 H BUN 28 H Creatinine 0.96 Glucose 95 Calcium 8.2 L - ABG Interpretation ABG results: ABG ABG pH 7.40 pH Units (7.32-7.45) 06/29/18 01:40 ABG pCO2 61 mmHg (35-45) H 06/29/18 01:40 ABG pO2 70 mmHg (85-104) L 06/29/18 01:40 ABG O2 Saturation 93 % (95-98) L 06/29/18 01:40 PT/INR, D-dimer PT 14.0 Seconds (9.4-12.1) H 06/27/18 05:18 - Impressions Impressions Echocardiogram 07/01/18 09:11 Impressions: LVEF 65%.Normal LV chamber size, wall thickness and function. Normal right ventricular structure and function. Mild aortic valve calcification. Mild to moderate tricuspid regurgitation. Probable at least mild pulmonary hypertension. The IVC is not well evaluated. No gross valvular vegetation on current study; however, recommend ALEXA for vegetation if clinically indicated. Left Ventricular Wall Motion: Rest Echo Findings All wall segments showed normal motion. Findings: Study Quality * Technically adequate exam. ECG Findings * Normal sinus rhythm. Left Ventricle * LVEF 65%. * Normal LV chamber size, wall thickness and function. * Sigmoidal septum. * Normal left ventricular diastolic function. Right Ventricle * Normal right ventricular structure and function. Left Atrium * Normal left atrial size. Right Atrium * Normal right atrial size. Interatrial Septum * Interatrial septum not well evaluated. Aortic Valve * No aortic stenosis. * No aortic regurgitation. * Mildly calcified aortic valve leaflets. * Aortic valve not well visualized. Mitral Valve * Trace mitral regurgitation. * No gross vegetation seen. Tricuspid Valve * Mild to moderate tricuspid regurgitation. * At least mild pulmonary hypertension. * Estimated RV-RA gradient is 38 mmHg. Pulmonic Valve * Pulmonic valve not well visualized. * No pulmonic regurgitation. Aorta * Normally sized aortic root. Pericardium * The pericardium appears normal. IVC * The IVC is not well evaluated. Consult Discharge Plan - Plan Referrals: Kwesi Allen MD [Primary Care Provider] - (3) Acute and chronic respiratory failure ([id number]) Qualifiers: Respiratory failure complication: hypoxia Qualified Code(s): J96.21 - Acute and chronic respiratory failure with hypoxia (6) COPD (chronic obstructive pulmonary disease) Qualifiers: COPD type: chronic bronchitis Chronic bronchitis type: unspecified Qualified Code(s): J42 - Unspecified chronic bronchitis (8) Schizophrenia Qualifiers: Schizophrenia type: unspecified Qualified Code(s): F20.9 - Schizophrenia, unspecified
[2018-07-02] MEDS ORDERED: Furosemide 40 MG/4 ML VIAL IVP ONE (11:45)
[2018-07-02] MEDS ORDERED: Furosemide 40 MG TABLET PO SCH (11:45)
[2018-07-02] MEDS: Furosemide 40 MG TABLET PO SCH (16:10)
[2018-07-02] MEDS ORDERED: Acetaminophen 325 MG TABLET PO PRN (20:11)
[2018-07-03] MEDS: Ipratropium/Albuterol Neb 3 ML IH SCH ×4 (03:43→16:16)
[2018-07-03 04:17] LABS: Hematocrit 33.6 % (35.3-44.9); Hemoglobin 10.4 g/dL (11.5-15.4); Mean Corpuscular Hemoglobin 30.2 pg (28.0-33.3); Mean Corpuscular Volume 97.7 fL (83.0-100.0); Mean Platelet Volume 10.4 fL (9.4-12.4); Platelet Count 447 K/mcL (140-400); Red Blood Count 3.44 M/mcL (3.82-4.97); Red Cell Distribution Width 18.2 % (11.5-14.5)
[2018-07-03 04:42] LABS: BUN/Creatinine Ratio 28 (6-26); Blood Urea Nitrogen 29 mg/dL (8-23); Calcium 8.4 mg/dL (8.6-10.3); Carbon Dioxide 33 mEq/L (23-29); Chloride 95 mEq/L (98-107); Glucose 94 mg/dL (70-105); Osmolality,Calculated 288 (280-300); Potassium 4.3 mEq/L (3.5-5.1); Sodium 136 mEq/L (136-145); eGFR For Non-African Americans 54 (> 60)
[2018-07-03] MEDS: *HR* Heparin 5,000 UNIT/ML VIAL SQ SCH (05:54)
[2018-07-03 06:03] LABS: Lymphocytes # 3.3 K/mcL (0.6-4.6); Monocytes # 2.6 K/mcL (0.0-1.3); Neutrophils # 8.7 K/mcL (1.6-8.9); Reactive Lymphocytes Present (Not Present)
[2018-07-03 06:04] LABS: Anisocytosis 1+ (Not Present)
[2018-07-03] MEDS: Piperacillin/Tazobactam 3.375 GM in 0.9 % Sodium Chloride Mini Bag 100 ML IVPB SCH ×2 (08:22→15:08)
[2018-07-03] MEDS: Furosemide 40 MG TABLET PO SCH ×2 (08:22→15:07)
[2018-07-03] MEDS: predniSONE 20 MG TABLET PO SCH (08:22)
[2018-07-03] MEDS: Divalproex (12 HR) 500 MG TABLET PO SCH (08:22)
[2018-07-03] MEDS: Folic Acid 1 MG TABLET PO SCH (08:23)
[2018-07-03] MEDS: Aspirin Enteric Coated 81 MG Tablet PO SCH (08:23)
[2018-07-03] MEDS: Rivastigmine Patch 4.6 MG PATCH.TD24 TD SCH (08:23)
[2018-07-03] MEDS: *HR* HYDROcodone/Acet 7.5/325 mg TABLET PO PRN (08:30)
--- NOTE | 2018-07-03 08:43 | Internal Med Progress Note ---
Hospitalist Progress Note - Encounter Date of Encounter: 07/03/18 - Subjective Interval History: Patient had episode of oxygen desaturation with SpO2 of 81%, and respiratory distress. She required bipap and transfer to 2N unit for closer monitoring. She was given 40 mg Lasix IV and 125 mg Solu Medrol and breathing treatment. She improved on bipap and current treatment. Currently she tells me her dyspnea is improving. She denies fevers/chills, chest pain, diaphoresis. She does note she had chest pain on and off a few days ago. 06/30: Patient woke up SOB, denies fevers/chills, chest pain. Now requiring high flow O2 at 11L 07/01: Overnight had difficulty with breathing but this morning feels better. - Exam Vitals: Temp Pulse Resp BP Pulse Ox 98.0 F 62 18 106/84 94 07/03/18 06:46 07/03/18 06:46 07/03/18 07:27 07/03/18 06:46 07/03/18 07:27 - Assessment and Plan (1) Metabolic encephalopathy Current Visit: Yes Status: Acute (2) Severe sepsis Current Visit: No Status: Acute (3) Acute and chronic respiratory failure ([id number]) Current Visit: No Status: Acute (4) HCAP (healthcare-associated pneumonia) Current Visit: Yes Status: Acute (5) DVT prophylaxis Current Visit: No Status: Acute (6) COPD (chronic obstructive pulmonary disease) Current Visit: No Status: Chronic (7) Bicytopenia Current Visit: Yes Status: Acute (8) Schizophrenia Current Visit: Yes Status: Acute (9) Diastolic CHF Current Visit: No Status: Chronic - Time Spent with Patient Total time spent is greater than 50% in coordination of care (as documented) at patient's floor/unit and/or counseling patient: Internal Medicine: Result - Labs CBC & Chem 7: 07/03/18 04:02 07/03/18 04:02 Labs: Short CBC 07/03/18 Range/Units 04:02 WBC 18.2 H (4.3-11.1) K/mcL Hgb 10.4 L (11.5-15.4) g/dL Hct 33.6 L (35.3-44.9) % Plt Count 447 H (140-400) K/mcL Neutrophils # 8.7 (1.6-8.9) K/mcL BMP 07/03/18 04:02 Sodium 136 Potassium 4.3 Chloride 95 L Carbon Dioxide 33 H BUN 29 H Creatinine 1.02 Glucose 94 Calcium 8.4 L - ABG Interpretation ABG results: ABG ABG pH 7.40 pH Units (7.32-7.45) 06/29/18 01:40 ABG pCO2 61 mmHg (35-45) H 06/29/18 01:40 ABG pO2 70 mmHg (85-104) L 06/29/18 01:40 ABG O2 Saturation 93 % (95-98) L 06/29/18 01:40 PT/INR, D-dimer PT 14.0 Seconds (9.4-12.1) H 06/27/18 05:18 Consult Discharge Plan - Plan Referrals: Kwesi Allen MD [Primary Care Provider] - (3) Acute and chronic respiratory failure ([id number]) Qualifiers: Respiratory failure complication: hypoxia Qualified Code(s): J96.21 - Acute and chronic respiratory failure with hypoxia (6) COPD (chronic obstructive pulmonary disease) Qualifiers: COPD type: chronic bronchitis Chronic bronchitis type: unspecified Qualified Code(s): J42 - Unspecified chronic bronchitis (8) Schizophrenia Qualifiers: Schizophrenia type: unspecified Qualified Code(s): F20.9 - Schizophrenia, unspecified
--- NOTE | 2018-07-03 08:53 | Discharge Summary ---
- NOTES TO OUTPATIENT PROVIDER Notes to Outpatient Provider: - Follow-up fluid status - Required diuresis and will be sent on Lasix 40 mg PO BID. Recommend to titrate this down soon maybe to 20 mg BID. - Repeat BMP in 3-5 days. - Finish 3 or 6 days of clindamycin. - Repeat chest x-ray in few weeks. - Seroquel Dose needed adjusted. - BIPAP at night. Orders not resulted at time of discharge: Pending orders 06/29/18 03:31 Culture,Blood [BC] Routine 06/29/18 10:12 Sputum Culture [Culture,Sputum with Gram Stain] [RM] Routine 07/04/18 04:00 BMP [Basic Metabolic Panel] AM 0400 Complete Blood Count [HEME] AM 0400 07/05/18 04:00 BMP [Basic Metabolic Panel] AM 0400 Complete Blood Count [HEME] AM 0400 Date of Encounter: 07/03/18 Time of Encounter: 08:50 - Discharge Diagnosis (1) Metabolic encephalopathy Priority: Primary Status: Acute Assessment and Plan: Multifactorial. Polypharmacy and sepsis Patient has been on polypharmacy especially concerning for high dose of Seroquel. She also has an increased white count with suggestion of leuko- moderate reaction which I have verified on repeat WBC. At this time I would continue her broad spectrum antibiotic coverage Zosyn and check cultures. She will continue to be treated for healthcare acquired pneumonia until we have reason to de-escalate her antibiotics. Her head CT did not suggest any new strokes. On 06/28 Seroquel dose was decreased cautiously to 400 mg HS to avoid abrupt withdrawal. DC Pepcid as this can precipitate symptoms. AMS is now resolved. (2) Severe sepsis Priority: Secondary Status: Acute Assessment and Plan: Continue Zosyn Suspect may be aspiration pneumonia. 1 of 2 samples of blood cultures positive for gram positive cocci, which may be contaminate. MRSA screen negative. See assessment/plan for hospital-acquired pneumonia. Repeat blood cultures 06/29 are NGTD TTE showed no vegitations. Continue Zosyn for now. (3) Acute and chronic respiratory failure (cygvn-pg-lhufnzu) Priority: Secondary Status: Acute Qualifiers: Respiratory failure complication: hypoxia Qualified Code(s): J96.21 - Acute and chronic respiratory failure with hypoxia (4) HCAP (healthcare-associated pneumonia) Priority: Secondary Status: Acute (5) DVT prophylaxis Priority: Secondary Status: Acute (6) COPD (chronic obstructive pulmonary disease) Priority: Secondary Status: Chronic Qualifiers: COPD type: chronic bronchitis Chronic bronchitis type: unspecified Qualified Code(s): J42 - Unspecified chronic bronchitis (7) Bicytopenia Priority: Secondary Status: Acute (8) Schizophrenia Priority: Secondary Status: Acute Qualifiers: Schizophrenia type: unspecified Qualified Code(s): F20.9 - Schizophrenia, unspecified (9) Heart failure Priority: Secondary Status: Acute Qualifiers: Heart failure type: diastolic Heart failure chronicity: acute on chronic Qualified Code(s): I50.33 - Acute on chronic diastolic (congestive) heart failure Hospital course: gayatri Tong is a 68 year old female with past medical history of COPD/CHF/dementia , hyperlipidemia, hypertension, TIA, bipolar disorder, schizophrenia who was recently admitted and treated for HCAP And discharged to a longterm after being transitioned to Augmentin was brought back with altered mental status. The patient was treated with 48 hours of IV antibiotics vancomycin and Zosyn and her last admission and then switched to Augmentin to complete a total of 7- 10 days' course. The patient went to the longterm and Apparently had altered mental status where she was confused and lethargic. She usually takes 4 L at baseline of oxygen and she dropped her oxygen saturation to the high 80s on 4 L and had to be bumped up to 5 L. Medication review on admission showed that she was on 700 mg of Seroquel at nightime and 50 mg PO TID. She also takes [place] Q4H prn. A CT of head in the ED was negative. In the ED WBC elevated to 21 k and trended down. She was admitted for metabolic encephalopathy (likely polypharmacy and sepsis), respiratory failure, and severe sepsis. ID and Pulmonology were consulted. She was started on Zosyn, BIPAP, COPD exacerbation treatment. Seroquel dose was decreased to 400 mg HS. she had Bipap and high flow O2 for support and was able to titrate down back to home O2. She had adequate diuresis as well. Her respiratory status improved and she was back at baseline of 4 L O2. She qualified for BIPAP upon discharge. She has done 7 days of Zosyn and clinically well, afebril, not septic, no leukocytosis. There was 1 of 2 samples that were positive for Staph lugdunesis but likely a contaminate. She will be discharged with: 3- 6 days to finish of clindamycin, will need to use clinical judgment. (did not use moxifloxacin because Staph lugdunensis is resistant, but still chance that it is a contaminant). Also 40 mg PO BID Lasix (should titrate as tolerated), BIPAP at night, decreased Seroquel and [place] doses. Should repeat chest x-ray in 3-4 weeks. - Time Spent with Patient Total time spent providing and/or coordinating discharge services: - Discharge Medications Prescriptions: HYDROcodone/Acet 7.5/325 mg [[place] 7.5-325 mg] 1 tab PO Q8HR PRN 2 Days #6 tablet PRN Reason: Pain Home Medications: Methotrexate [Otrexup] 15 mg PO WE 08/23/17 [History] Bisacodyl [Dulcolax] 10 mg RC DAILY PRN 11/08/17 [History] Folic Acid 1 mg PO DAILY 11/08/17 [History] Mag Hydrox/Al Hydrox/Simeth [Antacid Suspension] 30 ml PO QID PRN 11/08/17 [ History] Aspirin Enteric Coated [Aspirin EC] 81 mg PO DAILY 04/19/18 [History] Atorvastatin Calcium [Lipitor] 20 mg PO HS 04/19/18 [History] Cholecalciferol (D-3) [Vitamin D] 5,000 unit PO WE 04/19/18 [History] Divalproex (12 HR) [Depakote (12 HR)] 500 mg PO BID 04/19/18 [History] Docusate [Colace] 100 mg PO BID PRN 04/19/18 [History] Famotidine [Heartburn Prevention] 20 mg PO DAILY 04/19/18 [History] Ferrous Sulfate [Iron] 325 mg PO DAILY 04/19/18 [History] Ipratropium/Albuterol Neb [Duoneb] 3 ml IH Q6HR PRN 04/19/18 [History] Rivastigmine Patch [Exelon] 4.6 mg TD DAILY 04/19/18 [History] Metoprolol [Lopressor] 37.5 mg PO BID 30 Days #45 tablet 04/25/18 [Rx] Mometasone Furoate [Asmanex Hfa] 2 puff IH BID 06/23/18 [History] Lactobacillus Acidophilus [Acidophilus] 1 each PO BID #20 tablet 06/26/18 [Rx] Acetaminophen [Tylenol] 650 mg PO Q6HR PRN tablet 07/03/18 [Rx] Albuterol Neb [Proventil Neb] 2.5 mg IH [id number] PRN inhsol 07/03/18 [Rx] Benzonatate [Tessalon] 100 mg PO TID PRN capsule 07/03/18 [Rx] Clindamycin [Cleocin] 300 mg PO Q12H #6 capsule 07/03/18 [Rx] Furosemide [Lasix] 40 mg PO BIDDIURETIC tablet 07/03/18 [Rx] GuaiFENesin ER [Mucinex] 1,200 mg PO BID PRN tbbp.12hr 07/03/18 [Rx] HYDROcodone/Acet 7.5/325 mg [[place] 7.5-325 mg] 1 tab PO Q8H PRN 2 Days #6 [Rx] HYDROcodone/Acet 7.5/325 mg [[place] 7.5-325 mg] 1 tab PO Q8HR PRN 2 Days #6 tablet 07/03/18 [Rx] Quetiapine Fumarate [Seroquel] 50 mg PO TIDWM tablet 07/03/18 [Rx] Quetiapine Fumarate [Seroquel] 400 mg PO HS tablet 07/03/18 [Rx] predniSONE [PredniSONE] 20 mg PO DAILY tablet 07/03/18 [Rx] Allergies/Adverse Reactions: 3 Allergy/AdvReac Type Severity Reaction Status Date / Time No Known Allergies Allergy Verified 06/23/18 07:08 Date of admission: 06/28/18 14:42 Primary care physician: Kwesi Allen MD Discharging clinician: Tracy Walters - Constitutional Vitals: Temp Pulse Resp BP Pulse Ox 98.0 F 62 18 106/84 94 07/03/18 06:46 07/03/18 06:46 07/03/18 07:27 07/03/18 06:46 07/03/18 07:27 Exam: GENERAL: alert and oriented 3, no acute resp distress, on NC EYES: PERRLA, EOMI OROPHARYNX: MMM NECK: No JVD, No carotid bruits, Carotid pulse normal contour, Supple LUNGS: Wheezing has improved, rales improved CARDIAC: RRR, normal S1/S2. ABDOMEN: Soft, NT/ND, normal bowel sounds. EXTREMITIES: Trace extremity edema NEURO: Limited gait exam. Sensation grossly intact, Cranial nerves II-XII intact - Patient Status Disposition: Transfer SNF Condition: Fair Functional capacity at discharge: uses cane/walker Overall status at discharge: patient is progressing back to baseline - Discharge Instructions Follow Up With: Kwesi Allen MD [Primary Care Provider] - - Diet and Activity Activity: as per physical therapy Diet: advance to your usual diet
--- NOTE | 2018-07-03 09:31 | Physician Discharge Referral ---
ExtendedCare Referral Info Institutional Level of Care: Skilled - Diagnosis (1) Metabolic encephalopathy Priority: Primary Status: Acute (2) Severe sepsis Priority: Secondary Status: Acute (3) Acute and chronic respiratory failure ([id number]) Priority: Secondary Status: Acute (4) HCAP (healthcare-associated pneumonia) Priority: Secondary Status: Acute (5) DVT prophylaxis Priority: Secondary Status: Acute (6) COPD (chronic obstructive pulmonary disease) Priority: Secondary Status: Chronic (7) Bicytopenia Priority: Secondary Status: Acute (8) Schizophrenia Priority: Secondary Status: Acute (9) Heart failure Priority: Secondary Status: Acute - Transfer Medications Prescriptions: HYDROcodone/Acet 7.5/325 mg [[place] 7.5-325 mg] 1 tab PO Q8HR PRN 2 Days #6 tablet PRN Reason: Pain Clindamycin [Cleocin] 300 mg PO Q12H #6 capsule Home Medications: Methotrexate [Otrexup] 15 mg PO WE 08/23/17 [History] Bisacodyl [Dulcolax] 10 mg RC DAILY PRN 11/08/17 [History] Folic Acid 1 mg PO DAILY 11/08/17 [History] Mag Hydrox/Al Hydrox/Simeth [Antacid Suspension] 30 ml PO QID PRN 11/08/17 [ History] Aspirin Enteric Coated [Aspirin EC] 81 mg PO DAILY 04/19/18 [History] Atorvastatin Calcium [Lipitor] 20 mg PO HS 04/19/18 [History] Cholecalciferol (D-3) [Vitamin D] 5,000 unit PO WE 04/19/18 [History] Divalproex (12 HR) [Depakote (12 HR)] 500 mg PO BID 04/19/18 [History] Docusate [Colace] 100 mg PO BID PRN 04/19/18 [History] Famotidine [Heartburn Prevention] 20 mg PO DAILY 04/19/18 [History] Ferrous Sulfate [Iron] 325 mg PO DAILY 04/19/18 [History] Ipratropium/Albuterol Neb [Duoneb] 3 ml IH Q6HR PRN 04/19/18 [History] Rivastigmine Patch [Exelon] 4.6 mg TD DAILY 04/19/18 [History] Metoprolol [Lopressor] 37.5 mg PO BID 30 Days #45 tablet 04/25/18 [Rx] Mometasone Furoate [Asmanex Hfa] 2 puff IH BID 06/23/18 [History] Lactobacillus Acidophilus [Acidophilus] 1 each PO BID #20 tablet 06/26/18 [Rx] Acetaminophen [Tylenol] 650 mg PO Q6HR PRN tablet 07/03/18 [Rx] Albuterol Neb [Proventil Neb] 2.5 mg IH [id number] PRN inhsol 07/03/18 [Rx] Benzonatate [Tessalon] 100 mg PO TID PRN capsule 07/03/18 [Rx] Clindamycin [Cleocin] 300 mg PO Q12H #6 capsule 07/03/18 [Rx] Furosemide [Lasix] 40 mg PO BIDDIURETIC tablet 07/03/18 [Rx] GuaiFENesin ER [Mucinex] 1,200 mg PO BID PRN tbbp.12hr 07/03/18 [Rx] HYDROcodone/Acet 7.5/325 mg [[place] 7.5-325 mg] 1 tab PO Q8H PRN 2 Days #6 [Rx] HYDROcodone/Acet 7.5/325 mg [[place] 7.5-325 mg] 1 tab PO Q8HR PRN 2 Days #6 tablet 07/03/18 [Rx] Quetiapine Fumarate [Seroquel] 50 mg PO TIDWM tablet 07/03/18 [Rx] Quetiapine Fumarate [Seroquel] 400 mg PO HS tablet 07/03/18 [Rx] predniSONE [PredniSONE] 20 mg PO DAILY tablet 07/03/18 [Rx] Allergies/Adverse Reactions: 3 Allergy/AdvReac Type Severity Reaction Status Date / Time No Known Allergies Allergy Verified 06/23/18 07:08 - Respiratory Orders Oxygen / L per min (4) Smoking Cessation: Smoking cessation has been advised. For more information, call the [facility] [employer] Quit Line at 6-056-VMBA-NOW. - Ancillary Orders May use pressure relief devices daily prn, May consult with Dentist, Presentation Specialist, Police Communications Operator PRN - Advance Directives Code Status: Full Code - Mobility Orders Other (as per PT/OT) - Rehabiliation Orders Rehab Orders: Evaluation for Physical Therapy, Evaluation for Occupational Therapy - Diet Orders Cardiac CERTIFICATION: I certify that the transfer of the above named patient to an Extended Care Facility is necessary for the continuing treatment of the diagnosis listed. The above information is true and accurate reflection of patient's current condition. Confidential - Redisclosure prohibited without a patient's written consent.
--- NOTE | 2018-07-03 16:19 | Infectious Disease Progress No ---
Date of Encounter: 07/03/18 Time of Encounter: 10:20 - Assessment and Plan (1) Severe sepsis Status: Acute The patient had two SIRS criteria plus altered mental status and hypotension responsive to IV fluids. Likely secondary to PNA. Improved. White blood cell count remains elevated, but likely secondary to steroids. Tachycardia and tachypnea resolved. Hypotension has resolved. Blood cultures drawn 06/27/18 are positive 1/2 sets for S. lugdenensis. Repeat blood cultures drawn 06/29/18 are NGTD x 2 sets. (2) Bacteremia Status: Acute Causative organism: staph lugenensis that is methicilin sensitive. Likely a contaminant. Repeat blood cultures x 2 sets no growth to date. No signs of infective endocarditis. Repeat blood cultures drawn 06/29/18 are NGTD x 2 sets. TTE negative for vegetation. No additional antibiotics required. (3) Pneumonia Status: Acute Location: Left lower lobe. Causative organism unlcear. CXR completed 06/27/18 showed unchanged LLL airspace disease. Concern for aspiration given the patient's clinical picture. Get sputum culture if the patient is able to provide an adequate specimen. Strep pneumococcal legionella urinary antigens were negative during last admission. Respiratory infectious panel is negative as well. MRSA screen was negative as well. Repeat UATs, MRSA screen, and RIP.--> negative. CT chest showed bibasilar opacities, likely infection vs. atelectasis. Continue Zosyn 3.375 g IV every 8 hours. (day 7) Duration of treatment depends on the clinical picture. Can transition to PO Augmentin 875mg PO BID and Cipro 500mg PO BID to complete 10 day course of treatment. Monitor renal function and is just antibiotics. Swallow evaluation completed. Patient will require mechanically altered textures and thin liquids. Qualifiers: Pneumonia type: due to unspecified organism Laterality: bilateral Lung location: lower lobe of lung Qualified Code(s): J18.1 - Lobar pneumonia, unspecified organism (4) Sinusitis Status: Acute Location: Paranasal Causative organism: Unclear. Continue Zosyn 3.375 grams IV Q8H. (day 7) Duration of treatment depends on the clinical picture. Can transition to PO Augmentin and Cipro to complete 10 day course as stated above. Monitor renal function and dose-adjust antibiotics. Qualifiers: Sinusitis location: unspecified location Chronicity: acute Recurrence: non-recurrent Qualified Code(s): J01.90 - Acute sinusitis, unspecified (5) Altered mental status Status: Acute Etiology unclear: medications vs. sepsis vs. other. CT head negative for acute intracranial abnormality. Resolved. Continue to monitor closely. Qualifiers: Altered mental status type: delirium Qualified Code(s): R41.0 - Disorientation, unspecified (6) Bicytopenia Status: Acute Hemoglobin remains low, but thrombocytopenia has resolved. I anticipate that the patient is chronically anemic. Further workup and management per the primary team. Continue to trend. (7) Psoriatic arthritis Status: Acute On methotrexate at home. (8) COPD (chronic obstructive pulmonary disease) Status: Chronic Qualifiers: COPD type: chronic bronchitis Chronic bronchitis type: unspecified Qualified Code(s): J42 - Unspecified chronic bronchitis (9) History of schizophrenia Status: Chronic (10) Seroma after procedure Status: Acute CT chest showed a large seroma in the previous hernia repair wound bed. Consider general surgery to evaluate. - Subjective Interval history: Patient seen and examined. Weekend notes reviewed. She reports some shortness of breath and does report a nonproductive moist cough. She denies any fevers or chills or rigors. She reports chronic headache, neck pain, and back pain at her baseline. She denies any chest or abdominal pain. She denies any nausea or vomiting or diarrhea. She reports her appetite is okay. Rees catheter removed yesterday and patient denies urinary complaints. Reports soft BM this morning. She denies any oral thrush or new skin lesions. Infect Dis PN-Objective Data - Labs CBC & Chem 7: 07/03/18 04:02 07/03/18 04:02 Labs: Laboratory Results - last 24 hr 07/03/18 07/03/18 04:02 04:02 WBC 18.2 H RBC 3.44 L Hgb 10.4 L Hct 33.6 L MCV 97.7 MCH 30.2 MCHC 31.0 L RDW 18.2 H Plt Count 447 H MPV 10.4 Seg Neutrophils % 42.0 Band Neutrophils % 6.0 H Lymphocytes % 18.0 Monocytes % 14.0 Metamyelocytes % 14.0 H Myelocytes % 6.0 H Neutrophils # 8.7 Lymphocytes # 3.3 Monocytes # 2.6 H Reactive Lymphocytes Present A Platelet Estimate Slight increase H Anisocytosis 1+ A Sodium 136 Potassium 4.3 Chloride 95 L Carbon Dioxide 33 H BUN 29 H Creatinine 1.02 Est GFR ( Amer) > 60 Est GFR (Non-Af Amer) 54 L BUN/Creatinine Ratio 28 H Glucose 94 Calculated Osmolality 288 Calcium 8.4 L Cultures: Cultures 06/29/18 12:39 Legionella Antigen - Final Urine,[place] Streptococcus pneumoniae Antigen (M - Final 06/29/18 03:31 Blood Culture - Preliminary Peripheral Venipuncture Culture is incubating and being continuously monitored for growth. Final report to follow. 06/29/18 03:31 Blood Culture - Preliminary Peripheral Venipuncture Culture is incubating and being continuously monitored for growth. Final report to follow. Serology 06/29/18 06/29/18 Range/Units 12:39 12:39 Nasal Screen MRSA (PCR) Negative (Negative) Chlamy pneumoniae PCR Not Detected (Not Detect) Adenovirus (PCR) Not Detected (Not Detect) B. pertussis DNA (PCR) Not Detected (Not Detect) B.parapertussis DNA PCR Not Detected (Not Detect) Coronavirus OC43 (PCR) Not Detected (Not Detect) Coronavirus HKU1 (PCR) Not Detected (Not Detect) Coronavirus 229E (PCR) Not Detected (Not Detect) Coronavirus NL63 (PCR) Not Detected (Not Detect) Human Metapneumovir PCR Not Detected (Not Detect) Influenza A (H1) PCR Not Detected (Not Detect) Influ A (H1N1/09) PCR Not Detected (Not Detect) Influenza A (H3) PCR Not Detected (Not Detect) Influenza A Untype (PCR) Not Detected (Not Detect) Influenza Type B (PCR) Not Detected (Not Detect) M.pneumoniae DNA (PCR) Not Detected (Not Detect) Parainfluenza 1 (PCR) Not Detected (Not Detect) Parainfluenza 2 (PCR) Not Detected (Not Detect) Parainfluenza 3 (PCR) Not Detected (Not Detect) Parainfluenza 4 (PCR) Not Detected (Not Detect) RSV (PCR) Not Detected (Not Detect) Entero/Rhino (PCR) Not Detected (Not Detect) Exam - Constitutional Vitals: Temp Pulse Resp BP Pulse Ox 98.2 F 68 18 108/76 92 07/03/18 16:09 07/03/18 16:09 07/03/18 16:09 07/03/18 16:09 07/03/18 16:09 General appearance: average body habitus, cooperative, no acute distress - Head Head exam: Present: atraumatic, normal inspection, normocephalic - Eye Eye exam: Present: EOMI, normal appearance, PERRL Pupils: Present: normal accommodation - ENT ENT exam: Present: mucous membranes moist - Neck Neck exam: Present: normal inspection - Respiratory Respiratory exam: Present: CTAB. Absent: rales, respiratory distress, rhonchi, wheezes - Cardiovascular Cardiovascular exam: Present: RRR, +S1, +S2 - GI/Abdominal GI/Abdominal exam: Present: normal bowel sounds, soft. Absent: distended, tenderness - Extremities Exam Extremities exam: Present: normal inspection. Absent: joint swelling, pedal edema, tenderness - Neurological Exam Neurological exam: Present: alert, oriented X3, no focal deficits - Psychiatric Psychiatric exam: Present: normal affect, normal mood - Skin Skin exam: Present: dry, intact, normal color, warm Consult Discharge Plan - Plan Instructions: Clindamycin (By mouth), Hydrocodone/Acetaminophen (By mouth), Pneumonia (DC) Referrals: Kwesi Allen MD [Primary Care Provider] - Prescriptions: HYDROcodone/Acet 7.5/325 mg [[place] 7.5-325 mg] 1 tab PO Q8HR PRN 2 Days #6 tablet PRN Reason: Pain Clindamycin [Cleocin] 300 mg PO Q12H #6 capsule - Attending Attestation I examined this patient and my medical decision-making was reviewed with the Resident Physician. I agree with the documented findings, disposition and treatment plan as described except to the extent set forth below.
[2018-07-03 19:12] VITALS: BP 110/83
== END 2018-07-03 19:25 | DRG 720 ==
LOC: EMEROOARM 04:05 → 3BNU 04:05 → 3ANU 07:37 → 2NNU 06-28 04:39
PROVIDERS: ADMIT Pediatrics; ATTEND Pediatrics